=== PATIENT | female | born 1955 | race Caucasian/White ===

== ENCOUNTER 2016-05-25 16:05 | Inpatient (IN) | payer MEDICAID ==
[~2016-05-25] VITALS: Ht 160 cm; Wt 72.1 kg
[~2016-05-25 16:05] MED LIST: AMBIEN5 MG ORAL; CALCIUM CARBON500 M1 PO; CARBIDOPA-LEVODOPA PO; COGENTIN PO; COGENTIN1 MG/ML IM; D5W 50ML50 M1 IV; DILAUDID1 MG/1 ML IV; DOCUSATE SODIU250 MG ORAL; DONEPEZIL HCL5 M2 ORAL; FOLIC ACID1 MG ORAL; GABAPENTIN300 MG ORAL; GABAPENTIN800 MG ORAL; IBUPROFEN600 MG ORAL; KEPPRA1000 MG ORAL; KEPPRA500 M3 ORAL; LYRICA75 M1 ORAL; METHOCARBAMOL500 M1 PO; MIRALAX17 G2 ORAL; MYLANTA II30 ML PO; NALOXONE H0.4 MG/12 IV; PANTOPRAZOLE SO40 MG ORAL; ROBAXIN500 MG PO; SINEMET 25-1001 EAC1 ORAL; SINEMET 25/1001 EA ORAL; TYLENOL EXTRA500 MG ORAL; ZOFRAN4 M3 ORAL
[2016-05-25] MEDS ORDERED: ATIVAN2 MG ORAL (16:12)
[2016-05-25] MEDS ORDERED: NORCO 10-325 T1 EACH ORAL (16:12)
[2016-05-25] MEDS ORDERED: DULCOLAX5 MG RC (16:12)
[2016-05-25] MEDS ORDERED: FENTANYL1 EAC2 TDERMAL (16:12)
[2016-05-25] MEDS ORDERED: SENNA8.6 M2 PO (16:12)
[2016-05-25 16:24] VITALS: BP 106/68
--- NOTE | 2016-05-25 16:39 | Emergency Room Report ---
History of Present Illness General Chief Complaint: Chest Pain Source: Patient Present Illness HPI Patient presents from nursing facility with complaints of chest pain complains of pain midsternal sharp denies any headache or visual changes She has a mild cough as well Denies any abdominal pain She was watching TV when the pain came on She does not also complaining of chest pain midsternal Denies any pleurisy Rates the pain as 3/10 sharp Denies any fevers or chills Patient is chronically debilitated Denies any pleurisy And at this time is doing much better with the pain Allergies: Coded Allergies: No Known Allergies (Unverified , 02/18/16) Patient History Past Medical History: see triage record Pertinent Family History: none Reviewed Nursing Documentation: PMH: Agreed, PSxH: Agreed Nursing Documentation-PMH Hx Cancer: No Hx Gastrointestinal Problems: Yes - GERD Hx Neurological Problems: Yes - brain tumor/shunt,encephalitis,parkinsons disease Hx Seizures: Yes Review of Systems All Other Systems: negative except mentioned in HPI Physical Exam Vital Signs Date Time Temp Pulse Resp B/P Pulse Ox O2 Delivery O2 Flow Rate FiO2 05/25/16 16:05 98.4 100 16 124/78 96 Room Air Sp02 EP Interpretation: reviewed, normal General Appearance: well appearing, no apparent distress Head: normocephalic, atraumatic Eyes: bilateral eye EOMI, bilateral eye PERRL ENT: hearing grossly normal, normal pharynx, TMs + canals normal, uvula midline , other - Patient has a nonspecific rash on the facial area Neck: full range of motion, supple, no meningismus, no bony tend Respiratory: no rhonchi, no respiratory distress, no retraction, no accessory muscle use, wheezing - Bilaterally was noted Cardiovascular #1: normal peripheral pulses, regular rate, rhythm, no edema, no gallop, no JVD, no murmur Gastrointestinal: normal bowel sounds, non tender, soft, no mass, no organomegaly, non-distended, no guarding, no hernia, no pulsatile mass, no rebound Genitourinary: no CVA tenderness Musculoskeletal: other - Patient chronically debilitated Neurologic: oriented x3, responsive, sensory intact Psychiatric: mood/affect normal Skin: warm/dry, palpation normal Lymphatic: normal inspection, no adenopathy Medical Decision Making Diagnostic Impression: Primary Impression: ACS (acute coronary syndrome) ER Course Patient is a fairly complex patient with multiple differential to consideration including but not limited to cardiac cardiopulmonary and vascular emergencies Patient's blood work shows a minimally elevated white blood cell count Otherwise essentially at baseline levels Chest x-ray was normal Patient has done significantly better with breathing treatment Patient is time had intermittent discomfort and requires further inpatient care Labs Test 05/25/16 16:37 White Blood Count 12.8 K/UL (4.8-10.8) Red Blood Count 5.28 M/UL (4.20-5.40) Hemoglobin 15.1 G/DL (12.0-16.0) Hematocrit 46.4 % (37.0-47.0) Mean Corpuscular Volume 88 FL (80-99) Mean Corpuscular Hemoglobin 28.6 PG (27.0-31.0) Mean Corpuscular Hemoglobin Concent 32.6 G/DL (32.0-36.0) Red Cell Distribution Width 12.1 % (11.6-14.8) Platelet Count 297 K/UL (150-450) Mean Platelet Volume 7.2 FL (6.5-10.1) Neutrophils (%) (Auto) 62.4 % (45.0-75.0) Lymphocytes (%) (Auto) 26.8 % (20.0-45.0) Monocytes (%) (Auto) 7.0 % (1.0-10.0) Eosinophils (%) (Auto) 3.2 % (0.0-3.0) Basophils (%) (Auto) 0.6 % (0.0-2.0) Prothrombin Time 9.9 SEC (9.30-11.50) Prothromb Time International Ratio 1.0 (0.9-1.1) Activated Partial Thromboplast Time 25 SEC (23-33) Sodium Level 141 mEQ/L (135-145) Potassium Level 4.2 mEQ/L (3.4-4.9) Chloride Level 101 mEQ/L (98-107) Carbon Dioxide Level 21 mEQ/L (20-30) Anion Gap 19 (5-15) Blood Urea Nitrogen 17 mg/dL (7-23) Creatinine 0.7 mg/dL (0.5-0.9) Estimat Glomerular Filtration Rate > 60 mL/min (>60) Glucose Level 99 mg/dL (74-106) Calcium Level 10.1 mg/dL (8.6-10.2) Total Bilirubin 0.9 mg/dL (0.0-1.2) Aspartate Amino Transf (AST/SGOT) 21 U/L (5-40) Alanine Aminotransferase (ALT/SGPT) 23 U/L (3-33) Alkaline Phosphatase 124 U/L (35-104) Total Creatine Kinase 15 U/L (26-140) Creatine Kinase MB < 1.5 ng/mL (< 3.8) Creatine Kinase MB Relative Index 10.0 Troponin I < 0.30 ng/mL (<=0.30) Pro-B-Type Natriuretic Peptide 165 pg/mL (0-125) Total Protein 7.6 g/dL (6.6-8.7) Albumin 4.1 g/dL (3.5-5.2) Globulin 3.5 g/dL Albumin/Globulin Ratio 1.1 (1.0-2.7) EKG Diagnostic Results Rate: normal Rhythm: NSR ST Segments: other - Nonspecific ST and T-wave changes Rhythm Strip Diag. Results EP Interpretation: yes Rate: 77 Rhythm: NSR, no PVC's, no ectopy Chest X-Ray Diagnostic Results EP Interpretation: Yes Findings: no consolidation, no effusion, no pneumothorax Number of Views: 1 Last Vital Signs Date Time Temp Pulse Resp B/P Pulse Ox O2 Delivery O2 Flow Rate FiO2 05/25/16 16:25 115 16 Room Air 05/25/16 16:24 98.4 106/68 96 Status: improved Disposition: ADMITTED INPATIENT Condition: Serious CECE WOOD D.O. May 25, 2016 16:39
[2016-05-25] MEDS ORDERED: Morphine Sulfate 4mg/ml Inj IVP ONE (16:45)
[2016-05-25] MEDS ORDERED: Solu-MEDROL 125mg Inj IVP ONE (16:45)
[2016-05-25] MEDS ORDERED: Levalbuterol Inh UD 1.25mg/0.5ml HHN ONE (16:45)
[2016-05-25 16:58] LABS: BASOPHILS % (AUTO) 0.6 % (0.0-2.0); EOSINOPHILS % (AUTO) 3.2 % (0.0-3.0); LYMPHOCYTES % (AUTO) 26.8 % (20.0-45.0); MEAN CORPUSCULAR HEMOGLOBIN 28.6 PG (27.0-31.0); MEAN CORPUSCULAR HGB CONC 32.6 G/DL (32.0-36.0); MEAN CORPUSCULAR VOLUME 88 FL (80-99); MEAN PLATELET VOLUME 7.2 FL (6.5-10.1); NEUTROPHILS % (AUTO) 62.4 % (45.0-75.0); PLATELET COUNT 297 K/UL (150-450); RED BLOOD COUNT 5.28 M/UL (4.20-5.40); RED CELL DISTRIBUTION WIDTH 12.1 % (11.6-14.8); WHITE BLOOD COUNT 12.8 K/UL (4.8-10.8)
[2016-05-25 17:03] LABS: PROTHROMBIN TIME 9.9 SEC (9.30-11.50)
[2016-05-25 17:04] LABS: TROPONIN I < 0.30 ng/mL (<=0.30)
[2016-05-25 17:12] LABS: ALANINE AMINOTRANSFERASE 23 U/L (3-33); ALBUMIN/GLOBULIN RATIO 1.1 (1.0-2.7); ANION GAP 19 (5-15); ASPARTATE AMINO TRANSFERASE 21 U/L (5-40); CALCIUM 10.1 mg/dL (8.6-10.2); CARBON DIOXIDE 21 mEQ/L (20-30); CHLORIDE 101 mEQ/L (98-107); CREATININE 0.7 mg/dL (0.5-0.9); GLOMERULAR FILTRATION RATE > 60 mL/min (>60); HEMOLYSIS 14; POTASSIUM 4.2 mEQ/L (3.4-4.9); SODIUM 141 mEQ/L (135-145); TOTAL PROTEIN 7.6 g/dL (6.6-8.7)
[2016-05-25 17:15] LABS: CKMB < 1.5 ng/mL (< 3.8)
[2016-05-25 17:59] VITALS: BP 119/78
[2016-05-25] MEDS: Morphine Sulfate 4mg/ml Inj IVP ONE ×2 (19:03→19:07)
[2016-05-25 20:09] VITALS: BP 135/70
[2016-05-25 22:57] VITALS: BP 118/82
[2016-05-25] MEDS ORDERED: Bisacodyl EC 5mg tab ORAL PRN (23:15)
[2016-05-25] MEDS ORDERED: Ketorolac 30mg Inj IV PRN (23:15)
[2016-05-25] MEDS ORDERED: Zolpidem 5mg tab ORAL PRN (23:15)
[2016-05-25] MEDS ORDERED: Enalaprilat 2.5mg/2ml Inj IV PRN (23:15)
[2016-05-25] MEDS ORDERED: DuoNeb 0.5-3(2.5)mg/3ml neb HHN PRN (23:15)
[2016-05-25] MEDS ORDERED: Diltiazem 25mg/5ml IV PRN (23:15)
[2016-05-25] MEDS ORDERED: Nitroglycerin Subl 0.4mg tab (Bottle Of 25) SL PRN (23:15)
[2016-05-25] MEDS ORDERED: Morphine Sulfate 2mg/ml Inj IVP PRN (23:15)
[2016-05-25 23:43] VITALS: BP 122/82
[2016-05-26] VITALS (7 sets, daily range): BP systolic 93–114; BP diastolic 63–78
[2016-05-26 00:08] LABS: TROPONIN I < 0.30 ng/mL (<=0.30)
[2016-05-26] MEDS ORDERED: Aspirin Baby 81mg ORAL SCH (09:00)
[2016-05-26 09:04] LABS: BASOPHILS % (AUTO) 0.2 % (0.0-2.0); LYMPHOCYTES % (AUTO) 16.6 % (20.0-45.0); MEAN CORPUSCULAR HEMOGLOBIN 29.2 PG (27.0-31.0); MEAN CORPUSCULAR HGB CONC 33.6 G/DL (32.0-36.0); MEAN CORPUSCULAR VOLUME 87 FL (80-99); MEAN PLATELET VOLUME 7.1 FL (6.5-10.1); MONOCYTES % (AUTO) 2.9 % (1.0-10.0); NEUTROPHILS % (AUTO) 80.3 % (45.0-75.0); PLATELET COUNT 293 K/UL (150-450); RED BLOOD COUNT 5.17 M/UL (4.20-5.40); RED CELL DISTRIBUTION WIDTH 12.1 % (11.6-14.8); WHITE BLOOD COUNT 11.3 K/UL (4.8-10.8)
[2016-05-26 09:21] LABS: CRP QUANT 0.6 mg/dL (< 0.5)
[2016-05-26 09:25] LABS: PROTHROMBIN TIME 10.2 SEC (9.30-11.50)
[2016-05-26 09:27] LABS: TROPONIN I < 0.30 ng/mL (<=0.30)
[2016-05-26 09:31] LABS: THYROID STIMULATING HORMONE 0.753 uIU/mL (0.300-4.500)
[2016-05-26] MEDS: Lyrica 50mg cap ORAL SCH ×3 (10:18→17:26)
[2016-05-26] MEDS: Sinemet 25/100 tab ORAL SCH ×2 (10:19→17:23)
[2016-05-26] MEDS: Heparin 5000 units/ml inj SUBQ SCH ×2 (10:20→21:44)
--- NOTE | 2016-05-26 11:12 | Diagnostic Imaging Report ---
Indication: Chest pain Technique: One view of the chest Comparison: 02/18/2016 Findings: Again demonstrated is elevation left hemidiaphragm. Right sided ventriculoperitoneal shunt tubing is again demonstrated. Lungs and pleural spaces remain clear. Heart size is normal. No significant interim change Impression: No acute process. Findings as noted
--- NOTE | 2016-05-26 13:15 | History and Physical ---
History of Present Illness General Date patient seen: May 26, 2016 Reason for Hospitalization: Chest Pain Present Illness HPI 60-year-old female with history of brain tumor and resection, chronic pain syndrome, intractable pain, and Parkinson disorder, long term resident [facility] with chest complain of chest tightness. New on onset without radiation. She had had a redness of face that was treated with triple abx ointment without any response. Allergies: Coded Allergies: No Known Allergies (Unverified , 02/18/16) Medication History Scheduled Donepezil Hcl* (Donepezil Hcl*), 5 MG ORAL QHS, (Reported) Fentanyl 75MCG Patch* (Fentanyl 75MCG Patch*), 1 PATCH TDERMAL EVERY 72 HOURS, ( Reported) Levetiracetam (Levetiracetam), 500 MG ORAL Q12HR, (Reported) Levodopa/Carbidopa (Carbidopa-Levodopa 25-100 Tab), 1 TAB ORAL TWICE A DAY, ( Reported) Lorazepam* (Ativan*), 2 MG ORAL THREE TIMES A DAY, (Reported) Pregabalin* (Lyrica*), 100 MG ORAL THREE TIMES A DAY, (Reported) Scheduled PRN Acetaminophen* (Tylenol Extra Strength*), 325 MG ORAL Q6H PRN for Fever/Headache /Mild Pain, (Reported) Al Hydroxide/mg Hydroxide (Mag-Al Plus Suspension), 30 ML PO Q6HR PRN for dyspepsia, (Reported) Bisacodyl (Dulcolax), 10 MG RC for Constipation, (Reported) Dextrose (Dextrose 5%-Water IV Soln), 50 ML IV DAILY PRN for hypoglycemia, ( Reported) Hydrocodone Bit/Acetaminophen 10-325* ([place] 10-325*), 1 TAB ORAL Q4H PRN for For Pain, (Reported) Hydromorphone Hcl (Dilaudid), 1 MG IV Q4HR PRN for For Pain, (Reported) Methocarbamol (Methocarbamol), 500 MG PO Q8HR PRN for Muscle Spasm, (Reported) Naloxone Hcl (Naloxone Hcl*), 0.1 MG IV q24 PRN for sedation rr<10 or sbp<90mmHg , (Reported) Ondansetron* (Zofran*), 4 MG ORAL Q6H PRN for Nausea & Vomiting, (Reported) Polyethylene Glycol 3350* (Miralax*), 17 GM ORAL QHS PRN for Constipation, ( Reported) Zolpidem Tartrate* (Ambien*), 5 MG ORAL BEDTIME PRN for Insomnia, (Reported) Miscellaneous Medications Sennosides (Senna), 8.6 MG PO, (Reported) Patient History Healthcare decision maker Resuscitation status Full Code Advanced Directive on File Past Medical/Surgical History Past Medical/Surgical History: (1) longterm resident (2) Psychiatric disorder (3) Decubitus ulcer of buttock, stage 2 (4) Parkinson disease Review of Systems All Other Systems: negative except mentioned in HPI Physical Exam General Appearance: WD/WN Lines, tubes and drains: peripheral, central line HEENT: normocephalic, atraumatic Neck: non-tender, normal alignment Respiratory/Chest: chest wall non-tender, lungs clear Cardiovascular/Chest: normal peripheral pulses, normal rate Abdomen: normal bowel sounds, non tender Genitourinary/Rectal: normal genital exam 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 Last 24 Hour Vital Signs Date Time Temp Pulse Resp B/P Pulse Ox O2 Delivery O2 Flow Rate FiO2 05/26/16 12:04 98.2 84 18 104/68 96 Room Air 05/26/16 08:00 97.7 95 18 114/74 95 Room Air 05/26/16 04:00 97.9 89 21 95/67 90 Room Air 05/26/16 04:00 89 05/26/16 01:00 95 05/26/16 00:45 97.9 99 18 102/78 96 Room Air 05/25/16 23:50 98.4 103 23 122/82 96 Room Air 05/25/16 23:43 98.4 103 23 122/82 96 Room Air 05/25/16 22:57 98.4 110 17 118/82 98 Room Air 05/25/16 20:09 98.4 112 19 135/70 98 Room Air 05/25/16 19:37 98.4 05/25/16 17:59 98.4 115 18 119/78 98 Room Air 05/25/16 17:16 76 16 97 Room Air 21 05/25/16 17:16 21 05/25/16 17:16 78 16 98 Room Air 21 05/25/16 17:11 98.4 05/25/16 16:25 115 16 Room Air 05/25/16 16:24 98.4 115 16 106/68 96 Room Air 05/25/16 16:05 98.4 100 16 124/78 96 Room Air Intake and Output 05/25/16 05/26/16 19:00 07:00 Intake Total 0 ml Balance 0 ml Intake Oral 0 ml # Voids 1 Laboratory Tests Test 05/25/16 16:37 05/25/16 23:50 05/26/16 08:30 White Blood Count 12.8 K/UL (4.8-10.8) H 11.3 K/UL (4.8-10.8) H Red Blood Count 5.28 M/UL (4.20-5.40) 5.17 M/UL (4.20-5.40) Hemoglobin 15.1 G/DL (12.0-16.0) 15.1 G/DL (12.0-16.0) Hematocrit 46.4 % (37.0-47.0) 45.0 % (37.0-47.0) Mean Corpuscular Volume 88 FL (80-99) 87 FL (80-99) Mean Corpuscular Hemoglobin 28.6 PG (27.0-31.0) 29.2 PG (27.0-31.0) Mean Corpuscular Hemoglobin Concent 32.6 G/DL (32.0-36.0) 33.6 G/DL (32.0-36.0) Red Cell Distribution Width 12.1 % (11.6-14.8) 12.1 % (11.6-14.8) Platelet Count 297 K/UL (150-450) 293 K/UL (150-450) Mean Platelet Volume 7.2 FL (6.5-10.1) 7.1 FL (6.5-10.1) Neutrophils (%) (Auto) 62.4 % (45.0-75.0) 80.3 % (45.0-75.0) H Lymphocytes (%) (Auto) 26.8 % (20.0-45.0) 16.6 % (20.0-45.0) L Monocytes (%) (Auto) 7.0 % (1.0-10.0) 2.9 % (1.0-10.0) Eosinophils (%) (Auto) 3.2 % (0.0-3.0) H 0.0 % (0.0-3.0) Basophils (%) (Auto) 0.6 % (0.0-2.0) 0.2 % (0.0-2.0) Prothrombin Time 9.9 SEC (9.30-11.50) 10.2 SEC (9.30-11.50) Prothromb Time International Ratio 1.0 (0.9-1.1) 1.0 (0.9-1.1) Activated Partial Thromboplast Time 25 SEC (23-33) 25 SEC (23-33) Sodium Level 141 mEQ/L (135-145) Potassium Level 4.2 mEQ/L (3.4-4.9) Chloride Level 101 mEQ/L (98-107) Carbon Dioxide Level 21 mEQ/L (20-30) Anion Gap 19 (5-15) H Blood Urea Nitrogen 17 mg/dL (7-23) Creatinine 0.7 mg/dL (0.5-0.9) Estimat Glomerular Filtration Rate > 60 mL/min (>60) Glucose Level 99 mg/dL (74-106) Calcium Level 10.1 mg/dL (8.6-10.2) Total Bilirubin 0.9 mg/dL (0.0-1.2) Aspartate Amino Transf (AST/SGOT) 21 U/L (5-40) Alanine Aminotransferase (ALT/SGPT) 23 U/L (3-33) Alkaline Phosphatase 124 U/L (35-104) H Total Creatine Kinase 15 U/L (26-140) L Creatine Kinase MB < 1.5 ng/mL (< 3.8) Creatine Kinase MB Relative Index 10.0 Troponin I < 0.30 ng/mL (<=0.30) < 0.30 ng/mL (<=0.30) < 0.30 ng/mL (<=0.30) Pro-B-Type Natriuretic Peptide 165 pg/mL (0-125) H Total Protein 7.6 g/dL (6.6-8.7) Albumin 4.1 g/dL (3.5-5.2) Globulin 3.5 g/dL Albumin/Globulin Ratio 1.1 (1.0-2.7) C-Reactive Protein, Quantitative 0.6 mg/dL (< 0.5) H Triglycerides Level 50 mg/dL (< 150) Cholesterol Level 162 mg/dL (< 200) LDL Cholesterol 111 mg/dL (60-99) H HDL Cholesterol 41 mg/dL (> 60) Cholesterol/HDL Ratio 4.0 (3.3-4.4) Thyroid Stimulating Hormone (TSH) 0.753 uIU/mL (0.300-4.500) Height (Feet): 5 Height (Inches): 3.00 Weight (Pounds): 159 Medications Current Medications Medications (Trade) Dose Ordered Sig/Bushra Route PRN Reason Start Time Stop Time Status Last Admin Dose Admin Acetaminophen (Tylenol) 650 mg Q4H PRN ORAL FEVER 05/25/16 23:15 06/24/16 23:14 Albuterol/ Ipratropium (DuoNeb 0.5-3(2.5)mg/3ml) 3 ml Q4H PRN HHN Shortness of Breath 05/25/16 23:15 05/30/16 23:14 Aspirin (ASA) 162 mg DAILY ORAL 05/26/16 09:00 06/25/16 08:59 05/26/16 10:18 Carbidopa/Levodopa (Sinemet 25/100) 1 ea TWICE A DAY ORAL 05/26/16 09:00 06/25/16 08:59 05/26/16 10:19 Diltiazem HCl (Cardizem) 10 mg Q1H PRN IV heart rate more than 120, 05/25/16 23:15 06/24/16 23:14 Donepezil HCl (Aricept) 5 mg QHS ORAL 05/26/16 21:00 06/25/16 20:59 Enalaprilat (Vasotec) 2.5 mg Q6H PRN IV sbp more than 160 05/25/16 23:15 06/24/16 23:14 Fentanyl (Duragesic) 1 patch EVERY 72 HOURS TDERMAL 05/25/16 23:15 06/01/16 23:14 UNV Heparin Sodium (Porcine) (Heparin 5000 units/ml) 5,000 units EVERY 12 HOURS SUBQ 05/26/16 09:00 06/25/16 08:59 05/26/16 10:20 Ketorolac Tromethamine (Toradol 30mg) 30 mg Q6H PRN IV moderate pain ( 4-6) 05/25/16 23:15 05/30/16 23:14 Levetiracetam (Keppra) 500 mg Q12HR ORAL 05/26/16 09:00 06/25/16 08:59 05/26/16 10:19 Morphine Sulfate (Morphine Sulfate) 2 mg Q4H PRN IVP severe Pain (Pain Scale 7-10) 05/25/16 23:15 06/01/16 23:14 05/26/16 00:21 Nitroglycerin (Ntg) 0.4 mg Q5M PRN SL Prn Chest Pain 05/25/16 23:15 06/24/16 23:14 Ondansetron HCl (Zofran) 4 mg Q6H PRN IVP Nausea & Vomiting 05/25/16 23:15 06/24/16 23:14 Pantoprazole (Protonix) 40 mg DAILY ORAL 05/26/16 09:00 06/25/16 08:59 05/26/16 10:19 Polyethylene Glycol (Miralax) 17 gm DAILYPRN PRN ORAL Constipation 05/25/16 23:15 06/24/16 23:14 Pregabalin (Lyrica) 100 mg THREE TIMES A DAY ORAL 05/26/16 09:00 06/25/16 08:59 05/26/16 10:18 Sennosides (Senokot) 8.6 mg DAILY ORAL 05/26/16 09:00 06/25/16 08:59 05/26/16 10:19 Temazepam (Restoril) 15 mg HSPRN PRN ORAL Insomnia 05/25/16 23:15 06/01/16 23:14 Assessment/Plan Problem List: (1) ACS (acute coronary syndrome) ICD Codes: I24.9 - Acute ischemic heart disease, unspecified SNOMED: 730751372 (2) Seborrheic dermatitis ICD Codes: L21.9 - Seborrheic dermatitis, unspecified SNOMED: 16682217 (3) Psychiatric disorder ICD Codes: F99 - Mental disorder, not otherwise specified SNOMED: 18697025, 845681464 (4) Intractable back pain ICD Codes: M54.9 - Dorsalgia, unspecified SNOMED: 478090676 (5) Paraplegia ICD Codes: G82.20 - Paraplegia, unspecified SNOMED: 76804888 Assessment/Plan serial ekg, troponin, ekg cario evaluation Neuro evaluation psych evaluation trial of steroids for facial rash JAHAIRA PERRY May 26, 2016 13:15
--- NOTE | 2016-05-26 13:33 | Consultation ---
Consult Note Consult Note [id number] SUSANA EVANS M.D. May 26, 2016 13:33
[2016-05-26] MEDS: Triamcinolone 0.1% oint TOPIC SCH ×2 (17:24→21:43)
--- NOTE | 2016-05-26 20:17 | Consultation ---
DATE OF CONSULTATION: INFECTIOUS DISEASE CONSULTATION REFERRING PHYSICIAN: Acacia Rodriguez M.D. REASON FOR CONSULTATION: Evaluation of the patient for facial rash, possible infectious etiology. HISTORY OF PRESENT ILLNESS: The patient is a 60-year-old female with multiple medical problems as listed below, who was admitted to this medical center and was found to have a facial rash that started about a week ago. This has not been responded to the topical antibiotic and also the steroid. Infectious consultation requested for further evaluation of the patient. The patient is complaining of having irritation the face, however, denying fever or chills. PAST MEDICAL HISTORY: 1. History of diplopia. 2. History of right hearing loss. 3. Parkinson disease. 4. Seizure disorder. 5. Peripheral neuropathy. 6. History of GERD. 7. Anxiety. 8. History of brain tumor. MEDICATIONS: Currently, she is off of antibiotics and has been started on Kenalog topical. ALLERGIES: No known drug allergies. FAMILY HISTORY: Noncontributory. PHYSICAL EXAMINATION: VITAL SIGNS: Temperature 98 degrees, blood pressure 104/68, pulse 64, and respiratory rate 18. HEENT: The patient has bilateral erythematous rash over the cheek, nasal fold/forehead, eyebrows and nose. No open wound. NECK: No lymphadenopathy. CHEST: Coarse breathing sounds. HEART: S1 and S2. ABDOMEN: Soft. EXTREMITIES: No cyanosis. . NEUROLOGIC: Awake. LABORATORY AND DIAGNOSTIC DATA: White blood cells and platelets 293,000. Urinalysis unremarkable. BUN 17 and creatinine 0.7. ALT and AST unremarkable. Alkaline phosphatase 124. Wound culture from January is growing MRSA and Proteus. ASSESSMENT: The patient is a 60-year-old female with multiple medical problems having lower extremity decubitus stage 2 to 3 and has gross infection. The patient has facial erythema, rash that is symmetric, does not appear to be an infectious etiology for that the patient may benefit from a skin biopsy and further workup by brine plant operator. The patient has been started on intravenous steroids and that seems to be reasonable to have a trial of topical steroids for long duration. PLAN: 1. We will monitor patient off of antibiotics. 2. Monitor CBC. 3. Monitor BMP. 4. We will monitor the patient's clinical progression. Based on patient's labs and further workup and clinical picture, we will do further workup. Thank you, Dr. Rodriguez, for allowing me to participate in the care of this patient. I will follow the patient with you during this hospitalization. Demetrius Edouard M.D. DR: BLAYNE JOB#: [id number] CC:
[2016-05-26] MEDS ORDERED: Donepezil 5mg Tab ORAL SCH (21:00)
--- NOTE | 2016-05-26 23:07 | Consultation ---
DATE OF CONSULTATION: 05/26/2016 CARDIOLOGY CONSULTATION REQUESTING PHYSICIAN: Acacia Rodriguez M.D. REASON FOR CONSULT: Chest pain. HISTORY OF PRESENT ILLNESS: History is obtained from the chart, the patient, and treating providers. The patient is a 60-year-old, white female with a history of previous brain tumor and subsequent ventriculoperitoneal shunt treated in the (details unavailable and the patient is a fair historian). She [facility] the hospital last night with complaints of sharp chest pain. The pain began while she was lying in bed, watching television. She reports no previous similar symptoms. She has no history of hypertension, diabetes, hyperlipidemia, tobacco use, or previous coronary artery disease. In the emergency room, her vital signs were normal with a blood pressure of 124/78. Initial troponin was negative. She was admitted to telemetry. Cardiology evaluation was requested. PAST MEDICAL HISTORY: As noted above. Also history of Parkinson disease. MEDICATIONS: Aricept 5 mg q.h.s., Keppra 500 mg q.12 hours, Sinemet 25/100 mg one twice daily, Lyrica 100 mg 3 times daily, aspirin 162 mg daily, subcutaneous heparin 5000 units q.12 hours, albuterol nebulizer q.4 hours p.r.n., nitroglycerin p.r.n., Tylenol p.r.n., and Zofran p.r.n. ALLERGIES: No known drug allergies. FAMILY HISTORY: Positive for diabetes in the patient's mother, who in her 80s and for CVA in the patient's father, who also in his 80s. SOCIAL HISTORY: The patient is a nonsmoker. Does not drink alcohol or use any drugs. PHYSICAL EXAMINATION: VITAL SIGNS: Blood pressure is 105/65, pulse 69 regular, respirations 18, and afebrile. GENERAL: The patient is alert, well-developed, white female, in no acute distress. HEENT: Normocephalic and atraumatic. Pupils are equal, round, and reactive to light. Sclerae anicteric. NECK: Supple. There is no adenopathy. No jugular venous distention. LUNGS: Clear to auscultation bilaterally. HEART: Regular S1 and S2. No murmurs, rubs, S3, or S4. ABDOMEN: Soft and nontender. No palpable mass. EXTREMITIES: No cyanosis, clubbing, or edema. LABORATORY DATA: Troponin is less than 0.3 on admission, repeat today less than 0.3. Sodium 141, potassium 4.2, BUN 17, and creatinine 0.7. Hemoglobin 15, hematocrit 45, white blood count 11,300, and platelets 293,000. EKG shows sinus tachycardia with rate of 125 beats per minute, axis 0 degrees, no ST-segment or T-wave changes. There is a large amount of artifact on the tracing. 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 ASSESSMENT AND RECOMMENDATIONS: The patient is a 60-year-old woman with minimal coronary risk factors, who presents with chest pain which began while she was at rest. She is a fair historian. She has ruled out for myocardial infarction with negative troponin levels. An echo is pending. I would favor obtaining a stress nuclear study to assess possible myocardial ischemia. We would give aspirin and obtain a lipid panel. Further recommendations will follow based on results of the above testing. Marleny Salgado M.D. DR: THO JOB#: [id number] CC:
[2016-05-27 04:18] VITALS: BP 91/58
[2016-05-27] MEDS: Triamcinolone 0.1% oint TOPIC SCH ×3 (06:25→21:27)
[2016-05-27] MEDS: Miralax 17gm pkt ORAL PRN ×2 (06:26→09:54)
[2016-05-27 07:56] LABS: TROPONIN I < 0.30 ng/mL (<=0.30)
[2016-05-27 08:00] VITALS: BP 93/57
[2016-05-27 08:04] LABS: CHOLESTEROL/HDL RATIO 4.5 (3.3-4.4)
[2016-05-27] MEDS: Sinemet 25/100 tab ORAL SCH (09:00)
[2016-05-27] MEDS: Aspirin EC 81mg tab ORAL SCH (09:00)
[2016-05-27] MEDS: Lyrica 50mg cap ORAL SCH ×4 (09:00→19:01)
[2016-05-27] MEDS: Heparin 5000 units/ml inj SUBQ SCH ×2 (09:00→21:28)
--- NOTE | 2016-05-27 10:45 | Infectious Diseases Prog Note ---
Assessment/Plan Assessment/Plan A: The patient is a 60-year-old female with Facial rash , doubt infectious etiology Lower Ext decubitus , not infected ( Wound culture : January 2016 : growing MRSA and Proteus: colonizer ) no fever or chills History of right hearing loss. Parkinson disease. Seizure disorder. Peripheral neuropathy. History of GERD. Anxiety. History of brain tumor PLAN: monitor patient off of antibiotics Monitor CBC Monitor BMP IV steroids Subjective Constitutional: Denies: anorexia, chills, drenching sweats, fatigue, fever, no symptoms, other Allergies: Coded Allergies: No Known Allergies (Unverified , 02/18/16) Objective Vital Signs Last 24 Hour Vital Signs Date Time Temp Pulse Resp B/P Pulse Ox O2 Delivery O2 Flow Rate FiO2 05/27/16 04:18 97.7 72 19 91/58 96 Room Air 05/27/16 00:00 70 05/26/16 23:52 97.0 66 18 93/63 96 Room Air 05/26/16 20:00 96.8 70 18 98/64 96 Room Air 05/26/16 20:00 82 05/26/16 18:56 89 18 Room Air 21.0 94 05/26/16 16:00 97.9 69 18 105/65 96 Room Air 05/26/16 16:00 88 05/26/16 12:04 98.2 84 18 104/68 96 Room Air 05/26/16 12:00 88 Height (Feet): 5 Height (Inches): 3.00 Weight (Pounds): 159 HEENT: anicteric Respiratory/Chest: normal breath sounds Cardiovascular: regular rhythm Abdomen: no organomegaly Laboratory Tests Test 05/27/16 06:50 Troponin I < 0.30 ng/mL (<=0.30) Triglycerides Level 96 mg/dL (< 150) Cholesterol Level 153 mg/dL (< 200) LDL Cholesterol 100 mg/dL (60-99) H HDL Cholesterol 34 mg/dL (> 60) Cholesterol/HDL Ratio 4.5 (3.3-4.4) H Current Medications Medications (Trade) Dose Ordered Sig/Bushra Route PRN Reason Start Time Stop Time Status Last Admin Dose Admin Acetaminophen (Tylenol) 650 mg Q4H PRN ORAL FEVER 05/25/16 23:15 06/24/16 23:14 Albuterol/ Ipratropium (DuoNeb 0.5-3(2.5)mg/3ml) 3 ml Q4H PRN HHN Shortness of Breath 05/25/16 23:15 05/30/16 23:14 Aspirin (Ecotrin) 81 mg DAILY ORAL 05/27/16 09:00 06/26/16 08:59 Carbidopa/Levodopa (Sinemet 25/100) 1 ea TWICE A DAY ORAL 05/26/16 09:00 06/25/16 08:59 05/26/16 17:23 Diltiazem HCl (Cardizem) 10 mg Q1H PRN IV heart rate more than 120, 05/25/16 23:15 06/24/16 23:14 Donepezil HCl (Aricept) 5 mg QHS ORAL 05/26/16 21:00 06/25/16 20:59 05/26/16 21:42 Enalaprilat (Vasotec) 2.5 mg Q6H PRN IV sbp more than 160 05/25/16 23:15 06/24/16 23:14 Heparin Sodium (Porcine) (Heparin 5000 units/ml) 5,000 units EVERY 12 HOURS SUBQ 05/26/16 09:00 06/25/16 08:59 05/26/16 21:44 Ketorolac Tromethamine (Toradol 30mg) 30 mg Q6H PRN IV moderate pain ( 4-6) 05/25/16 23:15 05/30/16 23:14 Levetiracetam (Keppra) 500 mg Q12HR ORAL 05/26/16 09:00 06/25/16 08:59 05/26/16 21:42 Morphine Sulfate (Morphine Sulfate) 2 mg Q4H PRN IVP severe Pain (Pain Scale 7-10) 05/25/16 23:15 06/01/16 23:14 05/26/16 00:21 Nitroglycerin (Ntg) 0.4 mg Q5M PRN SL Prn Chest Pain 05/25/16 23:15 06/24/16 23:14 Ondansetron HCl (Zofran) 4 mg Q6H PRN IVP Nausea & Vomiting 05/25/16 23:15 06/24/16 23:14 Pantoprazole (Protonix) 40 mg DAILY ORAL 05/26/16 09:00 06/25/16 08:59 05/26/16 10:19 Polyethylene Glycol (Miralax) 17 gm DAILYPRN PRN ORAL Constipation 05/25/16 23:15 06/24/16 23:14 05/27/16 09:54 Pregabalin (Lyrica) 100 mg THREE TIMES A DAY ORAL 05/26/16 09:00 06/25/16 08:59 05/26/16 13:50 Sennosides (Senokot) 8.6 mg DAILY ORAL 05/26/16 09:00 06/25/16 08:59 05/27/16 09:54 Temazepam (Restoril) 15 mg HSPRN PRN ORAL Insomnia 05/25/16 23:15 06/01/16 23:14 Triamcinolone (Kenalog) 1 applic Q8HR TOPIC 05/26/16 15:00 06/25/16 14:59 05/27/16 06:25 SUSANA EVANS M.D. May 27, 2016 10:45
[2016-05-27 12:00] VITALS: BP 94/67
--- NOTE | 2016-05-27 14:02 | Cardiology Report ---
APPROVED REPORT EKG Measurement Heart [id number] CA [id number] Sinus tachycardia Otherwise normal ECG
--- NOTE | 2016-05-27 14:26 | Cardiology Report ---
APPROVED REPORT EXAM: Two-dimensional and M-mode echocardiogram with Doppler and color Doppler. INDICATION LV function Technically difficult study due to very poor acoustical windows. M-mode measurements of left ventricle not obtainable due to cardiac position (angle) Normal left ventricular chamber size, systolic function and wall motion to extent visualized. Left ventricular ejection fraction grossly estimated to be 65 %. Study quality precludes accurate assessment of regional wall motion. Mild left ventricular hypertrophy by 2-D. No evidence of pericardial effusion. All other cardiac chamber sizes are within normal limits. Focal aortic valve sclerosis with adequate cusp excursion. Thickened mitral valve leaflets with normal excursion. Mitral annulus and aortic root calcification. Pulmonic valve not well visualized. Normal tricuspid valve structure. IVC at normal size with physiologic collapse. A color flow and spectral Doppler study was performed and revealed: No aortic regurgitation. No aortic stenosis. Trace mitral regurgitation. No mitral stenosis. Mitral diastolic velocities suggest reduced left ventricular relaxation c/w mild LV diastolic dysfunction (Grade I). Trace tricuspid regurgitation. Tricuspid systolic velocities suggests peak right ventricular systolic pressure of 16 mmHg. No pulmonic regurgitation present.
--- NOTE | 2016-05-27 15:41 | Pulmonology Progress Note ---
Assessment/Plan Problems: (1) ACS (acute coronary syndrome) (2) Seborrheic dermatitis (3) Psychiatric disorder (4) Intractable back pain (5) Paraplegia Assessment/Plan patient refusing most of the meds facial redness not better f/u cardiology recommendations Subjective ROS Limited/Unobtainable: No Constitutional: Reports: no symptoms HEENT: Repors: no symptoms Respiratory: Reports: no symptoms Cardiovascular: Reports: no symptoms Allergies: Coded Allergies: No Known Allergies (Unverified , 02/18/16) Objective Last 24 Hour Vital Signs Date Time Temp Pulse Resp B/P Pulse Ox O2 Delivery O2 Flow Rate FiO2 05/27/16 12:00 89 05/27/16 12:00 97.9 18 94/67 96 Room Air 05/27/16 08:00 97.3 64 19 93/57 96 Room Air 05/27/16 08:00 63 05/27/16 04:18 97.7 72 19 91/58 96 Room Air 05/27/16 00:00 70 05/26/16 23:52 97.0 66 18 93/63 96 Room Air 05/26/16 20:00 96.8 70 18 98/64 96 Room Air 05/26/16 20:00 82 05/26/16 18:56 89 18 Room Air 21.0 94 05/26/16 16:00 97.9 69 18 105/65 96 Room Air 05/26/16 16:00 88 Intake and Output 05/26/16 05/27/16 19:00 07:00 Intake Total 600 ml 300 ml Balance 600 ml 300 ml Intake Oral 600 ml 300 ml # Voids 2 General Appearance: WD/WN HEENT: normocephalic Respiratory/Chest: chest wall non-tender, lungs clear Cardiovascular: normal peripheral pulses, normal rate Abdomen: normal bowel sounds, soft, non tender Extremities: no cyanosis Laboratory Tests 05/27/16 06:50: Troponin I < 0.30, Triglycerides Level 96, Cholesterol Level 153, LDL Cholesterol 100H, HDL Cholesterol 34, Cholesterol/HDL Ratio 4.5H Current Medications Medications (Trade) Dose Ordered Sig/Bushra Route PRN Reason Start Time Stop Time Status Last Admin Dose Admin Acetaminophen (Tylenol) 650 mg Q4H PRN ORAL FEVER 05/25/16 23:15 06/24/16 23:14 Albuterol/ Ipratropium (DuoNeb 0.5-3(2.5)mg/3ml) 3 ml Q4H PRN HHN Shortness of Breath 05/25/16 23:15 05/30/16 23:14 Aspirin (Ecotrin) 81 mg DAILY ORAL 05/27/16 09:00 06/26/16 08:59 Carbidopa/Levodopa (Sinemet 25/100) 1 ea TWICE A DAY ORAL 05/26/16 09:00 06/25/16 08:59 05/26/16 17:23 Diltiazem HCl (Cardizem) 10 mg Q1H PRN IV heart rate more than 120, 05/25/16 23:15 06/24/16 23:14 Donepezil HCl (Aricept) 5 mg QHS ORAL 05/26/16 21:00 06/25/16 20:59 05/26/16 21:42 Enalaprilat (Vasotec) 2.5 mg Q6H PRN IV sbp more than 160 05/25/16 23:15 06/24/16 23:14 Heparin Sodium (Porcine) (Heparin 5000 units/ml) 5,000 units EVERY 12 HOURS SUBQ 05/26/16 09:00 06/25/16 08:59 05/26/16 21:44 Ketorolac Tromethamine (Toradol 30mg) 30 mg Q6H PRN IV moderate pain ( 4-6) 05/25/16 23:15 05/30/16 23:14 Levetiracetam (Keppra) 500 mg Q12HR ORAL 05/26/16 09:00 06/25/16 08:59 05/26/16 21:42 Morphine Sulfate (Morphine Sulfate) 2 mg Q4H PRN IVP severe Pain (Pain Scale 7-10) 05/25/16 23:15 06/01/16 23:14 05/26/16 00:21 Nitroglycerin (Ntg) 0.4 mg Q5M PRN SL Prn Chest Pain 05/25/16 23:15 06/24/16 23:14 Ondansetron HCl (Zofran) 4 mg Q6H PRN IVP Nausea & Vomiting 05/25/16 23:15 06/24/16 23:14 Pantoprazole (Protonix) 40 mg DAILY ORAL 05/26/16 09:00 06/25/16 08:59 05/26/16 10:19 Polyethylene Glycol (Miralax) 17 gm DAILYPRN PRN ORAL Constipation 05/25/16 23:15 06/24/16 23:14 05/27/16 09:54 Pregabalin (Lyrica) 100 mg THREE TIMES A DAY ORAL 05/26/16 09:00 06/25/16 08:59 05/26/16 13:50 Sennosides (Senokot) 8.6 mg DAILY ORAL 05/26/16 09:00 06/25/16 08:59 05/27/16 09:54 Temazepam (Restoril) 15 mg HSPRN PRN ORAL Insomnia 05/25/16 23:15 06/01/16 23:14 Triamcinolone (Kenalog) 1 applic Q8HR TOPIC 05/26/16 15:00 06/25/16 14:59 05/27/16 14:28 JAHAIRA PERRY May 27, 2016 15:41
[2016-05-27 16:00] VITALS: BP_SYST 104; BP_SYST 109; BP_DIAS 59; BP_DIAS 73
[2016-05-27] MEDS ORDERED: Artificial Tears 1.4% Op Soln BOTH EYES PRN (16:00)
--- NOTE | 2016-05-27 16:18 | Neurology Progress Note ---
Interim History Interim History ROS Limited/Unobtainable: No Objective Physical Exam Last Vital Signs Date Time Temp Pulse Resp B/P Pulse Ox O2 Delivery O2 Flow Rate FiO2 05/27/16 16:00 98.2 92 18 104/73 94 Room Air 05/26/16 18:56 21.0 94 Laboratory Tests Test 05/27/16 06:50 Troponin I < 0.30 ng/mL (<=0.30) Triglycerides Level 96 mg/dL (< 150) Cholesterol Level 153 mg/dL (< 200) LDL Cholesterol 100 mg/dL (60-99) H HDL Cholesterol 34 mg/dL (> 60) Cholesterol/HDL Ratio 4.5 (3.3-4.4) H Impression/Recommendations Problems: (1) right sided neuropathic pain, intractable. (2) neurologic deterioration, r/o VPshunt failure r/o myelopathy (3) Paraplegia (4) Intractable pain Recommendations #[id number] mri brai/c spine DAVINA TOUSSAINT May 27, 2016 16:18
--- NOTE | 2016-05-27 16:33 | Cardiology Progress Note ---
Assessment/Plan Status: stable, progressing Status Narrative Mrs Kamara has ruled out for myocardial infarction with negative serial troponin levels. ECHO, though technically difficult, shows normal LV function. Assessment/Plan Would favor stress nuclear testing to rule out myocardial ischemia. She refuses testing, however. Would therefore defer further cardiac testing and continue cardiac risk factor management -asa, wt loss, avoidance of tobacco. BP - nl. ? further evaluation for possible bronchitis, given c/o cough, dyspnea, per Dr Rodriguez. Subjective ROS Limited/Unobtainable: No Subjective Mrs Kamara c/o cough/ chest pain Objective Last 24 Hour Vital Signs Date Time Temp Pulse Resp B/P Pulse Ox O2 Delivery O2 Flow Rate FiO2 05/27/16 16:00 98.2 92 18 104/73 94 Room Air 05/27/16 12:00 89 05/27/16 12:00 97.9 18 94/67 96 Room Air 05/27/16 08:00 97.3 64 19 93/57 96 Room Air 05/27/16 08:00 63 05/27/16 04:18 97.7 72 19 91/58 96 Room Air 05/27/16 00:00 70 05/26/16 23:52 97.0 66 18 93/63 96 Room Air 05/26/16 20:00 96.8 70 18 98/64 96 Room Air 05/26/16 20:00 82 05/26/16 18:56 89 18 Room Air 21.0 94 General Appearance: WD/WN, alert, obese EENT: PERRL/EOMI Neck: supple, no JVD Rhythm: NSR Cardiovascular: normal peripheral pulses, normal rate, regular rhythm Respiratory/Chest: rhonchi - bilaterally Abdomen: non tender, soft Extremities: non-tender, no swelling Intake and Output 05/26/16 05/27/16 19:00 07:00 Intake Total 600 ml 300 ml Balance 600 ml 300 ml Intake Oral 600 ml 300 ml # Voids 2 Laboratory Tests Test 05/27/16 06:50 Troponin I < 0.30 ng/mL (<=0.30) Triglycerides Level 96 mg/dL (< 150) Cholesterol Level 153 mg/dL (< 200) LDL Cholesterol 100 mg/dL (60-99) H HDL Cholesterol 34 mg/dL (> 60) Cholesterol/HDL Ratio 4.5 (3.3-4.4) H VIGNESH ELLIOTT May 27, 2016 16:33
[2016-05-27] MEDS: DULoxetine 30mg cap ORAL SCH (17:30)
--- NOTE | 2016-05-27 19:47 | Consultation ---
DATE OF CONSULTATION: 05/27/2016 CONSULTING PHYSICIAN: Acacia Rodriguez M.D. CHIEF COMPLAINT: Facial redness/rash. REASON FOR CONSULTATION: Facial rash and history of decubitus ulcer. HISTORY OF PRESENT ILLNESS: The patient is an otherwise healthy 60-year-old woman. She stated that the patient had previously brain tumor resection. She has chronic pain and also bilateral lower extremity paraplegia. The patient stated that two weeks ago, the patient has been at the care facility and developed a rash that resulted in blisters, that is a purulent material, and was extremely itchy. She said that it never happened before except for when she had an allergic reaction to azithromycin. She stated that she had been given triple antibiotic ointment on her face, which did not improve it at all and recently has been switched to a different ointment that had improved it. However, she still has persistent redness even though there have been no more pustules or purulent material. PAST MEDICAL HISTORY: Psychiatric disorder, history of pressure ulcer of the buttock, and Parkinson's disease. MEDICATIONS: The patient is on Aricept, Kenalog ointment, Keppra, Sinemet, Lyrica, Protonix, Senokot, aspirin, heparin, Duragesic, albuterol inhaler, nitroglycerin p.r.n., Cardizem, Vasotec, Restoril, Zofran, and MiraLax. PHYSICAL EXAMINATION: GENERAL: The patient is alert and oriented. She is in no acute distress. HEENT: She is normocephalic. PERRLA. EOMI. Her face is slightly reddish in color. She has some healed scab on her nose. There were no any obvious pustules or open wounds on her face. Facial nerve was completely intact and she stated that she did have some burning sensation in her cheeks. NECK: No lymphadenopathy. CHEST: Clear. ABDOMEN: Soft, nontender, and nondistended. EXTREMITIES: Her bilateral lower extremities, she did not have any open wounds on her heels and the patient would not let me roll her to examine her back or her sacral area. ASSESSMENT: 1. The patient has a history of facial rash. The patient stated that before it was purulent. Currently, she has some resolving redness of all areas. The patient stated that she has responded to the Kenalog cream. 2. History of decubitus ulcer. Also, the patient has Parkinson and also the patient has lower extremity paralysis and has high risk for pressure ulcers. RECOMMENDATIONS: 1. Since the triamcinolone cream is currently working, I recommend continuing it. However, in order to determine the underlying etiology, if it is possible, to have the patient see a inventory control supervisor for a skin biopsy, that would also elucidate the underlying etiology and also if there is any purulent material or any pustules, we will incise and drain these and send for culture. 2. History of pressure ulcer. On examination of the patient lying in bed, I do not see any pressure ulcers, however, the patient did not let me roll her to examine the sacral area, however because of her immobility and inability to offload, she is at high risk for developing pressure ulcers. For the pressure ulcer prevention, I recommend to please turn and move the patient every two hours at a minimum when in bed. Please encourage the patient to shift weight if possible. She is able to use her upper extremities, so this will allow her to offload. Please do not drag the patient across the bed and use move sheets to move her. Please elevate her heel off the bed while placing pillows length [place] underneath calves. Inspect the skin daily and hydrate the skin daily with moisturizing lotion, but do not massage over bony prominences. Please . Also, maintain the head of the bed at the lowest degree of elevation possible and please apply zinc oxide barrier ointment since the patient is unable to clean herself. Thank you for this consultation. Samra Ga M.D. DR: JOSE JOB#: [id number] CC:
[2016-05-27 20:00] VITALS: BP 107/63
--- NOTE | 2016-05-27 23:08 | Consultation ---
DATE OF CONSULTATION: HISTORY OF PRESENT ILLNESS: A 60 years old female seen for neurological consultation to evaluate for intractable pain and inability to ambulate According to the patient, who is reasonable historian, known that approximately in , she fell into coma, which she remained in comatose for another 2 or 2-1/2 years, being intubated. She had a craniotomy, tumor was removed from her brain, and she was placed on ventriculoperitoneal shunt. Initially, she had a weakness in right upper and right lower extremity. Upon awakening from coma, she continued to have burning pains in the right side of the body. She had a significant right hearing loss and diplopia. She was recuperating well and was achieved to the level when she was moving her arms and was able to do making her bed while sitting in a wheelchair or standing on her feet. She was unable to ambulate on her own. She had no urine or bowel incontinence. The patient was able to remain in a [facility] Care Facility and was able to take care of herself. Gradually, pain subsided and she was pain-free for many years. One year ago, she had a first in her life generalized seizure, placed on Keppra, and then five months ago for no obvious reason, being transferred from one facility to another one, being somewhat anxious about this. She started to develop again right face, right hand, right-sided nerves burning constantly. She was placed on opiates and felt no improvement. In addition, the patient noted further progression of the symptomatology. She stopped moving properly her lower extremities and was unable to stand up on her feet as previously. She was unable to use her wheelchair where she was able to paddle arms, but also legs. She developed a severe intractable right face and body burning pain and numbness in her left foot. There is no urine or bowel incontinence. Last CT scan of the brain obtained three months ago revealed a SERVICE DELIVERY ANALYST shunt in place with somewhat out of proportion hydrocephaly given that the patient is on SERVICE DELIVERY ANALYST shunt. There is no evidence of acute abnormality. Currently, the patient is being treated for intractable pain, chest pain, and a mild cough. On admission, vital signs were stable. She was afebrile. Heart rate of 100. Chest x-ray was normal. Laboratory work was obtained revealing a CBC study with WBC 12.8. Normal coagulation panel. Chemistry panel with anion gap of 19, phosphatase 124, and BNP of 165, otherwise normal including troponin, TSH, and lipid panel. Imaging studies included chest x-ray, which revealed elevation of left hemidiaphragm and right-sided SERVICE DELIVERY ANALYST shunt tubing demonstrated no acute changes noted. The 2D echocardiogram was obtained and revealed no mural thrombi. Ejection fraction was 65%. Since admission until present, there was no improvement. Lower extremity decubitus were detected, but they were not effected. She had no fevers or chills. The patient now complains of constipation for the last six days. PAST MEDICAL HISTORY: The patient has a history of Parkinson disease, chronic pain, status post craniotomy with hydrocephaly, SERVICE DELIVERY ANALYST shunt in place, and status post tracheostomy. The patient's treatment list includes Ambien, Lyrica 100 mg t.i.d., Mirapex, meloxicam, methocarbamol, lorazepam 2 mg t.i.d., Sinemet, Dilaudid q.4 hours p.r.n., [place] p.r.n., fentanyl patch, and donepezil 5 mg. ALLERGIES: None reported. FAMILY HISTORY: Noncontributory. SOCIAL HISTORY: Lives in a nursing facility. Denies alcohol or drug abuse. Nonsmoker. REVIEW OF SYSTEMS: Persistent burning sensation right side of the body and face, numbness in left foot, history of single seizure episode, and severe constipation. Denies headache or dizziness. Admitted having diplopia. Significant right-sided hearing loss. No chest pain. No palpitations. No abdominal pain. PHYSICAL EXAMINATION: GENERAL: A well-developed, moderately obese female, not in acute distress, lying comfortably in bed and watching TV. VITAL SIGNS: Her vital signs now stable. Blood pressure 94/67 and temperature 97.3. HEENT: Head normocephalic. Glaucoma with dysesthesia right side of the head and face, antalgic positioning due to pain. EXTREMITIES: No deformities. Peripheral pulses 1+ and symmetric. MENTAL STATUS: The patient is alert and oriented x3. Speech is fluent. Language is intact. There is no aphasia. No apraxia. Cognitive function normal. Somewhat anxious and tensed, stating that she would like to be off of opiates. CRANIAL NERVE II: Pupils both responding to light and accommodation. Extraocular movement with unsustained horizontal and nystagmus. Unilateral gait. CRANIAL NERVE V: Normal corneal responses. CRANIAL NERVE VII: No facial asymmetry. CRANIAL NERVE VIII: Decreased hearing on the right. CRANIAL NERVE IX THROUGH XII: Tongue is in midline. Symmetric palate elevation. MOTOR EXAMINATION: Revealed diffuse muscle wasting small muscles of both hands. No involuntary movement. 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 Left lower extremity, able to hold against the gravity degree, but not higher. Unable to lift right lower extremity. Able to bend both knees with significant weakness. There is increased muscle tone both lower extremities, more on the right. Deep reflexes brisk 2 to 3+ bilaterally, somewhat higher on the right side. Plantar responses flexor on the left and mute on the right. SENSORY EXAMINATION: Reduced response to pin stimulation with dysesthesia right face and right side of the body. GAIT: Unable to test. The patient was unable to sit or stand. IMPRESSION: 1. 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 Rule out shunt failure. 2. Recent recurrence of a intractable right body neuropathic pain, intractable. 3. Progressive neurological deficit with paraparesis. Rule out a cervical myelopathy versus obstructive hydrocephalus. RECOMMENDATIONS: 1. MRI of the brain and cervical spine. 2. The patient has no clear evidence of Parkinson disease. We will hold Sinemet. Adjust anticonvulsants. Discontinue Aricept. Discontinue unessential medications. 3. I will get a KUB due to significant constipation. 4. Get PT/OT. 5. Start on Cymbalta 60 mg daily. I discussed the patient's status with medical staff and attending. Thank you for allowing me to see this interesting patient in neurological consultation. Abdiaziz Cleaning M.D. DR: Puma JOB#: [id number] CC:
[2016-05-28] VITALS: BP 101/59
[2016-05-28] MEDS: Triamcinolone 0.1% oint TOPIC SCH ×3 (06:32→21:26)
[2016-05-28 08:03] VITALS: BP 114/74
[2016-05-28] MEDS: Lyrica 50mg cap ORAL SCH ×3 (09:00→18:00)
[2016-05-28] MEDS: Aspirin EC 81mg tab ORAL SCH (09:00)
[2016-05-28] MEDS: DULoxetine 30mg cap ORAL SCH (09:00)
--- NOTE | 2016-05-28 09:03 | Infectious Diseases Prog Note ---
Assessment/Plan Assessment/Plan A: The patient is a 60-year-old female with Facial rash , doubt infectious etiology Lower Ext decubitus , not infected ( Wound culture : January 2016 : growing MRSA and Proteus: colonizer ) Leukocytosis, mild - improved, afebrile. No repeat CBC History of right hearing loss. Parkinson disease. Seizure disorder. Peripheral neuropathy. History of GERD. Anxiety. History of brain tumor NKDA Full Code PLAN: monitor patient off of antibiotics Monitor CBC, temperatures, panculture if acute change Monitor BMP Subjective Allergies: Coded Allergies: No Known Allergies (Unverified , 02/18/16) Subjective remains afebrile. comfortable no labs today Objective Vital Signs Last 24 Hour Vital Signs Date Time Temp Pulse Resp B/P Pulse Ox O2 Delivery O2 Flow Rate FiO2 05/28/16 08:03 97.0 72 20 114/74 96 Room Air 05/28/16 07:45 88 20 99 Room Air 05/28/16 07:35 71 20 96 Room Air 05/28/16 07:30 71 20 Room Air 05/28/16 04:00 76 05/28/16 00:00 80 05/28/16 00:00 98.1 87 16 101/59 95 Room Air 05/27/16 20:00 92 05/27/16 20:00 98.1 96 18 107/63 95 Room Air 05/27/16 19:44 90 18 Room Air 05/27/16 16:00 95 05/27/16 16:00 98.2 92 18 104/73 94 Room Air 05/27/16 16:00 98.2 92 20 104/73 94 Room Air 05/27/16 12:00 89 05/27/16 12:00 97.9 18 94/67 96 Room Air Height (Feet): 5 Height (Inches): 3.00 Weight (Pounds): 159 General Appearance: no acute distress Respiratory/Chest: no respiratory distress Cardiovascular: normal rate, regular rhythm Abdomen: normal bowel sounds, soft, non tender, non distended Microbiology Date/Time Source Procedure Growth Status 05/25/16 21:47 Nasal Nares MRSA Culture - Final NO METHICILLIN RESISTANT STAPH AUREUS... Complete 05/25/16 21:47 Rectum VRE Culture - Final NO VANCOMYCIN RESISTANT ENTEROCOCCUS ... Complete Current Medications Medications (Trade) Dose Ordered Sig/Bushra Route PRN Reason Start Time Stop Time Status Last Admin Dose Admin Acetaminophen (Tylenol) 650 mg Q4H PRN ORAL FEVER 05/25/16 23:15 06/24/16 23:14 Albuterol/ Ipratropium (DuoNeb 0.5-3(2.5)mg/3ml) 3 ml Q4H PRN HHN Shortness of Breath 05/25/16 23:15 05/30/16 23:14 05/28/16 07:44 Artificial Tears (Akwa-Tears) 1 drop Q2H PRN BOTH EYES Dry Eyes 05/27/16 16:00 06/26/16 15:59 05/27/16 19:00 Aspirin (Ecotrin) 81 mg DAILY ORAL 05/27/16 09:00 06/26/16 08:59 Diltiazem HCl (Cardizem) 10 mg Q1H PRN IV heart rate more than 120, 05/25/16 23:15 06/24/16 23:14 Duloxetine HCl (Cymbalta) 60 mg DAILY ORAL 05/27/16 17:30 06/26/16 17:29 Enalaprilat (Vasotec) 2.5 mg Q6H PRN IV sbp more than 160 05/25/16 23:15 06/24/16 23:14 Heparin Sodium (Porcine) (Heparin 5000 units/ml) 5,000 units EVERY 12 HOURS SUBQ 05/26/16 09:00 06/25/16 08:59 05/27/16 21:28 Ketorolac Tromethamine (Toradol 30mg) 30 mg Q6H PRN IV moderate pain ( 4-6) 05/25/16 23:15 05/30/16 23:14 05/28/16 02:56 Levetiracetam (Keppra) 250 mg Q12HR ORAL 05/27/16 21:00 06/26/16 20:59 Morphine Sulfate (Morphine Sulfate) 2 mg Q4H PRN IVP severe Pain (Pain Scale 7-10) 05/25/16 23:15 06/01/16 23:14 05/26/16 00:21 Nitroglycerin (Ntg) 0.4 mg Q5M PRN SL Prn Chest Pain 05/25/16 23:15 06/24/16 23:14 Ondansetron HCl (Zofran) 4 mg Q6H PRN IVP Nausea & Vomiting 05/25/16 23:15 06/24/16 23:14 Pantoprazole (Protonix) 40 mg DAILY ORAL 05/26/16 09:00 06/25/16 08:59 05/26/16 10:19 Polyethylene Glycol (Miralax) 17 gm DAILYPRN PRN ORAL Constipation 05/25/16 23:15 06/24/16 23:14 05/27/16 09:54 Pregabalin (Lyrica) 100 mg THREE TIMES A DAY ORAL 05/26/16 09:00 06/25/16 08:59 05/26/16 13:50 Sennosides (Senokot) 8.6 mg DAILY ORAL 05/26/16 09:00 06/25/16 08:59 05/27/16 09:54 Temazepam (Restoril) 15 mg HSPRN PRN ORAL Insomnia 05/25/16 23:15 06/01/16 23:14 05/27/16 21:27 Triamcinolone (Kenalog) 1 applic Q8HR TOPIC 05/26/16 15:00 06/25/16 14:59 05/28/16 06:32 ROMINA LOMELI May 28, 2016 09:03
[2016-05-28] MEDS: Heparin 5000 units/ml inj SUBQ SCH ×2 (09:13→21:00)
--- NOTE | 2016-05-28 10:03 | Diagnostic Imaging Report ---
Indication: Headache x2 days, history of ventriculoperitoneal shunt Technique: sagittal T1 fast spin echo, axial T1 and T2 FLAIR PROPELLER, axial T2 FS PROPELLER, T2* GRE, axial diffusion weighted images, post contrast axial and coronal T1 FLAIR PROPELLER images. ADC and exponential ADC maps generated Comparison: 02/20/[address] Findings: Metal plate in the right frontal calvarium creates susceptibility artifact on the GRE and diffusion sequences which might obscure pathology.. No abnormal areas of restricted diffusion to suggest acute infarction. No acute hemorrhage or edema. Some susceptibility artifact surrounds the shaft of the right occipital ventriculoperitoneal shunt peripherally, probably old hemorrhages related to the shunt insertion. There is enlargement of the ventricles and extra axial CSF spaces which appears similar in extent to that seen on the prior CT scan and more likely indicates central volume loss than hydrocephalus. There is focal encephalomalacia in the right frontal region, also evident on prior CT. A small area of encephalomalacia is also seen in the left frontal region There is no unusual contrast enhancement associated with either of the. No unusual contrast enhancement is seen elsewhere. No mass effect nor midline shift. . . There is evidence of prior bilateral cataract surgery. Some fluid is seen within the mastoids bilaterally, right greater than left. 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 . Impression: Negative for acute intracranial bleed, mass effect, infarct, or contrast enhancing lesion. Small focal areas of encephalomalacia in the bilateral frontal lobes, possibly related to stated clinical history of prior brain tumor resection or could represent old infarcts or posttraumatic lesions. No contrast enhancement associated with either these to suggest tumor recurrence or other active process Right transoccipital ventriculoperitoneal shunt is again demonstrated. Mild ventriculomegaly could indicate hydrocephalus, but similarity of the findings to the prior CT of January 2016 and lack of evidence of transependymal migration of CSF indicates this is most likely just due to chronic cerebral volume loss Minimal right mastoid disease
--- NOTE | 2016-05-28 10:09 | Diagnostic Imaging Report ---
Indication: PAIN Technique: Sagittal T1 FLAIR, sagittal and back T2 FRFSE, sagittal STIR, axial COSMIC ASPIR, pre-and postcontrast axial T1 FSE, sagittal postcontrast T1 FSE with fat saturation sequences of the cervical spine Comparison: None Findings: There is reversal of the normal cervical lordosis, otherwise normal bony alignment. There is unusual increased fat signal within the C2 odontoid, body, and lateral masses. Otherwise normal marrow signal. Is the vertebral body heights are preserved. Disc spaces are preserved. No evidence of significant disc bulge or protrusion, spinal stenosis, or neural foraminal stenosis. No unusual contrast enhancement is demonstrated. The intrinsic cord signal is normal. Impression: Essentially unremarkable exam. No evidence of acute bony trauma, significant neural impingement, or contrast enhancing abnormality Slight reversal of the normal cervical lordosis incidentally noted
--- NOTE | 2016-05-28 10:40 | Cardiology Progress Note ---
Assessment/Plan Status: stable, unchanged Status Narrative Mrs Kamara has ruled out for myocardial infarction with negative serial troponin levels. ECHO, though technically difficult, shows normal LV function. Assessment/Plan Stress nuclear test recommended, but declined by pt at this time. would consider as outpt. Can transfer from tele Subjective ROS Limited/Unobtainable: No Subjective Mrs Kamara c/o diffuse body pain, burning sensation. Objective Last 24 Hour Vital Signs Date Time Temp Pulse Resp B/P Pulse Ox O2 Delivery O2 Flow Rate FiO2 05/28/16 10:15 88 05/28/16 08:03 97.0 72 20 114/74 96 Room Air 05/28/16 07:45 88 20 99 Room Air 05/28/16 07:35 71 20 96 Room Air 05/28/16 07:30 71 20 Room Air 05/28/16 04:00 76 05/28/16 00:00 80 05/28/16 00:00 98.1 87 16 101/59 95 Room Air 05/27/16 20:00 92 05/27/16 20:00 98.1 96 18 107/63 95 Room Air 05/27/16 19:44 90 18 Room Air 05/27/16 16:00 95 05/27/16 16:00 98.2 92 18 104/73 94 Room Air 05/27/16 16:00 98.2 92 20 104/73 94 Room Air 05/27/16 12:00 89 05/27/16 12:00 97.9 18 94/67 96 Room Air General Appearance: WD/WN, alert, mild distress, obese Neck: supple, no JVD Rhythm: NSR Cardiovascular: normal rate, regular rhythm Respiratory/Chest: rhonchi - bilaterally - bilat scattered rhonchi Abdomen: non tender, soft Extremities: no swelling Intake and Output 05/27/16 05/28/16 19:00 07:00 Intake Total 240 ml Balance 240 ml Intake Oral 240 ml # Voids 5 Microbiology Date/Time Source Procedure Growth Status 05/25/16 21:47 Nasal Nares MRSA Culture - Final NO METHICILLIN RESISTANT STAPH AUREUS... Complete 05/25/16 21:47 Rectum VRE Culture - Final NO VANCOMYCIN RESISTANT ENTEROCOCCUS ... Complete VIGNESH ELLIOTT May 28, 2016 10:40
[2016-05-28 11:53] VITALS: BP 112/72
[2016-05-28] MEDS ORDERED: Ketorolac 30mg Inj IV PRN (13:00)
[2016-05-28] MEDS ORDERED: Enalaprilat 2.5mg/2ml Inj IV PRN (13:00)
[2016-05-28] MEDS ORDERED: Nitroglycerin Subl 0.4mg tab (Bottle Of 25) SL PRN (13:00)
[2016-05-28] MEDS ORDERED: Miralax 17gm pkt ORAL PRN (13:00)
[2016-05-28] MEDS ORDERED: Diltiazem 25mg/5ml IV PRN (13:15)
[2016-05-28] MEDS ORDERED: Artificial Tears 1.4% Op Soln BOTH EYES PRN (14:00)
[2016-05-28 16:00] VITALS: BP 140/65
[2016-05-28 20:00] VITALS: BP 117/73
[2016-05-29] VITALS: BP 99/68
[2016-05-29] MEDS: Morphine Sulfate 2mg/ml Inj IVP PRN ×4 (00:02→17:17)
[2016-05-29 04:00] VITALS: BP 95/62
[2016-05-29] MEDS: Triamcinolone 0.1% oint TOPIC SCH ×3 (05:48→21:30)
[2016-05-29 08:00] VITALS: BP 101/64
--- NOTE | 2016-05-29 08:52 | Infectious Diseases Prog Note ---
Assessment/Plan Assessment/Plan A: The patient is a 60-year-old female with Facial rash , doubt infectious etiology Lower Ext decubitus , not infected ( Wound culture : January 2016 : growing MRSA and Proteus: colonizer ) Leukocytosis, mild - improved, afebrile. No repeat CBC History of right hearing loss. Parkinson disease. Seizure disorder. Peripheral neuropathy. History of GERD. Anxiety. History of brain tumor SP resection, VPS NKDA Full Code PLAN: monitor patient off of antibiotics Monitor CBC, temperatures, panculture if acute change Monitor BMP Subjective Allergies: Coded Allergies: No Known Allergies (Unverified , 02/18/16) Subjective remains afebrile. comfortable no labs today Objective Vital Signs Last 24 Hour Vital Signs Date Time Temp Pulse Resp B/P Pulse Ox O2 Delivery O2 Flow Rate FiO2 05/29/16 08:00 96.6 96 20 101/64 97 Room Air 05/29/16 07:35 74 18 Room Air 05/29/16 04:00 97.7 79 18 95/62 95 Room Air 05/29/16 00:00 97.7 73 16 99/68 94 Room Air 05/28/16 20:00 97.7 81 18 117/73 94 Room Air 05/28/16 19:12 76 20 Room Air 05/28/16 16:00 97.7 20 140/65 93 Room Air 05/28/16 11:53 98.2 99 20 112/72 95 Room Air 05/28/16 10:15 88 Height (Feet): 5 Height (Inches): 3.00 Weight (Pounds): 159 General Appearance: no acute distress Respiratory/Chest: no respiratory distress Cardiovascular: normal rate, regular rhythm Abdomen: normal bowel sounds, soft, non tender, non distended Current Medications Medications (Trade) Dose Ordered Sig/Bushra Route PRN Reason Start Time Stop Time Status Last Admin Dose Admin Acetaminophen (Tylenol) 650 mg Q4H PRN ORAL FEVER 05/28/16 13:00 06/27/16 12:59 Albuterol/ Ipratropium (DuoNeb 0.5-3(2.5)mg/3ml) 3 ml Q4H PRN HHN Shortness of Breath 05/28/16 13:00 06/02/16 12:59 Artificial Tears (Akwa-Tears) 1 drop Q2H PRN BOTH EYES Dry Eyes 05/28/16 14:00 06/27/16 13:59 Aspirin (Ecotrin) 81 mg DAILY ORAL 05/29/16 09:00 06/28/16 08:59 Duloxetine HCl (Cymbalta) 60 mg DAILY ORAL 05/29/16 09:00 06/28/16 08:59 Enalaprilat (Vasotec) 2.5 mg Q6H PRN IV sbp more than 160 05/28/16 13:00 06/27/16 12:59 Heparin Sodium (Porcine) (Heparin 5000 units/ml) 5,000 units EVERY 12 HOURS SUBQ 05/28/16 21:00 06/27/16 20:59 Ketorolac Tromethamine (Toradol 30mg) 30 mg Q6H PRN IV moderate pain ( 4-6) 05/28/16 13:00 06/02/16 12:59 Levetiracetam (Keppra) 250 mg Q12HR ORAL 05/28/16 21:00 06/27/16 20:59 Morphine Sulfate (Morphine Sulfate) 2 mg Q4H PRN IVP severe Pain (Pain Scale 7-10) 05/28/16 13:00 06/04/16 12:59 05/29/16 04:02 Nitroglycerin (Ntg) 0.4 mg Q5M PRN SL Prn Chest Pain 05/28/16 13:00 06/27/16 12:59 Ondansetron HCl (Zofran) 4 mg Q6H PRN IVP Nausea & Vomiting 05/28/16 13:00 06/27/16 12:59 Pantoprazole (Protonix) 40 mg DAILY ORAL 05/29/16 09:00 06/28/16 08:59 Polyethylene Glycol (Miralax) 17 gm DAILYPRN PRN ORAL Constipation 05/28/16 13:00 06/27/16 12:59 Pregabalin (Lyrica) 100 mg THREE TIMES A DAY ORAL 05/28/16 13:00 06/27/16 12:59 Sennosides (Senokot) 8.6 mg DAILY ORAL 05/29/16 09:00 06/28/16 08:59 Temazepam (Restoril) 15 mg HSPRN PRN ORAL Insomnia 05/28/16 20:00 06/04/16 19:59 05/29/16 00:01 Triamcinolone (Kenalog) 1 applic Q8HR TOPIC 05/28/16 14:00 06/27/16 13:59 ROMINA LOMELI May 29, 2016 08:52
[2016-05-29] MEDS: Aspirin EC 81mg tab ORAL SCH (09:00)
[2016-05-29] MEDS: DULoxetine 30mg cap ORAL SCH (09:00)
[2016-05-29] MEDS: Lyrica 50mg cap ORAL SCH ×3 (09:00→17:17)
[2016-05-29] MEDS: Heparin 5000 units/ml inj SUBQ SCH ×2 (09:45→20:59)
[2016-05-29 12:00] VITALS: BP 93/69
[2016-05-29 16:00] VITALS: BP 112/70
--- NOTE | 2016-05-29 16:31 | Cardiology Progress Note ---
Assessment/Plan Status: stable, progressing Status Narrative Mrs Kamara has ruled out for myocardial infarction with negative serial troponin levels. ECHO, though technically difficult, shows normal LV function. She continues w/ chest /arm and diffuse pain, felt to be neuropathic Assessment/Plan Stress nuclear test recommended, but declined by pt at this time - consider outpt evaluation if pt agreeable. Further evaluation of cough/congestion - ? bronchitis, and neuropathic pain, per primary MD Subjective ROS Limited/Unobtainable: No Subjective Mrs Kamara c/o diffuse body pain, burning sensation - unchanged. Also w/ congested cough Objective Last 24 Hour Vital Signs Date Time Temp Pulse Resp B/P Pulse Ox O2 Delivery O2 Flow Rate FiO2 05/29/16 12:00 97.7 63 18 93/69 95 Room Air 05/29/16 08:00 96.6 96 20 101/64 97 Room Air 05/29/16 07:35 74 18 Room Air 05/29/16 04:00 97.7 79 18 95/62 95 Room Air 05/29/16 00:00 97.7 73 16 99/68 94 Room Air 05/28/16 20:00 97.7 81 18 117/73 94 Room Air 05/28/16 19:12 76 20 Room Air General Appearance: WD/WN, alert, obese EENT: PERRL/EOMI Neck: supple, no JVD Rhythm: NSR Cardiovascular: normal rate, no gallop/murmur Respiratory/Chest: rhonchi - bilaterally Abdomen: normal bowel sounds, non tender, soft Intake and Output 05/28/16 05/29/16 19:00 07:00 Intake Total 240 ml 180 ml Balance 240 ml 180 ml Intake Oral 240 ml 180 ml # Voids 4 VIGNESH ELLIOTT May 29, 2016 16:31
--- NOTE | 2016-05-29 16:58 | Internal Med Progress Note ---
Subjective Date of Service: May 29, 2016 Physician Name LuRohit scherer Attending Physician Acacia Rodriguez Current Medications Medications (Trade) Dose Ordered Sig/Bushra Route PRN Reason Start Time Stop Time Status Last Admin Dose Admin Acetaminophen (Tylenol) 650 mg Q4H PRN ORAL FEVER 05/28/16 13:00 06/27/16 12:59 Albuterol/ Ipratropium (DuoNeb 0.5-3(2.5)mg/3ml) 3 ml Q4H PRN HHN Shortness of Breath 05/28/16 13:00 06/02/16 12:59 Artificial Tears (Akwa-Tears) 1 drop Q2H PRN BOTH EYES Dry Eyes 05/28/16 14:00 06/27/16 13:59 Aspirin (Ecotrin) 81 mg DAILY ORAL 05/29/16 09:00 06/28/16 08:59 Duloxetine HCl (Cymbalta) 60 mg DAILY ORAL 05/29/16 09:00 06/28/16 08:59 Enalaprilat (Vasotec) 2.5 mg Q6H PRN IV sbp more than 160 05/28/16 13:00 06/27/16 12:59 Heparin Sodium (Porcine) (Heparin 5000 units/ml) 5,000 units EVERY 12 HOURS SUBQ 05/28/16 21:00 06/27/16 20:59 05/29/16 09:45 Ketorolac Tromethamine (Toradol 30mg) 30 mg Q6H PRN IV moderate pain ( 4-6) 05/28/16 13:00 06/02/16 12:59 Levetiracetam (Keppra) 250 mg Q12HR ORAL 05/28/16 21:00 06/27/16 20:59 05/29/16 09:32 Morphine Sulfate (Morphine Sulfate) 2 mg Q4H PRN IVP severe Pain (Pain Scale 7-10) 05/28/16 13:00 06/04/16 12:59 05/29/16 09:35 Nitroglycerin (Ntg) 0.4 mg Q5M PRN SL Prn Chest Pain 05/28/16 13:00 06/27/16 12:59 Ondansetron HCl (Zofran) 4 mg Q6H PRN IVP Nausea & Vomiting 05/28/16 13:00 06/27/16 12:59 Pantoprazole (Protonix) 40 mg DAILY ORAL 05/29/16 09:00 06/28/16 08:59 05/29/16 09:33 Polyethylene Glycol (Miralax) 17 gm DAILYPRN PRN ORAL Constipation 05/28/16 13:00 06/27/16 12:59 Pregabalin (Lyrica) 100 mg THREE TIMES A DAY ORAL 05/28/16 13:00 06/27/16 12:59 Sennosides (Senokot) 8.6 mg DAILY ORAL 05/29/16 09:00 06/28/16 08:59 05/29/16 09:34 Temazepam (Restoril) 15 mg HSPRN PRN ORAL Insomnia 05/28/16 20:00 06/04/16 19:59 05/29/16 00:01 Triamcinolone (Kenalog) 1 applic Q8HR TOPIC 05/28/16 14:00 06/27/16 13:59 Allergies: Coded Allergies: No Known Allergies (Unverified , 02/18/16) ROS Limited/Unobtainable: No Constitutional: Reports: no symptoms HEENT: Reports: no symptoms Cardiovascular: Reports: no symptoms Respiratory: Reports: no symptoms Gastrointestinal/Abdominal: Reports: no symptoms Genitourinary: Reports: no symptoms Neurologic/Psychiatric: Reports: no symptoms Subjective Cover for Int Med-Dr Rodriguez Objective Last Vital Signs Date Time Temp Pulse Resp B/P Pulse Ox O2 Delivery O2 Flow Rate FiO2 05/29/16 12:00 97.7 63 18 93/69 95 Room Air 05/27/16 07:30 21 05/26/16 18:56 21.0 General Appearance: WD/WN, no apparent distress EENT: PERRL/EOMI, normal ENT inspection Neck: non-tender, normal alignment, supple Cardiovascular: normal peripheral pulses, normal rate, regular rhythm, no gallop/murmur, no JVD Respiratory/Chest: chest wall non-tender, lungs clear, normal breath sounds, no respiratory distress, no accessory muscle use Abdomen: normal bowel sounds, non tender, soft, no organomegaly, no mass Extremities: normal range of motion 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 See neurology note. (2) Decubitus ulcer (3) Paraplegia (4) Parkinson disease (5) Leukocytosis Assessment & Plan: See ID note. (6) Hydrocephalus (7) Intractable pain (8) Neuropathy (9) Encephalopathy (10) Chest pain Assessment & Plan: See cardiology note. Status: progressing ROHIT LU May 29, 2016 16:58
[2016-05-29 20:00] VITALS: BP 96/62
[2016-05-30] VITALS (7 sets, daily range): BP systolic 91–116; BP diastolic 56–72
[2016-05-30] MEDS: Morphine Sulfate 2mg/ml Inj IVP PRN ×5 (00:32→21:40)
[2016-05-30] MEDS: DuoNeb 0.5-3(2.5)mg/3ml neb HHN PRN ×3 (01:00→14:42)
[2016-05-30] MEDS: Triamcinolone 0.1% oint TOPIC SCH ×3 (06:13→20:49)
[2016-05-30] MEDS: DULoxetine 30mg cap ORAL SCH (08:17)
[2016-05-30] MEDS: Aspirin EC 81mg tab ORAL SCH (08:17)
[2016-05-30] MEDS: Lyrica 50mg cap ORAL SCH ×3 (08:47→17:24)
[2016-05-30] MEDS: Heparin 5000 units/ml inj SUBQ SCH ×2 (08:49→20:54)
--- NOTE | 2016-05-30 09:03 | Infectious Diseases Prog Note ---
Assessment/Plan Assessment/Plan A: The patient is a 60-year-old female with Facial rash , doubt infectious etiology Lower Ext decubitus , not infected ( Wound culture : January 2016 : growing MRSA and Proteus: colonizer ) Leukocytosis, mild - improved, afebrile. No repeat CBC History of right hearing loss. Parkinson disease. Seizure disorder. Peripheral neuropathy. History of GERD. Anxiety. History of brain tumor SP resection, VPS NKDA Full Code PLAN: monitor patient off of antibiotics Monitor CBC, temperatures, panculture if acute change Monitor BMP Subjective Allergies: Coded Allergies: No Known Allergies (Unverified , 02/18/16) Subjective remains afebrile. comfortable no labs today Objective Vital Signs Last 24 Hour Vital Signs Date Time Temp Pulse Resp B/P Pulse Ox O2 Delivery O2 Flow Rate FiO2 05/30/16 08:13 97.5 112 18 100/60 96 Room Air 05/30/16 05:14 62 18 98 Room Air 05/30/16 05:04 69 20 99 Room Air 21 05/30/16 04:00 96.7 79 20 99/59 96 Room Air 05/30/16 01:08 60 18 98 Room Air 05/30/16 00:59 60 18 97 Room Air 05/30/16 00:00 97.7 70 20 105/72 93 Room Air 05/29/16 20:00 97.9 69 20 96/62 94 Room Air 05/29/16 19:03 61 18 Room Air 05/29/16 16:00 97.7 84 22 112/70 96 Room Air 05/29/16 12:00 97.7 63 18 93/69 95 Room Air Height (Feet): 5 Height (Inches): 3.00 Weight (Pounds): 159 General Appearance: no acute distress Respiratory/Chest: no respiratory distress Cardiovascular: normal rate, regular rhythm Abdomen: normal bowel sounds, soft, non tender, non distended Current Medications Medications (Trade) Dose Ordered Sig/Bushra Route PRN Reason Start Time Stop Time Status Last Admin Dose Admin Acetaminophen (Tylenol) 650 mg Q4H PRN ORAL FEVER 05/28/16 13:00 06/27/16 12:59 Albuterol/ Ipratropium (DuoNeb 0.5-3(2.5)mg/3ml) 3 ml Q4H PRN HHN Shortness of Breath 05/28/16 13:00 06/02/16 12:59 05/30/16 05:03 Artificial Tears (Akwa-Tears) 1 drop Q2H PRN BOTH EYES Dry Eyes 05/28/16 14:00 06/27/16 13:59 Aspirin (Ecotrin) 81 mg DAILY ORAL 05/29/16 09:00 06/28/16 08:59 Duloxetine HCl (Cymbalta) 60 mg DAILY ORAL 05/29/16 09:00 06/28/16 08:59 Enalaprilat (Vasotec) 2.5 mg Q6H PRN IV sbp more than 160 05/28/16 13:00 06/27/16 12:59 Heparin Sodium (Porcine) (Heparin 5000 units/ml) 5,000 units EVERY 12 HOURS SUBQ 05/28/16 21:00 06/27/16 20:59 05/30/16 08:49 Ketorolac Tromethamine (Toradol 30mg) 30 mg Q6H PRN IV moderate pain ( 4-6) 05/28/16 13:00 06/02/16 12:59 Levetiracetam (Keppra) 250 mg Q12HR ORAL 05/28/16 21:00 06/27/16 20:59 05/30/16 08:47 Morphine Sulfate (Morphine Sulfate) 2 mg Q4H PRN IVP severe Pain (Pain Scale 7-10) 05/28/16 13:00 06/04/16 12:59 05/30/16 08:52 Nitroglycerin (Ntg) 0.4 mg Q5M PRN SL Prn Chest Pain 05/28/16 13:00 06/27/16 12:59 Ondansetron HCl (Zofran) 4 mg Q6H PRN IVP Nausea & Vomiting 05/28/16 13:00 06/27/16 12:59 Pantoprazole (Protonix) 40 mg DAILY ORAL 05/29/16 09:00 06/28/16 08:59 05/30/16 08:47 Polyethylene Glycol (Miralax) 17 gm DAILYPRN PRN ORAL Constipation 05/28/16 13:00 06/27/16 12:59 Pregabalin (Lyrica) 100 mg THREE TIMES A DAY ORAL 05/28/16 13:00 06/27/16 12:59 05/30/16 08:47 Sennosides (Senokot) 8.6 mg DAILY ORAL 05/29/16 09:00 06/28/16 08:59 05/30/16 08:47 Temazepam (Restoril) 15 mg HSPRN PRN ORAL Insomnia 05/28/16 20:00 06/04/16 19:59 05/30/16 00:34 Triamcinolone (Kenalog) 1 applic Q8HR TOPIC 05/28/16 14:00 06/27/16 13:59 05/30/16 06:13 ROMINA LOMELI May 30, 2016 09:03
--- NOTE | 2016-05-30 11:55 | Neurology Progress Note ---
Interim History Interim History ROS Limited/Unobtainable: No Complaints: severe constipation/burning pain all limbs gace more on Right/ weakness both Events: no change Objective Physical Exam Last Vital Signs Date Time Temp Pulse Resp B/P Pulse Ox O2 Delivery O2 Flow Rate FiO2 05/30/16 09:22 97.5 05/30/16 08:20 69 18 Room Air 21 05/30/16 08:13 100/60 96 05/26/16 18:56 21.0 General: well developed, well nourished, no acute distress Head: normocophalic, atraumatic Neck: no rigidity Neurologic Exam Mental Status: awake, alert, oriented x4, normal cognition, other - anxious denies depression Speech: normal speech, no dysarthia Cranial Nerve II: fundus normal, visual mustafa, no papilledema Cranial Nerves III, IV, : PERRLA, EOMI, pupils Cranial Nerve V: normal facial sensations, temporales function normal, masseters function normal, pterygoids function normal Cranial Nerve VII: no facial asymmetry, normal facial expressions Cranial Nerve VIII: normal hearing, no nystagmus Cranial Nerve IX: normal palate elevation, gag response Cranial Nerve X: no voice hoarseness Cranial Nerve XI: SCM symmetric, trapezii function normal Cranial Nerve XII: tongue midline, no tongue atrophy/fasciculations Motor System: no involuntary movement, other - atrophy small muscles both hands ,4/5 hands/2/5 proxymal BLE Stance: other Gait: other Impression/Recommendations Problems: (1) generalised neuropathic pain and paraparesis. r/o sensory motor polyneuropathy, r/o myelopathy (2) h/o obstrctive hydrocephalus , VOshunt, stable (3) Intractable pain Status: progressing, unchanged Recommendations #[id number] mri brai/c spine no acute lesions KUB MRI T spine ls spine DAVINA SANDERSON May 30, 2016 11:55
--- NOTE | 2016-05-30 16:34 | Cardiology Progress Note ---
Assessment/Plan Assessment/Plan 1. History of brain tumor resection with 2.hydrocephalus requiring ventriculoperitoneal shunting 2. Recent recurrence of a intractable right body neuropathic pain,intractable. 3. Progressive neurological deficit with paraparesis. all trop neg ekg neg declined stress testing but considering that hurts all over doubt this particular pain is ischemic in origin Subjective Subjective Hurts all over burning pain no sob constipated Objective Last 24 Hour Vital Signs Date Time Temp Pulse Resp B/P Pulse Ox O2 Delivery O2 Flow Rate FiO2 05/30/16 15:43 98.1 100 20 94/60 94 Room Air 05/30/16 14:42 70 18 99 Room Air 21 05/30/16 14:42 71 18 98 Room Air 05/30/16 11:49 97.7 89 18 91/58 97 Room Air 05/30/16 09:22 97.5 05/30/16 08:20 69 18 Room Air 21 05/30/16 08:13 97.5 112 18 100/60 96 Room Air 05/30/16 05:14 62 18 98 Room Air 05/30/16 05:04 69 20 99 Room Air 05/30/16 04:00 96.7 79 20 99/59 96 Room Air 05/30/16 01:08 60 18 98 Room Air 05/30/16 00:59 60 18 97 Room Air 05/30/16 00:00 97.7 70 20 105/72 93 Room Air 05/29/16 20:00 97.9 69 20 96/62 94 Room Air 05/29/16 19:03 61 18 Room Air 21 General Appearance: no apparent distress, alert Neck: supple Cardiovascular: normal rate, regular rhythm Respiratory/Chest: rhonchi - bilaterally Abdomen: normal bowel sounds, non tender, soft Extremities: no swelling Intake and Output 05/29/16 05/30/16 19:00 07:00 Intake Total 480 ml 200 ml Balance 480 ml 200 ml Intake Oral 480 ml 200 ml # Voids 1 2 ALMAZ SCOTT May 30, 2016 16:34
--- NOTE | 2016-05-30 18:14 | Pulmonology Progress Note ---
Assessment/Plan Problems: (1) ACS (acute coronary syndrome) (2) Seborrheic dermatitis (3) Psychiatric disorder (4) Intractable back pain (5) Paraplegia Assessment/Plan patient refusing most of the meds facial redness not better f/u cardiology recommendations Subjective ROS Limited/Unobtainable: Yes Allergies: Coded Allergies: No Known Allergies (Unverified , 02/18/16) Objective Last 24 Hour Vital Signs Date Time Temp Pulse Resp B/P Pulse Ox O2 Delivery O2 Flow Rate FiO2 05/30/16 17:54 98.2 05/30/16 17:15 98.2 99 20 116/69 98 05/30/16 15:43 98.1 100 20 94/60 94 Room Air 05/30/16 14:42 70 18 99 Room Air 05/30/16 14:42 71 18 98 Room Air 05/30/16 11:49 97.7 89 18 91/58 97 Room Air 05/30/16 08:20 69 18 Room Air 05/30/16 08:13 97.5 112 18 100/60 96 Room Air 05/30/16 05:14 62 18 98 Room Air 05/30/16 05:04 69 20 99 Room Air 05/30/16 04:00 96.7 79 20 99/59 96 Room Air 05/30/16 01:08 60 18 98 Room Air 05/30/16 00:59 60 18 97 Room Air 05/30/16 00:00 97.7 70 20 105/72 93 Room Air 05/29/16 20:00 97.9 69 20 96/62 94 Room Air 05/29/16 19:03 61 18 Room Air 21 Intake and Output 05/29/16 05/30/16 19:00 07:00 Intake Total 480 ml 200 ml Balance 480 ml 200 ml Intake Oral 480 ml 200 ml # Voids 1 2 General Appearance: no acute distress HEENT: normocephalic, atraumatic, PERRL Respiratory/Chest: chest wall non-tender, decreased breath sounds, accessory muscle use Breasts: no masses Cardiovascular: normal peripheral pulses, normal rate, regular rhythm, no gallop/murmur Abdomen: normal bowel sounds, soft, non tender, no organomegaly Genitourinary: normal external genitalia Extremities: no cyanosis Skin: no ulcers 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, 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 CN Current Medications Medications (Trade) Dose Ordered Sig/Bushra Route PRN Reason Start Time Stop Time Status Last Admin Dose Admin Acetaminophen (Tylenol) 650 mg Q4H PRN ORAL FEVER 05/28/16 13:00 06/27/16 12:59 Albuterol/ Ipratropium (DuoNeb 0.5-3(2.5)mg/3ml) 3 ml Q4H PRN HHN Shortness of Breath 05/28/16 13:00 06/02/16 12:59 05/30/16 14:42 Artificial Tears (Akwa-Tears) 1 drop Q2H PRN BOTH EYES Dry Eyes 05/28/16 14:00 06/27/16 13:59 Aspirin (Ecotrin) 81 mg DAILY ORAL 05/29/16 09:00 06/28/16 08:59 Duloxetine HCl (Cymbalta) 60 mg DAILY ORAL 05/29/16 09:00 06/28/16 08:59 Enalaprilat (Vasotec) 2.5 mg Q6H PRN IV sbp more than 160 05/28/16 13:00 06/27/16 12:59 Heparin Sodium (Porcine) (Heparin 5000 units/ml) 5,000 units EVERY 12 HOURS SUBQ 05/28/16 21:00 06/27/16 20:59 05/30/16 08:49 Ketorolac Tromethamine (Toradol 30mg) 30 mg Q6H PRN IV moderate pain ( 4-6) 05/28/16 13:00 06/02/16 12:59 Levetiracetam (Keppra) 250 mg Q12HR ORAL 05/28/16 21:00 06/27/16 20:59 05/30/16 08:47 Morphine Sulfate (Morphine Sulfate) 2 mg Q4H PRN IVP severe Pain (Pain Scale 7-10) 05/28/16 13:00 06/04/16 12:59 05/30/16 17:24 Nitroglycerin (Ntg) 0.4 mg Q5M PRN SL Prn Chest Pain 05/28/16 13:00 06/27/16 12:59 Non-Formulary Medication (Non-Formulary Med) 1 ea DAILY ORAL 05/31/16 09:00 06/30/16 08:59 UNV Ondansetron HCl (Zofran) 4 mg Q6H PRN IVP Nausea & Vomiting 05/28/16 13:00 06/27/16 12:59 Pantoprazole (Protonix) 40 mg DAILY ORAL 05/29/16 09:00 06/28/16 08:59 05/30/16 08:47 Polyethylene Glycol (Miralax) 17 gm DAILYPRN PRN ORAL Constipation 05/28/16 13:00 06/27/16 12:59 Pregabalin (Lyrica) 100 mg THREE TIMES A DAY ORAL 05/28/16 13:00 06/27/16 12:59 05/30/16 17:24 Sennosides (Senokot) 8.6 mg DAILY ORAL 05/29/16 09:00 06/28/16 08:59 05/30/16 08:47 Temazepam (Restoril) 15 mg HSPRN PRN ORAL Insomnia 05/28/16 20:00 06/04/16 19:59 05/30/16 00:34 Triamcinolone (Kenalog) 1 applic Q8HR TOPIC 05/28/16 14:00 06/27/16 13:59 05/30/16 14:23 JAHAIRA PERRY May 30, 2016 18:14
[2016-05-31 00:49] VITALS: BP 99/64
[2016-05-31] MEDS: Morphine Sulfate 2mg/ml Inj IVP PRN ×3 (01:53→13:30)
[2016-05-31 04:04] VITALS: BP 99/64
[2016-05-31] MEDS: Triamcinolone 0.1% oint TOPIC SCH ×3 (06:00→21:33)
[2016-05-31 08:00] VITALS: BP 96/61
[2016-05-31] MEDS: DULoxetine 30mg cap ORAL SCH (08:30)
[2016-05-31] MEDS: Aspirin EC 81mg tab ORAL SCH (08:30)
[2016-05-31] MEDS: Lyrica 50mg cap ORAL SCH ×3 (08:31→17:43)
--- NOTE | 2016-05-31 10:16 | Infectious Diseases Prog Note ---
Assessment/Plan Assessment/Plan A: The patient is a 60-year-old female with Facial rash , doubt infectious etiology Lower Ext decubitus , not infected ( Wound culture : January 2016 : growing MRSA and Proteus: colonizer ) Leukocytosis, mild - improved, afebrile. History of right hearing loss. Parkinson disease. Seizure disorder. Peripheral neuropathy. History of GERD. Anxiety. History of brain tumor SP resection, VPS NKDA Full Code PLAN: monitor patient off of antibiotics Monitor CBC, temperatures, panculture if acute change Monitor BMP Subjective Constitutional: Denies: anorexia, chills, drenching sweats, fatigue, fever, no symptoms, other Allergies: Coded Allergies: No Known Allergies (Unverified , 02/18/16) Objective Vital Signs Last 24 Hour Vital Signs Date Time Temp Pulse Resp B/P Pulse Ox O2 Delivery O2 Flow Rate FiO2 05/31/16 08:00 98.4 63 20 96/61 98 Room Air 05/31/16 04:04 97.4 70 20 99/64 96 Room Air 05/31/16 02:23 97.4 05/31/16 00:49 97.4 70 20 99/64 96 Room Air 05/30/16 20:00 97.6 81 20 98/56 94 Room Air 05/30/16 19:20 81 18 Room Air 21 05/30/16 17:15 98.2 99 20 116/69 98 05/30/16 15:43 98.1 100 20 94/60 94 Room Air 05/30/16 14:42 70 18 99 Room Air 21 05/30/16 14:42 71 18 98 Room Air 05/30/16 11:49 97.7 89 18 91/58 97 Room Air Height (Feet): 5 Height (Inches): 3.00 Weight (Pounds): 159 HEENT: anicteric Respiratory/Chest: normal breath sounds Cardiovascular: regular rhythm Abdomen: normal bowel sounds Current Medications Medications (Trade) Dose Ordered Sig/Bushra Route PRN Reason Start Time Stop Time Status Last Admin Dose Admin Acetaminophen (Tylenol) 650 mg Q4H PRN ORAL FEVER 05/28/16 13:00 06/27/16 12:59 Albuterol/ Ipratropium (DuoNeb 0.5-3(2.5)mg/3ml) 3 ml Q4H PRN HHN Shortness of Breath 05/28/16 13:00 06/02/16 12:59 05/30/16 14:42 Artificial Tears (Akwa-Tears) 1 drop Q2H PRN BOTH EYES Dry Eyes 05/28/16 14:00 06/27/16 13:59 Aspirin (Ecotrin) 81 mg DAILY ORAL 05/29/16 09:00 06/28/16 08:59 05/31/16 08:30 Duloxetine HCl (Cymbalta) 60 mg DAILY ORAL 05/29/16 09:00 06/28/16 08:59 05/31/16 08:30 Enalaprilat (Vasotec) 2.5 mg Q6H PRN IV sbp more than 160 05/28/16 13:00 06/27/16 12:59 Heparin Sodium (Porcine) (Heparin 5000 units/ml) 5,000 units EVERY 12 HOURS SUBQ 05/28/16 21:00 06/27/16 20:59 05/30/16 20:54 Ketorolac Tromethamine (Toradol 30mg) 30 mg Q6H PRN IV moderate pain ( 4-6) 05/28/16 13:00 06/02/16 12:59 Levetiracetam (Keppra) 250 mg Q12HR ORAL 05/28/16 21:00 06/27/16 20:59 05/31/16 08:30 Morphine Sulfate (Morphine Sulfate) 2 mg Q4H PRN IVP severe Pain (Pain Scale 7-10) 05/28/16 13:00 06/04/16 12:59 05/31/16 08:30 Nitroglycerin (Ntg) 0.4 mg Q5M PRN SL Prn Chest Pain 05/28/16 13:00 06/27/16 12:59 Ondansetron HCl (Zofran) 4 mg Q6H PRN IVP Nausea & Vomiting 05/28/16 13:00 06/27/16 12:59 Pantoprazole (Protonix) 40 mg DAILY ORAL 05/29/16 09:00 06/28/16 08:59 05/31/16 08:31 Polyethylene Glycol (Miralax) 17 gm DAILYPRN PRN ORAL Constipation 05/28/16 13:00 06/27/16 12:59 Pregabalin (Lyrica) 100 mg THREE TIMES A DAY ORAL 05/28/16 13:00 06/27/16 12:59 05/31/16 08:31 Sennosides (Senokot) 8.6 mg DAILY ORAL 05/29/16 09:00 06/28/16 08:59 05/31/16 08:31 Temazepam (Restoril) 15 mg HSPRN PRN ORAL Insomnia 05/28/16 20:00 06/04/16 19:59 05/31/16 02:24 Triamcinolone (Kenalog) 1 applic Q8HR TOPIC 05/28/16 14:00 06/27/16 13:59 05/31/16 06:00 SUSANA EVANS M.D. May 31, 2016 10:16
[2016-05-31] MEDS: Heparin 5000 units/ml inj SUBQ SCH ×2 (11:24→20:45)
[2016-05-31 12:00] VITALS: BP 103/70
[2016-05-31 16:00] VITALS: BP 93/53
[2016-05-31] MEDS: Lactulose 20gm/30ml UDC ORAL SCH (17:43)
[2016-05-31] MEDS: Docusate 100mg cap ORAL SCH (17:43)
--- NOTE | 2016-05-31 17:51 | Pulmonology Progress Note ---
Assessment/Plan Problems: (1) ACS (acute coronary syndrome) (2) Seborrheic dermatitis (3) Psychiatric disorder (4) Intractable back pain (5) Paraplegia Assessment/Plan patient refusing most of the meds facial redness not better f/u cardiology recommendations Subjective ROS Limited/Unobtainable: Yes Allergies: Coded Allergies: No Known Allergies (Unverified , 02/18/16) Objective Last 24 Hour Vital Signs Date Time Temp Pulse Resp B/P Pulse Ox O2 Delivery O2 Flow Rate FiO2 05/31/16 16:00 97.3 64 20 93/53 98 Room Air 05/31/16 14:00 97.7 05/31/16 12:00 97.7 73 18 103/70 97 Room Air 05/31/16 11:53 72 18 Nasal Cannula 2.0 28 05/31/16 08:00 98.4 63 20 96/61 98 Room Air 05/31/16 04:04 97.4 70 20 99/64 96 Room Air 05/31/16 00:49 97.4 70 20 99/64 96 Room Air 05/30/16 20:00 97.6 81 20 98/56 94 Room Air 05/30/16 19:20 81 18 Room Air 21 Intake and Output 05/30/16 05/31/16 19:00 07:00 Intake Total 920 ml 440 ml Balance 920 ml 440 ml Intake Oral 920 ml 440 ml # Voids 4 3 General Appearance: no acute distress HEENT: normocephalic, atraumatic, anicteric, PERRL Respiratory/Chest: chest wall non-tender, lungs clear, normal breath sounds Breasts: no masses Cardiovascular: normal peripheral pulses, normal rate, regular rhythm, no JVD Abdomen: normal bowel sounds, soft, non tender, no organomegaly Genitourinary: normal external genitalia Extremities: no cyanosis Skin: no rash 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, abnormal CN, motor weakness , sensory deficit Current Medications Medications (Trade) Dose Ordered Sig/Bushra Route PRN Reason Start Time Stop Time Status Last Admin Dose Admin Acetaminophen (Tylenol) 650 mg Q4H PRN ORAL FEVER 05/28/16 13:00 06/27/16 12:59 Albuterol/ Ipratropium (DuoNeb 0.5-3(2.5)mg/3ml) 3 ml Q4H PRN HHN Shortness of Breath 05/28/16 13:00 06/02/16 12:59 05/30/16 14:42 Artificial Tears (Akwa-Tears) 1 drop Q2H PRN BOTH EYES Dry Eyes 05/28/16 14:00 06/27/16 13:59 Aspirin (Ecotrin) 81 mg DAILY ORAL 05/29/16 09:00 06/28/16 08:59 05/31/16 08:30 Docusate Sodium (Colace) 100 mg THREE TIMES A DAY ORAL 05/31/16 18:00 06/30/16 17:59 05/31/16 17:43 Duloxetine HCl (Cymbalta) 60 mg DAILY ORAL 05/29/16 09:00 06/28/16 08:59 05/31/16 08:30 Enalaprilat (Vasotec) 2.5 mg Q6H PRN IV sbp more than 160 05/28/16 13:00 06/27/16 12:59 Heparin Sodium (Porcine) (Heparin 5000 units/ml) 5,000 units EVERY 12 HOURS SUBQ 05/28/16 21:00 06/27/16 20:59 05/31/16 11:24 Ketorolac Tromethamine (Toradol 30mg) 30 mg Q6H PRN IV moderate pain ( 4-6) 05/28/16 13:00 06/02/16 12:59 Lactulose (Cephulac) 30 gm THREE TIMES A DAY ORAL 05/31/16 18:00 06/30/16 17:59 05/31/16 17:43 Levetiracetam (Keppra) 250 mg Q12HR ORAL 05/28/16 21:00 06/27/16 20:59 05/31/16 08:30 Mineral Oil (Fleet's Mineral Oil Enema) 133 ml EVERY OTHER DAY RECTAL 06/02/16 09:00 07/02/16 08:59 Morphine Sulfate (Morphine Sulfate) 2 mg Q4H PRN IVP severe Pain (Pain Scale 7-10) 05/28/16 13:00 06/04/16 12:59 05/31/16 13:30 Nitroglycerin (Ntg) 0.4 mg Q5M PRN SL Prn Chest Pain 05/28/16 13:00 06/27/16 12:59 Ondansetron HCl (Zofran) 4 mg Q6H PRN IVP Nausea & Vomiting 05/28/16 13:00 06/27/16 12:59 Pantoprazole (Protonix) 40 mg DAILY ORAL 05/29/16 09:00 06/28/16 08:59 05/31/16 08:31 Polyethylene Glycol (Miralax) 17 gm BEDTIME ORAL 05/31/16 21:00 06/30/16 20:59 Pregabalin (Lyrica) 100 mg THREE TIMES A DAY ORAL 05/28/16 13:00 06/27/16 12:59 05/31/16 17:43 Sennosides (Senokot) 8.6 mg DAILY ORAL 05/29/16 09:00 06/28/16 08:59 05/31/16 08:31 Temazepam (Restoril) 15 mg HSPRN PRN ORAL Insomnia 05/28/16 20:00 06/04/16 19:59 05/31/16 02:24 Triamcinolone (Kenalog) 1 applic Q8HR TOPIC 05/28/16 14:00 06/27/16 13:59 05/31/16 13:30 JAHAIRA PERRY May 31, 2016 17:51
[2016-05-31 20:00] VITALS: BP 111/69
[2016-05-31] MEDS: Miralax 17gm pkt ORAL SCH (20:42)
[2016-06-01] VITALS: BP 111/64
[2016-06-01] MEDS: Morphine Sulfate 2mg/ml Inj IVP PRN ×3 (01:45→13:15)
[2016-06-01 04:00] VITALS: BP 114/68
[2016-06-01] MEDS: Triamcinolone 0.1% oint TOPIC SCH ×3 (06:37→21:34)
[2016-06-01] MEDS: Lyrica 50mg cap ORAL SCH ×3 (08:23→17:33)
[2016-06-01] MEDS: Docusate 100mg cap ORAL SCH ×3 (08:23→17:33)
[2016-06-01] MEDS: Lactulose 20gm/30ml UDC ORAL SCH ×3 (08:24→18:12)
[2016-06-01] MEDS: DULoxetine 30mg cap ORAL SCH (08:24)
[2016-06-01] MEDS: Aspirin EC 81mg tab ORAL SCH (08:24)
[2016-06-01] MEDS: Heparin 5000 units/ml inj SUBQ SCH ×2 (08:25→21:03)
[2016-06-01 08:44] VITALS: BP 98/57
--- NOTE | 2016-06-01 09:36 | Infectious Diseases Prog Note ---
Assessment/Plan Assessment/Plan A: The patient is a 60-year-old female with Facial rash , doubt infectious etiology Lower Ext decubitus , not infected ( Wound culture : January 2016 : growing MRSA and Proteus: colonizer ) Leukocytosis, mild - improved, afebrile. History of right hearing loss. Parkinson disease. Seizure disorder. Peripheral neuropathy. History of GERD. Anxiety. History of brain tumor SP resection, VPS NKDA Full Code PLAN: monitor patient off of antibiotics Monitor CBC, temperatures, panculture if acute change Monitor BMP Subjective Constitutional: Denies: anorexia, chills, drenching sweats, fatigue, fever, no symptoms, other Allergies: Coded Allergies: No Known Allergies (Unverified , 02/18/16) Objective Vital Signs Last 24 Hour Vital Signs Date Time Temp Pulse Resp B/P Pulse Ox O2 Delivery O2 Flow Rate FiO2 06/01/16 08:44 98.2 92 20 98/57 98 Room Air 06/01/16 06:27 97.7 06/01/16 04:00 97.5 77 20 114/68 Room Air 06/01/16 00:00 97.7 78 18 111/64 96 Room Air 05/31/16 20:00 97.9 72 20 111/69 98 Room Air 05/31/16 19:50 75 18 Nasal Cannula 2.0 28 05/31/16 16:00 97.3 64 20 93/53 98 Room Air 05/31/16 12:00 97.7 73 18 103/70 97 Room Air 05/31/16 11:53 72 18 Nasal Cannula 2.0 28 Height (Feet): 5 Height (Inches): 3.00 Weight (Pounds): 159 HEENT: anicteric Respiratory/Chest: lungs clear Cardiovascular: regular rhythm Abdomen: no organomegaly Current Medications Medications (Trade) Dose Ordered Sig/Bushra Route PRN Reason Start Time Stop Time Status Last Admin Dose Admin Acetaminophen (Tylenol) 650 mg Q4H PRN ORAL FEVER 05/28/16 13:00 06/27/16 12:59 Albuterol/ Ipratropium (DuoNeb 0.5-3(2.5)mg/3ml) 3 ml Q4H PRN HHN Shortness of Breath 05/28/16 13:00 06/02/16 12:59 05/30/16 14:42 Artificial Tears (Akwa-Tears) 1 drop Q2H PRN BOTH EYES Dry Eyes 05/28/16 14:00 06/27/16 13:59 Aspirin (Ecotrin) 81 mg DAILY ORAL 05/29/16 09:00 06/28/16 08:59 06/01/16 08:24 Docusate Sodium (Colace) 100 mg THREE TIMES A DAY ORAL 05/31/16 18:00 06/30/16 17:59 06/01/16 08:23 Duloxetine HCl (Cymbalta) 60 mg DAILY ORAL 05/29/16 09:00 06/28/16 08:59 06/01/16 08:24 Enalaprilat (Vasotec) 2.5 mg Q6H PRN IV sbp more than 160 05/28/16 13:00 06/27/16 12:59 Heparin Sodium (Porcine) (Heparin 5000 units/ml) 5,000 units EVERY 12 HOURS SUBQ 05/28/16 21:00 06/27/16 20:59 06/01/16 08:25 Ketorolac Tromethamine (Toradol 30mg) 30 mg Q6H PRN IV moderate pain ( 4-6) 05/28/16 13:00 06/02/16 12:59 Lactulose (Cephulac) 30 gm THREE TIMES A DAY ORAL 05/31/16 18:00 06/30/16 17:59 06/01/16 08:24 Levetiracetam (Keppra) 250 mg Q12HR ORAL 05/28/16 21:00 06/27/16 20:59 06/01/16 08:24 Mineral Oil (Fleet's Mineral Oil Enema) 133 ml EVERY OTHER DAY RECTAL 06/02/16 09:00 07/02/16 08:59 Morphine Sulfate (Morphine Sulfate) 2 mg Q4H PRN IVP severe Pain (Pain Scale 7-10) 05/28/16 13:00 06/04/16 12:59 06/01/16 05:57 Nitroglycerin (Ntg) 0.4 mg Q5M PRN SL Prn Chest Pain 05/28/16 13:00 06/27/16 12:59 Ondansetron HCl (Zofran) 4 mg Q6H PRN IVP Nausea & Vomiting 05/28/16 13:00 06/27/16 12:59 Pantoprazole (Protonix) 40 mg DAILY ORAL 05/29/16 09:00 06/28/16 08:59 06/01/16 08:23 Polyethylene Glycol (Miralax) 17 gm BEDTIME ORAL 05/31/16 21:00 06/30/16 20:59 05/31/16 20:42 Pregabalin (Lyrica) 100 mg THREE TIMES A DAY ORAL 05/28/16 13:00 06/27/16 12:59 06/01/16 08:23 Sennosides (Senokot) 8.6 mg DAILY ORAL 05/29/16 09:00 06/28/16 08:59 06/01/16 08:24 Temazepam (Restoril) 15 mg HSPRN PRN ORAL Insomnia 05/28/16 20:00 06/04/16 19:59 06/01/16 02:09 Triamcinolone (Kenalog) 1 applic Q8HR TOPIC 05/28/16 14:00 06/27/16 13:59 06/01/16 06:37 SUSANA EVANS M.D. Jun 01, 2016 09:36
[2016-06-01 12:00] VITALS: BP 115/75
--- NOTE | 2016-06-01 12:06 | Neurology Progress Note ---
Interim History Interim History ROS Limited/Unobtainable: No Complaints: severe constipation/burning pain all limbs gace more on Right/ weakness both Events: feel better Objective Physical Exam Last Vital Signs Date Time Temp Pulse Resp B/P Pulse Ox O2 Delivery O2 Flow Rate FiO2 06/01/16 10:15 71 18 Nasal Cannula 2.0 28 06/01/16 08:44 98.2 98/57 98 General: well developed, well nourished, no acute distress Head: normocophalic, atraumatic Neck: no rigidity Neurologic Exam Mental Status: awake, alert, oriented x4, normal cognition, other - anxious denies depression Speech: normal speech, no dysarthia Cranial Nerve II: fundus normal, visual mustafa, no papilledema Cranial Nerves III, IV, : PERRLA, EOMI, pupils Cranial Nerve V: normal facial sensations, temporales function normal, masseters function normal, pterygoids function normal Cranial Nerve VII: no facial asymmetry, normal facial expressions Cranial Nerve VIII: normal hearing, no nystagmus Cranial Nerve IX: normal palate elevation, gag response Cranial Nerve X: no voice hoarseness Cranial Nerve XI: SCM symmetric, trapezii function normal Cranial Nerve XII: tongue midline, no tongue atrophy/fasciculations Motor System: no involuntary movement, other - atrophy small muscles both hands , strength=4/5 hands/3/5 proxymal BLE4/5 distal BLE,high tone RLE Sensory: other - stockings sensory loss Coordination: other - clumsy f/n test BUE Deep Tendon Reflexes: 0 ankle (L), 0 ankle (R), 0 bicep (L), 0 bicep (R), 0 brachioradialis (L), 0 brachioradialis (R), 0 knee (L), 0 knee (R), 0 tricep (L) , 0 tricep (R) Reflexes: mute plantar (L), mute plantar (R) Stance: other Gait: other - unable Impression/Recommendations Problems: (1) 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 s/p V-P shunt, now stable (4) generalised neuropathic pain.r/o sensory polyneuropathy (5) Psychiatric disorder Status: stable, unchanged Recommendations #[id number] mri brai/C/LS spine --no acute lesions KUBdone MRI T spine -abnormal t7-t11 syrinx--- cord atrophy consider SPINE surgery eval re syrinx decompression DAVINA SANDERSON Jun 01, 2016 12:06
[2016-06-01 16:42] VITALS: BP 108/73
--- NOTE | 2016-06-01 18:11 | Pulmonology Progress Note ---
Assessment/Plan Problems: (1) ACS (acute coronary syndrome) (2) Seborrheic dermatitis (3) Psychiatric disorder (4) Intractable back pain (5) Paraplegia Assessment/Plan patient refusing most of the meds facial redness not better f/u cardiology recommendations Subjective ROS Limited/Unobtainable: Yes Allergies: Coded Allergies: No Known Allergies (Unverified , 02/18/16) Objective Last 24 Hour Vital Signs Date Time Temp Pulse Resp B/P Pulse Ox O2 Delivery O2 Flow Rate FiO2 06/01/16 16:42 97.5 92 20 108/73 98 Room Air 06/01/16 13:45 98.2 06/01/16 12:00 97.7 94 18 115/75 95 Room Air 06/01/16 10:15 71 18 Nasal Cannula 2.0 28 06/01/16 08:44 98.2 92 20 98/57 98 Room Air 06/01/16 04:00 97.5 77 20 114/68 Room Air 06/01/16 00:00 97.7 78 18 111/64 96 Room Air 05/31/16 20:00 97.9 72 20 111/69 98 Room Air 05/31/16 19:50 75 18 Nasal Cannula 2.0 28 Intake and Output 05/31/16 06/01/16 19:00 07:00 Intake Total 240 ml 600 ml Balance 240 ml 600 ml Intake Oral 240 ml 600 ml # Voids 1 3 General Appearance: no acute distress HEENT: normocephalic, atraumatic, PERRL Respiratory/Chest: chest wall non-tender, lungs clear, normal breath sounds Breasts: no masses Cardiovascular: normal peripheral pulses, normal rate, regular rhythm, no JVD Abdomen: normal bowel sounds, soft, non tender, no organomegaly, no scars Genitourinary: normal external genitalia Extremities: no cyanosis Skin: no rash, lesions 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, no motor/sensory deficits Current Medications Medications (Trade) Dose Ordered Sig/Bushra Route PRN Reason Start Time Stop Time Status Last Admin Dose Admin Acetaminophen (Tylenol) 650 mg Q4H PRN ORAL FEVER 05/28/16 13:00 06/27/16 12:59 Albuterol/ Ipratropium (DuoNeb 0.5-3(2.5)mg/3ml) 3 ml Q4H PRN HHN Shortness of Breath 05/28/16 13:00 06/02/16 12:59 05/30/16 14:42 Artificial Tears (Akwa-Tears) 1 drop Q2H PRN BOTH EYES Dry Eyes 05/28/16 14:00 06/27/16 13:59 Aspirin (Ecotrin) 81 mg DAILY ORAL 05/29/16 09:00 06/28/16 08:59 06/01/16 08:24 Docusate Sodium (Colace) 100 mg THREE TIMES A DAY ORAL 05/31/16 18:00 06/30/16 17:59 06/01/16 17:33 Duloxetine HCl (Cymbalta) 60 mg DAILY ORAL 05/29/16 09:00 06/28/16 08:59 06/01/16 08:24 Enalaprilat (Vasotec) 2.5 mg Q6H PRN IV sbp more than 160 05/28/16 13:00 06/27/16 12:59 Heparin Sodium (Porcine) (Heparin 5000 units/ml) 5,000 units EVERY 12 HOURS SUBQ 05/28/16 21:00 06/27/16 20:59 06/01/16 08:25 Ketorolac Tromethamine (Toradol 30mg) 30 mg Q6H PRN IV moderate pain ( 4-6) 05/28/16 13:00 06/02/16 12:59 Lactulose (Cephulac) 30 gm THREE TIMES A DAY ORAL 05/31/16 18:00 06/30/16 17:59 06/01/16 13:15 Levetiracetam (Keppra) 250 mg Q12HR ORAL 05/28/16 21:00 06/27/16 20:59 06/01/16 08:24 Mineral Oil (Fleet's Mineral Oil Enema) 133 ml EVERY OTHER DAY RECTAL 06/02/16 09:00 07/02/16 08:59 Morphine Sulfate (Morphine Sulfate) 2 mg Q4H PRN IVP severe Pain (Pain Scale 7-10) 05/28/16 13:00 06/04/16 12:59 06/01/16 13:15 Nitroglycerin (Ntg) 0.4 mg Q5M PRN SL Prn Chest Pain 05/28/16 13:00 06/27/16 12:59 Ondansetron HCl (Zofran) 4 mg Q6H PRN IVP Nausea & Vomiting 05/28/16 13:00 06/27/16 12:59 Pantoprazole (Protonix) 40 mg DAILY ORAL 05/29/16 09:00 06/28/16 08:59 06/01/16 08:23 Polyethylene Glycol (Miralax) 17 gm BEDTIME ORAL 05/31/16 21:00 06/30/16 20:59 05/31/16 20:42 Pregabalin (Lyrica) 100 mg THREE TIMES A DAY ORAL 05/28/16 13:00 06/27/16 12:59 06/01/16 17:33 Sennosides (Senokot) 8.6 mg DAILY ORAL 05/29/16 09:00 06/28/16 08:59 06/01/16 08:24 Temazepam (Restoril) 15 mg HSPRN PRN ORAL Insomnia 05/28/16 20:00 06/04/16 19:59 06/01/16 02:09 Triamcinolone (Kenalog) 1 applic Q8HR TOPIC 05/28/16 14:00 06/27/16 13:59 06/01/16 14:06 JAHAIRA PERRY Jun 01, 2016 18:11
[2016-06-01] MEDS ORDERED: DILAUDID1 MG/1 ML PO ×2 (18:18→18:19)
[2016-06-01 20:00] VITALS: BP 112/74
[2016-06-01] MEDS: Miralax 17gm pkt ORAL SCH (21:00)
[2016-06-02] VITALS (7 sets, daily range): BP systolic 96–117; BP diastolic 64–78
--- NOTE | 2016-06-02 00:46 | Consultation ---
History of Present Illness General Date patient seen: May 31, 2016 Chief Complaint: Chest Pain Present Illness HPI 60 yo f. 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 The pt was lucid and denied depressive/manic/psychotic sxs. she is noncompliant with her meds however when asked she stated that she is taking all her meds. she also was started on cymbolta 60mg by neurology. the pt c/o anxiety and difficulty sleeping. Allergies: Coded Allergies: No Known Allergies (Unverified , 02/18/16) Medication History Scheduled Donepezil Hcl* (Donepezil Hcl*), 5 MG ORAL QHS, (Reported) Fentanyl 75MCG Patch* (Fentanyl 75MCG Patch*), 1 PATCH TDERMAL EVERY 72 HOURS, ( Reported) Hydromorphone Hcl (Dilaudid), 1 MG PO Q4HR, (Reported) Levetiracetam (Levetiracetam), 500 MG ORAL Q12HR, (Reported) Levodopa/Carbidopa (Carbidopa-Levodopa 25-100 Tab), 1 TAB ORAL TWICE A DAY, ( Reported) Lorazepam* (Ativan*), 2 MG ORAL THREE TIMES A DAY, (Reported) Pregabalin* (Lyrica*), 100 MG ORAL THREE TIMES A DAY, (Reported) Scheduled PRN Acetaminophen* (Tylenol Extra Strength*), 325 MG ORAL Q6H PRN for Fever/Headache /Mild Pain, (Reported) Al Hydroxide/mg Hydroxide (Mag-Al Plus Suspension), 30 ML PO Q6HR PRN for dyspepsia, (Reported) Bisacodyl (Dulcolax), 10 MG RC for Constipation, (Reported) Dextrose (Dextrose 5%-Water IV Soln), 50 ML IV DAILY PRN for hypoglycemia, ( Reported) Hydrocodone Bit/Acetaminophen 10-325* ([place] 10-325*), 1 TAB ORAL Q4H PRN for For Pain, (Reported) Hydromorphone Hcl (Dilaudid), 1 MG IV Q4HR PRN for For Pain, (Reported) Hydromorphone Hcl (Dilaudid), 1 MG PO Q4HR PRN for For Pain, (Reported) Methocarbamol (Methocarbamol), 500 MG PO Q8HR PRN for Muscle Spasm, (Reported) Naloxone Hcl (Naloxone Hcl*), 0.1 MG IV q24 PRN for sedation rr<10 or sbp<90mmHg , (Reported) Ondansetron* (Zofran*), 4 MG ORAL Q6H PRN for Nausea & Vomiting, (Reported) Polyethylene Glycol 3350* (Miralax*), 17 GM ORAL QHS PRN for Constipation, ( Reported) Zolpidem Tartrate* (Ambien*), 5 MG ORAL BEDTIME PRN for Insomnia, (Reported) Miscellaneous Medications Sennosides (Senna), 8.6 MG PO, (Reported) Patient History History Provided By: Patient, Medical Record, PMD Healthcare decision maker pt alert and oriented Resuscitation status Full Code Advanced Directive on File Past Medical/Surgical History Past Medical/Surgical History: (1) Weak (2) Colonization with VRE (vancomycin-resistant enterococcus) (3) Social isolation (4) Limited mobility (5) Psychiatric disorder (6) Parkinson disease (7) Decubitus ulcer of buttock, stage 2 (8) Paraplegia (9) Seborrheic dermatitis (10) Intractable back pain (11) Rash (12) ACS (acute coronary syndrome) (13) Intractable pain (14) neurologic deterioration, r/o VPshunt failure r/o myelopathy (15) right sided neuropathic pain, intractable. (16) Decubitus ulcer (17) Seizure disorder (18) Hydrocephalus (19) Leukocytosis (20) Neuropathy (21) Encephalopathy (22) Chest pain (23) generalised neuropathic pain and paraparesis. r/o sensory motor polyneuropathy, r/o myelopathy (24) h/o obstrctive hydrocephalus , VOshunt, stable (25) generalised neuropathic pain.r/o sensory polyneuropathy (26) chronic obstructive hydrocephaly. 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 Review of Systems Constitutional: Reports: malaise, weakness Psychiatric: Reports: anxiety, depressed feelings Physical Exam General Appearance: no apparent distress, alert, overweight Neurologic: alert, oriented x 3, responsive, depressed affect Last 24 Hour Vital Signs Date Time Temp Pulse Resp B/P Pulse Ox O2 Delivery O2 Flow Rate FiO2 1/5/17 00:00 97.9 88 18 117/78 95 Room Air 06/01/16 20:35 84 16 Room Air 21 06/01/16 20:00 97.9 88 17 112/74 97 Room Air 06/01/16 16:42 97.5 92 20 108/73 98 Room Air 06/01/16 13:45 98.2 06/01/16 12:00 97.7 94 18 115/75 95 Room Air 06/01/16 10:15 71 18 Nasal Cannula 2.0 28 06/01/16 08:44 98.2 92 20 98/57 98 Room Air 06/01/16 04:00 97.5 77 20 114/68 Room Air Intake and Output 06/01/16 06/02/16 19:00 07:00 Intake Total 720 ml 360 ml Balance 720 ml 360 ml Intake Oral 720 ml 360 ml # Voids 1 1 Height (Feet): 5 Height (Inches): 3.00 Weight (Pounds): 159 Medications Current Medications Medications (Trade) Dose Ordered Sig/Bushra Route PRN Reason Start Time Stop Time Status Last Admin Dose Admin Acetaminophen (Tylenol) 650 mg Q4H PRN ORAL FEVER 05/28/16 13:00 06/27/16 12:59 Albuterol/ Ipratropium (DuoNeb 0.5-3(2.5)mg/3ml) 3 ml Q4H PRN HHN Shortness of Breath 05/28/16 13:00 06/02/16 12:59 05/30/16 14:42 Artificial Tears (Akwa-Tears) 1 drop Q2H PRN BOTH EYES Dry Eyes 05/28/16 14:00 06/27/16 13:59 Aspirin (Ecotrin) 81 mg DAILY ORAL 05/29/16 09:00 06/28/16 08:59 06/01/16 08:24 Docusate Sodium (Colace) 100 mg THREE TIMES A DAY ORAL 05/31/16 18:00 06/30/16 17:59 06/01/16 17:33 Duloxetine HCl (Cymbalta) 30 mg DAILY ORAL 06/02/16 09:00 07/02/16 08:59 UNV Enalaprilat (Vasotec) 2.5 mg Q6H PRN IV sbp more than 160 05/28/16 13:00 06/27/16 12:59 Heparin Sodium (Porcine) (Heparin 5000 units/ml) 5,000 units EVERY 12 HOURS SUBQ 05/28/16 21:00 06/27/16 20:59 06/01/16 21:03 Ketorolac Tromethamine (Toradol 30mg) 30 mg Q6H PRN IV moderate pain ( 4-6) 05/28/16 13:00 06/02/16 12:59 Lactulose (Cephulac) 30 gm THREE TIMES A DAY ORAL 05/31/16 18:00 06/30/16 17:59 06/01/16 18:12 Levetiracetam (Keppra) 250 mg Q12HR ORAL 05/28/16 21:00 06/27/16 20:59 06/01/16 21:00 Mineral Oil (Fleet's Mineral Oil Enema) 133 ml EVERY OTHER DAY RECTAL 06/02/16 09:00 07/02/16 08:59 Morphine Sulfate (Morphine Sulfate) 2 mg Q4H PRN IVP severe Pain (Pain Scale 7-10) 05/28/16 13:00 06/04/16 12:59 06/01/16 13:15 Nitroglycerin (Ntg) 0.4 mg Q5M PRN SL Prn Chest Pain 05/28/16 13:00 06/27/16 12:59 Ondansetron HCl (Zofran) 4 mg Q6H PRN IVP Nausea & Vomiting 05/28/16 13:00 06/27/16 12:59 Pantoprazole (Protonix) 40 mg DAILY ORAL 05/29/16 09:00 06/28/16 08:59 06/01/16 08:23 Polyethylene Glycol (Miralax) 17 gm BEDTIME ORAL 05/31/16 21:00 06/30/16 20:59 06/01/16 21:00 Pregabalin (Lyrica) 100 mg THREE TIMES A DAY ORAL 05/28/16 13:00 06/27/16 12:59 06/01/16 17:33 Sennosides (Senokot) 8.6 mg DAILY ORAL 05/29/16 09:00 06/28/16 08:59 06/01/16 08:24 Temazepam (Restoril) 15 mg HSPRN PRN ORAL Insomnia 05/28/16 20:00 06/04/16 19:59 06/01/16 02:09 Triamcinolone (Kenalog) 1 applic Q8HR TOPIC 05/28/16 14:00 06/27/16 13:59 06/01/16 21:34 Assessment/Plan Status: not improved Assessment/Plan Anxiety d/o insomnia, depression. med noncompliance dec cymbolta 30mg daily remeron 7.5 mg qhs ga Anjum Freire M.D. Jun 02, 2016 00:46
[2016-06-02] MEDS: Morphine Sulfate 2mg/ml Inj IVP PRN ×3 (01:38→17:40)
[2016-06-02] MEDS: Triamcinolone 0.1% oint TOPIC SCH ×3 (06:59→22:11)
[2016-06-02] MEDS: Lactulose 20gm/30ml UDC ORAL SCH ×3 (08:23→17:37)
[2016-06-02] MEDS: Aspirin EC 81mg tab ORAL SCH (08:23)
[2016-06-02] MEDS: DULoxetine 30mg cap ORAL SCH (08:24)
[2016-06-02] MEDS: Docusate 100mg cap ORAL SCH ×3 (08:24→17:38)
[2016-06-02] MEDS: Lyrica 50mg cap ORAL SCH ×3 (08:24→17:38)
[2016-06-02] MEDS: Fleet's Mineral Oil Enema RECTAL SCH (08:26)
[2016-06-02] MEDS: Heparin 5000 units/ml inj SUBQ SCH ×2 (08:30→22:01)
--- NOTE | 2016-06-02 18:31 | Pulmonology Progress Note ---
Assessment/Plan Problems: (1) ACS (acute coronary syndrome) (2) Seborrheic dermatitis (3) Psychiatric disorder (4) Intractable back pain (5) Paraplegia Assessment/Plan patient refusing most of the meds facial redness not better f/u cardiology recommendations Subjective ROS Limited/Unobtainable: Yes Allergies: Coded Allergies: No Known Allergies (Unverified , 02/18/16) Objective Last 24 Hour Vital Signs Date Time Temp Pulse Resp B/P Pulse Ox O2 Delivery O2 Flow Rate FiO2 06/02/16 16:07 98.2 83 23 101/67 96 Nasal Cannula 3.0 06/02/16 12:05 97.5 79 20 110/74 98 Nasal Cannula 2.0 06/02/16 10:25 78 18 Room Air 21 06/02/16 08:39 97.8 107 20 111/77 96 Room Air 06/02/16 07:02 97.8 06/02/16 04:00 97.8 84 18 112/74 94 Room Air 06/02/16 00:00 97.9 88 18 117/78 95 Room Air 06/01/16 20:35 84 16 Room Air 21 06/01/16 20:00 97.9 88 17 112/74 97 Room Air Intake and Output 06/01/16 06/02/16 19:00 07:00 Intake Total 720 ml 820 ml Balance 720 ml 820 ml Intake Oral 720 ml 820 ml # Voids 1 5 General Appearance: no acute distress HEENT: normocephalic, atraumatic, PERRL Respiratory/Chest: chest wall non-tender, lungs clear, normal breath sounds Breasts: no masses Cardiovascular: normal peripheral pulses, normal rate, regular rhythm, no JVD Abdomen: normal bowel sounds, soft, non tender, no organomegaly Genitourinary: normal external genitalia Extremities: no cyanosis Skin: no rash 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, no motor/sensory deficits Current Medications Medications (Trade) Dose Ordered Sig/Bushra Route PRN Reason Start Time Stop Time Status Last Admin Dose Admin Acetaminophen (Tylenol) 650 mg Q4H PRN ORAL FEVER 05/28/16 13:00 06/27/16 12:59 Artificial Tears (Akwa-Tears) 1 drop Q2H PRN BOTH EYES Dry Eyes 05/28/16 14:00 06/27/16 13:59 Aspirin (Ecotrin) 81 mg DAILY ORAL 05/29/16 09:00 06/28/16 08:59 06/02/16 08:23 Docusate Sodium (Colace) 100 mg THREE TIMES A DAY ORAL 05/31/16 18:00 06/30/16 17:59 06/02/16 17:38 Duloxetine HCl (Cymbalta) 30 mg DAILY ORAL 06/02/16 09:00 07/02/16 08:59 06/02/16 08:24 Enalaprilat (Vasotec) 2.5 mg Q6H PRN IV sbp more than 160 05/28/16 13:00 06/27/16 12:59 Heparin Sodium (Porcine) (Heparin 5000 units/ml) 5,000 units EVERY 12 HOURS SUBQ 05/28/16 21:00 06/27/16 20:59 06/02/16 08:30 Lactulose (Cephulac) 30 gm THREE TIMES A DAY ORAL 05/31/16 18:00 06/30/16 17:59 06/02/16 17:37 Levetiracetam (Keppra) 250 mg Q12HR ORAL 05/28/16 21:00 06/27/16 20:59 06/02/16 08:25 Mineral Oil (Fleet's Mineral Oil Enema) 133 ml EVERY OTHER DAY RECTAL 06/02/16 09:00 07/02/16 08:59 06/02/16 08:26 Mirtazapine (Remeron) 7.5 mg BEDTIME ORAL 06/02/16 21:00 07/02/16 20:59 Morphine Sulfate (Morphine Sulfate) 2 mg Q4H PRN IVP severe Pain (Pain Scale 7-10) 05/28/16 13:00 06/04/16 12:59 06/02/16 17:40 Nitroglycerin (Ntg) 0.4 mg Q5M PRN SL Prn Chest Pain 05/28/16 13:00 06/27/16 12:59 Ondansetron HCl (Zofran) 4 mg Q6H PRN IVP Nausea & Vomiting 05/28/16 13:00 06/27/16 12:59 Pantoprazole (Protonix) 40 mg DAILY ORAL 05/29/16 09:00 1/31/17 08:59 06/02/16 08:25 Polyethylene Glycol (Miralax) 17 gm BEDTIME ORAL 05/31/16 21:00 06/30/16 20:59 06/01/16 21:00 Pregabalin (Lyrica) 100 mg THREE TIMES A DAY ORAL 05/28/16 13:00 06/27/16 12:59 06/02/16 17:38 Sennosides (Senokot) 8.6 mg DAILY ORAL 05/29/16 09:00 06/28/16 08:59 06/02/16 08:25 Temazepam (Restoril) 15 mg HSPRN PRN ORAL Insomnia 05/28/16 20:00 06/04/16 19:59 06/02/16 02:04 Triamcinolone (Kenalog) 1 applic Q8HR TOPIC 05/28/16 14:00 06/27/16 13:59 06/02/16 12:17 JAHAIRA PERRY Jun 02, 2016 18:31
--- NOTE | 2016-06-02 19:47 | Infectious Diseases Prog Note ---
Assessment/Plan Assessment/Plan A: The patient is a 60-year-old female with Facial rash , doubt infectious etiology Lower Ext decubitus , not infected ( Wound culture : January 2016 : growing MRSA and Proteus: colonizer ) Leukocytosis, mild - improved, afebrile. History of right hearing loss. Parkinson disease. Seizure disorder. Peripheral neuropathy. History of GERD. Anxiety. History of brain tumor SP resection, VPS NKDA Full Code PLAN: monitor patient off of antibiotics Monitor CBC, temperatures, panculture if acute change Monitor BMP Subjective Constitutional: Denies: anorexia, chills, drenching sweats, fatigue, fever, no symptoms, other Allergies: Coded Allergies: No Known Allergies (Unverified , 02/18/16) Objective Vital Signs Last 24 Hour Vital Signs Date Time Temp Pulse Resp B/P Pulse Ox O2 Delivery O2 Flow Rate FiO2 06/02/16 18:10 98.2 06/02/16 16:07 98.2 83 23 101/67 96 Nasal Cannula 3.0 06/02/16 12:05 97.5 79 20 110/74 98 Nasal Cannula 2.0 06/02/16 10:25 78 18 Room Air 21 06/02/16 08:39 97.8 107 20 111/77 96 Room Air 06/02/16 04:00 97.8 84 18 112/74 94 Room Air 06/02/16 00:00 97.9 88 18 117/78 95 Room Air 06/01/16 20:35 84 16 Room Air 21 06/01/16 20:00 97.9 88 17 112/74 97 Room Air Height (Feet): 5 Height (Inches): 3.00 Weight (Pounds): 159 HEENT: anicteric Respiratory/Chest: normal breath sounds Cardiovascular: regularly irregular Abdomen: soft, non tender, no organomegaly Current Medications Medications (Trade) Dose Ordered Sig/Bushra Route PRN Reason Start Time Stop Time Status Last Admin Dose Admin Acetaminophen (Tylenol) 650 mg Q4H PRN ORAL FEVER 05/28/16 13:00 06/27/16 12:59 Artificial Tears (Akwa-Tears) 1 drop Q2H PRN BOTH EYES Dry Eyes 05/28/16 14:00 06/27/16 13:59 Aspirin (Ecotrin) 81 mg DAILY ORAL 05/29/16 09:00 06/28/16 08:59 06/02/16 08:23 Docusate Sodium (Colace) 100 mg THREE TIMES A DAY ORAL 05/31/16 18:00 06/30/16 17:59 06/02/16 17:38 Duloxetine HCl (Cymbalta) 30 mg DAILY ORAL 06/02/16 09:00 07/02/16 08:59 06/02/16 08:24 Enalaprilat (Vasotec) 2.5 mg Q6H PRN IV sbp more than 160 05/28/16 13:00 06/27/16 12:59 Heparin Sodium (Porcine) (Heparin 5000 units/ml) 5,000 units EVERY 12 HOURS SUBQ 05/28/16 21:00 06/27/16 20:59 06/02/16 08:30 Lactulose (Cephulac) 30 gm THREE TIMES A DAY ORAL 05/31/16 18:00 06/30/16 17:59 06/02/16 17:37 Levetiracetam (Keppra) 250 mg Q12HR ORAL 05/28/16 21:00 06/27/16 20:59 06/02/16 08:25 Mineral Oil (Fleet's Mineral Oil Enema) 133 ml EVERY OTHER DAY RECTAL 06/02/16 09:00 07/02/16 08:59 06/02/16 08:26 Mirtazapine (Remeron) 7.5 mg BEDTIME ORAL 06/02/16 21:00 07/02/16 20:59 Morphine Sulfate (Morphine Sulfate) 2 mg Q4H PRN IVP severe Pain (Pain Scale 7-10) 05/28/16 13:00 06/04/16 12:59 06/02/16 17:40 Nitroglycerin (Ntg) 0.4 mg Q5M PRN SL Prn Chest Pain 05/28/16 13:00 06/27/16 12:59 Ondansetron HCl (Zofran) 4 mg Q6H PRN IVP Nausea & Vomiting 05/28/16 13:00 06/27/16 12:59 Pantoprazole (Protonix) 40 mg DAILY ORAL 05/29/16 09:00 06/28/16 08:59 06/02/16 08:25 Polyethylene Glycol (Miralax) 17 gm BEDTIME ORAL 05/31/16 21:00 06/30/16 20:59 06/01/16 21:00 Pregabalin (Lyrica) 100 mg THREE TIMES A DAY ORAL 05/28/16 13:00 06/27/16 12:59 06/02/16 17:38 Sennosides (Senokot) 8.6 mg DAILY ORAL 05/29/16 09:00 06/28/16 08:59 06/02/16 08:25 Temazepam (Restoril) 15 mg HSPRN PRN ORAL Insomnia 05/28/16 20:00 06/04/16 19:59 06/02/16 02:04 Triamcinolone (Kenalog) 1 applic Q8HR TOPIC 05/28/16 14:00 06/27/16 13:59 06/02/16 12:17 SUSANA EVANS M.D. Jun 02, 2016 19:47
[2016-06-02] MEDS: Miralax 17gm pkt ORAL SCH (22:02)
[2016-06-03] MEDS: Morphine Sulfate 2mg/ml Inj IVP PRN ×3 (02:30→19:22)
[2016-06-03 04:00] VITALS: BP 106/67
[2016-06-03] MEDS: Triamcinolone 0.1% oint TOPIC SCH ×3 (06:20→22:08)
[2016-06-03 08:00] VITALS: BP 102/63
[2016-06-03] MEDS: Lyrica 50mg cap ORAL SCH ×3 (09:00→18:00)
[2016-06-03] MEDS: DULoxetine 30mg cap ORAL SCH (09:00)
--- NOTE | 2016-06-03 09:13 | Pulmonology Progress Note ---
Assessment/Plan Assessment/Plan ASSESSMENT T7T11 syringomyelia , diffuse T spine atrophy with paraparesis hx of obstructive hydrocephalus ,s/p CLASSROOM MONITOR shunt - stable intractable pain anxiety with depression facial rash PLAN OF CARE [facility] floor serial troponin negative, ECG no ST changes, thus r/o for acute [place] cardio follows ECHO with preserved EF patient declined stress test neuro follows MRI brain no acute intracranial pathology MRI C spine - no acute pathology abnormal MRI T spine c/w T7-T11 syringomyelia , cord atrophy pain management spine surgery eval as outpatient psych eval appreciated, started on Remeron ID follows, off ax, not likely infectious etiology of facial rash as per ID needs placement case discussed and evaluated by supervising physician Subjective Allergies: Coded Allergies: No Known Allergies (Unverified , 02/18/16) Subjective denies chest pain, SOB afebrile back pain Objective Last 24 Hour Vital Signs Date Time Temp Pulse Resp B/P Pulse Ox O2 Delivery O2 Flow Rate FiO2 06/03/16 04:00 97.3 71 18 106/67 98 Nasal Cannula 2.0 06/03/16 03:00 97.2 06/02/16 23:57 97.2 74 18 103/67 96 Nasal Cannula 2.0 06/02/16 20:00 97.9 72 24 96/64 98 Nasal Cannula 3.0 06/02/16 19:00 82 16 Nasal Cannula 2.0 28 06/02/16 16:07 98.2 83 23 101/67 96 Nasal Cannula 3.0 06/02/16 12:05 97.5 79 20 110/74 98 Nasal Cannula 2.0 06/02/16 10:25 78 18 Room Air 21 Intake and Output 06/02/16 06/03/16 19:00 07:00 Intake Total 720 ml 1080 ml Balance 720 ml 1080 ml Intake Oral 720 ml 1080 ml # Voids 3 4 General Appearance: no acute distress, other - A/A/O x 3 bedridden chronically ill looking female HEENT: normocephalic, atraumatic, anicteric, mucous membranes moist, PERRL, EOMI, supple, no JVD Respiratory/Chest: chest wall non-tender, lungs clear, normal breath sounds, no respiratory distress, no accessory muscle use Cardiovascular: normal peripheral pulses, normal rate, regular rhythm Abdomen: normal bowel sounds, soft, non tender, non distended Extremities: no edema, pedal pulses normal Skin: other - facial rash, erythema, macular, no otehr elsion, no drainage, no TTP, Neurologic/Psychiatric: abnormal gait - bedridden, , alert, oriented x 3, responsive, normal mood/affect, sensory deficit - stockings sensory loss BLE, other - muscle strength 4/5 bilateral hands, distal BLE, 3/5 proximal BLE, Lymphatic: no neck adenopathy Current Medications Medications (Trade) Dose Ordered Sig/Bushra Route PRN Reason Start Time Stop Time Status Last Admin Dose Admin Acetaminophen (Tylenol) 650 mg Q4H PRN ORAL FEVER 05/28/16 13:00 06/27/16 12:59 Artificial Tears (Akwa-Tears) 1 drop Q2H PRN BOTH EYES Dry Eyes 05/28/16 14:00 06/27/16 13:59 Aspirin (Ecotrin) 81 mg DAILY ORAL 05/29/16 09:00 06/28/16 08:59 06/02/16 08:23 Docusate Sodium (Colace) 100 mg THREE TIMES A DAY ORAL 05/31/16 18:00 06/30/16 17:59 06/02/16 17:38 Duloxetine HCl (Cymbalta) 30 mg DAILY ORAL 06/02/16 09:00 07/02/16 08:59 06/02/16 08:24 Enalaprilat (Vasotec) 2.5 mg Q6H PRN IV sbp more than 160 05/28/16 13:00 06/27/16 12:59 Heparin Sodium (Porcine) (Heparin 5000 units/ml) 5,000 units EVERY 12 HOURS SUBQ 05/28/16 21:00 06/27/16 20:59 06/02/16 22:01 Lactulose (Cephulac) 30 gm THREE TIMES A DAY ORAL 05/31/16 18:00 06/30/16 17:59 06/02/16 17:37 Levetiracetam (Keppra) 250 mg Q12HR ORAL 05/28/16 21:00 06/27/16 20:59 06/02/16 21:58 Mineral Oil (Fleet's Mineral Oil Enema) 133 ml EVERY OTHER DAY RECTAL 06/02/16 09:00 07/02/16 08:59 06/02/16 08:26 Mirtazapine (Remeron) 7.5 mg BEDTIME ORAL 06/02/16 21:00 07/02/16 20:59 06/02/16 22:01 Morphine Sulfate (Morphine Sulfate) 2 mg Q4H PRN IVP severe Pain (Pain Scale 7-10) 05/28/16 13:00 06/04/16 12:59 06/03/16 02:30 Nitroglycerin (Ntg) 0.4 mg Q5M PRN SL Prn Chest Pain 05/28/16 13:00 06/27/16 12:59 Ondansetron HCl (Zofran) 4 mg Q6H PRN IVP Nausea & Vomiting 05/28/16 13:00 06/27/16 12:59 Pantoprazole (Protonix) 40 mg DAILY ORAL 05/29/16 09:00 06/28/16 08:59 06/02/16 08:25 Polyethylene Glycol (Miralax) 17 gm BEDTIME ORAL 05/31/16 21:00 06/30/16 20:59 06/02/16 22:02 Pregabalin (Lyrica) 100 mg THREE TIMES A DAY ORAL 05/28/16 13:00 06/27/16 12:59 06/02/16 17:38 Sennosides (Senokot) 8.6 mg DAILY ORAL 05/29/16 09:00 06/28/16 08:59 06/02/16 08:25 Temazepam (Restoril) 15 mg HSPRN PRN ORAL Insomnia 05/28/16 20:00 06/04/16 19:59 06/02/16 02:04 Triamcinolone (Kenalog) 1 applic Q8HR TOPIC 05/28/16 14:00 06/27/16 13:59 06/03/16 06:20 Demetrio ([facility])Theresa NP Jun 03, 2016 09:13
[2016-06-03] MEDS: Docusate 100mg cap ORAL SCH ×3 (09:37→18:32)
[2016-06-03] MEDS: Aspirin EC 81mg tab ORAL SCH (09:38)
[2016-06-03] MEDS: Lactulose 20gm/30ml UDC ORAL SCH ×3 (09:39→18:32)
[2016-06-03] MEDS: Heparin 5000 units/ml inj SUBQ SCH ×2 (09:45→20:58)
--- NOTE | 2016-06-03 11:29 | Infectious Diseases Prog Note ---
Assessment/Plan Assessment/Plan A: The patient is a 60-year-old female with ? Folliculitis: over the nose Facial rash , doubt infectious etiology Lower Ext decubitus , not infected ( Wound culture : January 2016 : growing MRSA and Proteus: colonizer ) Leukocytosis, mild - improved, afebrile. History of right hearing loss. Parkinson disease. Seizure disorder. Peripheral neuropathy. History of GERD. Anxiety. History of brain tumor SP resection, VPS NKDA Full Code PLAN: start pt on clinda d # Monitor CBC, temperatures, panculture if acute change Monitor BMP Subjective Constitutional: Denies: anorexia, chills, drenching sweats, fatigue, fever, no symptoms, other Allergies: Coded Allergies: No Known Allergies (Unverified , 02/18/16) Objective Vital Signs Last 24 Hour Vital Signs Date Time Temp Pulse Resp B/P Pulse Ox O2 Delivery O2 Flow Rate FiO2 06/03/16 08:00 97.3 92 18 102/63 99 Room Air 06/03/16 04:00 97.3 71 18 106/67 98 Nasal Cannula 2.0 06/03/16 03:00 97.2 06/02/16 23:57 97.2 74 18 103/67 96 Nasal Cannula 2.0 06/02/16 20:00 97.9 72 24 96/64 98 Nasal Cannula 3.0 06/02/16 19:00 82 16 Nasal Cannula 2.0 28 06/02/16 16:07 98.2 83 23 101/67 96 Nasal Cannula 3.0 06/02/16 12:05 97.5 79 20 110/74 98 Nasal Cannula 2.0 Height (Feet): 5 Height (Inches): 3.00 Weight (Pounds): 159 HEENT: anicteric Respiratory/Chest: normal breath sounds Cardiovascular: normal rate Abdomen: soft, non tender Current Medications Medications (Trade) Dose Ordered Sig/Bushra Route PRN Reason Start Time Stop Time Status Last Admin Dose Admin Acetaminophen (Tylenol) 650 mg Q4H PRN ORAL FEVER 05/28/16 13:00 06/27/16 12:59 Artificial Tears (Akwa-Tears) 1 drop Q2H PRN BOTH EYES Dry Eyes 05/28/16 14:00 06/27/16 13:59 Aspirin (Ecotrin) 81 mg DAILY ORAL 05/29/16 09:00 06/28/16 08:59 06/03/16 09:38 Docusate Sodium (Colace) 100 mg THREE TIMES A DAY ORAL 05/31/16 18:00 06/30/16 17:59 06/03/16 09:37 Duloxetine HCl (Cymbalta) 30 mg DAILY ORAL 06/02/16 09:00 07/02/16 08:59 06/02/16 08:24 Enalaprilat (Vasotec) 2.5 mg Q6H PRN IV sbp more than 160 05/28/16 13:00 06/27/16 12:59 Heparin Sodium (Porcine) (Heparin 5000 units/ml) 5,000 units EVERY 12 HOURS SUBQ 05/28/16 21:00 06/27/16 20:59 06/03/16 09:45 Lactulose (Cephulac) 30 gm THREE TIMES A DAY ORAL 05/31/16 18:00 06/30/16 17:59 06/03/16 09:39 Levetiracetam (Keppra) 250 mg Q12HR ORAL 05/28/16 21:00 06/27/16 20:59 06/03/16 09:37 Mineral Oil (Fleet's Mineral Oil Enema) 133 ml EVERY OTHER DAY RECTAL 06/02/16 09:00 07/02/16 08:59 06/02/16 08:26 Mirtazapine (Remeron) 7.5 mg BEDTIME ORAL 06/02/16 21:00 07/02/16 20:59 06/02/16 22:01 Morphine Sulfate (Morphine Sulfate) 2 mg Q4H PRN IVP severe Pain (Pain Scale 7-10) 05/28/16 13:00 06/04/16 12:59 06/03/16 02:30 Nitroglycerin (Ntg) 0.4 mg Q5M PRN SL Prn Chest Pain 05/28/16 13:00 06/27/16 12:59 Ondansetron HCl (Zofran) 4 mg Q6H PRN IVP Nausea & Vomiting 05/28/16 13:00 06/27/16 12:59 Pantoprazole (Protonix) 40 mg DAILY ORAL 05/29/16 09:00 06/28/16 08:59 06/03/16 09:38 Polyethylene Glycol (Miralax) 17 gm BEDTIME ORAL 05/31/16 21:00 06/30/16 20:59 06/02/16 22:02 Pregabalin (Lyrica) 100 mg THREE TIMES A DAY ORAL 05/28/16 13:00 06/27/16 12:59 06/02/16 17:38 Sennosides (Senokot) 8.6 mg DAILY ORAL 05/29/16 09:00 06/28/16 08:59 06/03/16 09:00 Temazepam (Restoril) 15 mg HSPRN PRN ORAL Insomnia 05/28/16 20:00 06/04/16 19:59 06/02/16 02:04 Triamcinolone (Kenalog) 1 applic Q8HR TOPIC 05/28/16 14:00 06/27/16 13:59 06/03/16 06:20 SUSANA EVANS M.D. Jun 03, 2016 11:29
[2016-06-03 12:00] VITALS: BP 100/62
[2016-06-03] MEDS ORDERED: DuoNeb 0.5-3(2.5)mg/3ml neb HHN PRN (15:15)
[2016-06-03 16:00] VITALS: BP 108/68
[2016-06-03] MEDS: Clindamycin 150mg cap ORAL SCH (19:22)
[2016-06-03 20:00] VITALS: BP 101/60
[2016-06-03] MEDS: Miralax 17gm pkt ORAL SCH (20:57)
[2016-06-04] VITALS: BP 92/60
[2016-06-04] MEDS: Clindamycin 150mg cap ORAL SCH ×4 (00:59→17:53)
[2016-06-04] MEDS: Morphine Sulfate 2mg/ml Inj IVP PRN ×3 (01:41→16:08)
--- NOTE | 2016-06-04 03:27 | Progress Note ---
SUBJECTIVE: Mental status is unchanged since previous encounter. She has been started on Remeron and she is going to be continued on Seroquel. She has been tolerating medications, no side effects. Appetite and sleep is adequate. She did improve. MENTAL STATUS EXAMINATION: Patient is alert, oriented x3. Mood is dysphoric. Affect is constricted. Congruent mood. Thought process is concrete. Thought content, there is no suicidal or homicidal ideation. Cognition is intact. ASSESSMENT: Depression and anxiety. PLAN: 1. The patient will be continued on Remeron 7.5 mg h.s. 2. Seroquel 50 mg h.s. 3. The patient has capacity to make decisions. 4. She is awaiting placement. Anjum Arechiga M.D. DR: KIERAN JOB#: [id number] CC:
[2016-06-04] MEDS: Triamcinolone 0.1% oint TOPIC SCH ×3 (07:40→21:30)
[2016-06-04] MEDS: Lactulose 20gm/30ml UDC ORAL SCH ×3 (08:16→17:53)
[2016-06-04] MEDS: DULoxetine 30mg cap ORAL SCH (08:17)
[2016-06-04] MEDS: Aspirin EC 81mg tab ORAL SCH (08:17)
[2016-06-04] MEDS: Docusate 100mg cap ORAL SCH ×3 (08:17→17:53)
[2016-06-04] MEDS: Heparin 5000 units/ml inj SUBQ SCH ×2 (08:19→20:53)
[2016-06-04] MEDS: Lyrica 50mg cap ORAL SCH ×3 (08:27→17:47)
[2016-06-04 08:29] VITALS: BP 103/54
[2016-06-04] MEDS: Fleet's Mineral Oil Enema RECTAL SCH (08:34)
--- NOTE | 2016-06-04 09:23 | Pulmonology Progress Note ---
Assessment/Plan Assessment/Plan ASSESSMENT T7T11 syringomyelia , diffuse T spine atrophy with paraparesis hx of obstructive hydrocephalus ,s/p TRIAGE NURSE shunt - stable intractable pain anxiety with depression facial rash PLAN OF CARE [place] floor serial troponin negative, ECG no ST changes, thus r/o for acute [place] cardio follows ECHO with preserved EF patient declined stress test neuro follows MRI brain - no acute intracranial pathology MRI C spine - no acute pathology abnormal MRI T spine c/w T7-T11 syringomyelia , cord atrophy pain management spine surgery eval as outpatient psych eval appreciated, on Remeron ID follows, off ax, not likely infectious etiology of facial rash as per ID needs placement labs for this am pending case discussed and evaluated by supervising physician Subjective Allergies: Coded Allergies: No Known Allergies (Unverified , 02/18/16) Subjective denies chest pain, SOB afebrile intermittent back pain, controlled with current regimen Objective Last 24 Hour Vital Signs Date Time Temp Pulse Resp B/P Pulse Ox O2 Delivery O2 Flow Rate FiO2 06/04/16 08:46 97.5 06/04/16 08:29 97.5 87 20 103/54 96 Room Air 06/04/16 00:00 98.1 80 19 92/60 97 Room Air 06/03/16 20:00 97.9 86 19 101/60 97 Nasal Cannula 3.0 06/03/16 16:00 98.4 108 18 108/68 97 Room Air 06/03/16 13:29 97.3 06/03/16 12:00 97.2 97 18 100/62 97 Room Air Intake and Output 06/03/16 06/04/16 19:00 07:00 Intake Total 440 ml 760 ml Balance 440 ml 760 ml Intake Oral 440 ml 760 ml # Voids 1 4 Objective General Appearance: no acute distress, other - A/A/O x 3 bedridden chronically ill looking female HEENT: normocephalic, atraumatic, anicteric, mucous membranes moist, PERRL, EOMI, supple, no JVD Respiratory/Chest: chest wall non-tender, lungs clear, normal breath sounds, no respiratory distress, no accessory muscle use Cardiovascular: normal peripheral pulses, normal rate, regular rhythm Abdomen: normal bowel sounds, soft, non tender, non distended Extremities: no edema, pedal pulses normal Skin: other - facial rash, erythema, macular, no otehr elsion, no drainage, no TTP, Neurologic/Psychiatric: abnormal gait - bedridden, , alert, oriented x 3, responsive, normal mood/affect, sensory deficit - stockings sensory loss BLE, other - muscle strength 4/5 bilateral hands, distal BLE, 3/5 proximal BLE, Lymphatic: no neck adenopathy Current Medications Medications (Trade) Dose Ordered Sig/Bushra Route PRN Reason Start Time Stop Time Status Last Admin Dose Admin Acetaminophen (Tylenol) 650 mg Q4H PRN ORAL FEVER 05/28/16 13:00 06/27/16 12:59 Albuterol/ Ipratropium (DuoNeb 0.5-3(2.5)mg/3ml) 3 ml Q4HR PRN HHN SHORTNESS OF BREATH 06/03/16 15:15 06/08/16 15:14 Artificial Tears (Akwa-Tears) 1 drop Q2H PRN BOTH EYES Dry Eyes 05/28/16 14:00 06/27/16 13:59 Aspirin (Ecotrin) 81 mg DAILY ORAL 05/29/16 09:00 06/28/16 08:59 06/04/16 08:17 Clindamycin HCl (Cleocin) 300 mg EVERY 6 HOURS ORAL 06/03/16 18:00 06/10/16 17:59 06/04/16 07:40 Docusate Sodium (Colace) 100 mg THREE TIMES A DAY ORAL 05/31/16 18:00 06/30/16 17:59 06/04/16 08:17 Duloxetine HCl (Cymbalta) 30 mg DAILY ORAL 06/02/16 09:00 07/02/16 08:59 06/04/16 08:17 Enalaprilat (Vasotec) 2.5 mg Q6H PRN IV sbp more than 160 05/28/16 13:00 06/27/16 12:59 Heparin Sodium (Porcine) (Heparin 5000 units/ml) 5,000 units EVERY 12 HOURS SUBQ 05/28/16 21:00 06/27/16 20:59 06/04/16 08:19 Lactulose (Cephulac) 30 gm THREE TIMES A DAY ORAL 05/31/16 18:00 06/30/16 17:59 06/04/16 08:16 Levetiracetam (Keppra) 250 mg Q12HR ORAL 05/28/16 21:00 06/27/16 20:59 06/04/16 08:17 Mineral Oil (Fleet's Mineral Oil Enema) 133 ml EVERY OTHER DAY RECTAL 06/02/16 09:00 07/02/16 08:59 06/04/16 08:34 Mirtazapine (Remeron) 7.5 mg BEDTIME ORAL 06/02/16 21:00 07/02/16 20:59 06/03/16 20:57 Morphine Sulfate (Morphine Sulfate) 2 mg Q4H PRN IVP severe Pain (Pain Scale 7-10) 06/03/16 15:30 06/10/16 15:29 06/04/16 08:16 Nitroglycerin (Ntg) 0.4 mg Q5M PRN SL Prn Chest Pain 05/28/16 13:00 06/27/16 12:59 Ondansetron HCl (Zofran) 4 mg Q6H PRN IVP Nausea & Vomiting 05/28/16 13:00 06/27/16 12:59 Pantoprazole (Protonix) 40 mg DAILY ORAL 05/29/16 09:00 06/28/16 08:59 06/04/16 08:16 Polyethylene Glycol (Miralax) 17 gm BEDTIME ORAL 05/31/16 21:00 06/30/16 20:59 06/03/16 20:57 Pregabalin (Lyrica) 100 mg THREE TIMES A DAY ORAL 05/28/16 13:00 06/27/16 12:59 06/02/16 17:38 Sennosides (Senokot) 8.6 mg DAILY ORAL 05/29/16 09:00 06/28/16 08:59 06/04/16 08:17 Temazepam (Restoril) 15 mg HSPRN PRN ORAL Insomnia 06/03/16 15:30 06/10/16 15:29 06/04/16 01:42 Triamcinolone (Kenalog) 1 applic Q8HR TOPIC 05/28/16 14:00 06/27/16 13:59 06/04/16 07:40 Demetrio Adams)Theresa NP Jun 04, 2016 09:23
[2016-06-04] MEDS ORDERED: DuoNeb 0.5-3(2.5)mg/3ml neb HHN PRN (09:30)
[2016-06-04 12:09] VITALS: BP 109/58
[2016-06-04 13:32] LABS: BASOPHILS % (AUTO) 1.3 % (0.0-2.0); EOSINOPHILS % (AUTO) 3.1 % (0.0-3.0); LYMPHOCYTES % (AUTO) 28.4 % (20.0-45.0); MEAN CORPUSCULAR HEMOGLOBIN 29.2 PG (27.0-31.0); MEAN CORPUSCULAR HGB CONC 31.5 G/DL (32.0-36.0); MEAN CORPUSCULAR VOLUME 93 FL (80-99); MEAN PLATELET VOLUME 6.2 FL (6.5-10.1); MONOCYTES % (AUTO) 6.5 % (1.0-10.0); NEUTROPHILS % (AUTO) 60.8 % (45.0-75.0); PLATELET COUNT 258 K/UL (150-450); RED BLOOD COUNT 4.91 M/UL (4.20-5.40); RED CELL DISTRIBUTION WIDTH 13.2 % (11.6-14.8); WHITE BLOOD COUNT 11.1 K/UL (4.8-10.8)
[2016-06-04 13:48] LABS: ANION GAP 14 (5-15); CALCIUM 9.2 mg/dL (8.6-10.2); CARBON DIOXIDE 28 mEQ/L (20-30); CHLORIDE 103 mEQ/L (98-107); CREATININE 0.8 mg/dL (0.5-0.9); GLOMERULAR FILTRATION RATE > 60 mL/min (>60); HEMOLYSIS 6; POTASSIUM 4.2 mEQ/L (3.4-4.9); SODIUM 145 mEQ/L (135-145)
[2016-06-04 15:54] VITALS: BP 97/65
[2016-06-04 16:00] VITALS: BP 102/64
[2016-06-04 20:31] VITALS: BP 102/63
[2016-06-04] MEDS: Miralax 17gm pkt ORAL SCH (20:51)
[2016-06-05] VITALS: BP 105/64
[2016-06-05] MEDS: Clindamycin 150mg cap ORAL SCH ×4 (01:24→18:36)
[2016-06-05] MEDS: Morphine Sulfate 2mg/ml Inj IVP PRN ×5 (03:27→21:10)
[2016-06-05 04:00] VITALS: BP 104/65
[2016-06-05] MEDS: Triamcinolone 0.1% oint TOPIC SCH ×3 (06:35→21:09)
[2016-06-05 08:00] VITALS: BP 109/74
[2016-06-05] MEDS: Aspirin EC 81mg tab ORAL SCH (08:51)
[2016-06-05] MEDS: Docusate 100mg cap ORAL SCH ×3 (08:51→18:36)
[2016-06-05] MEDS: DULoxetine 30mg cap ORAL SCH (08:51)
[2016-06-05] MEDS: Heparin 5000 units/ml inj SUBQ SCH ×2 (08:54→21:11)
[2016-06-05] MEDS ORDERED: Docusate 100mg cap ORAL SCH (09:00)
[2016-06-05] MEDS ORDERED: Lactulose 20gm/30ml UDC ORAL SCH (09:00)
[2016-06-05] MEDS: Lyrica 50mg cap ORAL SCH ×3 (09:00→18:00)
[2016-06-05] MEDS: Lactulose 20gm/30ml UDC ORAL SCH ×3 (09:45→18:36)
--- NOTE | 2016-06-05 10:30 | Diagnostic Imaging Report ---
Indication: Constipation, pain Technique: Supine view of the abdomen Comparison: none Findings: There is right ventriculoperitoneal shunt tubing, tip of which projects in the midabdomen. There is inferior vena cava filter. Bowel gas pattern is unremarkable. There is only mild retained fecal debris, predominantly within the right colon and rectum Impression: No acute process IVC filter, ventriculoperitoneal shunt tubing incidentally noted
--- NOTE | 2016-06-05 10:31 | Diagnostic Imaging Report ---
Indication: Back pain Technique: MRI examination of the thoracic spine was performed in a 1.5 Luana magnet. Sequences obtained include sagittal and axial T1 and T2 fast spin echo, and sagittal STIR. T1 fat saturated fast spin-echo obtained before and after intravenous gadolinium. Comparison: none Findings: There is slight expansion of the spinal cord secondary to a syrinx which is noted from T7-8 through T10-11. There is no abnormal enhancement identified. There is no extradural fluid collection or mass identified. There is no central stenosis. A few scattered fat signal intensity foci are noted within the bones most prominent at T8 vertebra and T11 and T12 vertebras. Findings consistent with hemangiomata. Alignment is normal. There is no fracture. Impression: Spinal cord syrinx involving the lower thoracic spine from T7-8 to about T10-11.
--- NOTE | 2016-06-05 10:31 | Diagnostic Imaging Report ---
Indication: Back pain Technique: MRI examination of the Lumbar spine was performed in a 1.5 Luana magnet. Sequences obtained include sagittal and axial T1 and T2 fast spin echo, and sagittal STIR. Axial and sagittal T1 fast echo fat sat after IV gadolinium obtained. Comparison: none Findings: Bone marrow signal and alignment are essentially normal. There is a small hemangioma involving the L2 vertebra. Conus medullaris is seen at L1-2 and is normal in appearance. There is prominent epidural fat at L5-S1 and within the sacrum. There is no spinal stenosis or neural foraminal narrowing identified. The intervertebral discs appear relatively normal. There is no foraminal stenosis. Impression: Spinal lipomatosis in the sacral level. L2 vertebral hemangioma.
[2016-06-05 12:00] VITALS: BP 98/63
--- NOTE | 2016-06-05 12:15 | Infectious Diseases Prog Note ---
Assessment/Plan Assessment/Plan A: The patient is a 60-year-old female with ? Folliculitis: over the nose improving Facial rash , doubt infectious etiology Lower Ext decubitus , not infected ( Wound culture : January 2016 : growing MRSA and Proteus: colonizer ) Leukocytosis, mild - improved, afebrile. MRI of spine : noted History of right hearing loss. Parkinson disease. Seizure disorder. Peripheral neuropathy. History of GERD. Anxiety. History of brain tumor SP resection, VPS NKDA Full Code PLAN: start pt on clinda d # 3 / 7 Monitor CBC, temperatures, panculture if acute change Monitor BMP Subjective Constitutional: Denies: anorexia, chills, drenching sweats, fatigue, fever, no symptoms, other Allergies: Coded Allergies: No Known Allergies (Unverified , 02/18/16) Objective Vital Signs Last 24 Hour Vital Signs Date Time Temp Pulse Resp B/P Pulse Ox O2 Delivery O2 Flow Rate FiO2 06/05/16 09:21 97.7 06/05/16 08:00 93.4 18 109/74 94 Room Air 2.0 06/05/16 07:53 97 Room Air 21 06/05/16 07:53 75 18 Room Air 21 06/05/16 04:00 97.7 78 18 104/65 95 Room Air 06/05/16 00:00 97.5 82 18 105/64 96 Nasal Cannula 2.0 06/04/16 22:16 96 Nasal Cannula 2.0 28 06/04/16 22:16 86 20 Nasal Cannula 2.0 28 06/04/16 20:31 98.1 86 19 102/63 96 Nasal Cannula 2.0 06/04/16 16:00 102/64 06/04/16 15:54 98.2 81 20 97/65 97 Nasal Cannula 2.0 Height (Feet): 5 Height (Inches): 3.00 Weight (Pounds): 159 HEENT: anicteric Respiratory/Chest: normal breath sounds Cardiovascular: regularly irregular Abdomen: no mass Laboratory Tests Test 06/04/16 13:10 White Blood Count 11.1 K/UL (4.8-10.8) H Red Blood Count 4.91 M/UL (4.20-5.40) Hemoglobin 14.4 G/DL (12.0-16.0) Hematocrit 45.6 % (37.0-47.0) Mean Corpuscular Volume 93 FL (80-99) Mean Corpuscular Hemoglobin 29.2 PG (27.0-31.0) Mean Corpuscular Hemoglobin Concent 31.5 G/DL (32.0-36.0) L Red Cell Distribution Width 13.2 % (11.6-14.8) Platelet Count 258 K/UL (150-450) Mean Platelet Volume 6.2 FL (6.5-10.1) L Neutrophils (%) (Auto) 60.8 % (45.0-75.0) Lymphocytes (%) (Auto) 28.4 % (20.0-45.0) Monocytes (%) (Auto) 6.5 % (1.0-10.0) Eosinophils (%) (Auto) 3.1 % (0.0-3.0) H Basophils (%) (Auto) 1.3 % (0.0-2.0) Sodium Level 145 mEQ/L (135-145) Potassium Level 4.2 mEQ/L (3.4-4.9) Chloride Level 103 mEQ/L (98-107) Carbon Dioxide Level 28 mEQ/L (20-30) Anion Gap 14 (5-15) Blood Urea Nitrogen 17 mg/dL (7-23) Creatinine 0.8 mg/dL (0.5-0.9) Estimat Glomerular Filtration Rate > 60 mL/min (>60) Glucose Level 124 mg/dL (74-106) H Calcium Level 9.2 mg/dL (8.6-10.2) Current Medications Medications (Trade) Dose Ordered Sig/Bushra Route PRN Reason Start Time Stop Time Status Last Admin Dose Admin Acetaminophen (Tylenol) 650 mg Q4H PRN ORAL FEVER 05/28/16 13:00 06/27/16 12:59 Albuterol/ Ipratropium (DuoNeb 0.5-3(2.5)mg/3ml) 3 ml Q4H PRN HHN Shortness of Breath 06/04/16 09:30 06/09/16 09:29 Artificial Tears (Akwa-Tears) 1 drop Q2H PRN BOTH EYES Dry Eyes 05/28/16 14:00 06/27/16 13:59 Aspirin (Ecotrin) 81 mg DAILY ORAL 05/29/16 09:00 06/28/16 08:59 06/05/16 08:51 Clindamycin HCl (Cleocin) 300 mg EVERY 6 HOURS ORAL 06/03/16 18:00 06/10/16 17:59 06/05/16 11:42 Docusate Sodium (Colace) 100 mg THREE TIMES A DAY ORAL 05/31/16 18:00 06/30/16 17:59 06/05/16 08:51 Duloxetine HCl (Cymbalta) 30 mg DAILY ORAL 06/02/16 09:00 07/02/16 08:59 06/05/16 08:51 Enalaprilat (Vasotec) 2.5 mg Q6H PRN IV sbp more than 160 05/28/16 13:00 06/27/16 12:59 Heparin Sodium (Porcine) (Heparin 5000 units/ml) 5,000 units EVERY 12 HOURS SUBQ 05/28/16 21:00 06/27/16 20:59 06/05/16 08:54 Lactulose (Cephulac) 30 gm THREE TIMES A DAY ORAL 05/31/16 18:00 06/30/16 17:59 06/05/16 09:45 Levetiracetam (Keppra) 250 mg Q12HR ORAL 05/28/16 21:00 06/27/16 20:59 06/05/16 08:51 Mineral Oil (Fleet's Mineral Oil Enema) 133 ml EVERY OTHER DAY RECTAL 06/02/16 09:00 07/02/16 08:59 06/04/16 08:34 Mirtazapine (Remeron) 7.5 mg BEDTIME ORAL 06/02/16 21:00 07/02/16 20:59 06/04/16 20:51 Morphine Sulfate (Morphine Sulfate) 2 mg Q4H PRN IVP severe Pain (Pain Scale 7-10) 06/03/16 15:30 06/10/16 15:29 06/05/16 08:51 Nitroglycerin (Ntg) 0.4 mg Q5M PRN SL Prn Chest Pain 05/28/16 13:00 06/27/16 12:59 Ondansetron HCl (Zofran) 4 mg Q6H PRN IVP Nausea & Vomiting 05/28/16 13:00 06/27/16 12:59 Pantoprazole (Protonix) 40 mg DAILY ORAL 05/29/16 09:00 06/28/16 08:59 06/05/16 08:51 Polyethylene Glycol (Miralax) 17 gm BEDTIME ORAL 05/31/16 21:00 06/30/16 20:59 06/04/16 20:51 Pregabalin (Lyrica) 100 mg THREE TIMES A DAY ORAL 05/28/16 13:00 06/27/16 12:59 06/02/16 17:38 Sennosides (Senokot) 8.6 mg DAILY ORAL 06/05/16 09:00 07/05/16 08:59 06/05/16 08:51 Temazepam (Restoril) 15 mg HSPRN PRN ORAL Insomnia 06/03/16 15:30 06/10/16 15:29 06/05/16 03:52 Triamcinolone (Kenalog) 1 applic Q8HR TOPIC 05/28/16 14:00 06/27/16 13:59 06/05/16 06:35 SUSANA EVANS M.D. Jun 05, 2016 12:14
--- NOTE | 2016-06-05 13:27 | Pulmonology Progress Note ---
Assessment/Plan Assessment/Plan ASSESSMENT T7T11 syringomyelia , diffuse T spine atrophy with paraparesis hx of obstructive hydrocephalus ,s/p BID CLERK shunt - stable intractable pain anxiety with depression facial rash PLAN OF CARE [facility] floor serial troponin negative, ECG no ST changes, thus r/o for acute [place] cardio follows ECHO with preserved EF patient declined stress test neuro follows MRI brain no acute intracranial pathology MRI C spine - no acute pathology abnormal MRI T spine c/w T7-T11 syringomyelia , cord atrophy pain management spine surgery eval as outpatient psych eval appreciated, on Remeron ID follows, off ax, not likely infectious etiology of facial rash as per ID needs placement last labs 06/04 - stable case discussed and evaluated by supervising physician Subjective Allergies: Coded Allergies: No Known Allergies (Unverified , 02/18/16) Subjective denies chest pain, SOB afebrile intermittent back pain, controlled with current regimen Objective Last 24 Hour Vital Signs Date Time Temp Pulse Resp B/P Pulse Ox O2 Delivery O2 Flow Rate FiO2 06/05/16 09:21 97.7 06/05/16 08:00 93.4 18 109/74 94 Room Air 2.0 06/05/16 07:53 97 Room Air 21 06/05/16 07:53 75 18 Room Air 21 06/05/16 04:00 97.7 78 18 104/65 95 Room Air 06/05/16 00:00 97.5 82 18 105/64 96 Nasal Cannula 2.0 06/04/16 22:16 96 Nasal Cannula 2.0 28 06/04/16 22:16 86 20 Nasal Cannula 2.0 28 06/04/16 20:31 98.1 86 19 102/63 96 Nasal Cannula 2.0 06/04/16 16:00 102/64 06/04/16 15:54 98.2 81 20 97/65 97 Nasal Cannula 2.0 Intake and Output 06/04/16 06/05/16 19:00 07:00 Intake Total 900 ml 360 ml Balance 900 ml 360 ml Intake Oral 900 ml 360 ml # Voids 5 3 Objective General Appearance: no acute distress, other - A/A/O x 3 bedridden chronically ill looking female HEENT: normocephalic, atraumatic, anicteric, mucous membranes moist, PERRL, EOMI, supple, no JVD Respiratory/Chest: chest wall non-tender, lungs clear, normal breath sounds, no respiratory distress, no accessory muscle use Cardiovascular: normal peripheral pulses, normal rate, regular rhythm Abdomen: normal bowel sounds, soft, non tender, non distended Extremities: no edema, pedal pulses normal Skin: other - facial rash, erythema, macular, no otehr elsion, no drainage, no TTP, Neurologic/Psychiatric: abnormal gait - bedridden, , alert, oriented x 3, responsive, normal mood/affect, sensory deficit - stockings sensory loss BLE, other - muscle strength 4/5 bilateral hands, distal BLE, 3/5 proximal BLE, Lymphatic: no neck adenopathy Current Medications Medications (Trade) Dose Ordered Sig/Ubshra Route PRN Reason Start Time Stop Time Status Last Admin Dose Admin Acetaminophen (Tylenol) 650 mg Q4H PRN ORAL FEVER 05/28/16 13:00 06/27/16 12:59 Albuterol/ Ipratropium (DuoNeb 0.5-3(2.5)mg/3ml) 3 ml Q4H PRN HHN Shortness of Breath 06/04/16 09:30 06/09/16 09:29 Artificial Tears (Akwa-Tears) 1 drop Q2H PRN BOTH EYES Dry Eyes 05/28/16 14:00 06/27/16 13:59 Aspirin (Ecotrin) 81 mg DAILY ORAL 05/29/16 09:00 06/28/16 08:59 06/05/16 08:51 Clindamycin HCl (Cleocin) 300 mg EVERY 6 HOURS ORAL 06/03/16 18:00 06/10/16 17:59 06/05/16 11:42 Docusate Sodium (Colace) 100 mg THREE TIMES A DAY ORAL 05/31/16 18:00 06/30/16 17:59 06/05/16 13:11 Duloxetine HCl (Cymbalta) 30 mg DAILY ORAL 06/02/16 09:00 07/02/16 08:59 06/05/16 08:51 Enalaprilat (Vasotec) 2.5 mg Q6H PRN IV sbp more than 160 05/28/16 13:00 06/27/16 12:59 Heparin Sodium (Porcine) (Heparin 5000 units/ml) 5,000 units EVERY 12 HOURS SUBQ 05/28/16 21:00 06/27/16 20:59 1/8/17 08:54 Lactulose (Cephulac) 30 gm THREE TIMES A DAY ORAL 05/31/16 18:00 06/30/16 17:59 06/05/16 13:11 Levetiracetam (Keppra) 250 mg Q12HR ORAL 05/28/16 21:00 06/27/16 20:59 06/05/16 08:51 Mineral Oil (Fleet's Mineral Oil Enema) 133 ml EVERY OTHER DAY RECTAL 06/02/16 09:00 07/02/16 08:59 06/04/16 08:34 Mirtazapine (Remeron) 7.5 mg BEDTIME ORAL 06/02/16 21:00 07/02/16 20:59 06/04/16 20:51 Morphine Sulfate (Morphine Sulfate) 2 mg Q4H PRN IVP severe Pain (Pain Scale 7-10) 06/03/16 15:30 06/10/16 15:29 06/05/16 13:10 Nitroglycerin (Ntg) 0.4 mg Q5M PRN SL Prn Chest Pain 05/28/16 13:00 06/27/16 12:59 Ondansetron HCl (Zofran) 4 mg Q6H PRN IVP Nausea & Vomiting 05/28/16 13:00 06/27/16 12:59 Pantoprazole (Protonix) 40 mg DAILY ORAL 05/29/16 09:00 06/28/16 08:59 06/05/16 08:51 Polyethylene Glycol (Miralax) 17 gm BEDTIME ORAL 05/31/16 21:00 06/30/16 20:59 06/04/16 20:51 Pregabalin (Lyrica) 100 mg THREE TIMES A DAY ORAL 05/28/16 13:00 06/27/16 12:59 06/02/16 17:38 Sennosides (Senokot) 8.6 mg DAILY ORAL 06/05/16 09:00 07/05/16 08:59 06/05/16 08:51 Temazepam (Restoril) 15 mg HSPRN PRN ORAL Insomnia 06/03/16 15:30 06/10/16 15:29 06/05/16 03:52 Triamcinolone (Kenalog) 1 applic Q8HR TOPIC 05/28/16 14:00 06/27/16 13:59 06/05/16 13:11 Demetrio ([facility])Theresa NP Jun 05, 2016 13:26
[2016-06-05 16:00] VITALS: BP 109/69
[2016-06-05 20:00] VITALS: BP 114/61
[2016-06-05] MEDS ORDERED: Miralax 17gm pkt ORAL SCH (21:00)
[2016-06-05] MEDS: Miralax 17gm pkt ORAL SCH (21:09)
[2016-06-06] VITALS: BP 101/67
[2016-06-06] MEDS: Clindamycin 150mg cap ORAL SCH ×5 (00:09→23:51)
[2016-06-06] MEDS: Morphine Sulfate 2mg/ml Inj IVP PRN ×5 (01:42→19:35)
[2016-06-06 04:00] VITALS: BP 106/69
[2016-06-06] MEDS: Triamcinolone 0.1% oint TOPIC SCH ×3 (06:00→21:57)
[2016-06-06 08:00] VITALS: BP 94/60
[2016-06-06] MEDS: Lactulose 20gm/30ml UDC ORAL SCH ×3 (09:00→19:35)
[2016-06-06] MEDS: Lyrica 50mg cap ORAL SCH ×3 (09:00→19:36)
[2016-06-06] MEDS ORDERED: Fleet's Mineral Oil Enema RECTAL SCH (09:00)
[2016-06-06] MEDS: Fleet's Mineral Oil Enema RECTAL SCH (09:00)
[2016-06-06] MEDS: DULoxetine 30mg cap ORAL SCH (09:08)
[2016-06-06] MEDS: Docusate 100mg cap ORAL SCH ×3 (09:08→20:16)
[2016-06-06] MEDS: Aspirin EC 81mg tab ORAL SCH (09:09)
[2016-06-06] MEDS: Heparin 5000 units/ml inj SUBQ SCH ×2 (09:10→20:19)
[2016-06-06 12:00] VITALS: BP 92/67
[2016-06-06 16:00] VITALS: BP 101/82
--- NOTE | 2016-06-06 17:31 | Pulmonology Progress Note ---
Assessment/Plan Problems: (1) ACS (acute coronary syndrome) (2) Seborrheic dermatitis (3) Psychiatric disorder (4) Intractable back pain (5) Paraplegia Assessment/Plan patient refusing most of the meds facial redness not better f/u cardiology recommendations Subjective ROS Limited/Unobtainable: Yes Constitutional: Reports: anorexia, fatigue Musculoskeletal: Reports: pain, stiffness Allergies: Coded Allergies: No Known Allergies (Unverified , 02/18/16) Objective Last 24 Hour Vital Signs Date Time Temp Pulse Resp B/P Pulse Ox O2 Delivery O2 Flow Rate FiO2 06/06/16 16:00 97.9 71 21 101/82 96 Nasal Cannula 3.0 06/06/16 12:00 97.5 69 20 92/67 98 Nasal Cannula 2.0 06/06/16 11:53 97.3 06/06/16 08:15 98 Nasal Cannula 2.0 28 06/06/16 08:15 76 16 Nasal Cannula 2.0 28 06/06/16 08:15 Nasal Cannula 2.0 28 06/06/16 08:00 97.3 79 20 94/60 96 Nasal Cannula 2.0 06/06/16 04:00 97.8 75 18 106/69 96 Nasal Cannula 2.0 06/06/16 00:00 97.9 73 18 101/67 97 Nasal Cannula 2.0 06/05/16 20:02 78 20 Room Air 21 06/05/16 20:02 97 Room Air 21 06/05/16 20:00 98.4 71 18 114/61 95 Nasal Cannula 2.0 Intake and Output 06/05/16 06/06/16 19:00 07:00 Intake Total 400 ml 485 ml Balance 400 ml 485 ml Intake Oral 400 ml 485 ml # Voids 2 8 # Bowel Movements 1 General Appearance: no acute distress HEENT: normocephalic, atraumatic, PERRL Respiratory/Chest: chest wall non-tender, normal breath sounds, no respiratory distress, no accessory muscle use Breasts: no masses Cardiovascular: normal peripheral pulses, normal rate, regular rhythm, no JVD Abdomen: normal bowel sounds, soft, non tender, no organomegaly, non distended Genitourinary: normal external genitalia Extremities: no cyanosis Skin: no rash, no lesions Neurologic/Psychiatric: rawhide trimmer II-XII grossly normal, no motor/sensory deficits Current Medications Medications (Trade) Dose Ordered Sig/Bushra Route PRN Reason Start Time Stop Time Status Last Admin Dose Admin Acetaminophen (Tylenol) 650 mg Q4H PRN ORAL FEVER 05/28/16 13:00 06/27/16 12:59 Albuterol/ Ipratropium (DuoNeb 0.5-3(2.5)mg/3ml) 3 ml Q4H PRN HHN Shortness of Breath 06/04/16 09:30 06/09/16 09:29 Artificial Tears (Akwa-Tears) 1 drop Q2H PRN BOTH EYES Dry Eyes 05/28/16 14:00 06/27/16 13:59 Aspirin (Ecotrin) 81 mg DAILY ORAL 05/29/16 09:00 06/28/16 08:59 06/06/16 09:09 Clindamycin HCl (Cleocin) 300 mg EVERY 6 HOURS ORAL 06/03/16 18:00 06/10/16 17:59 06/06/16 11:22 Docusate Sodium (Colace) 100 mg THREE TIMES A DAY ORAL 05/31/16 18:00 06/30/16 17:59 06/06/16 13:29 Duloxetine HCl (Cymbalta) 30 mg DAILY ORAL 06/02/16 09:00 07/02/16 08:59 06/06/16 09:08 Enalaprilat (Vasotec) 2.5 mg Q6H PRN IV sbp more than 160 05/28/16 13:00 06/27/16 12:59 Heparin Sodium (Porcine) (Heparin 5000 units/ml) 5,000 units EVERY 12 HOURS SUBQ 05/28/16 21:00 06/27/16 20:59 06/06/16 09:10 Lactulose (Cephulac) 30 gm THREE TIMES A DAY ORAL 05/31/16 18:00 06/30/16 17:59 06/06/16 13:29 Levetiracetam (Keppra) 250 mg Q12HR ORAL 05/28/16 21:00 06/27/16 20:59 06/06/16 09:08 Mineral Oil (Fleet's Mineral Oil Enema) 133 ml EVERY OTHER DAY RECTAL 06/02/16 09:00 07/02/16 08:59 06/04/16 08:34 Mirtazapine (Remeron) 7.5 mg BEDTIME ORAL 06/02/16 21:00 07/02/16 20:59 06/05/16 21:09 Morphine Sulfate (Morphine Sulfate) 2 mg Q4H PRN IVP severe Pain (Pain Scale 7-10) 06/03/16 15:30 06/10/16 15:29 06/06/16 15:40 Nitroglycerin (Ntg) 0.4 mg Q5M PRN SL Prn Chest Pain 05/28/16 13:00 06/27/16 12:59 Ondansetron HCl (Zofran) 4 mg Q6H PRN IVP Nausea & Vomiting 05/28/16 13:00 06/27/16 12:59 Pantoprazole (Protonix) 40 mg DAILY ORAL 05/29/16 09:00 06/28/16 08:59 06/06/16 09:08 Polyethylene Glycol (Miralax) 17 gm BEDTIME ORAL 05/31/16 21:00 06/30/16 20:59 06/05/16 21:09 Pregabalin (Lyrica) 100 mg THREE TIMES A DAY ORAL 05/28/16 13:00 06/27/16 12:59 06/02/16 17:38 Sennosides (Senokot) 8.6 mg DAILY ORAL 06/05/16 09:00 07/05/16 08:59 06/06/16 09:08 Temazepam (Restoril) 15 mg HSPRN PRN ORAL Insomnia 06/03/16 15:30 06/10/16 15:29 06/06/16 00:14 Triamcinolone (Kenalog) 1 applic Q8HR TOPIC 05/28/16 14:00 06/27/16 13:59 06/06/16 13:29 JAHAIRA PERRY Jun 06, 2016 17:31
--- NOTE | 2016-06-06 18:33 | Infectious Diseases Prog Note ---
Assessment/Plan Assessment/Plan ASSESSMENT: 60-year-old female with: Folliculitis - mild improving Facial rash , doubt infectious etiology Lower Ext decubitus , not infected ( Wound culture : January 2016 : growing MRSA and Proteus: colonizer ) Leukocytosis, mild - improved, afebrile. 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 Spinal lipomatosis in the sacral level. L2 vertebral hemangioma. History of right hearing loss. Parkinson disease. Seizure disorder. Peripheral neuropathy. History of GERD. Anxiety. History of brain tumor SP resection, VPS NKDA Full Code PLAN: continue clindamycin d# 4 / 7 Monitor CBC, temperatures, panculture if acute change Monitor BMP Subjective Allergies: Coded Allergies: No Known Allergies (Unverified , 02/18/16) Subjective remains afebrile. comfortable no labs today Objective Vital Signs Last 24 Hour Vital Signs Date Time Temp Pulse Resp B/P Pulse Ox O2 Delivery O2 Flow Rate FiO2 06/06/16 16:00 97.9 71 21 101/82 96 Nasal Cannula 3.0 06/06/16 12:00 97.5 69 20 92/67 98 Nasal Cannula 2.0 06/06/16 11:53 97.3 06/06/16 08:15 98 Nasal Cannula 2.0 28 06/06/16 08:15 76 16 Nasal Cannula 2.0 28 06/06/16 08:15 Nasal Cannula 2.0 28 06/06/16 08:00 97.3 79 20 94/60 96 Nasal Cannula 2.0 06/06/16 04:00 97.8 75 18 106/69 96 Nasal Cannula 2.0 06/06/16 00:00 97.9 73 18 101/67 97 Nasal Cannula 2.0 06/05/16 20:02 78 20 Room Air 21 06/05/16 20:02 97 Room Air 21 06/05/16 20:00 98.4 71 18 114/61 95 Nasal Cannula 2.0 Height (Feet): 5 Height (Inches): 3.00 Weight (Pounds): 159 General Appearance: no acute distress Respiratory/Chest: no respiratory distress Cardiovascular: normal rate, regular rhythm Abdomen: normal bowel sounds, soft, non tender, non distended Current Medications Medications (Trade) Dose Ordered Sig/Bushra Route PRN Reason Start Time Stop Time Status Last Admin Dose Admin Acetaminophen (Tylenol) 650 mg Q4H PRN ORAL FEVER 05/28/16 13:00 06/27/16 12:59 Albuterol/ Ipratropium (DuoNeb 0.5-3(2.5)mg/3ml) 3 ml Q4H PRN HHN Shortness of Breath 06/04/16 09:30 06/09/16 09:29 Artificial Tears (Akwa-Tears) 1 drop Q2H PRN BOTH EYES Dry Eyes 05/28/16 14:00 06/27/16 13:59 Aspirin (Ecotrin) 81 mg DAILY ORAL 05/29/16 09:00 06/28/16 08:59 06/06/16 09:09 Clindamycin HCl (Cleocin) 300 mg EVERY 6 HOURS ORAL 06/03/16 18:00 06/10/16 17:59 06/06/16 11:22 Docusate Sodium (Colace) 100 mg THREE TIMES A DAY ORAL 05/31/16 18:00 06/30/16 17:59 06/06/16 13:29 Duloxetine HCl (Cymbalta) 30 mg DAILY ORAL 06/02/16 09:00 07/02/16 08:59 06/06/16 09:08 Enalaprilat (Vasotec) 2.5 mg Q6H PRN IV sbp more than 160 05/28/16 13:00 06/27/16 12:59 Heparin Sodium (Porcine) (Heparin 5000 units/ml) 5,000 units EVERY 12 HOURS SUBQ 05/28/16 21:00 06/27/16 20:59 06/06/16 09:10 Lactulose (Cephulac) 30 gm THREE TIMES A DAY ORAL 05/31/16 18:00 06/30/16 17:59 06/06/16 13:29 Levetiracetam (Keppra) 250 mg Q12HR ORAL 05/28/16 21:00 06/27/16 20:59 06/06/16 09:08 Mineral Oil (Fleet's Mineral Oil Enema) 133 ml EVERY OTHER DAY RECTAL 06/02/16 09:00 07/02/16 08:59 06/04/16 08:34 Mirtazapine (Remeron) 7.5 mg BEDTIME ORAL 06/02/16 21:00 07/02/16 20:59 06/05/16 21:09 Morphine Sulfate (Morphine Sulfate) 2 mg Q4H PRN IVP severe Pain (Pain Scale 7-10) 06/03/16 15:30 06/10/16 15:29 06/06/16 15:40 Nitroglycerin (Ntg) 0.4 mg Q5M PRN SL Prn Chest Pain 05/28/16 13:00 06/27/16 12:59 Ondansetron HCl (Zofran) 4 mg Q6H PRN IVP Nausea & Vomiting 05/28/16 13:00 06/27/16 12:59 Pantoprazole (Protonix) 40 mg DAILY ORAL 05/29/16 09:00 06/28/16 08:59 06/06/16 09:08 Polyethylene Glycol (Miralax) 17 gm BEDTIME ORAL 05/31/16 21:00 06/30/16 20:59 06/05/16 21:09 Pregabalin (Lyrica) 100 mg THREE TIMES A DAY ORAL 05/28/16 13:00 06/27/16 12:59 06/02/16 17:38 Sennosides (Senokot) 8.6 mg DAILY ORAL 06/05/16 09:00 07/05/16 08:59 06/06/16 09:08 Temazepam (Restoril) 15 mg HSPRN PRN ORAL Insomnia 06/03/16 15:30 06/10/16 15:29 06/06/16 00:14 Triamcinolone (Kenalog) 1 applic Q8HR TOPIC 05/28/16 14:00 06/27/16 13:59 06/06/16 13:29 ROMINA LOMELI Jun 06, 2016 18:33
[2016-06-06 20:00] VITALS: BP 98/60
[2016-06-06] MEDS: Miralax 17gm pkt ORAL SCH (20:16)
[2016-06-07] VITALS: BP 91/60
[2016-06-07] MEDS: Morphine Sulfate 2mg/ml Inj IVP PRN ×5 (00:05→19:01)
[2016-06-07 04:00] VITALS: BP 136/56
[2016-06-07] MEDS: Clindamycin 150mg cap ORAL SCH ×3 (05:22→17:33)
[2016-06-07] MEDS: Triamcinolone 0.1% oint TOPIC SCH ×2 (05:53→14:46)
[2016-06-07 08:43] VITALS: BP 109/62
[2016-06-07] MEDS: Heparin 5000 units/ml inj SUBQ SCH (09:53)
[2016-06-07] MEDS: Docusate 100mg cap ORAL SCH ×3 (09:54→17:33)
[2016-06-07] MEDS: Lactulose 20gm/30ml UDC ORAL SCH ×3 (09:54→17:33)
[2016-06-07] MEDS: Aspirin EC 81mg tab ORAL SCH (09:55)
[2016-06-07] MEDS: DULoxetine 30mg cap ORAL SCH (09:55)
[2016-06-07] MEDS: Lyrica 50mg cap ORAL SCH ×3 (09:56→17:34)
[2016-06-07 12:12] VITALS: BP 106/60
[2016-06-07 16:00] VITALS: BP 111/72
--- NOTE | 2016-06-07 17:43 | Infectious Diseases Prog Note ---
Assessment/Plan Assessment/Plan ASSESSMENT: 60-year-old female with: Folliculitis - mild improving Facial rash , doubt infectious etiology Lower Ext decubitus , not infected ( Wound culture : January 2016 : growing MRSA and Proteus: colonizer ) Leukocytosis, mild - improved, afebrile. 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 Spinal lipomatosis in the sacral level. L2 vertebral hemangioma. History of right hearing loss. Parkinson disease. Seizure disorder. Peripheral neuropathy. History of GERD. Anxiety. History of brain tumor SP resection, VPS NKDA Full Code PLAN: continue clindamycin d# 5 / 7 Monitor CBC, temperatures, panculture if acute change Monitor BMP Subjective Allergies: Coded Allergies: No Known Allergies (Unverified , 02/18/16) Subjective remains afebrile. comfortable no labs today Objective Vital Signs Last 24 Hour Vital Signs Date Time Temp Pulse Resp B/P Pulse Ox O2 Delivery O2 Flow Rate FiO2 06/07/16 16:00 98.2 94 19 111/72 94 Room Air 06/07/16 12:12 98.0 65 20 106/60 98 Nasal Cannula 2.0 06/07/16 08:43 97.4 68 20 109/62 98 Nasal Cannula 2.0 06/07/16 07:52 Room Air 06/07/16 07:51 97 Room Air 21 06/07/16 07:50 60 16 Room Air 21 06/07/16 05:50 98.2 06/07/16 04:00 97.7 60 19 136/56 95 Room Air 06/07/16 00:00 96.4 69 20 91/60 97 Room Air 06/06/16 20:00 98.2 80 23 98/60 98 Nasal Cannula 2.5 06/06/16 19:30 98 Nasal Cannula 2.0 28 06/06/16 19:30 75 16 Nasal Cannula 2.0 28 06/06/16 19:30 Nasal Cannula 2.0 28 Height (Feet): 5 Height (Inches): 3.00 Weight (Pounds): 159 General Appearance: no acute distress Respiratory/Chest: no respiratory distress Cardiovascular: normal rate, regular rhythm Abdomen: normal bowel sounds, soft, non tender, non distended Current Medications Medications (Trade) Dose Ordered Sig/Bushra Route PRN Reason Start Time Stop Time Status Last Admin Dose Admin Acetaminophen (Tylenol) 650 mg Q4H PRN ORAL FEVER 05/28/16 13:00 06/27/16 12:59 Albuterol/ Ipratropium (DuoNeb 0.5-3(2.5)mg/3ml) 3 ml Q4H PRN HHN Shortness of Breath 06/04/16 09:30 06/09/16 09:29 Artificial Tears (Akwa-Tears) 1 drop Q2H PRN BOTH EYES Dry Eyes 05/28/16 14:00 06/27/16 13:59 Aspirin (Ecotrin) 81 mg DAILY ORAL 05/29/16 09:00 06/28/16 08:59 06/07/16 09:55 Clindamycin HCl (Cleocin) 300 mg EVERY 6 HOURS ORAL 06/03/16 18:00 06/10/16 17:59 06/07/16 17:33 Docusate Sodium (Colace) 100 mg THREE TIMES A DAY ORAL 05/31/16 18:00 06/30/16 17:59 06/07/16 17:33 Duloxetine HCl (Cymbalta) 30 mg DAILY ORAL 06/02/16 09:00 07/02/16 08:59 06/07/16 09:55 Enalaprilat (Vasotec) 2.5 mg Q6H PRN IV sbp more than 160 05/28/16 13:00 06/27/16 12:59 Heparin Sodium (Porcine) (Heparin 5000 units/ml) 5,000 units EVERY 12 HOURS SUBQ 05/28/16 21:00 06/27/16 20:59 06/07/16 09:53 Influenza Virus Vaccine (Flu Vaccine) 0.5 ml ONCE ONCE IM 06/07/16 17:15 06/07/16 17:16 UNV Lactulose (Cephulac) 30 gm THREE TIMES A DAY ORAL 05/31/16 18:00 06/30/16 17:59 06/07/16 17:33 Levetiracetam (Keppra) 250 mg Q12HR ORAL 05/28/16 21:00 06/27/16 20:59 06/07/16 09:55 Mineral Oil (Fleet's Mineral Oil Enema) 133 ml EVERY OTHER DAY RECTAL 06/02/16 09:00 07/02/16 08:59 06/04/16 08:34 Mirtazapine (Remeron) 7.5 mg BEDTIME ORAL 06/02/16 21:00 07/02/16 20:59 06/06/16 20:16 Morphine Sulfate (Morphine Sulfate) 2 mg Q4H PRN IVP severe Pain (Pain Scale 7-10) 06/03/16 15:30 06/10/16 15:29 06/07/16 14:53 Nitroglycerin (Ntg) 0.4 mg Q5M PRN SL Prn Chest Pain 05/28/16 13:00 06/27/16 12:59 Ondansetron HCl (Zofran) 4 mg Q6H PRN IVP Nausea & Vomiting 05/28/16 13:00 06/27/16 12:59 Pantoprazole (Protonix) 40 mg DAILY ORAL 05/29/16 09:00 06/28/16 08:59 06/07/16 09:56 Polyethylene Glycol (Miralax) 17 gm BEDTIME ORAL 05/31/16 21:00 06/30/16 20:59 06/06/16 20:16 Pregabalin (Lyrica) 100 mg THREE TIMES A DAY ORAL 05/28/16 13:00 06/27/16 12:59 06/07/16 09:56 Sennosides (Senokot) 8.6 mg DAILY ORAL 06/05/16 09:00 07/05/16 08:59 06/07/16 09:56 Temazepam (Restoril) 15 mg HSPRN PRN ORAL Insomnia 06/03/16 15:30 06/10/16 15:29 06/07/16 00:27 Triamcinolone (Kenalog) 1 applic Q8HR TOPIC 05/28/16 14:00 06/27/16 13:59 06/07/16 14:46 ROMINA LOMELI Jun 07, 2016 17:43
--- NOTE | 2016-06-07 18:18 | Pulmonology Progress Note ---
Assessment/Plan Problems: (1) ACS (acute coronary syndrome) (2) Seborrheic dermatitis (3) Psychiatric disorder (4) Intractable back pain (5) Paraplegia Assessment/Plan patient refusing most of the meds facial redness not better f/u cardiology recommendations Subjective ROS Limited/Unobtainable: No Gastrointestinal/Abdominal: Reports: bloating, constipation, nausea Allergies: Coded Allergies: No Known Allergies (Unverified , 02/18/16) Objective Last 24 Hour Vital Signs Date Time Temp Pulse Resp B/P Pulse Ox O2 Delivery O2 Flow Rate FiO2 06/07/16 16:00 98.2 94 19 111/72 94 Room Air 06/07/16 12:12 98.0 65 20 106/60 98 Nasal Cannula 2.0 06/07/16 08:43 97.4 68 20 109/62 98 Nasal Cannula 2.0 06/07/16 07:52 Room Air 06/07/16 07:51 97 Room Air 21 06/07/16 07:50 60 16 Room Air 21 06/07/16 05:50 98.2 06/07/16 04:00 97.7 60 19 136/56 95 Room Air 06/07/16 00:00 96.4 69 20 91/60 97 Room Air 06/06/16 20:00 98.2 80 23 98/60 98 Nasal Cannula 2.5 06/06/16 19:30 98 Nasal Cannula 2.0 28 06/06/16 19:30 75 16 Nasal Cannula 2.0 28 06/06/16 19:30 Nasal Cannula 2.0 28 Intake and Output 06/06/16 06/07/16 19:00 07:00 Intake Total 360 ml 950 ml Balance 360 ml 950 ml Intake Oral 360 ml 950 ml # Voids 2 3 General Appearance: no acute distress HEENT: normocephalic, atraumatic, PERRL Respiratory/Chest: chest wall non-tender, decreased breath sounds, accessory muscle use Breasts: no masses Cardiovascular: normal peripheral pulses, normal rate, regular rhythm, no JVD Abdomen: absent bowel sounds, distended, guarding, tender, rebound tenderness Genitourinary: normal external genitalia Extremities: no cyanosis Skin: no rash 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, abnormal CN, motor weakness , sensory deficit Current Medications Medications (Trade) Dose Ordered Sig/Bushra Route PRN Reason Start Time Stop Time Status Last Admin Dose Admin Acetaminophen (Tylenol) 650 mg Q4H PRN ORAL FEVER 05/28/16 13:00 06/27/16 12:59 Albuterol/ Ipratropium (DuoNeb 0.5-3(2.5)mg/3ml) 3 ml Q4H PRN HHN Shortness of Breath 06/04/16 09:30 06/09/16 09:29 Artificial Tears (Akwa-Tears) 1 drop Q2H PRN BOTH EYES Dry Eyes 05/28/16 14:00 06/27/16 13:59 Aspirin (Ecotrin) 81 mg DAILY ORAL 05/29/16 09:00 06/28/16 08:59 06/07/16 09:55 Clindamycin HCl (Cleocin) 300 mg EVERY 6 HOURS ORAL 06/03/16 18:00 06/10/16 17:59 06/07/16 17:33 Docusate Sodium (Colace) 100 mg THREE TIMES A DAY ORAL 05/31/16 18:00 06/30/16 17:59 06/07/16 17:33 Duloxetine HCl (Cymbalta) 30 mg DAILY ORAL 06/02/16 09:00 07/02/16 08:59 06/07/16 09:55 Enalaprilat (Vasotec) 2.5 mg Q6H PRN IV sbp more than 160 05/28/16 13:00 06/27/16 12:59 Heparin Sodium (Porcine) (Heparin 5000 units/ml) 5,000 units EVERY 12 HOURS SUBQ 05/28/16 21:00 06/27/16 20:59 06/07/16 09:53 Influenza Virus Vaccine (Flu Vaccine) 0.5 ml ONCE ONCE IM 06/07/16 17:15 06/07/16 17:16 UNV Lactulose (Cephulac) 30 gm THREE TIMES A DAY ORAL 05/31/16 18:00 06/30/16 17:59 06/07/16 17:33 Levetiracetam (Keppra) 250 mg Q12HR ORAL 05/28/16 21:00 06/27/16 20:59 06/07/16 09:55 Mineral Oil (Fleet's Mineral Oil Enema) 133 ml EVERY OTHER DAY RECTAL 06/02/16 09:00 07/02/16 08:59 06/04/16 08:34 Mirtazapine (Remeron) 7.5 mg BEDTIME ORAL 06/02/16 21:00 07/02/16 20:59 06/06/16 20:16 Morphine Sulfate (Morphine Sulfate) 2 mg Q4H PRN IVP severe Pain (Pain Scale 7-10) 06/03/16 15:30 06/10/16 15:29 06/07/16 14:53 Nitroglycerin (Ntg) 0.4 mg Q5M PRN SL Prn Chest Pain 05/28/16 13:00 06/27/16 12:59 Ondansetron HCl (Zofran) 4 mg Q6H PRN IVP Nausea & Vomiting 05/28/16 13:00 06/27/16 12:59 Pantoprazole (Protonix) 40 mg DAILY ORAL 05/29/16 09:00 06/28/16 08:59 06/07/16 09:56 Polyethylene Glycol (Miralax) 17 gm BEDTIME ORAL 05/31/16 21:00 06/30/16 20:59 06/06/16 20:16 Pregabalin (Lyrica) 100 mg THREE TIMES A DAY ORAL 05/28/16 13:00 06/27/16 12:59 06/07/16 09:56 Sennosides (Senokot) 8.6 mg DAILY ORAL 06/05/16 09:00 07/05/16 08:59 06/07/16 09:56 Temazepam (Restoril) 15 mg HSPRN PRN ORAL Insomnia 06/03/16 15:30 06/10/16 15:29 06/07/16 00:27 Triamcinolone (Kenalog) 1 applic Q8HR TOPIC 05/28/16 14:00 06/27/16 13:59 06/07/16 14:46 JAHAIRA PERRY Jun 07, 2016 18:18
[2016-06-07] MEDS ORDERED: Influenza Virus Vaccine 0.5ml IM ONE (20:00)
[2016-06-08] MEDS ORDERED: CLINDAMYCIN HC150 MG ORAL (08:36)
--- NOTE | 2016-06-08 09:00 | Discharge Summary ---
Discharge Summary Hospital Course Date of Admission May 25, 2016 at 20:32 Date of Discharge Jun 07, 2016 at 20:00 Admitting Diagnosis chest pain r/o ACS HPI Kim Kamara is a 60 year old female who was admitted on May 25, 2016 at 20: 32 for Chest Pain, rule out Acute Coronary Syndrome Patient presented from nursing facility with complaints of chest pain , midsternal , sharp, 3/10 on a scale 1 to 10 denied any headache or visual changes mild cough no wheezing, no hemoptysis, no SOB no fevers, no chills no abdominal pain she was watching TV when the chest pain started Patient chronically debilitated with multiple chronic medical problems Consultations ID dr Edouard neuro dr Cleaning cardio dr Edge/Hay psych dr Arechiga Hospital Course initially admitted to tele serial troponin negative, ECG no ST changes, thus r/o for acute ID cardio follows ECHO with preserved EF 65% and RVSP of 6, mild LVH cardio recommended stress test to r/o myocardial ischemia patient declined stress test per cardio defer further workup: recommended continue risk factors management: ASA,. weight loss, avoidance of tobacco, BP management ( stable) neuro follows CXR no acute cardiopulmonary pathology O2, HHN prn MRI brain - no acute intracranial pathology Noted small focal areas of encephalomalacia in the bilateral frontal lobes, possibly related to stated clinical history of prior brain tumor resection or could represent old infarcts or posttraumatic lesions. No contrast enhancement associated with either these to suggest tumor recurrence or other active process Right transoccipital ventriculoperitoneal shunt is again demonstrated. MRI C spine - no acute pathology abnormal MRI T spine c/w T7-T11 syringomyelia , cord atrophy - MRI L spine -Spinal lipomatosis in the sacral level. pain management bowel regimen continue Sinemet PT/OT spine surgery eval as outpatient psych eval appreciated, on Remeron and Seroquel ID follows, Clinda x 2 more days not likely infectious etiology of facial rash as per ID s/p s topical Kenalog cream no fevers, mild leucocytosis; per ID 2 more days of Clinda placement found dc to SNF, outpt fup with spinal surgeon Discharge Medications New Medications: Clindamycin Hcl* (Clindamycin Hcl*) 150 Mg Capsule 300 MG ORAL FOUR TIMES A DAY for 2 Days, #8 CAP Continued Medications: Bisacodyl (Dulcolax) 5 Mg Tablet.dr 10 MG RC PRN for Constipation, TAB Donepezil Hcl* (Donepezil Hcl*) 5 Mg Tab.rapdis 5 MG ORAL QHS, TAB Hydromorphone Hcl (Dilaudid) 1 Mg/1 Ml Liquid 1 MG PO Q4HR for For Pain, ML Levetiracetam (Levetiracetam) 500 Mg Tablet 500 MG ORAL Q12HR, #60 TAB 0 Refills Levodopa/Carbidopa (Carbidopa-Levodopa 25-100 Tab) 1 Each Tablet 1 TAB ORAL TWICE A DAY, TAB Ondansetron* (Zofran*) 4 Mg Tablet 4 MG ORAL Q6H PRN for Nausea & Vomiting, TAB Pregabalin* (Lyrica*) 75 Mg Capsule 100 MG ORAL THREE TIMES A DAY, CAP Sennosides (Senna) 8.6 Mg Tablet 8.6 MG PO, TAB Zolpidem Tartrate* (Ambien*) 5 Mg Tablet 5 MG ORAL BEDTIME PRN for Insomnia, TAB Discharge Condition Upon Discharge: improving, stable Discharge Disposition Patient was discharged to SNF/Subacute Facility(03) Discharge Diagnoses: (1) Chest pain (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
== END 2016-06-07 20:00 | DRG 48 ==
LOC: EDBD 16:05 → EMR 16:43 → 2E 20:32 → OBSVTOIN 20:32 → INTOOBSV 20:32 → EDBEDREQ 20:36 → 2E 23:36 → 4W 05-28 12:27
DX: G60.8 Other hereditary and idiopathic neuropathies (principal); G91.1 Obstructive hydrocephalus; L89.893 Pressure ulcer of other site, stage 3; G82.20 Paraplegia, unspecified; L21.9 Seborrheic dermatitis, unspecified; G95.9 Disease of spinal cord, unspecified; G40.909 Epilepsy, unspecified, not intractable, without status epilepticus; L73.9 Follicular disorder, unspecified; G20 Parkinson's disease; K21.9 Gastro-esophageal reflux disease without esophagitis; K59.00 Constipation, unspecified; F41.8 Other specified anxiety disorders; Z23 Encounter for immunization; Z91.14 Patient's other noncompliance with medication regimen; Z22.322 Carrier or suspected carrier of Methicillin resistant Staphylococcus aureus; Z98.2 Presence of cerebrospinal fluid drainage device
CPT/HCPCS: 36415; 70553; 71010; 72156; 72157; 72158; 74000; 80048; 80053; 80061; 80299; 82550; 82553; 83880; 84443; 84484; 85025; 85610; 85730; 86140; 87081; 93005; 93306; 94640; 94664; 94760; A9585; J7620; Q2036

== ENCOUNTER 2016-07-04 18:55 | Inpatient (IN) | payer MEDICAID ==
[~2016-07-04] VITALS: Ht 170.2 cm; Wt 73.0 kg
[~2016-07-04 18:55] MED LIST changes: +ATIVAN2 MG ORAL; +CLINDAMYCIN HC150 MG ORAL; +DILAUDID1 MG/1 ML PO; +DULCOLAX5 MG RC; +FENTANYL1 EAC2 TDERMAL; +NORCO 10-325 T1 EACH ORAL; +SENNA8.6 M2 PO
[2016-07-04 18:59] VITALS: BP 132/85
--- NOTE | 2016-07-04 19:22 | Emergency Room Report ---
History of Present Illness General Chief Complaint: Pain Source: Patient, Medical Record Present Illness HPI Patient presents with complaints of diffuse body pain Cannot localize the discomfort Denies any headache however Does have some midsternal chest pain Denies any vomiting or diarrhea Denies any fevers or chills Patient had a recent visit for chest pain and inpatient stay Denies any dysuria frequency Denies any fall or trauma She rates the pain is 4/10 and fairly diffuse Allergies: Coded Allergies: No Known Allergies (Unverified , 02/18/16) Patient History Past Medical History: see triage record Pertinent Family History: none Reviewed Nursing Documentation: PMH: Agreed, PSxH: Agreed Nursing Documentation-PMH Past Medical History: No History, Except For Hx Cardiac Problems: No Hx Cancer: Yes - Brain tumor/shunt Hx Gastrointestinal Problems: Yes Hx Neurological Problems: Yes Hx Parkinson's Disease: Yes Hx Seizures: Yes Hx Peripheral Neuropathy: Yes Review of Systems All Other Systems: negative except mentioned in HPI Physical Exam Vital Signs Date Time Temp Pulse Resp B/P Pulse Ox O2 Delivery O2 Flow Rate FiO2 07/04/16 18:54 97.0 82 20 132/85 95 Sp02 EP Interpretation: reviewed, normal General Appearance: well appearing, no apparent distress Head: normocephalic, atraumatic - AV shunt in place Eyes: bilateral eye EOMI, bilateral eye PERRL ENT: normal pharynx, TMs + canals normal, uvula midline Neck: full range of motion, supple, no meningismus, no bony tend Respiratory: lungs clear, normal breath sounds, no rhonchi, no respiratory distress, no retraction, no accessory muscle use Cardiovascular #1: normal peripheral pulses, regular rate, rhythm, no edema, no gallop, no JVD, no murmur Gastrointestinal: normal bowel sounds, non tender, soft, no mass, no organomegaly, non-distended, no guarding, no hernia, no pulsatile mass, no rebound Genitourinary: no CVA tenderness Musculoskeletal: other - Patient is chronically debilitated, paraplegic Neurologic: oriented x3, responsive, sensory intact, other - Patient has a history of paraplegia Psychiatric: mood/affect normal Skin: other - Nonspecific diffuse dermatitis, similar to previous presentation , in line with seborrheic dermatitis Lymphatic: normal inspection, no adenopathy Medical Decision Making Diagnostic Impression: Primary Impression: Seborrheic dermatitis Additional Impressions: Chronic pain disorder generalised neuropathic pain and paraparesis. r/o sensory motor polyneuropathy , r/o myelopathy Paraplegia Parkinson disease Psychiatric disorder ER Course Patient had repeat blood work obtained Patient did have recent hospitalization with fairly extensive workup At this time initially the patient is not eating any inpatient criteria, however patient continues to complain of discomfort and at this time is refusing chest patient back to nursing facility There are going to be multiple concerns including social work/case management discussion As the patient is paraplegic and does not have any further disposition, patient was placed into inpatient care for further evaluation and discussion Labs Test 07/04/16 19:30 White Blood Count 11.2 K/UL (4.8-10.8) Red Blood Count 5.98 M/UL (4.20-5.40) Hemoglobin 17.3 G/DL (12.0-16.0) Hematocrit 53.0 % (37.0-47.0) Mean Corpuscular Volume 89 FL (80-99) Mean Corpuscular Hemoglobin 28.9 PG (27.0-31.0) Mean Corpuscular Hemoglobin Concent 32.5 G/DL (32.0-36.0) Red Cell Distribution Width 13.2 % (11.6-14.8) Platelet Count 282 K/UL (150-450) Mean Platelet Volume 7.5 FL (6.5-10.1) Neutrophils (%) (Auto) 65.2 % (45.0-75.0) Lymphocytes (%) (Auto) 28.4 % (20.0-45.0) Monocytes (%) (Auto) 5.0 % (1.0-10.0) Eosinophils (%) (Auto) 0.4 % (0.0-3.0) Basophils (%) (Auto) 1.0 % (0.0-2.0) Sodium Level 139 mEQ/L (135-145) Potassium Level 4.9 mEQ/L (3.4-4.9) Chloride Level 99 mEQ/L (98-107) Carbon Dioxide Level 22 mEQ/L (20-30) Anion Gap 18 (5-15) Blood Urea Nitrogen 12 mg/dL (7-23) Creatinine 0.6 mg/dL (0.5-0.9) Estimat Glomerular Filtration Rate > 60 mL/min (>60) Glucose Level 89 mg/dL (74-106) Calcium Level 9.9 mg/dL (8.6-10.2) Total Bilirubin 0.8 mg/dL (0.0-1.2) Aspartate Amino Transf (AST/SGOT) 44 U/L (5-40) Alanine Aminotransferase (ALT/SGPT) 38 U/L (3-33) Alkaline Phosphatase 116 U/L (35-104) Total Creatine Kinase 23 U/L (26-140) Creatine Kinase MB < 1.5 ng/mL (< 3.8) Creatine Kinase MB Relative Index Troponin I < 0.30 ng/mL (<=0.30) Total Protein 8.1 g/dL (6.6-8.7) Albumin 4.0 g/dL (3.5-5.2) Globulin 4.1 g/dL Albumin/Globulin Ratio 0.9 (1.0-2.7) Rhythm Strip Diag. Results EP Interpretation: yes Rate: 67 Rhythm: NSR, no PVC's, no ectopy Last Vital Signs Date Time Temp Pulse Resp B/P Pulse Ox O2 Delivery O2 Flow Rate FiO2 07/04/16 18:54 97.0 82 20 132/85 95 Status: improved Disposition: ADMITTED INPATIENT Condition: Serious CECE WOOD D.O. Jul 04, 2016 19:22
[2016-07-04] MEDS ORDERED: Morphine Sulfate 4mg/ml Inj IVP ONE (19:30)
[2016-07-04 19:44] LABS: EOSINOPHILS % (AUTO) 0.4 % (0.0-3.0); LYMPHOCYTES % (AUTO) 28.4 % (20.0-45.0); MEAN CORPUSCULAR HEMOGLOBIN 28.9 PG (27.0-31.0); MEAN CORPUSCULAR HGB CONC 32.5 G/DL (32.0-36.0); MEAN CORPUSCULAR VOLUME 89 FL (80-99); MEAN PLATELET VOLUME 7.5 FL (6.5-10.1); NEUTROPHILS % (AUTO) 65.2 % (45.0-75.0); PLATELET COUNT 282 K/UL (150-450); RED BLOOD COUNT 5.98 M/UL (4.20-5.40); RED CELL DISTRIBUTION WIDTH 13.2 % (11.6-14.8); WHITE BLOOD COUNT 11.2 K/UL (4.8-10.8)
[2016-07-04 20:06] LABS: TROPONIN I < 0.30 ng/mL (<=0.30)
[2016-07-04 20:09] LABS: ALANINE AMINOTRANSFERASE 38 U/L (3-33); ALBUMIN/GLOBULIN RATIO 0.9 (1.0-2.7); ANION GAP 18 (5-15); ASPARTATE AMINO TRANSFERASE 44 U/L (5-40); CALCIUM 9.9 mg/dL (8.6-10.2); CARBON DIOXIDE 22 mEQ/L (20-30); CHLORIDE 99 mEQ/L (98-107); CREATININE 0.6 mg/dL (0.5-0.9); GLOMERULAR FILTRATION RATE > 60 mL/min (>60); HEMOLYSIS 127; POTASSIUM 4.9 mEQ/L (3.4-4.9); SODIUM 139 mEQ/L (135-145); TOTAL PROTEIN 8.1 g/dL (6.6-8.7)
[2016-07-04 20:18] VITALS: BP 131/79
[2016-07-04 20:19] LABS: CKMB < 1.5 ng/mL (< 3.8)
[2016-07-04 22:19] VITALS: BP 137/85
[2016-07-04 23:36] VITALS: BP 128/84
[2016-07-05] VITALS (7 sets, daily range): BP systolic 90–129; BP diastolic 58–83
[2016-07-05] MEDS ORDERED: Zolpidem 5mg tab ORAL PRN (05:30)
[2016-07-05] MEDS ORDERED: Miralax 17gm pkt ORAL PRN (05:30)
[2016-07-05] MEDS ORDERED: Norco 10mg/325mg tab ORAL PRN (05:30)
[2016-07-05] MEDS ORDERED: LORazepam Inj 2mg/ml 1ml IV PRN (05:30)
[2016-07-05] MEDS ORDERED: Mylanta II UD 30ml ORAL PRN (05:30)
[2016-07-05] MEDS: Morphine Sulfate 4mg/ml Inj IVP PRN ×5 (05:53→22:09)
[2016-07-05] MEDS: Lyrica 50mg cap ORAL SCH ×4 (09:00→18:00)
[2016-07-05] MEDS: Sinemet 25/100 tab ORAL SCH ×2 (09:00→09:07)
--- NOTE | 2016-07-05 09:08 | General Progress Note ---
Assessment/Plan Assessment/Plan (1) H/O Brain Tumor (2) Thalmic pain syndrome (3) Parkinson Disease (4) Intractable pain The patient will be continued on Morphine and [place]. The patient was discussed with Dr. Daniels and Dr. Daniels concurred. Subjective Date patient seen: Jul 05, 2016 Time patient seen: 07:00 - am Allergies: Coded Allergies: No Known Allergies (Unverified , 02/18/16) Subjective REVIEW OF SYSTEMS: Denies rash, fever, chills, sweating, dizziness, drowsiness, blurred vision, sore throat, or change in weight. No shortness of breath or chest pain. No bowel or bladder incontinence. No dysuria. She is complaining of generalized body pain. SUBJECTIVE: Pt has been seen on prior admission and now is on [place] 10/325mg and Morphine 2-4mg as needed for her pain. She is comfortable at this time and has no new complaints. Objective Last 24 Hour Vital Signs Date Time Temp Pulse Resp B/P Pulse Ox O2 Delivery O2 Flow Rate FiO2 07/05/16 08:15 97.5 77 14 104/69 92 Room Air 07/05/16 04:00 97.7 70 20 100/60 97 Room Air 07/05/16 00:50 98.1 85 20 102/77 96 Room Air 07/05/16 00:44 97.0 93 15 129/82 92 07/05/16 00:43 97.0 93 15 129/82 92 07/04/16 23:36 97.0 93 20 128/84 98 07/04/16 22:19 97.0 75 18 137/85 98 07/04/16 20:18 97.0 84 18 131/79 95 07/04/16 20:10 97.0 07/04/16 18:59 97.0 81 20 132/85 95 07/04/16 18:54 97.0 82 20 132/85 95 Intake and Output 07/04/16 07/05/16 19:00 07:00 Intake Total 120 ml Balance 120 ml Intake Oral 0 ml Other 120 ml # Voids 2 Laboratory Tests 07/04/16 19:30: White Blood Count 11.2H, Red Blood Count 5.98H, Hemoglobin 17.3H, Hematocrit 53.0H, Mean Corpuscular Volume 89, Mean Corpuscular Hemoglobin 28.9, Mean Corpuscular Hemoglobin Concent 32.5, Red Cell Distribution Width 13.2, Platelet Count 282, Mean Platelet Volume 7.5, Neutrophils (%) (Auto) 65.2, Lymphocytes (% ) (Auto) 28.4, Monocytes (%) (Auto) 5.0, Eosinophils (%) (Auto) 0.4, Basophils ( %) (Auto) 1.0, Sodium Level 139, Potassium Level 4.9, Chloride Level 99, Carbon Dioxide Level 22, Anion Gap 18H, Blood Urea Nitrogen 12, Creatinine 0.6, Estimat Glomerular Filtration Rate > 60, Glucose Level 89, Calcium Level 9.9, Total Bilirubin 0.8, Aspartate Amino Transf (AST/SGOT) 44H, Alanine Aminotransferase (ALT/SGPT) 38H, Alkaline Phosphatase 116H, Total Creatine Kinase 23L, Creatine Kinase MB < 1.5, Creatine Kinase MB Relative Index , Troponin I < 0.30, Total Protein 8.1, Albumin 4.0, Globulin 4.1, Albumin/ Globulin Ratio 0.9L Height (Feet): 5 Height (Inches): 7.00 Weight (Pounds): 161 Objective GENERAL: Alert, awake, and oriented. HEENT: PERRLA. NECK: Range of motion is decreased due to the patient's clinical condition with tenderness of the paracervical muscles. No adenopathy. LUNGS: Decreased breath sounds bilaterally. HEART: S1 and S2 regular. ABDOMEN: Benign. BACK: Range of motion is decreased in flexion and extension with tenderness to paraspinal muscles. No tenderness to trapezius or rhomboid muscles. EXTREMITIES: No cyanosis. No clubbing. No edema. NEUROLOGICAL EXAM: No changes. RAGINI TIMMONS Jul 05, 2016 09:08
[2016-07-05] MEDS: Heparin 5000 units/ml inj SUBQ SCH ×2 (09:09→21:06)
--- NOTE | 2016-07-05 14:20 | History and Physical ---
History of Present Illness General Date patient seen: Jul 05, 2016 Reason for Hospitalization: Pain Present Illness HPI 60 year old female with hx of craniotomy, ventriculoperitoneal shunt, paraplegia , parkinson [facility] resident presented with complaints of diffuse body pain and burning sensation. She is complaining that she is not getting enough pain meds. No other symptoms. Allergies: Coded Allergies: No Known Allergies (Unverified , 02/18/16) Medication History Scheduled Donepezil Hcl* (Donepezil Hcl*), 5 MG ORAL QHS, (Reported) Fentanyl 75MCG Patch* (Fentanyl 75MCG Patch*), 1 PATCH TDERMAL EVERY 72 HOURS, ( Reported) Levetiracetam (Levetiracetam), 500 MG ORAL Q12HR, (Reported) Levodopa/Carbidopa (Carbidopa-Levodopa 25-100 Tab), 1 TAB ORAL TWICE A DAY, ( Reported) Lorazepam* (Ativan*), 2 MG ORAL THREE TIMES A DAY, (Reported) Pregabalin* (Lyrica*), 100 MG ORAL THREE TIMES A DAY, (Reported) Scheduled PRN Acetaminophen* (Tylenol Extra Strength*), 325 MG ORAL Q6H PRN for Fever/Headache /Mild Pain, (Reported) Al Hydroxide/mg Hydroxide (Mag-Al Plus Suspension), 30 ML PO Q6HR PRN for dyspepsia, (Reported) Bisacodyl (Dulcolax), 10 MG RC for Constipation, (Reported) Dextrose (Dextrose 5%-Water IV Soln), 50 ML IV DAILY PRN for hypoglycemia, ( Reported) Hydrocodone Bit/Acetaminophen 10-325* ([place] 10-325*), 1 TAB ORAL Q4H PRN for For Pain, (Reported) Hydromorphone Hcl (Dilaudid), 1 MG PO Q4HR PRN for For Pain, (Reported) Ondansetron* (Zofran*), 4 MG ORAL Q6H PRN for Nausea & Vomiting, (Reported) Polyethylene Glycol 3350* (Miralax*), 17 GM ORAL QHS PRN for Constipation, ( Reported) Zolpidem Tartrate* (Ambien*), 5 MG ORAL BEDTIME PRN for Insomnia, (Reported) Miscellaneous Medications Sennosides (Senna), 8.6 MG PO, (Reported) Discontinued Medications Clindamycin Hcl* (Clindamycin Hcl*), 300 MG ORAL FOUR TIMES A DAY Discontinued Reason: Therapy completed Hydromorphone Hcl (Dilaudid), 1 MG IV Q4HR PRN for For Pain, (Reported) Discontinued Reason: Therapy completed Hydromorphone Hcl (Dilaudid), 1 MG PO Q4HR, (Reported) Discontinued Reason: Therapy completed Methocarbamol (Methocarbamol), 500 MG PO Q8HR PRN for Muscle Spasm, (Reported) Discontinued Reason: Therapy completed Naloxone Hcl (Naloxone Hcl*), 0.1 MG IV q24 PRN for sedation rr<10 or sbp<90mmHg , (Reported) Discontinued Reason: Therapy completed Patient History Healthcare decision maker Resuscitation status Full Code Advanced Directive on File Past Medical/Surgical History Past Medical/Surgical History: (1) Parkinson disease (2) Decubitus ulcer of buttock, stage 2 (3) Seizure disorder (4) h/o obstrctive hydrocephalus , VOshunt, stable (5) Limited mobility (6) [facility] resident Review of Systems All Other Systems: negative except mentioned in HPI Physical Exam General Appearance: WD/WN Lines, tubes and drains: peripheral, central line HEENT: normocephalic, atraumatic Neck: non-tender, normal alignment Respiratory/Chest: chest wall non-tender, lungs clear Cardiovascular/Chest: normal peripheral pulses, normal rate Abdomen: normal bowel sounds, non tender Genitourinary/Rectal: normal genital exam, normal rectal exam Extremities: normal range of motion, non-tender Skin Exam: cyanotic 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, no motor/sensory deficits Last 24 Hour Vital Signs Date Time Temp Pulse Resp B/P Pulse Ox O2 Delivery O2 Flow Rate FiO2 07/05/16 11:16 97.9 77 16 90/58 93 Room Air 07/05/16 08:15 97.5 77 14 104/69 92 Room Air 07/05/16 04:00 97.7 70 20 100/60 97 Room Air 07/05/16 00:50 98.1 85 20 102/77 96 Room Air 07/05/16 00:44 97.0 93 15 129/82 92 07/05/16 00:43 97.0 93 15 129/82 92 07/04/16 23:36 97.0 93 20 128/84 98 07/04/16 22:19 97.0 75 18 137/85 98 07/04/16 20:18 97.0 84 18 131/79 95 07/04/16 20:10 97.0 07/04/16 18:59 97.0 81 20 132/85 95 07/04/16 18:54 97.0 82 20 132/85 95 Intake and Output 07/04/16 07/05/16 19:00 07:00 Intake Total 120 ml Balance 120 ml Intake Oral 0 ml Other 120 ml # Voids 2 Laboratory Tests Test 07/04/16 19:30 White Blood Count 11.2 K/UL (4.8-10.8) H Red Blood Count 5.98 M/UL (4.20-5.40) H Hemoglobin 17.3 G/DL (12.0-16.0) H Hematocrit 53.0 % (37.0-47.0) H Mean Corpuscular Volume 89 FL (80-99) Mean Corpuscular Hemoglobin 28.9 PG (27.0-31.0) Mean Corpuscular Hemoglobin Concent 32.5 G/DL (32.0-36.0) Red Cell Distribution Width 13.2 % (11.6-14.8) Platelet Count 282 K/UL (150-450) Mean Platelet Volume 7.5 FL (6.5-10.1) Neutrophils (%) (Auto) 65.2 % (45.0-75.0) Lymphocytes (%) (Auto) 28.4 % (20.0-45.0) Monocytes (%) (Auto) 5.0 % (1.0-10.0) Eosinophils (%) (Auto) 0.4 % (0.0-3.0) Basophils (%) (Auto) 1.0 % (0.0-2.0) Sodium Level 139 mEQ/L (135-145) Potassium Level 4.9 mEQ/L (3.4-4.9) Chloride Level 99 mEQ/L (98-107) Carbon Dioxide Level 22 mEQ/L (20-30) Anion Gap 18 (5-15) H Blood Urea Nitrogen 12 mg/dL (7-23) Creatinine 0.6 mg/dL (0.5-0.9) Estimat Glomerular Filtration Rate > 60 mL/min (>60) Glucose Level 89 mg/dL (74-106) Calcium Level 9.9 mg/dL (8.6-10.2) Total Bilirubin 0.8 mg/dL (0.0-1.2) Aspartate Amino Transf (AST/SGOT) 44 U/L (5-40) H Alanine Aminotransferase (ALT/SGPT) 38 U/L (3-33) H Alkaline Phosphatase 116 U/L (35-104) H Total Creatine Kinase 23 U/L (26-140) L Creatine Kinase MB < 1.5 ng/mL (< 3.8) Creatine Kinase MB Relative Index Troponin I < 0.30 ng/mL (<=0.30) Total Protein 8.1 g/dL (6.6-8.7) Albumin 4.0 g/dL (3.5-5.2) Globulin 4.1 g/dL Albumin/Globulin Ratio 0.9 (1.0-2.7) L Height (Feet): 5 Height (Inches): 7.00 Weight (Pounds): 161 Medications Current Medications Medications (Trade) Dose Ordered Sig/Bushra Route PRN Reason Start Time Stop Time Status Last Admin Dose Admin Acetaminophen (Tylenol) 650 mg Q4H PRN ORAL fever 07/05/16 05:30 08/04/16 05:29 Acetaminophen/ Hydrocodone Bitart ([place] 10/325) 1 ea Q4H PRN ORAL For Pain 07/05/16 05:30 07/12/16 05:29 Al Hydroxide/Mg Hydroxide (Mylanta II) 30 ml Q6H PRN ORAL dyspepsia 07/05/16 05:30 08/04/16 05:29 Carbidopa/Levodopa (Sinemet 25/100) 1 ea TWICE A DAY ORAL 07/05/16 09:00 08/04/16 08:59 Dextrose (Dextrose 50%) STAT PRN IV Hypoglycemia 07/05/16 05:30 08/04/16 05:29 Donepezil HCl (Aricept) 5 mg QHS ORAL 07/05/16 21:00 08/04/16 20:59 Heparin Sodium (Porcine) (Heparin 5000 units/ml) 5,000 units EVERY 12 HOURS SUBQ 07/05/16 09:00 08/04/16 08:59 07/05/16 09:09 Levetiracetam (Keppra) 500 mg Q12HR ORAL 07/05/16 09:00 08/04/16 08:59 Lorazepam (Ativan 2mg/ml 1ml) 0.5 mg Q4H PRN IV For Anxiety 07/05/16 05:30 07/12/16 05:29 Morphine Sulfate (Morphine Sulfate) 2 mg EVERY 4 HOURS PRN IVP For Pain 4-6 07/05/16 05:30 07/12/16 05:29 Morphine Sulfate (Morphine Sulfate) 4 mg Q4H PRN IVP For Pain 7-10 07/05/16 05:30 07/12/16 05:29 07/05/16 14:11 Ondansetron HCl (Zofran) 4 mg Q6H PRN IVP Nausea & Vomiting 07/05/16 05:30 08/04/16 05:29 Polyethylene Glycol (Miralax) 17 gm HSPRN PRN ORAL Constipation 07/05/16 05:30 08/04/16 05:29 Pregabalin (Lyrica) 100 mg THREE TIMES A DAY ORAL 07/05/16 09:00 08/04/16 08:59 Zolpidem Tartrate (Ambien) 5 mg BEDTIME PRN ORAL Insomnia 07/05/16 05:30 08/04/16 05:29 Assessment/Plan Problem List: (1) Intractable pain ICD Codes: R52 - Pain, unspecified SNOMED: 28196645 (2) Seizure disorder ICD Codes: G40.909 - Epilepsy, unspecified, not intractable, without status epilepticus SNOMED: 351612411 (3) Parkinson disease ICD Codes: G20 - Parkinson's disease SNOMED: 19074179 (4) Psychiatric disorder ICD Codes: F99 - Mental disorder, not otherwise specified SNOMED: 57238036, 697671999 (5) Paraplegia ICD Codes: G82.20 - Paraplegia, unspecified SNOMED: 17195487 (6) Limited mobility ICD Codes: Z74.09 - Other reduced mobility SNOMED: 7763525 (7) Depression ICD Codes: F32.9 - Major depressive disorder, single episode, unspecified SNOMED: 68978402 Assessment/Plan pain management Neuro evaluation psych evaluation JAHAIRA PERRY Jul 05, 2016 14:20
--- NOTE | 2016-07-05 15:12 | Neurology Progress Note ---
Objective Physical Exam Last Vital Signs Date Time Temp Pulse Resp B/P Pulse Ox O2 Delivery O2 Flow Rate FiO2 07/05/16 11:16 97.9 77 16 90/58 93 Room Air Laboratory Tests Test 07/04/16 19:30 White Blood Count 11.2 K/UL (4.8-10.8) H Red Blood Count 5.98 M/UL (4.20-5.40) H Hemoglobin 17.3 G/DL (12.0-16.0) H Hematocrit 53.0 % (37.0-47.0) H Mean Corpuscular Volume 89 FL (80-99) Mean Corpuscular Hemoglobin 28.9 PG (27.0-31.0) Mean Corpuscular Hemoglobin Concent 32.5 G/DL (32.0-36.0) Red Cell Distribution Width 13.2 % (11.6-14.8) Platelet Count 282 K/UL (150-450) Mean Platelet Volume 7.5 FL (6.5-10.1) Neutrophils (%) (Auto) 65.2 % (45.0-75.0) Lymphocytes (%) (Auto) 28.4 % (20.0-45.0) Monocytes (%) (Auto) 5.0 % (1.0-10.0) Eosinophils (%) (Auto) 0.4 % (0.0-3.0) Basophils (%) (Auto) 1.0 % (0.0-2.0) Sodium Level 139 mEQ/L (135-145) Potassium Level 4.9 mEQ/L (3.4-4.9) Chloride Level 99 mEQ/L (98-107) Carbon Dioxide Level 22 mEQ/L (20-30) Anion Gap 18 (5-15) H Blood Urea Nitrogen 12 mg/dL (7-23) Creatinine 0.6 mg/dL (0.5-0.9) Estimat Glomerular Filtration Rate > 60 mL/min (>60) Glucose Level 89 mg/dL (74-106) Calcium Level 9.9 mg/dL (8.6-10.2) Total Bilirubin 0.8 mg/dL (0.0-1.2) Aspartate Amino Transf (AST/SGOT) 44 U/L (5-40) H Alanine Aminotransferase (ALT/SGPT) 38 U/L (3-33) H Alkaline Phosphatase 116 U/L (35-104) H Total Creatine Kinase 23 U/L (26-140) L Creatine Kinase MB < 1.5 ng/mL (< 3.8) Creatine Kinase MB Relative Index Troponin I < 0.30 ng/mL (<=0.30) Total Protein 8.1 g/dL (6.6-8.7) Albumin 4.0 g/dL (3.5-5.2) Globulin 4.1 g/dL Albumin/Globulin Ratio 0.9 (1.0-2.7) L Impression/Recommendations Problems: (1) 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
[2016-07-05] MEDS ORDERED: Donepezil 5mg Tab ORAL SCH (21:00)
--- NOTE | 2016-07-05 23:18 | Consultation ---
DATE OF CONSULTATION: 07/05/2016 NEUROLOGICAL CONSULTATION REFERRING PHYSICIAN: Acacia Rodriguez M.D. HISTORY OF PRESENT ILLNESS: The patient is a 60-year-old female brought to this hospital for exacerbation of her "severe" pain with a burning sensation from neck down and numbing sensation from waist down. Pain is intractable, displayed progression. She was brought to this hospital with vital signs stable. The patient is paraparetic, has a chronic pain syndrome. Her initial vital signs were stable. An EKG normal sinus rhythm. The laboratory work included CBC study with WBC 11.2, elevated hemoglobin 17.3 and hematocrit 53.0. Chemistry panel, elevated AST 44, ALT 38, and anion gap of 18, otherwise normal chemistry panel. Pain management was requested, describing the patient having history bleeding tumor, thalamic brain syndrome, Parkinson disease and intractable pain. Treatment prior to this admission included Tylenol, Dulcolax, donepezil, fentanyl 75 patch, [place]le 10 mg q.4 hours p.r.n., Dilaudid 1 mg q.4 hours, Keppra 500 mg b.i.d., levodopa 25/100 b.i.d., Ativan, Lyrica 100 mg t.i.d., and zolpidem. Allergies, none reported. The patient is known to me from a previous assessment on 05/25/2016. She reported multiple medical issues and this dates back to 1989, when for some reason she fell and was unresponsive for another two years, being on a ventilator support. She had a "tumor in her brain", had a subcraniotomy and was maintained on ventriculoperitoneal shunt. Since then she has persistent and severe burning pain on neck down, more on the right with a hearing loss on the right and diplopia. She has significant weakness in lower extremities, but eventually was able to use wheelchair. She was never able to ambulate. Symptoms have progressed for the last four to five months when she stopped walking, and unable to stand on her feet. The patient also indicated that her chronic pain was under good control for several years, but one year ago, she had an episode of seizure activity, placed on Keppra. In addition, she started to develop severe burning pain from face down and at that point, she was started treatment with opiates. Her intractable pain remained. She developed severe constipation. The patient's diagnostic studies included MRI of the brain revealing no acute abnormalities, but there was a small area encephalomalacia, bilateral frontal lobes, which could represent old infarct or posttraumatic lesions. There was right transoccipital [employer] shunt in place with mild ventriculomegaly. Reasons for paraparesis was not clear. An additional MRI studies were obtained including MRI of the cervical spine, which revealed no abnormalities. She had lumbar spinal lipomatosis at sacral level, but no cord compression. 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 There was a slight extension with spinal cord due to syrinx. The patient continued to have pain, discomfort and she was discharged to nursing facility. Unfortunately, no spinal surgery assessment was obtained to evaluate for possible decompression. PAST MEDICAL HISTORY: This relates only to chronic pain, history of single seizure episode, [employer] shunt, status post tracheostomy. She denies hypertension or diabetes. ALLERGIES: None reported. FAMILY HISTORY: Unavailable. SOCIAL HISTORY: Resident of nursing facility. She denies alcohol or drug abuse, nonsmoker. REVIEW OF SYSTEMS: The patient indicates she feels stable. She continued to have terrible burning sensation face down and she has a pinprick sensation from waist down, inability to move, ambulate, numbness, weakness and clumsiness of both hands. She complains of a hearing loss, but no chest pain. No palpitations. No respiratory difficulties. The patient developed constipation. PHYSICAL EXAMINATION: GENERAL: The patient is a well-developed, moderately obese female, not in acute distress. VITAL SIGNS: Now stable. Blood pressure 104/69 down to 90/58 and temperature 97.5 degrees. HEENT: Head, normocephalic. No evidence of injuries. There is right suboccipital [employer] shunt in place. NECK: Supple. No meningeal signs. MUSCULOSKELETAL: Puffiness on both ankles. Peripheral pulses 1+ symmetric. MENTAL STATUS: The patient is alert and oriented to her name, age, place, and time. She is somewhat forgetful. She is very anxious, very tense indicating that she is suffering mentally from persistent pain. She has feels " that cyst in my spine should be removed". CRANIAL NERVE II: Pupils both responding to light and accommodation. Extraocular movement intact. No nystagmus. CRANIAL NERVE V: Normal corneal responses. CRANIAL NERVE VII: No facial asymmetry. CRANIAL NERVE VIII: Decreased hearing on the right. CRANIAL NERVES IX THROUGH XII: Tongue is in midline. Symmetric palate elevation. MOTOR EXAMINATION: There is atrophy small muscles of both hands predominantly first dorsal interosseous. Normal muscle tone. Upper extremity increased tone and both lower extremities with weakness 1/5 both lower extremities. Deep reflexes 3+ bilaterally with the depressed both, knee and ankle jerks. Plantar responses are flexor. There is bilateral foot drop. SENSORY EXAMINATION: Dysesthesia from neck down. IMPRESSION: 1. Chronic intractable whole body neuropathic pain. 2. Status post craniotomy for brain tumor resection with residual suboccipital ventriculoperitoneal shunt. 3. Anxiety and depression. 4. History of single seizure episode. 5. Thoracic spine syringomyelia with paraparesis. RECOMMENDATION: The patient is on polypharmacy and may benefit from reduction of many medications. There is no evidence of a parkinsonian syndrome. The patient has no history of seizure disorder except single episode. Her pain management based on opiates, obviously not helping her at this time. Spine surgery assessment will be valuable to address issue of possible syringomyelia drain. The patient need addition of antidepressant treatment as well. We will follow with you. Thank you for allowing me to see this interesting patient in a neurological consultation. Abdiaziz Cleaning M.D. DR: BRE JOB#: [id number] CC:
[2016-07-06] VITALS: BP 103/70
[2016-07-06] MEDS: Zolpidem 5mg tab ORAL PRN (02:03)
[2016-07-06] MEDS: Morphine Sulfate 4mg/ml Inj IVP PRN ×6 (02:04→22:12)
[2016-07-06 06:44] VITALS: BP 123/77
[2016-07-06 07:31] LABS: BASOPHILS % (AUTO) 0.8 % (0.0-2.0); EOSINOPHILS % (AUTO) 0.9 % (0.0-3.0); LYMPHOCYTES % (AUTO) 31.1 % (20.0-45.0); MEAN CORPUSCULAR HEMOGLOBIN 30.6 PG (27.0-31.0); MEAN CORPUSCULAR HGB CONC 34.8 G/DL (32.0-36.0); MEAN CORPUSCULAR VOLUME 88 FL (80-99); MEAN PLATELET VOLUME 7.7 FL (6.5-10.1); MONOCYTES % (AUTO) 8.8 % (1.0-10.0); NEUTROPHILS % (AUTO) 58.4 % (45.0-75.0); PLATELET COUNT 242 K/UL (150-450); RED BLOOD COUNT 4.92 M/UL (4.20-5.40); RED CELL DISTRIBUTION WIDTH 13.5 % (11.6-14.8); WHITE BLOOD COUNT 8.1 K/UL (4.8-10.8)
[2016-07-06 07:48] VITALS: BP 100/67
[2016-07-06 07:51] LABS: ALANINE AMINOTRANSFERASE 27 U/L (3-33); ANION GAP 16 (5-15); ASPARTATE AMINO TRANSFERASE 23 U/L (5-40); CALCIUM 10.1 mg/dL (8.6-10.2); CARBON DIOXIDE 23 mEQ/L (20-30); CHLORIDE 102 mEQ/L (98-107); CREATININE 0.7 mg/dL (0.5-0.9); GLOMERULAR FILTRATION RATE > 60 mL/min (>60); HEMOLYSIS 5; POTASSIUM 4.2 mEQ/L (3.4-4.9); SODIUM 141 mEQ/L (135-145); TOTAL PROTEIN 7.1 g/dL (6.6-8.7)
--- NOTE | 2016-07-06 08:05 | General Progress Note ---
Assessment/Plan Assessment/Plan (1) H/O Brain Tumor (2) Thalmic pain syndrome (3) Parkinson Disease (4) Intractable pain The patient will be continued on Morphine and [place]. The patient was discussed with Dr. Daniels and Dr. Daniels concurred. Subjective Date patient seen: Jul 06, 2016 Time patient seen: 08:45 - am Allergies: Coded Allergies: No Known Allergies (Unverified , 02/18/16) Subjective REVIEW OF SYSTEMS: Denies rash, fever, chills, sweating, dizziness, drowsiness, blurred vision, sore throat, or change in weight. No shortness of breath or chest pain. No bowel or bladder incontinence. No dysuria. She is complaining of generalized body pain. SUBJECTIVE: She reports that her pain is unchanged and is stable on the medications. Objective Last 24 Hour Vital Signs Date Time Temp Pulse Resp B/P Pulse Ox O2 Delivery O2 Flow Rate FiO2 07/06/16 07:48 98.2 81 21 100/67 95 Room Air 07/06/16 06:44 98.1 80 18 123/77 98 Room Air 07/06/16 00:00 97.3 74 20 103/70 94 Room Air 07/05/16 20:26 97.3 74 20 94/63 94 Room Air 07/05/16 15:50 97.9 105 20 127/83 97 Room Air 07/05/16 11:16 97.9 77 16 90/58 93 Room Air 07/05/16 08:15 97.5 77 14 104/69 92 Room Air Intake and Output 07/05/16 07/06/16 19:00 07:00 Intake Total 900 ml 240 ml Balance 900 ml 240 ml Intake Oral 900 ml 240 ml # Voids 2 4 Laboratory Tests 07/06/16 06:15: White Blood Count 8.1, Red Blood Count 4.92, Hemoglobin 15.1, Hematocrit 43.2, Mean Corpuscular Volume 88, Mean Corpuscular Hemoglobin 30.6, Mean Corpuscular Hemoglobin Concent 34.8, Red Cell Distribution Width 13.5, Platelet Count 242, Mean Platelet Volume 7.7, Neutrophils (%) (Auto) 58.4, Lymphocytes (%) (Auto) 31.1, Monocytes (%) (Auto) 8.8, Eosinophils (%) (Auto) 0.9, Basophils (%) (Auto ) 0.8, Sodium Level 141, Potassium Level 4.2, Chloride Level 102, Carbon Dioxide Level 23, Anion Gap 16H, Blood Urea Nitrogen 20, Creatinine 0.7, Estimat Glomerular Filtration Rate > 60, Glucose Level 81, Calcium Level 10.1, Total Bilirubin 1.1, Direct Bilirubin [Pending], Aspartate Amino Transf (AST/ SGOT) 23, Alanine Aminotransferase (ALT/SGPT) 27, Alkaline Phosphatase 96, Total Protein 7.1, Albumin 3.7, Globulin 3.4, Albumin/Globulin Ratio 1.0, Thyroid Stimulating Hormone (TSH) 3.390 Height (Feet): 5 Height (Inches): 7.00 Weight (Pounds): 161 Objective GENERAL: Alert, awake, and oriented. HEENT: PERRLA. NECK: Range of motion is decreased due to the patient's clinical condition with tenderness of the paracervical muscles. No adenopathy. LUNGS: Decreased breath sounds bilaterally. HEART: S1 and S2 regular. ABDOMEN: Benign. BACK: Range of motion is decreased in flexion and extension with tenderness to paraspinal muscles. No tenderness to trapezius or rhomboid muscles. EXTREMITIES: No cyanosis. No clubbing. No edema. NEUROLOGICAL EXAM: No changes. RAGINI TIMMONS Jul 06, 2016 08:05
[2016-07-06 08:06] LABS: BILIRUBIN,DIRECT 0.2 mg/dL (0.1-0.3)
[2016-07-06] MEDS: Heparin 5000 units/ml inj SUBQ SCH ×2 (08:27→21:00)
[2016-07-06] MEDS: Lyrica 50mg cap ORAL SCH ×3 (08:27→17:55)
[2016-07-06 11:23] VITALS: BP 110/70
--- NOTE | 2016-07-06 15:42 | Pulmonology Progress Note ---
Assessment/Plan Problems: (1) Intractable pain (2) Seizure disorder (3) Parkinson disease (4) Psychiatric disorder (5) Paraplegia (6) Limited mobility (7) Depression Assessment/Plan f/u neuro and pain management recommendation looking for a spine surgeon who is willing to evaluate the pt. Subjective ROS Limited/Unobtainable: No Interval Events: still c/o pain Constitutional: Reports: no symptoms HEENT: Repors: no symptoms Allergies: Coded Allergies: No Known Allergies (Unverified , 02/18/16) Objective Last 24 Hour Vital Signs Date Time Temp Pulse Resp B/P Pulse Ox O2 Delivery O2 Flow Rate FiO2 07/06/16 11:23 98.0 73 21 110/70 95 Room Air 07/06/16 07:48 98.2 81 21 100/67 95 Room Air 07/06/16 06:44 98.1 80 18 123/77 98 Room Air 07/06/16 00:00 97.3 74 20 103/70 94 Room Air 07/05/16 20:26 97.3 74 20 94/63 94 Room Air 07/05/16 15:50 97.9 105 20 127/83 97 Room Air Intake and Output 07/05/16 07/06/16 19:00 07:00 Intake Total 900 ml 240 ml Balance 900 ml 240 ml Intake Oral 900 ml 240 ml # Voids 2 4 General Appearance: WD/WN HEENT: normocephalic, atraumatic Respiratory/Chest: chest wall non-tender, lungs clear Abdomen: normal bowel sounds, soft, non tender Genitourinary: normal external genitalia Extremities: no cyanosis Laboratory Tests 07/06/16 06:15: White Blood Count 8.1, Red Blood Count 4.92, Hemoglobin 15.1, Hematocrit 43.2, Mean Corpuscular Volume 88, Mean Corpuscular Hemoglobin 30.6, Mean Corpuscular Hemoglobin Concent 34.8, Red Cell Distribution Width 13.5, Platelet Count 242, Mean Platelet Volume 7.7, Neutrophils (%) (Auto) 58.4, Lymphocytes (%) (Auto) 31.1, Monocytes (%) (Auto) 8.8, Eosinophils (%) (Auto) 0.9, Basophils (%) (Auto ) 0.8, Sodium Level 141, Potassium Level 4.2, Chloride Level 102, Carbon Dioxide Level 23, Anion Gap 16H, Blood Urea Nitrogen 20, Creatinine 0.7, Estimat Glomerular Filtration Rate > 60, Glucose Level 81, Calcium Level 10.1, Total Bilirubin 1.1, Direct Bilirubin 0.2, Aspartate Amino Transf (AST/SGOT) 23 , Alanine Aminotransferase (ALT/SGPT) 27, Alkaline Phosphatase 96, Total Protein 7.1, Albumin 3.7, Globulin 3.4, Albumin/Globulin Ratio 1.0, Thyroid Stimulating Hormone (TSH) 3.390 Current Medications Medications (Trade) Dose Ordered Sig/Bushra Route PRN Reason Start Time Stop Time Status Last Admin Dose Admin Acetaminophen (Tylenol) 650 mg Q4H PRN ORAL fever 07/05/16 05:30 08/04/16 05:29 Acetaminophen/ Hydrocodone Bitart ([place] 10/325) 1 ea Q4H PRN ORAL For Pain 07/05/16 05:30 07/12/16 05:29 Al Hydroxide/Mg Hydroxide (Mylanta II) 30 ml Q6H PRN ORAL dyspepsia 07/05/16 05:30 08/04/16 05:29 Baclofen (Lioresal) 10 mg THREE TIMES A DAY ORAL 07/05/16 18:00 08/04/16 17:59 Dextrose (Dextrose 50%) STAT PRN IV Hypoglycemia 07/05/16 05:30 08/04/16 05:29 Duloxetine HCl (Cymbalta) 40 mg DAILY ORAL 07/06/16 09:00 08/05/16 08:59 Heparin Sodium (Porcine) (Heparin 5000 units/ml) 5,000 units EVERY 12 HOURS SUBQ 07/05/16 09:00 08/04/16 08:59 07/05/16 21:06 Levetiracetam (Keppra) 500 mg Q12HR ORAL 07/05/16 09:00 08/04/16 08:59 Lorazepam (Ativan 2mg/ml 1ml) 0.5 mg Q4H PRN IV For Anxiety 07/05/16 05:30 07/12/16 05:29 Morphine Sulfate (Morphine Sulfate) 2 mg EVERY 4 HOURS PRN IVP For Pain 4-6 07/05/16 05:30 07/12/16 05:29 Morphine Sulfate (Morphine Sulfate) 4 mg Q4H PRN IVP For Pain 7-10 07/05/16 05:30 07/12/16 05:29 07/06/16 14:48 Ondansetron HCl (Zofran) 4 mg Q6H PRN IVP Nausea & Vomiting 07/05/16 05:30 08/04/16 05:29 Polyethylene Glycol (Miralax) 17 gm HSPRN PRN ORAL Constipation 07/05/16 05:30 08/04/16 05:29 Pregabalin (Lyrica) 100 mg THREE TIMES A DAY ORAL 07/05/16 09:00 08/04/16 08:59 Zolpidem Tartrate (Ambien) 5 mg BEDTIME PRN ORAL Insomnia 07/05/16 05:30 08/04/16 05:29 07/06/16 02:03 JAHAIRA PERRY Jul 06, 2016 15:42
[2016-07-06 16:00] VITALS: BP 114/80
[2016-07-06 20:00] VITALS: BP 121/78
--- NOTE | 2016-07-06 23:37 | Consultation ---
DATE OF CONSULTATION: 07/06/2016 HISTORY OF PRESENT ILLNESS: The patient is a 60-year-old female with history of depression, multiple medical problems and CVA, who has been admitted to the hospital due to having severe pains and burning sensation from neck down and numb sensation on waist down. The pain was unbearable. The patient also has been presented with depressive symptoms. During the evaluation, the patient denied any symptoms including manic or psychotic symptoms. She complains of decreased energy, fatigue, anxiety, depressed mood, anhedonia, worthlessness, hopelessness, which is mild. She has been treated with Cymbalta that has been also somewhat ineffective. She denies suicidal or homicidal ideation. The patient also has history of brain syndrome as well as Parkinson disease. PAST PSYCHIATRIC HISTORY: She is suffering from . PAST MEDICAL HISTORY: Includes Parkinson disease, acute coronary syndrome, decubitus ulcer, hydrocephalus, leukocytosis, dermatitis, chronic pain and peripheral neuropathy. ALLERGIES: No known drug allergies. SUBSTANCE ABUSE HISTORY: No history of illicit drug use or alcohol. MEDICATIONS: At home include donepezil, fentanyl, lorazepam, Cymbalta, and levodopa, carbidopa. MENTAL STATUS EXAMINATION: Alert and oriented x4. Mood was depressed. Affect is constricted. Congruent mood. Thought process is linear. Thought content, no suicidal or homicidal ideation. Cognition is mildly impaired. Insight and judgment is fair. ASSESSMENT: AXIS I Major depressive disorder. AXIS II Deferred. AXIS III As above. AXIS IV Low. AXIS V Global assessment of functioning is 25. PLAN: 1. We will increase the Cymbalta to 60 mg p.o. q.h.s. 2. Provide the patient with supportive therapy and reality orientation. Anjum Arechiga M.D. DR: ELYSE JOB#: [id number] CC:
[2016-07-07] VITALS: BP 103/63
[2016-07-07] MEDS: Zolpidem 5mg tab ORAL PRN (01:58)
[2016-07-07] MEDS: Morphine Sulfate 4mg/ml Inj IVP PRN ×5 (03:46→22:04)
[2016-07-07 04:00] VITALS: BP 103/63
[2016-07-07 08:02] VITALS: BP 133/89
--- NOTE | 2016-07-07 08:41 | General Progress Note ---
Assessment/Plan Assessment/Plan (1) H/O Brain Tumor (2) Thalmic pain syndrome (3) Parkinson Disease (4) Intractable pain The patient will be continued on Morphine and [place]. The patient was discussed with Dr. Daniels and Dr. Daniels concurred. Subjective Date patient seen: Jul 07, 2016 Time patient seen: 07:30 - am Allergies: Coded Allergies: No Known Allergies (Unverified , 02/18/16) Subjective REVIEW OF SYSTEMS: Denies rash, fever, chills, sweating, dizziness, drowsiness, blurred vision, sore throat, or change in weight. No shortness of breath or chest pain. No bowel or bladder incontinence. No dysuria. She is complaining of generalized body pain. SUBJECTIVE: She continues to have pain which is reduced on the medications. Objective Last 24 Hour Vital Signs Date Time Temp Pulse Resp B/P Pulse Ox O2 Delivery O2 Flow Rate FiO2 07/07/16 08:02 97.6 80 15 133/89 96 Room Air 07/07/16 04:00 97.5 69 20 103/63 92 07/07/16 00:00 97.5 69 16 103/63 92 Room Air 07/06/16 20:00 97.3 73 20 121/78 91 Room Air 07/06/16 19:04 98.0 07/06/16 16:00 98.2 64 17 114/80 95 Room Air 07/06/16 11:23 98.0 73 21 110/70 95 Room Air Intake and Output 07/06/16 07/07/16 19:00 07:00 Intake Total 400 ml 280 ml Balance 400 ml 280 ml Intake Oral 400 ml 280 ml # Voids 3 2 Height (Feet): 5 Height (Inches): 7.00 Weight (Pounds): 161 Objective GENERAL: Alert, awake, and oriented. HEENT: PERRLA. NECK: Range of motion is decreased due to the patient's clinical condition with tenderness of the paracervical muscles. No adenopathy. LUNGS: Decreased breath sounds bilaterally. HEART: S1 and S2 regular. ABDOMEN: Benign. BACK: Range of motion is decreased in flexion and extension with tenderness to paraspinal muscles. No tenderness to trapezius or rhomboid muscles. EXTREMITIES: No cyanosis. No clubbing. No edema. NEUROLOGICAL EXAM: No changes. RAGINI TIMMONS Jul 07, 2016 08:41
[2016-07-07] MEDS: Lyrica 50mg cap ORAL SCH ×3 (09:00→17:33)
[2016-07-07] MEDS: Heparin 5000 units/ml inj SUBQ SCH ×2 (09:00→20:40)
[2016-07-07 11:24] VITALS: BP 130/82
--- NOTE | 2016-07-07 13:28 | Neurology Progress Note ---
Interim History Interim History ROS Limited/Unobtainable: No Complaints: diffuse pain Events: stable watching TV calm Objective Physical Exam Last Vital Signs Date Time Temp Pulse Resp B/P Pulse Ox O2 Delivery O2 Flow Rate FiO2 07/07/16 11:24 97.5 77 20 130/82 97 Room Air General: well developed, well nourished, no acute distress Head: normocophalic, atraumatic Neck: no rigidity Neurologic Exam Mental Status: awake, alert, oriented x4, other - repeating her problems are cyst in spine , feel better mind clearer when using opiates, refusinf antidepressants Speech: normal speech, no dysarthia Language: normal language, no aphasia Cranial Nerve II: fundus normal, visual mustafa, no papilledema Cranial Nerves III, IV, : PERRLA, EOMI, pupils Cranial Nerve V: normal facial sensations, temporales function normal, masseters function normal, pterygoids function normal Cranial Nerve VII: no facial asymmetry, normal facial expressions Cranial Nerve VIII: normal hearing, no nystagmus, other - poor hearing Cranial Nerve IX: normal palate elevation, gag response Cranial Nerve X: no voice hoarseness Cranial Nerve XI: SCM symmetric, trapezii function normal Cranial Nerve XII: tongue midline, no tongue atrophy/fasciculations Motor System: other - paraparesis BLE Sensory: other Coordination: other Deep Tendon Reflexes: 0 ankle (L), 0 ankle (R), 0 bicep (L), 0 bicep (R), 0 brachioradialis (L), 0 brachioradialis (R), 0 knee (L), 0 knee (R), 0 tricep (L) , 0 tricep (R) Reflexes: mute plantar (L), mute plantar (R) Impression/Recommendations Problems: (1) 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
[2016-07-07 16:00] VITALS: BP 117/77
[2016-07-07 19:00] VITALS: BP 106/70
--- NOTE | 2016-07-07 23:14 | Pulmonology Progress Note ---
Assessment/Plan Problems: (1) Intractable pain (2) Seizure disorder (3) Parkinson disease (4) Psychiatric disorder (5) Paraplegia (6) Limited mobility (7) Depression Assessment/Plan f/u neuro and pain management recommendation looking for a spine surgeon who is willing to evaluate the pt. will try to transfer to higher level of care. Subjective ROS Limited/Unobtainable: No Interval Events: pain is the same Allergies: Coded Allergies: No Known Allergies (Unverified , 02/18/16) Objective Last 24 Hour Vital Signs Date Time Temp Pulse Resp B/P Pulse Ox O2 Delivery O2 Flow Rate FiO2 07/07/16 19:00 97.7 69 20 106/70 94 Room Air 07/07/16 16:00 97.7 71 20 117/77 94 Room Air 07/07/16 11:24 97.5 77 20 130/82 97 Room Air 07/07/16 08:02 97.6 80 15 133/89 96 Room Air 07/07/16 04:00 97.5 69 20 103/63 92 07/07/16 00:00 97.5 69 16 103/63 92 Room Air Intake and Output 07/06/16 07/07/16 19:00 07:00 Intake Total 400 ml 280 ml Balance 400 ml 280 ml Intake Oral 400 ml 280 ml # Voids 3 2 General Appearance: WD/WN HEENT: normocephalic, atraumatic Respiratory/Chest: chest wall non-tender, lungs clear Cardiovascular: normal peripheral pulses, regular rhythm Abdomen: normal bowel sounds, soft, non tender Genitourinary: normal external genitalia Extremities: no cyanosis Skin: no rash Current Medications Medications (Trade) Dose Ordered Sig/Bushra Route PRN Reason Start Time Stop Time Status Last Admin Dose Admin Acetaminophen (Tylenol) 650 mg Q4H PRN ORAL fever 07/05/16 05:30 08/04/16 05:29 Acetaminophen/ Hydrocodone Bitart ([place] 10/325) 1 ea Q4H PRN ORAL For Pain 07/05/16 05:30 07/12/16 05:29 Al Hydroxide/Mg Hydroxide (Mylanta II) 30 ml Q6H PRN ORAL dyspepsia 07/05/16 05:30 08/04/16 05:29 Baclofen (Lioresal) 10 mg THREE TIMES A DAY ORAL 07/05/16 18:00 08/04/16 17:59 Dextrose (Dextrose 50%) STAT PRN IV Hypoglycemia 07/05/16 05:30 08/04/16 05:29 Duloxetine HCl (Cymbalta) 60 mg DAILY ORAL 07/07/16 09:00 08/06/16 08:59 Heparin Sodium (Porcine) (Heparin 5000 units/ml) 5,000 units EVERY 12 HOURS SUBQ 07/05/16 09:00 08/04/16 08:59 07/07/16 20:40 Levetiracetam (Keppra) 500 mg Q12HR ORAL 07/05/16 09:00 08/04/16 08:59 Lorazepam (Ativan 2mg/ml 1ml) 0.5 mg Q4H PRN IV For Anxiety 07/05/16 05:30 07/12/16 05:29 Morphine Sulfate (Morphine Sulfate) 2 mg EVERY 4 HOURS PRN IVP For Pain 4-6 07/05/16 05:30 07/12/16 05:29 Morphine Sulfate (Morphine Sulfate) 4 mg Q4H PRN IVP For Pain 7-10 07/05/16 05:30 07/12/16 05:29 07/07/16 22:04 Ondansetron HCl (Zofran) 4 mg Q6H PRN IVP Nausea & Vomiting 07/05/16 05:30 08/04/16 05:29 Polyethylene Glycol (Miralax) 17 gm HSPRN PRN ORAL Constipation 07/05/16 05:30 08/04/16 05:29 Pregabalin (Lyrica) 100 mg THREE TIMES A DAY ORAL 07/05/16 09:00 08/04/16 08:59 Zolpidem Tartrate (Ambien) 5 mg BEDTIME PRN ORAL Insomnia 07/05/16 05:30 08/04/16 05:29 07/07/16 01:58 JAHAIRA PERRY Jul 07, 2016 23:14
[2016-07-08 00:14] VITALS: BP 105/54
[2016-07-08] MEDS: Morphine Sulfate 2mg/ml Inj IVP PRN ×2 (01:42→05:27)
[2016-07-08] MEDS: Zolpidem 5mg tab ORAL PRN (01:46)
[2016-07-08 04:00] VITALS: BP 106/65
[2016-07-08 08:00] VITALS: BP 110/71
[2016-07-08] MEDS: Lyrica 50mg cap ORAL SCH ×3 (08:42→17:58)
[2016-07-08] MEDS: Heparin 5000 units/ml inj SUBQ SCH ×2 (08:44→20:19)
--- NOTE | 2016-07-08 09:35 | General Progress Note ---
Assessment/Plan Assessment/Plan (1) H/O Brain Tumor (2) Thalmic pain syndrome (3) Parkinson Disease (4) Intractable pain The patient will be continued on Morphine and [address]. The patient was discussed with Dr. Daniels and Dr. Daniels concurred. Subjective Date patient seen: Jul 08, 2016 Time patient seen: 07:45 - am Allergies: Coded Allergies: No Known Allergies (Unverified , 02/18/16) Subjective REVIEW OF SYSTEMS: Denies rash, fever, chills, sweating, dizziness, drowsiness, blurred vision, sore throat, or change in weight. No shortness of breath or chest pain. No bowel or bladder incontinence. No dysuria. She is complaining of generalized body pain. SUBJECTIVE: Pain has been unchanged and reduced on the medications. Objective Last 24 Hour Vital Signs Date Time Temp Pulse Resp B/P Pulse Ox O2 Delivery O2 Flow Rate FiO2 07/08/16 08:00 97.7 86 18 110/71 93 Room Air 07/08/16 05:57 97.5 07/08/16 04:00 97.5 71 18 106/65 98 Room Air 07/08/16 00:14 97.5 66 18 105/54 94 Room Air 07/07/16 19:00 97.7 69 20 106/70 94 Room Air 07/07/16 16:00 97.7 71 20 117/77 94 Room Air 07/07/16 11:24 97.5 77 20 130/82 97 Room Air Intake and Output 07/07/16 07/08/16 19:00 07:00 Intake Total 600 ml 360 ml Balance 600 ml 360 ml Intake Oral 600 ml 360 ml # Voids 2 4 Height (Feet): 5 Height (Inches): 7.00 Weight (Pounds): 161 Objective GENERAL: Alert, awake, and oriented. HEENT: PERRLA. NECK: Range of motion is decreased due to the patient's clinical condition with tenderness of the paracervical muscles. No adenopathy. LUNGS: Decreased breath sounds bilaterally. HEART: S1 and S2 regular. ABDOMEN: Benign. BACK: Range of motion is decreased in flexion and extension with tenderness to paraspinal muscles. No tenderness to trapezius or rhomboid muscles. EXTREMITIES: No cyanosis. No clubbing. No edema. NEUROLOGICAL EXAM: No changes. RAGINI TIMMONS Jul 08, 2016 09:34
[2016-07-08] MEDS: Morphine Sulfate 4mg/ml Inj IVP PRN ×4 (10:06→22:58)
[2016-07-08 11:47] VITALS: BP 107/73
[2016-07-08 16:00] VITALS: BP 103/70
[2016-07-08 19:00] VITALS: BP 128/71
[2016-07-09] VITALS: BP 102/67
[2016-07-09] MEDS: Zolpidem 5mg tab ORAL PRN (01:43)
[2016-07-09 04:00] VITALS: BP 96/65
[2016-07-09] MEDS: Morphine Sulfate 4mg/ml Inj IVP PRN ×4 (06:17→20:16)
[2016-07-09 07:38] VITALS: BP 99/55
[2016-07-09] MEDS: Lyrica 50mg cap ORAL SCH ×3 (09:00→17:25)
[2016-07-09] MEDS: Heparin 5000 units/ml inj SUBQ SCH ×2 (09:25→20:17)
[2016-07-09 11:25] VITALS: BP 91/58
[2016-07-09 15:39] VITALS: BP 121/80
--- NOTE | 2016-07-09 18:08 | Pulmonology Progress Note ---
Assessment/Plan Problems: (1) Intractable pain (2) Seizure disorder (3) Parkinson disease (4) Psychiatric disorder (5) Paraplegia (6) Limited mobility (7) Depression Assessment/Plan f/u neuro and pain management recommendation looking for a spine surgeon who is willing to evaluate the pt. will try to transfer to higher level of care. dc planning in process Subjective ROS Limited/Unobtainable: No Interval Events: pt wants a spine surgeon to see her Allergies: Coded Allergies: No Known Allergies (Unverified , 02/18/16) Objective Last 24 Hour Vital Signs Date Time Temp Pulse Resp B/P Pulse Ox O2 Delivery O2 Flow Rate FiO2 07/09/16 15:39 97.3 72 15 121/80 96 Room Air 07/09/16 11:25 97.7 69 15 91/58 96 Room Air 07/09/16 11:05 97.7 07/09/16 07:38 97.7 86 14 99/55 93 Room Air 07/09/16 04:00 98.1 67 18 96/65 95 Room Air 07/09/16 00:00 97.9 77 18 102/67 94 Room Air 07/08/16 19:00 97.5 90 18 128/71 97 Room Air Intake and Output 07/08/16 07/09/16 19:00 07:00 Intake Total 240 ml 480 ml Balance 240 ml 480 ml Intake Oral 240 ml 480 ml # Voids 2 5 Objective Objective General Appearance: WD/WN, no apparent distress, alert EENT: PERRL/EOMI, normal ENT inspection, TMs normal, hair lose. Neck: non-tender, normal alignment, supple, normal inspection Cardiovascular: normal peripheral pulses, normal rate, regular rhythm, no murmur. 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 Skin: normal pigmentation, warm/dry Current Medications Medications (Trade) Dose Ordered Sig/Bushra Route PRN Reason Start Time Stop Time Status Last Admin Dose Admin Acetaminophen (Tylenol) 650 mg Q4H PRN ORAL fever 07/05/16 05:30 08/04/16 05:29 Acetaminophen/ Hydrocodone Bitart ([place] 10/325) 1 ea Q4H PRN ORAL For Pain 07/05/16 05:30 07/12/16 05:29 Al Hydroxide/Mg Hydroxide (Mylanta II) 30 ml Q6H PRN ORAL dyspepsia 07/05/16 05:30 08/04/16 05:29 Baclofen (Lioresal) 10 mg THREE TIMES A DAY ORAL 07/05/16 18:00 08/04/16 17:59 Dextrose (Dextrose 50%) STAT PRN IV Hypoglycemia 07/05/16 05:30 08/04/16 05:29 Duloxetine HCl (Cymbalta) 60 mg DAILY ORAL 07/07/16 09:00 08/06/16 08:59 07/09/16 09:21 Heparin Sodium (Porcine) (Heparin 5000 units/ml) 5,000 units EVERY 12 HOURS SUBQ 07/05/16 09:00 08/04/16 08:59 07/09/16 09:25 Levetiracetam (Keppra) 500 mg Q12HR ORAL 07/05/16 09:00 08/04/16 08:59 07/09/16 09:21 Lorazepam (Ativan 2mg/ml 1ml) 0.5 mg Q4H PRN IV For Anxiety 07/05/16 05:30 07/12/16 05:29 Morphine Sulfate (Morphine Sulfate) 2 mg EVERY 4 HOURS PRN IVP For Pain 4-6 07/05/16 05:30 07/12/16 05:29 07/08/16 05:27 Morphine Sulfate (Morphine Sulfate) 4 mg Q4H PRN IVP For Pain 7-10 07/05/16 05:30 07/12/16 05:29 07/09/16 15:59 Ondansetron HCl (Zofran) 4 mg Q6H PRN IVP Nausea & Vomiting 07/05/16 05:30 08/04/16 05:29 Polyethylene Glycol (Miralax) 17 gm HSPRN PRN ORAL Constipation 07/05/16 05:30 08/04/16 05:29 Pregabalin (Lyrica) 100 mg THREE TIMES A DAY ORAL 07/05/16 09:00 08/04/16 08:59 Zolpidem Tartrate (Ambien) 5 mg BEDTIME PRN ORAL Insomnia 07/05/16 05:30 08/04/16 05:29 07/09/16 01:43 JAHAIRA PERRY Jul 09, 2016 18:08
[2016-07-09 20:00] VITALS: BP 142/93
[2016-07-10] VITALS: BP 134/76
[2016-07-10] MEDS: Morphine Sulfate 4mg/ml Inj IVP PRN ×6 (00:44→21:26)
[2016-07-10] MEDS: Zolpidem 5mg tab ORAL PRN (00:45)
[2016-07-10 04:00] VITALS: BP 95/62
[2016-07-10] MEDS: Lyrica 50mg cap ORAL SCH ×3 (08:00→17:19)
[2016-07-10 08:12] VITALS: BP 113/69
[2016-07-10] MEDS: Heparin 5000 units/ml inj SUBQ SCH ×2 (08:53→20:19)
--- NOTE | 2016-07-10 10:43 | General Progress Note ---
Assessment/Plan Assessment/Plan (1) H/O Brain Tumor (2) Thalmic pain syndrome (3) Parkinson Disease (4) Intractable pain The patient will be continued on Morphine and [place]. The patient was discussed with Dr. Daniels and Dr. Daniels concurred. Subjective Date patient seen: Jul 10, 2016 Time patient seen: 07:45 - am Allergies: Coded Allergies: No Known Allergies (Unverified , 02/18/16) Subjective REVIEW OF SYSTEMS: Denies rash, fever, chills, sweating, dizziness, drowsiness, blurred vision, sore throat, or change in weight. No shortness of breath or chest pain. No bowel or bladder incontinence. No dysuria. She is complaining of generalized body pain. SUBJECTIVE: She continues to have pain which has been tolerated on the medications. Objective Last 24 Hour Vital Signs Date Time Temp Pulse Resp B/P Pulse Ox O2 Delivery O2 Flow Rate FiO2 07/10/16 08:12 98.1 70 20 113/69 95 Room Air 07/10/16 08:05 98.1 07/10/16 04:00 98.0 70 20 95/62 98 Room Air 07/10/16 00:00 97.6 73 20 134/76 96 Room Air 07/09/16 20:00 97.9 78 20 142/93 97 Room Air 07/09/16 15:39 97.3 72 15 121/80 96 Room Air 07/09/16 11:25 97.7 69 15 91/58 96 Room Air Intake and Output 07/09/16 07/10/16 19:00 07:00 Intake Total 1500 ml Balance 1500 ml Intake Oral 1500 ml # Voids 4 Height (Feet): 5 Height (Inches): 7.00 Weight (Pounds): 161 Objective GENERAL: Alert, awake, and oriented. HEENT: PERRLA. NECK: Range of motion is decreased due to the patient's clinical condition with tenderness of the paracervical muscles. No adenopathy. LUNGS: Decreased breath sounds bilaterally. HEART: S1 and S2 regular. ABDOMEN: Benign. BACK: Range of motion is decreased in flexion and extension with tenderness to paraspinal muscles. No tenderness to trapezius or rhomboid muscles. EXTREMITIES: No cyanosis. No clubbing. No edema. NEUROLOGICAL EXAM: No changes. RAGINI TIMMONS Jul 10, 2016 10:43
[2016-07-10 11:56] VITALS: BP 109/71
--- NOTE | 2016-07-10 14:59 | Pulmonology Progress Note ---
Assessment/Plan Problems: (1) Intractable pain (2) Seizure disorder (3) Parkinson disease (4) Psychiatric disorder (5) Paraplegia (6) Limited mobility (7) Depression Assessment/Plan f/u neuro and pain management recommendation looking for a spine surgeon who is willing to evaluate the pt. will try to transfer to higher level of care. dc planning in process Subjective ROS Limited/Unobtainable: No Allergies: Coded Allergies: No Known Allergies (Unverified , 02/18/16) Objective Last 24 Hour Vital Signs Date Time Temp Pulse Resp B/P Pulse Ox O2 Delivery O2 Flow Rate FiO2 07/10/16 12:08 98.6 07/10/16 11:56 98.6 73 21 109/71 95 Room Air 07/10/16 08:12 98.1 70 20 113/69 95 Room Air 07/10/16 04:00 98.0 70 20 95/62 98 Room Air 07/10/16 00:00 97.6 73 20 134/76 96 Room Air 07/09/16 20:00 97.9 78 20 142/93 97 Room Air 07/09/16 15:39 97.3 72 15 121/80 96 Room Air Intake and Output 07/09/16 07/10/16 19:00 07:00 Intake Total 1500 ml Balance 1500 ml Intake Oral 1500 ml # Voids 4 Objective Objective General Appearance: WD/WN, no apparent distress, alert EENT: PERRL/EOMI, normal ENT inspection, TMs normal, hair lose. Neck: non-tender, normal alignment, supple, normal inspection Cardiovascular: normal peripheral pulses, normal rate, regular rhythm, no murmur. 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 Skin: normal pigmentation, warm/dry Current Medications Medications (Trade) Dose Ordered Sig/Bushra Route PRN Reason Start Time Stop Time Status Last Admin Dose Admin Acetaminophen (Tylenol) 650 mg Q4H PRN ORAL fever 07/05/16 05:30 08/04/16 05:29 Acetaminophen/ Hydrocodone Bitart ([place] 10/325) 1 ea Q4H PRN ORAL For Pain 07/05/16 05:30 07/12/16 05:29 Al Hydroxide/Mg Hydroxide (Mylanta II) 30 ml Q6H PRN ORAL dyspepsia 07/05/16 05:30 08/04/16 05:29 Baclofen (Lioresal) 10 mg THREE TIMES A DAY ORAL 07/05/16 18:00 08/04/16 17:59 Dextrose (Dextrose 50%) STAT PRN IV Hypoglycemia 07/05/16 05:30 08/04/16 05:29 Duloxetine HCl (Cymbalta) 60 mg DAILY ORAL 07/07/16 09:00 08/06/16 08:59 07/09/16 09:21 Heparin Sodium (Porcine) (Heparin 5000 units/ml) 5,000 units EVERY 12 HOURS SUBQ 07/05/16 09:00 08/04/16 08:59 07/10/16 08:53 Levetiracetam (Keppra) 500 mg Q12HR ORAL 07/05/16 09:00 08/04/16 08:59 07/09/16 09:21 Lorazepam (Ativan 2mg/ml 1ml) 0.5 mg Q4H PRN IV For Anxiety 07/05/16 05:30 07/12/16 05:29 Morphine Sulfate (Morphine Sulfate) 2 mg EVERY 4 HOURS PRN IVP For Pain 4-6 07/05/16 05:30 07/12/16 05:29 07/08/16 05:27 Morphine Sulfate (Morphine Sulfate) 4 mg Q4H PRN IVP For Pain 7-10 07/05/16 05:30 07/12/16 05:29 07/10/16 11:38 Ondansetron HCl (Zofran) 4 mg Q6H PRN IVP Nausea & Vomiting 07/05/16 05:30 08/04/16 05:29 Polyethylene Glycol (Miralax) 17 gm HSPRN PRN ORAL Constipation 07/05/16 05:30 08/04/16 05:29 Pregabalin (Lyrica) 100 mg THREE TIMES A DAY ORAL 07/05/16 09:00 08/04/16 08:59 Zolpidem Tartrate (Ambien) 5 mg BEDTIME PRN ORAL Insomnia 07/05/16 05:30 08/04/16 05:29 07/10/16 00:45 JAHAIRA PERRY Jul 10, 2016 14:59
[2016-07-10 15:41] VITALS: BP 100/71
[2016-07-10 20:00] VITALS: BP 100/68
[2016-07-10] MEDS ORDERED: DuoNeb 0.5-3(2.5)mg/3ml neb HHN PRN (20:45)
[2016-07-11] VITALS: BP 107/76
[2016-07-11] MEDS: Zolpidem 5mg tab ORAL PRN (00:36)
[2016-07-11] MEDS: Morphine Sulfate 4mg/ml Inj IVP PRN ×6 (04:30→21:19)
[2016-07-11 07:47] VITALS: BP 103/71
[2016-07-11] MEDS ORDERED: Morphine Sulfate 2mg/ml Inj IVP PRN (08:15)
[2016-07-11] MEDS ORDERED: Norco 10mg/325mg tab ORAL PRN ×2 (08:30→12:30)
--- NOTE | 2016-07-11 08:39 | General Progress Note ---
Assessment/Plan Assessment/Plan (1) H/O Brain Tumor (2) Thalmic pain syndrome (3) Parkinson Disease (4) Intractable pain The patient will be discontinued off Morphine 2mg and change morphine 4mg to Q3H and [place] will be continued. The patient was discussed with Dr. Daniels and Dr. Daniels concurred. Subjective Date patient seen: Jul 11, 2016 Time patient seen: 07:45 - am Allergies: Coded Allergies: No Known Allergies (Unverified , 02/18/16) Subjective REVIEW OF SYSTEMS: Denies rash, fever, chills, sweating, dizziness, drowsiness, blurred vision, sore throat, or change in weight. No shortness of breath or chest pain. No bowel or bladder incontinence. No dysuria. She is complaining of generalized body pain. SUBJECTIVE: Pain has been more severe over the last day and the morphine has not been effective at current dosing. Objective Last 24 Hour Vital Signs Date Time Temp Pulse Resp B/P Pulse Ox O2 Delivery O2 Flow Rate FiO2 07/11/16 07:47 97.9 82 21 103/71 95 Room Air 07/11/16 00:00 97.5 77 16 107/76 95 07/10/16 22:38 68 20 99 Room Air 07/10/16 21:57 66 20 98 Room Air 07/10/16 21:56 66 20 Room Air 07/10/16 20:00 97.9 66 20 100/68 98 Room Air 07/10/16 15:41 97.3 69 20 100/71 94 Room Air 07/10/16 12:08 98.6 07/10/16 11:56 98.6 73 21 109/71 95 Room Air Intake and Output 07/10/16 07/11/16 18:59 06:59 Intake Total 520 ml 360 ml Balance 520 ml 360 ml Intake Oral 520 ml 360 ml # Voids 3 4 Height (Feet): 5 Height (Inches): 7.00 Weight (Pounds): 161 Objective GENERAL: Alert, awake, and oriented. HEENT: PERRLA. NECK: Range of motion is decreased due to the patient's clinical condition with tenderness of the paracervical muscles. No adenopathy. LUNGS: Decreased breath sounds bilaterally. HEART: S1 and S2 regular. ABDOMEN: Benign. BACK: Range of motion is decreased in flexion and extension with tenderness to paraspinal muscles. No tenderness to trapezius or rhomboid muscles. EXTREMITIES: No cyanosis. No clubbing. No edema. NEUROLOGICAL EXAM: No changes. RAGINI TIMMONS Jul 11, 2016 08:39
[2016-07-11] MEDS ORDERED: Morphine Sulfate 4mg/ml Inj IVP PRN (09:00)
[2016-07-11] MEDS: Lyrica 50mg cap ORAL SCH ×3 (09:00→18:00)
[2016-07-11] MEDS: Heparin 5000 units/ml inj SUBQ SCH ×2 (09:00→22:11)
[2016-07-11 11:43] VITALS: BP 116/78
[2016-07-11 16:00] VITALS: BP 109/68
--- NOTE | 2016-07-11 16:53 | Pulmonology Progress Note ---
Assessment/Plan Problems: (1) Intractable pain (2) Seizure disorder (3) Parkinson disease (4) Psychiatric disorder (5) Paraplegia (6) Limited mobility (7) Depression Assessment/Plan f/u neuro and pain management recommendation looking for a spine surgeon who is willing to evaluate the pt. will try to transfer to higher level of care. dc planning in process I talked to two neuro surgeons, at [facility], they both declined Subjective ROS Limited/Unobtainable: No Allergies: Coded Allergies: No Known Allergies (Unverified , 02/18/16) Objective Last 24 Hour Vital Signs Date Time Temp Pulse Resp B/P Pulse Ox O2 Delivery O2 Flow Rate FiO2 07/11/16 16:00 97.7 74 20 109/68 97 Room Air 07/11/16 11:43 97.5 72 20 116/78 95 Room Air 07/11/16 08:00 68 20 Room Air 07/11/16 07:47 97.9 82 21 103/71 95 Room Air 07/11/16 00:00 97.5 77 16 107/76 95 07/10/16 22:38 68 20 99 Room Air 07/10/16 21:57 66 20 98 Room Air 07/10/16 21:56 66 20 Room Air 07/10/16 20:00 97.9 66 20 100/68 98 Room Air Intake and Output 07/10/16 07/11/16 19:00 07:00 Intake Total 520 ml 360 ml Balance 520 ml 360 ml Intake Oral 520 ml 360 ml # Voids 3 4 Objective Objective General Appearance: WD/WN, no apparent distress, alert EENT: PERRL/EOMI, normal ENT inspection, TMs normal, hair lose. Neck: non-tender, normal alignment, supple, normal inspection Cardiovascular: normal peripheral pulses, normal rate, regular rhythm, no murmur. 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 Skin: normal pigmentation, warm/dry Current Medications Medications (Trade) Dose Ordered Sig/Bushra Route PRN Reason Start Time Stop Time Status Last Admin Dose Admin Acetaminophen (Tylenol) 650 mg Q4H PRN ORAL T>100.5 07/11/16 08:14 3/9/17 05:29 Acetaminophen/ Hydrocodone Bitart ([place] 10/325) 1 ea Q4H PRN ORAL Moderate Pain (Pain Scale 4-6) 07/11/16 12:30 07/18/16 08:29 Al Hydroxide/Mg Hydroxide (Mylanta II) 30 ml Q6H PRN ORAL dyspepsia 07/05/16 05:30 08/04/16 05:29 Albuterol/ Ipratropium (DuoNeb 0.5-3(2.5)mg/3ml) 3 ml Q4H PRN HHN Shortness of Breath 07/10/16 20:45 07/15/16 20:44 07/10/16 21:56 Baclofen (Lioresal) 10 mg THREE TIMES A DAY ORAL 07/05/16 18:00 08/04/16 17:59 Dextrose (Dextrose 50%) STAT PRN IV Hypoglycemia 07/05/16 05:30 08/04/16 05:29 Duloxetine HCl (Cymbalta) 60 mg DAILY ORAL 07/07/16 09:00 08/06/16 08:59 07/09/16 09:21 Heparin Sodium (Porcine) (Heparin 5000 units/ml) 5,000 units EVERY 12 HOURS SUBQ 07/05/16 09:00 08/04/16 08:59 07/10/16 20:19 Levetiracetam (Keppra) 500 mg Q12HR ORAL 07/05/16 09:00 08/04/16 08:59 07/09/16 09:21 Lorazepam (Ativan 2mg/ml 1ml) 0.5 mg Q4H PRN IV For Anxiety 07/05/16 05:30 07/12/16 05:29 Morphine Sulfate (Morphine Sulfate) 4 mg Q3H PRN IVP Severe Pain (Pain Scale 7-10) 07/11/16 09:00 07/18/16 08:59 07/11/16 15:31 Ondansetron HCl (Zofran) 4 mg Q6H PRN IVP Nausea & Vomiting 07/05/16 05:30 08/04/16 05:29 Polyethylene Glycol (Miralax) 17 gm HSPRN PRN ORAL Constipation 07/05/16 05:30 08/04/16 05:29 Pregabalin (Lyrica) 100 mg THREE TIMES A DAY ORAL 07/05/16 09:00 08/04/16 08:59 Zolpidem Tartrate (Ambien) 5 mg BEDTIME PRN ORAL Insomnia 07/05/16 05:30 08/04/16 05:29 07/11/16 00:36 JAHAIRA PERRY Jul 11, 2016 16:53
[2016-07-11 20:00] VITALS: BP 107/73
[2016-07-12] VITALS: BP 116/78
[2016-07-12] MEDS: Zolpidem 5mg tab ORAL PRN (01:23)
[2016-07-12 04:00] VITALS: BP 120/72
[2016-07-12] MEDS: Morphine Sulfate 4mg/ml Inj IVP PRN ×6 (05:30→20:46)
--- NOTE | 2016-07-12 08:11 | General Progress Note ---
Assessment/Plan Assessment/Plan (1) H/O Brain Tumor (2) Thalmic pain syndrome (3) Parkinson Disease (4) Intractable pain The patient will be continued on morphine and [place]. The patient was discussed with Dr. Daniels and Dr. Daniels concurred. Subjective Date patient seen: Jul 12, 2016 Time patient seen: 07:15 - am Allergies: Coded Allergies: No Known Allergies (Unverified , 02/18/16) Subjective REVIEW OF SYSTEMS: Denies rash, fever, chills, sweating, dizziness, drowsiness, blurred vision, sore throat, or change in weight. No shortness of breath or chest pain. No bowel or bladder incontinence. No dysuria. She is complaining of generalized body pain. SUBJECTIVE: Pt is in bed no acute distress using the morphine. Objective Last 24 Hour Vital Signs Date Time Temp Pulse Resp B/P Pulse Ox O2 Delivery O2 Flow Rate FiO2 07/12/16 07:41 72 18 Room Air 07/12/16 04:00 98.4 61 20 120/72 98 Room Air 07/12/16 00:00 97.9 65 18 116/78 95 Room Air 07/11/16 22:14 98.2 07/11/16 20:00 98.2 65 20 107/73 96 Room Air 07/11/16 19:58 94 18 Room Air 07/11/16 16:00 97.7 74 20 109/68 97 Room Air 07/11/16 11:43 97.5 72 20 116/78 95 Room Air Intake and Output 07/11/16 07/12/16 19:00 07:00 Intake Total 450 ml 240 ml Balance 450 ml 240 ml Intake Oral 450 ml 240 ml # Voids 4 6 Height (Feet): 5 Height (Inches): 7.00 Weight (Pounds): 161 Objective GENERAL: Alert, awake, and oriented. HEENT: PERRLA. NECK: Range of motion is decreased due to the patient's clinical condition with tenderness of the paracervical muscles. No adenopathy. LUNGS: Decreased breath sounds bilaterally. HEART: S1 and S2 regular. ABDOMEN: Benign. BACK: Range of motion is decreased in flexion and extension with tenderness to paraspinal muscles. No tenderness to trapezius or rhomboid muscles. EXTREMITIES: No cyanosis. No clubbing. No edema. NEUROLOGICAL EXAM: No changes. RAGINI TIMMONS Jul 12, 2016 08:11
[2016-07-12 08:15] VITALS: BP 93/60
[2016-07-12] MEDS: Lyrica 50mg cap ORAL SCH ×3 (08:50→18:00)
[2016-07-12] MEDS: Heparin 5000 units/ml inj SUBQ SCH ×2 (08:51→20:48)
[2016-07-12 12:11] VITALS: BP 101/67
--- NOTE | 2016-07-12 14:56 | Cardiology Report ---
APPROVED REPORT EKG Measurement Heart [id number] Normal sinus rhythm with sinus arrhythmia Nonspecific T wave abnormality Abnormal ECG
[2016-07-12 16:00] VITALS: BP 112/69
--- NOTE | 2016-07-12 17:28 | Pulmonology Progress Note ---
Assessment/Plan Problems: (1) Intractable pain (2) Seizure disorder (3) Parkinson disease (4) Psychiatric disorder (5) Paraplegia (6) Limited mobility (7) Depression Assessment/Plan f/u neuro and pain management recommendation looking for a spine surgeon who is willing to evaluate the pt. will try to transfer to higher level of care. dc planning in process I talked to two neuro surgeons, at [facility], they both declined Subjective Allergies: Coded Allergies: No Known Allergies (Unverified , 02/18/16) Objective Last 24 Hour Vital Signs Date Time Temp Pulse Resp B/P Pulse Ox O2 Delivery O2 Flow Rate FiO2 07/12/16 16:00 97.3 72 20 112/69 93 Room Air 07/12/16 12:11 97.7 71 19 101/67 95 Room Air 07/12/16 08:15 99.0 71 20 93/60 97 Room Air 07/12/16 07:41 72 18 Room Air 07/12/16 04:00 98.4 61 20 120/72 98 Room Air 07/12/16 00:00 97.9 65 18 116/78 95 Room Air 07/11/16 22:14 98.2 07/11/16 20:00 98.2 65 20 107/73 96 Room Air 07/11/16 19:58 94 18 Room Air Intake and Output 07/11/16 07/12/16 19:00 07:00 Intake Total 450 ml 240 ml Balance 450 ml 240 ml Intake Oral 450 ml 240 ml # Voids 4 6 Objective Objective General Appearance: WD/WN, no apparent distress, alert EENT: PERRL/EOMI, normal ENT inspection, TMs normal, hair lose. Neck: non-tender, normal alignment, supple, normal inspection Cardiovascular: normal peripheral pulses, normal rate, regular rhythm, no murmur. 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 Skin: normal pigmentation, warm/dry Current Medications Medications (Trade) Dose Ordered Sig/Bushra Route PRN Reason Start Time Stop Time Status Last Admin Dose Admin Acetaminophen (Tylenol) 650 mg Q4H PRN ORAL T>100.5 07/11/16 08:14 08/04/16 05:29 Acetaminophen/ Hydrocodone Bitart ([place] 10/325) 1 ea Q4H PRN ORAL Moderate Pain (Pain Scale 4-6) 07/11/16 12:30 07/18/16 08:29 Al Hydroxide/Mg Hydroxide (Mylanta II) 30 ml Q6H PRN ORAL dyspepsia 07/05/16 05:30 08/04/16 05:29 Albuterol/ Ipratropium (DuoNeb 0.5-3(2.5)mg/3ml) 3 ml Q4H PRN HHN Shortness of Breath 07/10/16 20:45 07/15/16 20:44 07/10/16 21:56 Baclofen (Lioresal) 10 mg THREE TIMES A DAY ORAL 07/05/16 18:00 08/04/16 17:59 Dextrose (Dextrose 50%) STAT PRN IV Hypoglycemia 07/05/16 05:30 08/04/16 05:29 Duloxetine HCl (Cymbalta) 60 mg DAILY ORAL 07/07/16 09:00 08/06/16 08:59 07/09/16 09:21 Heparin Sodium (Porcine) (Heparin 5000 units/ml) 5,000 units EVERY 12 HOURS SUBQ 07/05/16 09:00 08/04/16 08:59 07/11/16 22:11 Levetiracetam (Keppra) 500 mg Q12HR ORAL 07/05/16 09:00 08/04/16 08:59 07/09/16 09:21 Morphine Sulfate (Morphine Sulfate) 4 mg Q3H PRN IVP Severe Pain (Pain Scale 7-10) 07/11/16 09:00 07/18/16 08:59 07/12/16 14:53 Ondansetron HCl (Zofran) 4 mg Q6H PRN IVP Nausea & Vomiting 07/05/16 05:30 08/04/16 05:29 Polyethylene Glycol (Miralax) 17 gm HSPRN PRN ORAL Constipation 07/05/16 05:30 08/04/16 05:29 Pregabalin (Lyrica) 100 mg THREE TIMES A DAY ORAL 07/05/16 09:00 08/04/16 08:59 Risperidone (RisperDAL) 1 mg BEDTIME ORAL 07/12/16 21:00 3/16/17 20:59 Zolpidem Tartrate (Ambien) 5 mg BEDTIME PRN ORAL Insomnia 07/05/16 05:30 08/04/16 05:29 07/12/16 01:23 JAHAIRA PERRY Jul 12, 2016 17:28
--- NOTE | 2016-07-12 19:49 | Progress Note ---
DATE: 07/12/2016 SUBJECTIVE: The patient continues to be paranoid and uncooperative with the staff. She is very selective when taken medication. She has been refusing her psychotropic medication. The patient endorses persecutory delusion and making allegations that was at [facility]. She is only taking duloxetine one time. MENTAL STATUS EVALUATION: Alert and oriented x3. Mood is anxious and irritable. Affect is constricted. Congruent mood. Thought process is concrete. Thought content is positive for persecutory delusions. Insight and judgment is impaired. ASSESSMENT: Depression rule out depression with psychotic features and paranoid ideation. PLAN: 1. We will continue the Cymbalta for depression. 2. We will add risperidone low dose with the 4 days paranoid ideation. 3. Discussed with the patient regards risperidone and the patient was also discussed in regards to risks and benefits and she also has a right to refuse taking risperidone or other psychotropic medications. Anjum Arechiga M.D. DR: ELYSE JOB#: [id number] CC:
[2016-07-12 20:00] VITALS: BP 114/73
[2016-07-13] VITALS: BP 107/67
[2016-07-13] MEDS: Zolpidem 5mg tab ORAL PRN (00:25)
[2016-07-13] MEDS: Morphine Sulfate 4mg/ml Inj IVP PRN ×5 (03:41→19:24)
[2016-07-13 04:00] VITALS: BP 104/68
[2016-07-13 07:03] LABS: BASOPHILS % (AUTO) 1.6 % (0.0-2.0); EOSINOPHILS % (AUTO) 1.6 % (0.0-3.0); LYMPHOCYTES % (AUTO) 33.1 % (20.0-45.0); MEAN CORPUSCULAR HEMOGLOBIN 29.4 PG (27.0-31.0); MEAN CORPUSCULAR HGB CONC 32.6 G/DL (32.0-36.0); MEAN CORPUSCULAR VOLUME 90 FL (80-99); MEAN PLATELET VOLUME 6.9 FL (6.5-10.1); MONOCYTES % (AUTO) 7.3 % (1.0-10.0); NEUTROPHILS % (AUTO) 56.3 % (45.0-75.0); PLATELET COUNT 254 K/UL (150-450); RED BLOOD COUNT 5.08 M/UL (4.20-5.40); RED CELL DISTRIBUTION WIDTH 13.4 % (11.6-14.8)
[2016-07-13 07:15] LABS: ANION GAP 13 (5-15); CARBON DIOXIDE 24 mEQ/L (20-30); CHLORIDE 105 mEQ/L (98-107); CREATININE 0.7 mg/dL (0.5-0.9); GLOMERULAR FILTRATION RATE > 60 mL/min (>60); HEMOLYSIS 3; POTASSIUM 4.4 mEQ/L (3.4-4.9); SODIUM 142 mEQ/L (135-145)
[2016-07-13 08:15] VITALS: BP 111/69
--- NOTE | 2016-07-13 08:36 | General Progress Note ---
Assessment/Plan Assessment/Plan (1) H/O Brain Tumor (2) Thalmic pain syndrome (3) Parkinson Disease (4) Intractable pain The patient will be continued on morphine and [place]. The patient was discussed with Dr. Daniels and Dr. Daniels concurred. Subjective Date patient seen: Jul 13, 2016 Time patient seen: 07:45 - am Allergies: Coded Allergies: No Known Allergies (Unverified , 02/18/16) Subjective REVIEW OF SYSTEMS: Denies rash, fever, chills, sweating, dizziness, drowsiness, blurred vision, sore throat, or change in weight. No shortness of breath or chest pain. No bowel or bladder incontinence. No dysuria. She is complaining of generalized body pain. SUBJECTIVE: No changes in patients pain which has been tolerated on the Morphine Objective Last 24 Hour Vital Signs Date Time Temp Pulse Resp B/P Pulse Ox O2 Delivery O2 Flow Rate FiO2 07/13/16 04:00 97.3 86 20 104/68 94 Room Air 07/13/16 00:00 97.3 76 20 107/67 95 Room Air 07/12/16 21:16 97.3 07/12/16 20:00 97.9 78 20 114/73 97 Room Air 07/12/16 19:45 79 18 Room Air 07/12/16 16:00 97.3 72 20 112/69 93 Room Air 07/12/16 12:11 97.7 71 19 101/67 95 Room Air Intake and Output 07/12/16 07/13/16 19:00 07:00 Intake Total 720 ml 240 ml Balance 720 ml 240 ml Intake Oral 720 ml 240 ml # Voids 4 Laboratory Tests 07/13/16 06:15: White Blood Count 8.0, Red Blood Count 5.08, Hemoglobin 14.9, Hematocrit 45.8, Mean Corpuscular Volume 90, Mean Corpuscular Hemoglobin 29.4, Mean Corpuscular Hemoglobin Concent 32.6, Red Cell Distribution Width 13.4, Platelet Count 254, Mean Platelet Volume 6.9, Neutrophils (%) (Auto) 56.3, Lymphocytes (%) (Auto) 33.1, Monocytes (%) (Auto) 7.3, Eosinophils (%) (Auto) 1.6, Basophils (%) (Auto ) 1.6, Sodium Level 142, Potassium Level 4.4, Chloride Level 105, Carbon Dioxide Level 24, Anion Gap 13, Blood Urea Nitrogen 20, Creatinine 0.7, Estimat Glomerular Filtration Rate > 60, Glucose Level 93, Calcium Level 10.0 Height (Feet): 5 Height (Inches): 7.00 Weight (Pounds): 161 Objective GENERAL: Alert, awake, and oriented. HEENT: PERRLA. NECK: Range of motion is decreased due to the patient's clinical condition with tenderness of the paracervical muscles. No adenopathy. LUNGS: Decreased breath sounds bilaterally. HEART: S1 and S2 regular. ABDOMEN: Benign. BACK: Range of motion is decreased in flexion and extension with tenderness to paraspinal muscles. No tenderness to trapezius or rhomboid muscles. EXTREMITIES: No cyanosis. No clubbing. No edema. NEUROLOGICAL EXAM: No changes. RAGINI TIMMONS Jul 13, 2016 08:36
[2016-07-13] MEDS: Lyrica 50mg cap ORAL SCH ×3 (09:00→17:28)
[2016-07-13] MEDS: Heparin 5000 units/ml inj SUBQ SCH ×2 (09:59→20:42)
[2016-07-13 12:15] VITALS: BP 107/68
[2016-07-13 16:00] VITALS: BP 111/77
--- NOTE | 2016-07-13 17:53 | Pulmonology Progress Note ---
Assessment/Plan Problems: (1) Intractable pain (2) Seizure disorder (3) Parkinson disease (4) Psychiatric disorder (5) Paraplegia (6) Limited mobility (7) Depression Assessment/Plan f/u neuro and pain management recommendation looking for a spine surgeon who is willing to evaluate the pt. will try to transfer to higher level of care. dc planning in process I talked to two neuro surgeons, at [facility], they both declined Subjective Allergies: Coded Allergies: No Known Allergies (Unverified , 02/18/16) Objective Last 24 Hour Vital Signs Date Time Temp Pulse Resp B/P Pulse Ox O2 Delivery O2 Flow Rate FiO2 07/13/16 16:53 97.3 07/13/16 16:00 97.7 89 20 111/77 93 Room Air 07/13/16 12:15 97.3 74 18 107/68 98 Room Air 07/13/16 09:45 82 18 Room Air 07/13/16 08:15 97.9 96 20 111/69 94 Room Air 07/13/16 04:00 97.3 86 20 104/68 94 Room Air 07/13/16 00:00 97.3 76 20 107/67 95 Room Air 07/12/16 20:00 97.9 78 20 114/73 97 Room Air 07/12/16 19:45 79 18 Room Air Intake and Output 07/12/16 07/13/16 19:00 07:00 Intake Total 720 ml 240 ml Balance 720 ml 240 ml Intake Oral 720 ml 240 ml # Voids 4 Objective Objective General Appearance: WD/WN, no apparent distress, alert EENT: PERRL/EOMI, normal ENT inspection, TMs normal, hair lose. Neck: non-tender, normal alignment, supple, normal inspection Cardiovascular: normal peripheral pulses, normal rate, regular rhythm, no murmur. 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 Skin: normal pigmentation, warm/dry Laboratory Tests 07/13/16 06:15: White Blood Count 8.0, Red Blood Count 5.08, Hemoglobin 14.9, Hematocrit 45.8, Mean Corpuscular Volume 90, Mean Corpuscular Hemoglobin 29.4, Mean Corpuscular Hemoglobin Concent 32.6, Red Cell Distribution Width 13.4, Platelet Count 254, Mean Platelet Volume 6.9, Neutrophils (%) (Auto) 56.3, Lymphocytes (%) (Auto) 33.1, Monocytes (%) (Auto) 7.3, Eosinophils (%) (Auto) 1.6, Basophils (%) (Auto ) 1.6, Sodium Level 142, Potassium Level 4.4, Chloride Level 105, Carbon Dioxide Level 24, Anion Gap 13, Blood Urea Nitrogen 20, Creatinine 0.7, Estimat Glomerular Filtration Rate > 60, Glucose Level 93, Calcium Level 10.0 Current Medications Medications (Trade) Dose Ordered Sig/Bushra Route PRN Reason Start Time Stop Time Status Last Admin Dose Admin Acetaminophen (Tylenol) 650 mg Q4H PRN ORAL T>100.5 07/11/16 08:14 08/04/16 05:29 Acetaminophen/ Hydrocodone Bitart ([place] 10/325) 1 ea Q4H PRN ORAL Moderate Pain (Pain Scale 4-6) 07/11/16 12:30 07/18/16 08:29 Al Hydroxide/Mg Hydroxide (Mylanta II) 30 ml Q6H PRN ORAL dyspepsia 07/05/16 05:30 08/04/16 05:29 Albuterol/ Ipratropium (DuoNeb 0.5-3(2.5)mg/3ml) 3 ml Q4H PRN HHN Shortness of Breath 07/10/16 20:45 07/15/16 20:44 07/10/16 21:56 Baclofen (Lioresal) 10 mg THREE TIMES A DAY ORAL 07/05/16 18:00 08/04/16 17:59 Dextrose (Dextrose 50%) STAT PRN IV Hypoglycemia 07/05/16 05:30 08/04/16 05:29 Duloxetine HCl (Cymbalta) 60 mg DAILY ORAL 07/07/16 09:00 08/06/16 08:59 07/09/16 09:21 Heparin Sodium (Porcine) (Heparin 5000 units/ml) 5,000 units EVERY 12 HOURS SUBQ 07/05/16 09:00 08/04/16 08:59 07/13/16 09:59 Levetiracetam (Keppra) 500 mg Q12HR ORAL 07/05/16 09:00 08/04/16 08:59 07/09/16 09:21 Morphine Sulfate (Morphine Sulfate) 4 mg Q3H PRN IVP Severe Pain (Pain Scale 7-10) 07/11/16 09:00 07/18/16 08:59 07/13/16 16:23 Ondansetron HCl (Zofran) 4 mg Q6H PRN IVP Nausea & Vomiting 07/05/16 05:30 08/04/16 05:29 Polyethylene Glycol (Miralax) 17 gm HSPRN PRN ORAL Constipation 07/05/16 05:30 08/04/16 05:29 Pregabalin (Lyrica) 100 mg THREE TIMES A DAY ORAL 07/05/16 09:00 08/04/16 08:59 Risperidone (RisperDAL) 1 mg BEDTIME ORAL 07/12/16 21:00 08/11/16 20:59 Zolpidem Tartrate (Ambien) 5 mg BEDTIME PRN ORAL Insomnia 07/05/16 05:30 08/04/16 05:29 07/13/16 00:25 JAHAIRA PERRY Jul 13, 2016 17:53
[2016-07-13 20:00] VITALS: BP 126/75
[2016-07-14] VITALS: BP 106/69
[2016-07-14] MEDS: Zolpidem 5mg tab ORAL PRN (00:59)
--- NOTE | 2016-07-14 08:55 | General Progress Note ---
Assessment/Plan Assessment/Plan (1) H/O Brain Tumor (2) Thalmic pain syndrome (3) Parkinson Disease (4) Intractable pain The patient will be continued on morphine and [place]. The patient was discussed with Dr. Daniels and Dr. Daniels concurred. Subjective Date patient seen: Jul 14, 2016 Time patient seen: 07:15 - am Allergies: Coded Allergies: No Known Allergies (Unverified , 02/18/16) Subjective REVIEW OF SYSTEMS: Denies rash, fever, chills, sweating, dizziness, drowsiness, blurred vision, sore throat, or change in weight. No shortness of breath or chest pain. No bowel or bladder incontinence. No dysuria. She is complaining of generalized body pain. SUBJECTIVE: She continues to have pain and now is c/o increased weakness. Home Health Care Coordinator is looking for surgeon to see pt. Pt is refusing medication, I d/w her about this however she continues to refuse. Objective Last 24 Hour Vital Signs Date Time Temp Pulse Resp B/P Pulse Ox O2 Delivery O2 Flow Rate FiO2 07/14/16 07:40 75 18 Room Air 07/14/16 00:00 97.7 75 20 106/69 96 Room Air 07/13/16 20:00 98.2 76 20 126/75 100 Room Air 07/13/16 19:54 97.3 07/13/16 19:53 83 18 Room Air 07/13/16 16:00 97.7 89 20 111/77 93 Room Air 07/13/16 12:15 97.3 74 18 107/68 98 Room Air 07/13/16 09:45 82 18 Room Air Intake and Output 07/13/16 07/14/16 19:00 07:00 Intake Total 360 ml Balance 360 ml Intake Oral 360 ml # Voids 2 3 Height (Feet): 5 Height (Inches): 7.00 Weight (Pounds): 161 Objective GENERAL: Alert, awake, and oriented. HEENT: PERRLA. NECK: Range of motion is decreased due to the patient's clinical condition with tenderness of the paracervical muscles. No adenopathy. LUNGS: Decreased breath sounds bilaterally. HEART: S1 and S2 regular. ABDOMEN: Benign. BACK: Range of motion is decreased in flexion and extension with tenderness to paraspinal muscles. No tenderness to trapezius or rhomboid muscles. EXTREMITIES: No cyanosis. No clubbing. No edema. NEUROLOGICAL EXAM: No changes. RAGINI TIMMONS Jul 14, 2016 08:54
[2016-07-14] MEDS: Lyrica 50mg cap ORAL SCH ×3 (09:00→18:00)
[2016-07-14] MEDS: Heparin 5000 units/ml inj SUBQ SCH ×2 (09:00→21:00)
--- NOTE | 2016-07-14 14:46 | GI Initial Consult Note ---
History of Present Illness General Date patient seen: Jul 14, 2016 Time patient seen: 13:00 Reason for Hospitalization: Pain Referring physician: JAHAIRA BOOTHE Reason for Consultation: CONSTIPATION Present Illness HPI Patient presents with complaints of diffuse body pain Cannot localize the discomfort Denies any headache however Does have some midsternal chest pain Denies any vomiting or diarrhea Denies any fevers or chills Patient had a recent visit for chest pain and inpatient stay Denies any dysuria frequency Denies any fall or trauma She rates the pain is 4/10 and fairly diffuse GI CONSULT: HPI as noted above. GI consulted for c/o of constipation. Pt seen on floor, awake A&O agitated and non coherent c/o of no bowel movement x 2 months. State she's had 3 enemas with no BM nor relief. In addition, she c/o of generalized body pain. States her symptoms are due to the "fluid in her spine." Abdomen distended, but soft. No reported BM documented for the past 10 + days. Patient is non compliant and it has been documented she has refused care. Unknown history of endoscopic procedures. Home Meds Reported Medications Hydromorphone Hcl (DILAUDID) 1 Mg/1 Ml Liquid, 1 MG PO Q4HR Y for For Pain, ML 06/01/16 Sennosides (SENNA) 8.6 Mg Tablet, 8.6 MG PO, TAB 05/25/16 Hydrocodone Bit/Acetaminophen 10-325* (NORCO 10-325*) 1 Each Tablet, 1 TAB ORAL Q4H Y for For Pain, TAB 0 Refills PRN PAIN 05/25/16 Fentanyl 75MCG Patch* (FENTANYL 75MCG PATCH*) 1 Each Patch.td72, 1 PATCH TDERMAL EVERY 72 HOURS, PATCH 05/25/16 Bisacodyl (DULCOLAX) 5 Mg Tablet.dr, 10 MG RC Y for Constipation, TAB 05/25/16 Lorazepam* (ATIVAN*) 2 Mg Tablet, 2 MG ORAL THREE TIMES A DAY, TAB 05/25/16 Zolpidem Tartrate* (AMBIEN*) 5 Mg Tablet, 5 MG ORAL BEDTIME Y for Insomnia, TAB 03/11/16 Pregabalin* (LYRICA*) 75 Mg Capsule, 100 MG ORAL THREE TIMES A DAY, CAP 03/11/16 Polyethylene Glycol 3350* (MIRALAX*) 17 Gm Powd.pack, 17 GM ORAL QHS Y for Constipation, PACKET 03/11/16 Ondansetron* (ZOFRAN*) 4 Mg Tablet, 4 MG ORAL Q6H Y for Nausea & Vomiting, TAB 03/11/16 Levodopa/Carbidopa (Carbidopa-Levodopa 25-100 Tab) 1 Each Tablet, 1 TAB ORAL TWICE A DAY, TAB 03/11/16 Levetiracetam (Levetiracetam) 500 Mg Tablet, 500 MG ORAL Q12HR, #60 TAB 0 Refills 03/11/16 Donepezil Hcl* (DONEPEZIL HCL*) 5 Mg Tab.rapdis, 5 MG ORAL QHS, TAB 03/11/16 Dextrose (Dextrose 5%-Water IV Soln) 50 Ml Iv.soln, 50 ML IV DAILY Y for hypoglycemia, BAG 03/11/16 Al Hydroxide/mg Hydroxide (Mag-Al Plus Suspension) 30 Ml Oral.susp, 30 ML PO Q6HR Y for dyspepsia, ML 03/11/16 Acetaminophen* (TYLENOL EXTRA STRENGTH*) 500 Mg Tablet, 325 MG ORAL Q6H Y for Fever/Headache/Mild Pain, TAB 0 Refills 03/11/16 Med list reviewed/reconciled: Yes Allergies: Coded Allergies: No Known Allergies (Unverified , 02/18/16) Patient History Limited by: medical condition History Provided By: Patient, Medical Record PMH Narrative Past Medical History: see triage record Pertinent Family History: none Reviewed Nursing Documentation: PMH: Agreed, PSxH: Agreed Nursing Documentation-PMH Past Medical History: No History, Except For Hx Cardiac Problems: No Hx Cancer: Yes - Brain tumor/shunt Hx Gastrointestinal Problems: Yes Hx Neurological Problems: Yes Hx Parkinson's Disease: Yes Hx Seizures: Yes Hx Peripheral Neuropathy: Yes Review of Systems All Other Systems: negative except mentioned in HPI Physical Exam Vital Signs Date Time Temp Pulse Resp B/P Pulse Ox O2 Delivery O2 Flow Rate FiO2 07/10/16 08:12 98.1 70 20 113/69 95 Room Air Sp02 EP Interpretation: reviewed General Appearance: well appearing, no apparent distress, alert Head: normocephalic EENT: normal ENT inspection Neck: full range of motion, supple Respiratory: normal breath sounds, no respiratory distress Cardiovascular: normal rate Gastrointestinal: normal inspection, non tender, soft, distended Rectal: deferred Genitourinary: no CVA tenderness Musculoskeletal: back normal Neurologic: alert, responsive Psychiatric: anxious Skin: normal inspection, normal color, no rash, warm/dry Lymphatic: normal inspection, no adenopathy Current Medications Current Medications Medications (Trade) Dose Ordered Sig/Bushra Route PRN Reason Start Time Stop Time Status Last Admin Dose Admin Acetaminophen (Tylenol) 650 mg Q4H PRN ORAL T>100.5 07/11/16 08:14 08/04/16 05:29 Acetaminophen/ Hydrocodone Bitart ([place] 10/325) 1 ea Q4H PRN ORAL Moderate Pain (Pain Scale 4-6) 07/11/16 12:30 07/18/16 08:29 Al Hydroxide/Mg Hydroxide (Mylanta II) 30 ml Q6H PRN ORAL dyspepsia 07/05/16 05:30 08/04/16 05:29 Albuterol/ Ipratropium (DuoNeb 0.5-3(2.5)mg/3ml) 3 ml Q4H PRN HHN Shortness of Breath 07/10/16 20:45 07/15/16 20:44 07/10/16 21:56 Baclofen (Lioresal) 10 mg THREE TIMES A DAY ORAL 07/05/16 18:00 08/04/16 17:59 Dextrose (Dextrose 50%) STAT PRN IV Hypoglycemia 07/05/16 05:30 08/04/16 05:29 Duloxetine HCl (Cymbalta) 60 mg DAILY ORAL 07/07/16 09:00 08/06/16 08:59 07/09/16 09:21 Heparin Sodium (Porcine) (Heparin 5000 units/ml) 5,000 units EVERY 12 HOURS SUBQ 07/05/16 09:00 08/04/16 08:59 07/13/16 20:42 Levetiracetam (Keppra) 500 mg Q12HR ORAL 07/05/16 09:00 08/04/16 08:59 07/09/16 09:21 Morphine Sulfate (Morphine Sulfate) 4 mg Q3H PRN IVP Severe Pain (Pain Scale 7-10) 07/11/16 09:00 07/18/16 08:59 07/13/16 19:24 Ondansetron HCl (Zofran) 4 mg Q6H PRN IVP Nausea & Vomiting 07/05/16 05:30 08/04/16 05:29 Polyethylene Glycol (Miralax) 17 gm HSPRN PRN ORAL Constipation 07/05/16 05:30 08/04/16 05:29 Pregabalin (Lyrica) 100 mg THREE TIMES A DAY ORAL 07/05/16 09:00 08/04/16 08:59 Risperidone (RisperDAL) 1 mg BEDTIME ORAL 07/12/16 21:00 08/11/16 20:59 Zolpidem Tartrate (Ambien) 5 mg BEDTIME PRN ORAL Insomnia 07/05/16 05:30 08/04/16 05:29 07/14/16 00:59 GI: Plan Problems: (1) Constipation (2) Parkinson disease (3) Paraplegia (4) Anxiety (5) GERD (gastroesophageal reflux disease) Plan symptomatic treatment ordered KUB ordered bowel regime >> colace + miralax, will consider aggressive laxatives after KUB result H2 regular diet fu labs Pain Service follows Neurology follows Discussed with Dr. Choudhury. Thank you for referring this patient, we will follow. Carol Deng N.P. Jul 14, 2016 14:46
[2016-07-14] MEDS: Morphine Sulfate 10mg/ml Inj IVP PRN ×3 (16:40→22:46)
--- NOTE | 2016-07-14 17:07 | Diagnostic Imaging Report ---
Indication: Abdominal distention Technique: Supine view of the abdomen Comparison: Findings: Moderate amount of stool is seen within the rectum, distending it slightly. This appears slightly increased from the previous study. The bowel gas pattern is otherwise unremarkable, with abundant gas seen throughout nondilated large and small bowel loops. 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 Again demonstrated is ventriculoperitoneal shunt tubing overlying the right chest and abdomen. 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
[2016-07-14] MEDS: Docusate 100mg cap ORAL SCH (18:00)
--- NOTE | 2016-07-14 18:49 | Progress Note ---
SUBJECTIVE: The patient is still selective taking medication, still refuses psychotropic medication. She is uncooperative with the staff and is noncompliant with medication. She is having multiple complaints. She is still easily agitated. MENTAL STATUS EXAMINATION: Alert and oriented x2. Mood is irritable. Affect is constricted. Congruent mood. Thought process is concrete. Thought content is possible paranoid ideations. No suicidal or homicidal ideation. ASSESSMENT: Psychotic disorder. PLAN: 1. The patient will be continued on current medication. 2. Provide the patient with supportive therapy and reality orientation. Anjum Arechiga M.D. DR: KIMBERLY JOB#: [id number] CC:
[2016-07-14 20:00] VITALS: BP 116/69
[2016-07-14] MEDS: Miralax 17gm pkt ORAL SCH (21:00)
--- NOTE | 2016-07-14 21:13 | Pulmonology Progress Note ---
Assessment/Plan Problems: (1) Intractable pain (2) Seizure disorder (3) Parkinson disease (4) Psychiatric disorder (5) Paraplegia (6) Limited mobility (7) Depression Assessment/Plan f/u neuro and pain management recommendation Second opinion neurology pending, D/w dr Waters Subjective ROS Limited/Unobtainable: No Allergies: Coded Allergies: No Known Allergies (Unverified , 02/18/16) Objective Last 24 Hour Vital Signs Date Time Temp Pulse Resp B/P Pulse Ox O2 Delivery O2 Flow Rate FiO2 07/14/16 20:29 98.2 07/14/16 20:00 98.2 91 19 116/69 95 Room Air 07/14/16 19:25 80 18 Room Air 07/14/16 07:40 75 18 Room Air 07/14/16 00:00 97.7 75 20 106/69 96 Room Air Intake and Output 07/13/16 07/14/16 19:00 07:00 Intake Total 360 ml Balance 360 ml Intake Oral 360 ml # Voids 2 3 Objective Objective General Appearance: WD/WN, no apparent distress, alert EENT: PERRL/EOMI, normal ENT inspection, TMs normal, hair lose. Neck: non-tender, normal alignment, supple, normal inspection Cardiovascular: normal peripheral pulses, normal rate, regular rhythm, no murmur. 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 Skin: normal pigmentation, warm/dry General Appearance: WD/WN HEENT: normocephalic, atraumatic Respiratory/Chest: chest wall non-tender, lungs clear, normal breath sounds Cardiovascular: normal peripheral pulses, normal rate Abdomen: normal bowel sounds, soft, non tender Current Medications Medications (Trade) Dose Ordered Sig/Bushra Route PRN Reason Start Time Stop Time Status Last Admin Dose Admin Acetaminophen (Tylenol) 650 mg Q4H PRN ORAL T>100.5 07/11/16 08:14 08/04/16 05:29 Acetaminophen/ Hydrocodone Bitart ([place] 10/325) 1 ea Q4H PRN ORAL Moderate Pain (Pain Scale 4-6) 07/11/16 12:30 07/18/16 08:29 Al Hydroxide/Mg Hydroxide (Mylanta II) 30 ml Q6H PRN ORAL dyspepsia 07/05/16 05:30 08/04/16 05:29 Albuterol/ Ipratropium (DuoNeb 0.5-3(2.5)mg/3ml) 3 ml Q4H PRN HHN Shortness of Breath 07/10/16 20:45 07/15/16 20:44 07/10/16 21:56 Baclofen (Lioresal) 10 mg THREE TIMES A DAY ORAL 07/05/16 18:00 08/04/16 17:59 Dextrose (Dextrose 50%) STAT PRN IV Hypoglycemia 07/05/16 05:30 08/04/16 05:29 Docusate Sodium (Colace) 100 mg THREE TIMES A DAY ORAL 07/14/16 18:00 08/13/16 17:59 Duloxetine HCl (Cymbalta) 60 mg DAILY ORAL 07/07/16 09:00 08/06/16 08:59 07/09/16 09:21 Heparin Sodium (Porcine) (Heparin 5000 units/ml) 5,000 units EVERY 12 HOURS SUBQ 07/05/16 09:00 08/04/16 08:59 07/13/16 20:42 Levetiracetam (Keppra) 500 mg Q12HR ORAL 07/05/16 09:00 08/04/16 08:59 07/09/16 09:21 Morphine Sulfate (Morphine Sulfate) 6 mg Q3H PRN IVP Severe Pain (Pain Scale 7-10) 07/14/16 16:30 07/21/16 16:29 07/14/16 19:59 Ondansetron HCl (Zofran) 4 mg Q6H PRN IVP Nausea & Vomiting 07/05/16 05:30 08/04/16 05:29 Polyethylene Glycol (Miralax) 17 gm BEDTIME ORAL 07/14/16 21:00 08/13/16 20:59 Polyethylene Glycol (Miralax) 17 gm HSPRN PRN ORAL Constipation 07/05/16 05:30 08/04/16 05:29 Pregabalin (Lyrica) 100 mg THREE TIMES A DAY ORAL 07/05/16 09:00 08/04/16 08:59 Risperidone (RisperDAL) 1 mg BEDTIME ORAL 07/12/16 21:00 08/11/16 20:59 Zolpidem Tartrate (Ambien) 5 mg BEDTIME PRN ORAL Insomnia 07/05/16 05:30 08/04/16 05:29 07/14/16 00:59 JAHAIRA PERRY Jul 14, 2016 21:13
--- NOTE | 2016-07-14 21:47 | Consultation ---
Consult Note Consult Note NEUROLOGY CONSULTATION: Full note dictated #[id number] 60 y/o, RH, CF with history of being in a coma due to mysterious reasons for about 3 years in the . Then few years ago was found to have a brain tumor which needed resection and a shunt followed by a quadriparesis and she became wheelchair bound. Then in 2016 started to have severe total body pain and numbness and loss of sensation starting at the lower abdomen. 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 ON EXAM: Problems with memory. Diplopia with nystagmus. Spastic quadriparesis. 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 T 11 sensory level and loss of bowel control due to T cord pathology. REC: NS evaluation for possible T syrinx decompression. Pretty Waters M.D., M.S.P.PRETTY DUKE Jul 14, 2016 21:47
--- NOTE | 2016-07-14 23:40 | Consultation ---
DATE OF CONSULTATION: 07/14/2016 NEUROLOGY CONSULTATION CONSULTING PHYSICIAN: Ruddy Waters M.D. REQUESTING PHYSICIAN: Acacai Rodriguez M.D. HISTORY: Ms. Kim Kamara is a 60-year-old, right-handed, lady, who was functioning relatively well until the when she mysteriously went into coma that lasted for three years. When she woke up from the coma, she was quadriparetic, had double vision and needed to be in a nursing facility for a prolonged period of time. She, however, was able to move herself into a wheelchair and had preserved bowel function. Then, a few years ago, she started to have headaches and was diagnosed with a brain tumor. The brain tumor was in an area, which she cannot remember. She, however, needed the brain tumor to be resected and a shunt was placed. Following that, her quadriparesis became much worse and she continued to be wheelchair bound. She functioned at that level until 2015 when she started to have severe total body pain. She also started having numbness starting from the region in the lower abdomen all the way down. In addition, she started to lose bowel control. She was evaluated for this problem in 04/2016 and had MRI scans of the brain, cervical spine, thoracic spine, and lumbar spine. The brain scan showed old changes, but no acute pathology, with a functioning shunt. The MRI of the thoracic spine however revealed a syrinx starting at the T7 level going all the way to the T11 level. The patient has continued to have severe total body pain and severe numbness involving the area below her abdomen starting in the region of the lower abdomen and going into both lower extremities. In addition, she is still unable to control her bowels. PAST MEDICAL HISTORY: Significant for the above mentioned. FAMILY HISTORY: Nothing significant as per the patient. PERSONAL HISTORY: Home: She lives in a [place] [facility]. 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. She is now disabled. Habits: She denies use of alcohol, tobacco, or illicit drugs. MEDICATIONS: Present medications include MiraLAX, Colace, morphine, Risperdal, Archer, Tylenol, DuoNeb, Cymbalta, baclofen, Keppra, Lyrica, heparin for DVT prophylaxis, Ambien, Zofran, and Mylanta. PHYSICAL EXAMINATION: GENERAL: She is a well-developed, well-nourished lady, lying in bed, in no acute distress. VITAL SIGNS: Pulse 91, blood pressure 116/69 mmHg, respirations 18 per minute, and temperature 98.2 degrees Fahrenheit. HEAD: Normocephalic and atraumatic. EENT: Examination benign. NECK: No neck rigidity was observed. NEUROLOGICAL EXAMINATION: MENTAL STATUS EXAMINATION: She was alert and awake. She was oriented to person, place, and time. She was able to recall 3/3 words immediately, but could only remember 2/3 words in 1 minute and 3 minutes. She was able to remember presidents Trump and Obama, but had problems remembering presidents prior to that. Her mathematical skills were impaired. Her visuospatial function was also impaired. SPEECH: She had a mild dysarthria. LANGUAGE: She had anomia for low-frequency words. CRANIAL NERVE EXAMINATION: II: The visual mustafa were intact to confrontation testing. She did complain of diplopia. The diplopia was absent when she looked all the way to the left, was minor in the midline and became much more when she looked to the right side. The images were side to side. III, IV & : The external ocular movements were dysconjugate. The external ocular movements were full when each eye was tested individually. The pupils were 3 mm in diameter, equal, round, regular, and reactive sluggishly to light. V: She had normal facial sensations and the temporales, masseters, and pterygoids function normally. VII: She had normal facial expressions and no facial asymmetry. VIII: She was able to hear well bilaterally. She did have nystagmus on looking to either side. IX: The palate moved symmetrically on phonation. X: She had no hoarseness of voice. XI: The sternocleidomastoids and trapezii functioned normally. XII: The tongue was in the midline without any fasciculations or atrophy. MOTOR SYSTEM: The tone was increased in all four extremities with a significant degree of spasticity. Examination of muscle mass revealed significant wasting of the small hand and foot muscles and all the muscles of both upper and lower extremities. Examination of power revealed grade 5/5 power in both upper extremities except for grade 4/5 power in the finger extensors and wrist extensors. In the lower extremities, she had grade 3/5 power in the iliopsoas, grade 4+/5 power in the quadriceps, grade 1/5 power in the toe extensors, grade 0/5 in the ankle dorsiflexors and ankle plantar flexors. SENSORY EXAMINATION: She was able to discern between pinprick and light touch, but had a subjective decrease in all modalities below the T11 level. REFLEXES: 3+ and bilaterally symmetrical at the biceps, triceps, brachioradialis, and knees, 0 at both ankles. The plantar responses were extensor bilaterally. COORDINATION, STANCE & GAIT: Could not be tested. DIAGNOSTIC IMPRESSION: 1. Ms. Kim Kamara is a 60-year-old, right-handed, lady, who does have a past history of being in a coma for mysterious reason for approximately three years in the and then a few years ago having a brain tumor that needed resection followed by shunt placement and quadriparesis. In 2015, she started to have severe body pain and numbness and loss of sensations starting from the lower abdomen. She also lost bowel control, which she had had in the past. She was evaluated for this and in 04/2016, was diagnosed to have a syrinx involving a thoracic cord. 2. On neurological examination at this time, she does have problems with recent and remote memory, higher cognitive function, and visuospatial function. She also has diplopia and nystagmus and a spastic quadriparesis involving the lower extremities significantly more than the upper extremities, pathologically brisk deep tendon reflexes and a T11 segmental sensory level. 3. The patient's MRI scan of the thoracic spine reveals a syrinx starting at T7 and going all the way down to T11. 4. The patient's history, neurological examination, and imaging studies are most compatible with cognitive dysfunction related to brain pathology, which may have caused a coma and in addition, the brain tumor. The quadriparesis is most probably related to again brain pathology and thoracic spine pathology. The T11 segmental sensory level, loss of bowel control, and significant alteration in sensation involving her lower extremities is related to thoracic cord pathology. RECOMMENDATIONS: 1. Agree with management thus far. 2. The patient should be evaluated by a neurosurgeon for possible thoracic syrinx decompression to help her with her painful dysesthetic syndrome and possibly bowel dysfunction. 3. The patient should have physical and occupational therapy to strengthen her. Thank you for entrusting me with the care of Ms. Kamara. Please do let me know if I can be of any further help. Ruddy Waters M.D., M.S.P.H. DR: TEODORO JOB#: [id number]
[2016-07-15] VITALS: BP 107/70
[2016-07-15] MEDS: Zolpidem 5mg tab ORAL PRN (02:10)
[2016-07-15] MEDS: Morphine Sulfate 10mg/ml Inj IVP PRN ×5 (05:22→18:47)
--- NOTE | 2016-07-15 07:06 | Pulmonology Progress Note ---
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 pain management pain specialist follows psych follows on Cymbalta and Risperidone seizure precautions, continue Keppra bowel regimen DVT prophylaxis PT/OT case discussed and evaluated by supervising physician: will try to get neuro suregry eval if possible Subjective Allergies: Coded Allergies: No Known Allergies (Unverified , 02/18/16) Objective Last 24 Hour Vital Signs Date Time Temp Pulse Resp B/P Pulse Ox O2 Delivery O2 Flow Rate FiO2 07/15/16 00:00 97.7 83 20 107/70 92 Room Air 07/14/16 23:16 98.2 07/14/16 20:00 98.2 91 19 116/69 95 Room Air 07/14/16 19:25 80 18 Room Air 07/14/16 07:40 75 18 Room Air Intake and Output 07/14/16 07/15/16 19:00 07:00 Intake Total 0 ml 360 ml Balance 0 ml 360 ml Intake Oral 0 ml 360 ml # Voids 4 Current Medications Medications (Trade) Dose Ordered Sig/Bushra Route PRN Reason Start Time Stop Time Status Last Admin Dose Admin Acetaminophen (Tylenol) 650 mg Q4H PRN ORAL T>100.5 07/11/16 08:14 08/04/16 05:29 Acetaminophen/ Hydrocodone Bitart ([place] 10/325) 1 ea Q4H PRN ORAL Moderate Pain (Pain Scale 4-6) 07/11/16 12:30 07/18/16 08:29 Al Hydroxide/Mg Hydroxide (Mylanta II) 30 ml Q6H PRN ORAL dyspepsia 07/05/16 05:30 08/04/16 05:29 Albuterol/ Ipratropium (DuoNeb 0.5-3(2.5)mg/3ml) 3 ml Q4H PRN HHN Shortness of Breath 07/10/16 20:45 07/15/16 20:44 07/10/16 21:56 Baclofen (Lioresal) 10 mg THREE TIMES A DAY ORAL 07/05/16 18:00 08/04/16 17:59 Dextrose (Dextrose 50%) STAT PRN IV Hypoglycemia 07/05/16 05:30 08/04/16 05:29 Docusate Sodium (Colace) 100 mg THREE TIMES A DAY ORAL 07/14/16 18:00 08/13/16 17:59 Duloxetine HCl (Cymbalta) 60 mg DAILY ORAL 07/07/16 09:00 08/06/16 08:59 07/09/16 09:21 Heparin Sodium (Porcine) (Heparin 5000 units/ml) 5,000 units EVERY 12 HOURS SUBQ 07/05/16 09:00 08/04/16 08:59 07/14/16 21:00 Levetiracetam (Keppra) 500 mg Q12HR ORAL 07/05/16 09:00 08/04/16 08:59 07/09/16 09:21 Morphine Sulfate (Morphine Sulfate) 6 mg Q3H PRN IVP Severe Pain (Pain Scale 7-10) 07/14/16 16:30 07/21/16 16:29 07/15/16 05:22 Ondansetron HCl (Zofran) 4 mg Q6H PRN IVP Nausea & Vomiting 07/05/16 05:30 08/04/16 05:29 Polyethylene Glycol (Miralax) 17 gm BEDTIME ORAL 07/14/16 21:00 08/13/16 20:59 Polyethylene Glycol (Miralax) 17 gm HSPRN PRN ORAL Constipation 07/05/16 05:30 08/04/16 05:29 Pregabalin (Lyrica) 100 mg THREE TIMES A DAY ORAL 07/05/16 09:00 08/04/16 08:59 Risperidone (RisperDAL) 1 mg BEDTIME ORAL 07/12/16 21:00 08/11/16 20:59 Zolpidem Tartrate (Ambien) 5 mg BEDTIME PRN ORAL Insomnia 07/05/16 05:30 08/04/16 05:29 07/15/16 02:10 Theresa Atkinson NP ([facility]) Jul 15, 2016 07:06
[2016-07-15 08:08] VITALS: BP 97/74
[2016-07-15] MEDS: Heparin 5000 units/ml inj SUBQ SCH ×2 (08:29→21:39)
[2016-07-15] MEDS: Docusate 100mg cap ORAL SCH ×3 (08:36→18:00)
[2016-07-15] MEDS: Lyrica 50mg cap ORAL SCH ×3 (08:38→18:00)
--- NOTE | 2016-07-15 09:08 | Pulmonology Progress Note ---
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 pain management pain specialist follows psych follows on Cymbalta and Risperidone seizure precautions, continue Keppra bowel regimen DVT prophylaxis PT/OT case discussed and evaluated by supervising physician: will try to get neuro suregry eval if possible Subjective Allergies: Coded Allergies: No Known Allergies (Unverified , 02/18/16) Subjective afebrile, no leucocytosis patient is non ambulatory since 1999 after coma, but was w/c bound since end of 2015 ( around X mas time) started to have numbness in BLE neuro follows, second opinion neuro seen the patient as well Objective Last 24 Hour Vital Signs Date Time Temp Pulse Resp B/P Pulse Ox O2 Delivery O2 Flow Rate FiO2 07/15/16 08:08 97.7 94 15 97/74 94 Room Air 07/15/16 00:00 97.7 83 20 107/70 92 Room Air 07/14/16 23:16 98.2 07/14/16 20:00 98.2 91 19 116/69 95 Room Air 07/14/16 19:25 80 18 Room Air Intake and Output 07/14/16 07/15/16 19:00 07:00 Intake Total 0 ml 360 ml Balance 0 ml 360 ml Intake Oral 0 ml 360 ml # Voids 4 General Appearance: no acute distress, other - awake, alert, responsive bedridden female HEENT: normocephalic, atraumatic, anicteric, mucous membranes moist Respiratory/Chest: lungs clear, no respiratory distress, no accessory muscle use Cardiovascular: normal rate, regular rhythm, no JVD Abdomen: normal bowel sounds, soft, non tender, non distended Genitourinary: normal external genitalia Skin: other - facial erythema, dryness Neurologic/Psychiatric: alert, responsive Musculoskeletal: atrophy, other - paraparesis BLE Current Medications Medications (Trade) Dose Ordered Sig/Bushra Route PRN Reason Start Time Stop Time Status Last Admin Dose Admin Acetaminophen (Tylenol) 650 mg Q4H PRN ORAL T>100.5 07/11/16 08:14 08/04/16 05:29 Acetaminophen/ Hydrocodone Bitart ([place] 10/325) 1 ea Q4H PRN ORAL Moderate Pain (Pain Scale 4-6) 07/11/16 12:30 07/18/16 08:29 Al Hydroxide/Mg Hydroxide (Mylanta II) 30 ml Q6H PRN ORAL dyspepsia 07/05/16 05:30 08/04/16 05:29 Albuterol/ Ipratropium (DuoNeb 0.5-3(2.5)mg/3ml) 3 ml Q4H PRN HHN Shortness of Breath 07/10/16 20:45 07/15/16 20:44 07/10/16 21:56 Baclofen (Lioresal) 10 mg THREE TIMES A DAY ORAL 07/05/16 18:00 08/04/16 17:59 Dextrose (Dextrose 50%) STAT PRN IV Hypoglycemia 07/05/16 05:30 08/04/16 05:29 Docusate Sodium (Colace) 100 mg THREE TIMES A DAY ORAL 07/14/16 18:00 08/13/16 17:59 Duloxetine HCl (Cymbalta) 60 mg DAILY ORAL 07/07/16 09:00 08/06/16 08:59 07/09/16 09:21 Heparin Sodium (Porcine) (Heparin 5000 units/ml) 5,000 units EVERY 12 HOURS SUBQ 07/05/16 09:00 08/04/16 08:59 07/15/16 08:29 Levetiracetam (Keppra) 500 mg Q12HR ORAL 07/05/16 09:00 08/04/16 08:59 07/09/16 09:21 Morphine Sulfate (Morphine Sulfate) 6 mg Q3H PRN IVP Severe Pain (Pain Scale 7-10) 07/14/16 16:30 07/21/16 16:29 07/15/16 08:27 Ondansetron HCl (Zofran) 4 mg Q6H PRN IVP Nausea & Vomiting 07/05/16 05:30 08/04/16 05:29 Polyethylene Glycol (Miralax) 17 gm BEDTIME ORAL 07/14/16 21:00 08/13/16 20:59 Polyethylene Glycol (Miralax) 17 gm HSPRN PRN ORAL Constipation 07/05/16 05:30 08/04/16 05:29 Pregabalin (Lyrica) 100 mg THREE TIMES A DAY ORAL 07/05/16 09:00 08/04/16 08:59 Risperidone (RisperDAL) 1 mg BEDTIME ORAL 07/12/16 21:00 08/11/16 20:59 Zolpidem Tartrate (Ambien) 5 mg BEDTIME PRN ORAL Insomnia 07/05/16 05:30 08/04/16 05:29 07/15/16 02:10 Demetrio ([facility])Theresa NP Jul 15, 2016 09:08
--- NOTE | 2016-07-15 09:10 | General Progress Note ---
Assessment/Plan Assessment/Plan (1) H/O Brain Tumor (2) Thalmic pain syndrome (3) Parkinson Disease (4) Intractable pain The patient will be continued on morphine and [place]. The patient was discussed with Dr. Daniels and Dr. Daniels concurred. Subjective Date patient seen: Jul 15, 2016 Time patient seen: 09:00 - am Allergies: Coded Allergies: No Known Allergies (Unverified , 02/18/16) Subjective REVIEW OF SYSTEMS: Denies rash, fever, chills, sweating, dizziness, drowsiness, blurred vision, sore throat, or change in weight. No shortness of breath or chest pain. No bowel or bladder incontinence. No dysuria. She is complaining of generalized body pain. SUBJECTIVE: Pt had been refusing medications yesterday, however once morphine was increased to 6mg pt is requesting the mediations. She says that pain is better and is waiting to be seen by surgeon. Objective Last 24 Hour Vital Signs Date Time Temp Pulse Resp B/P Pulse Ox O2 Delivery O2 Flow Rate FiO2 07/15/16 08:08 97.7 94 15 97/74 94 Room Air 07/15/16 00:00 97.7 83 20 107/70 92 Room Air 07/14/16 23:16 98.2 07/14/16 20:00 98.2 91 19 116/69 95 Room Air 07/14/16 19:25 80 18 Room Air Intake and Output 07/14/16 07/15/16 19:00 07:00 Intake Total 0 ml 360 ml Balance 0 ml 360 ml Intake Oral 0 ml 360 ml # Voids 4 Height (Feet): 5 Height (Inches): 7.00 Weight (Pounds): 161 Objective GENERAL: Alert, awake, and oriented. HEENT: PERRLA. NECK: Range of motion is decreased due to the patient's clinical condition with tenderness of the paracervical muscles. No adenopathy. LUNGS: Decreased breath sounds bilaterally. HEART: S1 and S2 regular. ABDOMEN: Benign. BACK: Range of motion is decreased in flexion and extension with tenderness to paraspinal muscles. No tenderness to trapezius or rhomboid muscles. EXTREMITIES: No cyanosis. No clubbing. No edema. NEUROLOGICAL EXAM: No changes. RAGINI TIMMONS Jul 15, 2016 09:10
--- NOTE | 2016-07-15 10:39 | GI Progress Note ---
Assessment/Plan Problems: (1) GERD (gastroesophageal reflux disease) ICD Codes: K21.9 - Gastro-esophageal reflux disease without esophagitis SNOMED: 742615140 (2) Anxiety ICD Codes: F41.9 - Anxiety disorder, unspecified SNOMED: 44862895 (3) Constipation ICD Codes: K59.00 - Constipation, unspecified SNOMED: 71158285 (4) Fecal impaction in rectum ICD Codes: K56.41 - Fecal impaction SNOMED: 57621889 Status: unchanged Status Narrative Discussed with Dr. Choudhury. Assessment/Plan KUB >> mild rectal fecal impaction. Abundant gas in nondilated large and small bowel loops symptomatic treatment regular diet, tolerating bowel regime >> colace + miralax >> refused H2 regular diet fu labs Subjective Subjective generalized body pain weakness "fluid in spine" denies abdominal pain/constipation Objective Last 24 Hour Vital Signs Date Time Temp Pulse Resp B/P Pulse Ox O2 Delivery O2 Flow Rate FiO2 07/15/16 09:10 78 18 Room Air 07/15/16 08:58 97.7 07/15/16 08:08 97.7 94 15 97/74 94 Room Air 07/15/16 00:00 97.7 83 20 107/70 92 Room Air 07/14/16 20:00 98.2 91 19 116/69 95 Room Air 07/14/16 19:25 80 18 Room Air Intake and Output 07/14/16 07/15/16 19:00 07:00 Intake Total 0 ml 360 ml Balance 0 ml 360 ml Intake Oral 0 ml 360 ml # Voids 4 Height (Feet): 5 Height (Inches): 7.00 Weight (Pounds): 161 General Appearance: no apparent distress, alert Cardiovascular: normal rate Respiratory/Chest: normal breath sounds, no respiratory distress Abdominal Exam: normal bowel sounds, non tender, soft Objective Procedure: XRAY Abdomen 1v Indication: Abdominal distention Impression: Mild distention of the rectum, slightly increased from prior study of May 2016, may indicate mild rectal fecal impaction Abundant gas in nondilated large and small bowel loops 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 Jul 15, 2016 10:39
[2016-07-15 11:49] VITALS: BP 100/64
[2016-07-15 15:48] VITALS: BP 114/56
[2016-07-15 19:00] VITALS: BP 83/56
[2016-07-15] MEDS: Miralax 17gm pkt ORAL SCH (21:00)
[2016-07-16] VITALS: BP 90/57
[2016-07-16] MEDS: Zolpidem 5mg tab ORAL PRN (01:05)
[2016-07-16] MEDS: Morphine Sulfate 10mg/ml Inj IVP PRN ×5 (03:30→19:47)
[2016-07-16 07:41] LABS: ANION GAP 13 (5-15); CALCIUM 9.4 mg/dL (8.6-10.2); CARBON DIOXIDE 25 mEQ/L (20-30); CHLORIDE 102 mEQ/L (98-107); CREATININE 0.7 mg/dL (0.5-0.9); GLOMERULAR FILTRATION RATE > 60 mL/min (>60); HEMOLYSIS 6; POTASSIUM 4.2 mEQ/L (3.4-4.9); SODIUM 140 mEQ/L (135-145)
[2016-07-16 07:42] LABS: BASOPHILS % (AUTO) 1.1 % (0.0-2.0); EOSINOPHILS % (AUTO) 3.2 % (0.0-3.0); LYMPHOCYTES % (AUTO) 39.4 % (20.0-45.0); MEAN CORPUSCULAR HEMOGLOBIN 29.6 PG (27.0-31.0); MEAN CORPUSCULAR HGB CONC 33.6 G/DL (32.0-36.0); MEAN CORPUSCULAR VOLUME 88 FL (80-99); MEAN PLATELET VOLUME 7.2 FL (6.5-10.1); MONOCYTES % (AUTO) 7.8 % (1.0-10.0); NEUTROPHILS % (AUTO) 48.5 % (45.0-75.0); PLATELET COUNT 276 K/UL (150-450); RED BLOOD COUNT 5.01 M/UL (4.20-5.40); RED CELL DISTRIBUTION WIDTH 13.3 % (11.6-14.8); WHITE BLOOD COUNT 7.7 K/UL (4.8-10.8)
[2016-07-16 07:45] VITALS: BP 94/61
[2016-07-16] MEDS: Lyrica 50mg cap ORAL SCH ×3 (09:00→18:00)
[2016-07-16] MEDS: Docusate 100mg cap ORAL SCH ×3 (09:00→18:00)
[2016-07-16] MEDS: Heparin 5000 units/ml inj SUBQ SCH ×2 (09:33→22:09)
--- NOTE | 2016-07-16 10:29 | General Progress Note ---
Assessment/Plan Problem List: (1) Fecal impaction in rectum ICD Codes: K56.41 - Fecal impaction SNOMED: 35592545 (2) GERD (gastroesophageal reflux disease) ICD Codes: K21.9 - Gastro-esophageal reflux disease without esophagitis SNOMED: 708237641 (3) Rash ICD Codes: R21 - Rash and other nonspecific skin eruption SNOMED: 675275362, 736821194 (4) Constipation ICD Codes: K59.00 - Constipation, unspecified SNOMED: 89102272 (5) Depression ICD Codes: F32.9 - Major depressive disorder, single episode, unspecified SNOMED: 27274718 (6) Psychiatric disorder ICD Codes: F99 - Mental disorder, not otherwise specified SNOMED: 27289187, 396759130 Assessment/Plan colace miralax add lactulose fu Subjective ROS Limited/Unobtainable: Yes Allergies: Coded Allergies: No Known Allergies (Unverified , 02/18/16) Subjective no abd pain Objective Last 24 Hour Vital Signs Date Time Temp Pulse Resp B/P Pulse Ox O2 Delivery O2 Flow Rate FiO2 07/16/16 09:58 97.7 07/16/16 07:45 97.7 74 15 94/61 94 Room Air 07/16/16 00:00 97.7 67 20 90/57 95 Room Air 07/15/16 19:19 91 18 Room Air 07/15/16 19:00 97.7 72 20 83/56 92 Room Air 07/15/16 15:48 97.7 92 20 114/56 95 Room Air 07/15/16 11:49 97.7 62 14 100/64 93 Room Air Intake and Output 07/15/16 07/16/16 19:00 07:00 Intake Total 900 ml 240 ml Balance 900 ml 240 ml Intake Oral 900 ml 240 ml # Voids 1 3 Laboratory Tests 07/16/16 05:40: White Blood Count 7.7, Red Blood Count 5.01, Hemoglobin 14.9, Hematocrit 44.1, Mean Corpuscular Volume 88, Mean Corpuscular Hemoglobin 29.6, Mean Corpuscular Hemoglobin Concent 33.6, Red Cell Distribution Width 13.3, Platelet Count 276, Mean Platelet Volume 7.2, Neutrophils (%) (Auto) 48.5, Lymphocytes (%) (Auto) 39.4, Monocytes (%) (Auto) 7.8, Eosinophils (%) (Auto) 3.2H, Basophils (%) (Auto ) 1.1, Sodium Level 140, Potassium Level 4.2, Chloride Level 102, Carbon Dioxide Level 25, Anion Gap 13, Blood Urea Nitrogen 23, Creatinine 0.7, Estimat Glomerular Filtration Rate > 60, Glucose Level 97, Calcium Level 9.4 Height (Feet): 5 Height (Inches): 7.00 Weight (Pounds): 161 General Appearance: alert EENT: normal ENT inspection Neck: supple Cardiovascular: normal rate Respiratory/Chest: lungs clear Abdomen: normal bowel sounds, non tender, soft Extremities: non-tender MARÍA LANDERS Jul 16, 2016 10:29
[2016-07-16 11:57] VITALS: BP 100/66
[2016-07-16] MEDS: Lactulose 10gm/15ml UDC ORAL SCH ×2 (12:25→18:00)
--- NOTE | 2016-07-16 13:51 | Pulmonology Progress Note ---
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 pain management pain specialist follows psych follows on Cymbalta and Risperidone seizure precautions, continue Keppra bowel regimen intensified by GI DVT prophylaxis PT/OT try transfer to [facility] [place] and management case discussed and evaluated by supervising physician: Subjective Allergies: Coded Allergies: No Known Allergies (Unverified , 02/18/16) Subjective afebrile, no leucocytosis patient is non ambulatory since 1999 after coma, but was w/c bound since end of 2015 ( around X mas time) started to have numbness in BLE neuro follows, second opinion neuro seen the patient as well Objective Last 24 Hour Vital Signs Date Time Temp Pulse Resp B/P Pulse Ox O2 Delivery O2 Flow Rate FiO2 07/16/16 12:58 97.7 07/16/16 11:57 97.7 87 16 100/66 96 Room Air 07/16/16 07:45 97.7 74 15 94/61 94 Room Air 07/16/16 00:00 97.7 67 20 90/57 95 Room Air 07/15/16 19:19 91 18 Room Air 07/15/16 19:00 97.7 72 20 83/56 92 Room Air 07/15/16 15:48 97.7 92 20 114/56 95 Room Air Intake and Output 07/15/16 07/16/16 19:00 07:00 Intake Total 900 ml 240 ml Balance 900 ml 240 ml Intake Oral 900 ml 240 ml # Voids 1 3 Objective General Appearance: no acute distress, other - awake, alert, responsive bedridden female HEENT: normocephalic, atraumatic, anicteric, mucous membranes moist Respiratory/Chest: lungs clear, no respiratory distress, no accessory muscle use Cardiovascular: normal rate, regular rhythm, no JVD Abdomen: normal bowel sounds, soft, non tender, non distended Genitourinary: normal external genitalia Skin: other - facial erythema, dryness Neurologic/Psychiatric: alert, responsive Musculoskeletal: atrophy, other - paraparesis BLE Laboratory Tests 07/16/16 05:40: White Blood Count 7.7, Red Blood Count 5.01, Hemoglobin 14.9, Hematocrit 44.1, Mean Corpuscular Volume 88, Mean Corpuscular Hemoglobin 29.6, Mean Corpuscular Hemoglobin Concent 33.6, Red Cell Distribution Width 13.3, Platelet Count 276, Mean Platelet Volume 7.2, Neutrophils (%) (Auto) 48.5, Lymphocytes (%) (Auto) 39.4, Monocytes (%) (Auto) 7.8, Eosinophils (%) (Auto) 3.2H, Basophils (%) (Auto ) 1.1, Sodium Level 140, Potassium Level 4.2, Chloride Level 102, Carbon Dioxide Level 25, Anion Gap 13, Blood Urea Nitrogen 23, Creatinine 0.7, Estimat Glomerular Filtration Rate > 60, Glucose Level 97, Calcium Level 9.4 Current Medications Medications (Trade) Dose Ordered Sig/Bushra Route PRN Reason Start Time Stop Time Status Last Admin Dose Admin Acetaminophen (Tylenol) 650 mg Q4H PRN ORAL T>100.5 07/11/16 08:14 08/04/16 05:29 Acetaminophen/ Hydrocodone Bitart ([place] 10/325) 1 ea Q4H PRN ORAL Moderate Pain (Pain Scale 4-6) 07/11/16 12:30 07/18/16 08:29 Al Hydroxide/Mg Hydroxide (Mylanta II) 30 ml Q6H PRN ORAL dyspepsia 07/05/16 05:30 08/04/16 05:29 Baclofen (Lioresal) 10 mg THREE TIMES A DAY ORAL 07/05/16 18:00 08/04/16 17:59 Dextrose (Dextrose 50%) STAT PRN IV Hypoglycemia 07/05/16 05:30 08/04/16 05:29 Docusate Sodium (Colace) 100 mg THREE TIMES A DAY ORAL 07/14/16 18:00 08/13/16 17:59 Duloxetine HCl (Cymbalta) 60 mg DAILY ORAL 07/07/16 09:00 08/06/16 08:59 07/09/16 09:21 Heparin Sodium (Porcine) (Heparin 5000 units/ml) 5,000 units EVERY 12 HOURS SUBQ 07/05/16 09:00 08/04/16 08:59 07/16/16 09:33 Lactulose (Cephulac) 10 gm THREE TIMES A DAY ORAL 07/16/16 13:00 08/15/16 12:59 Levetiracetam (Keppra) 500 mg Q12HR ORAL 07/05/16 09:00 08/04/16 08:59 07/09/16 09:21 Morphine Sulfate (Morphine Sulfate) 6 mg Q3H PRN IVP Severe Pain (Pain Scale 7-10) 07/14/16 16:30 07/21/16 16:29 07/16/16 12:28 Ondansetron HCl (Zofran) 4 mg Q6H PRN IVP Nausea & Vomiting 07/05/16 05:30 08/04/16 05:29 Polyethylene Glycol (Miralax) 17 gm BEDTIME ORAL 07/14/16 21:00 08/13/16 20:59 Polyethylene Glycol (Miralax) 17 gm HSPRN PRN ORAL Constipation 07/05/16 05:30 08/04/16 05:29 Pregabalin (Lyrica) 100 mg THREE TIMES A DAY ORAL 07/05/16 09:00 08/04/16 08:59 Risperidone (RisperDAL) 1 mg BEDTIME ORAL 07/12/16 21:00 08/11/16 20:59 Zolpidem Tartrate (Ambien) 5 mg BEDTIME PRN ORAL Insomnia 07/05/16 05:30 08/04/16 05:29 07/16/16 01:05 [facility]cent[facility] healthcare systemTheresa Andrea NP Jul 16, 2016 13:51
[2016-07-16] MEDS ORDERED: Norco 10mg/325mg tab ORAL PRN (14:00)
[2016-07-16 15:56] VITALS: BP 109/71
[2016-07-16 20:00] VITALS: BP 119/78
[2016-07-16] MEDS: Miralax 17gm pkt ORAL SCH (21:00)
[2016-07-16] MEDS ORDERED: Morphine Sulfate 10mg/ml Inj IVP ONE (22:15)
[2016-07-17] VITALS: BP 96/66
[2016-07-17] MEDS: Zolpidem 5mg tab ORAL PRN (01:27)
[2016-07-17] MEDS: Morphine Sulfate 10mg/ml Inj IVP PRN ×7 (03:55→23:09)
[2016-07-17 08:15] VITALS: BP 113/57
[2016-07-17] MEDS: Heparin 5000 units/ml inj SUBQ SCH ×2 (08:25→23:11)
[2016-07-17] MEDS: Lactulose 10gm/15ml UDC ORAL SCH ×3 (09:00→18:00)
[2016-07-17] MEDS: Lyrica 50mg cap ORAL SCH ×3 (09:00→18:00)
[2016-07-17] MEDS: Docusate 100mg cap ORAL SCH ×3 (09:00→18:00)
--- NOTE | 2016-07-17 10:51 | General Progress Note ---
Assessment/Plan Assessment/Plan (1) H/O Brain Tumor (2) Thalmic pain syndrome (3) Parkinson Disease (4) Intractable pain The patient will be continued on morphine and [place]. The patient was discussed with Dr. Daniels and Dr. Daniels concurred. Subjective Date patient seen: Jul 17, 2016 Time patient seen: 10:15 - am Allergies: Coded Allergies: No Known Allergies (Unverified , 02/18/16) Subjective REVIEW OF SYSTEMS: Denies rash, fever, chills, sweating, dizziness, drowsiness, blurred vision, sore throat, or change in weight. No shortness of breath or chest pain. No bowel or bladder incontinence. No dysuria. She is complaining of generalized body pain. SUBJECTIVE: Her pain has been unchanged and is tolerated on the morphine. Objective Last 24 Hour Vital Signs Date Time Temp Pulse Resp B/P Pulse Ox O2 Delivery O2 Flow Rate FiO2 07/17/16 08:15 97.6 74 21 113/57 94 Room Air 07/17/16 04:25 98.1 07/17/16 00:00 98.1 70 20 96/66 96 Room Air 07/16/16 22:36 97.3 07/16/16 20:00 96.1 61 20 119/78 97 Room Air 07/16/16 15:56 97.3 79 15 109/71 94 Room Air 07/16/16 11:57 97.7 87 16 100/66 96 Room Air Intake and Output 07/16/16 07/17/16 19:00 07:00 Intake Total 1000 ml 740 ml Balance 1000 ml 740 ml Intake Oral 1000 ml 740 ml # Voids 1 5 Height (Feet): 5 Height (Inches): 7.00 Weight (Pounds): 161 Objective GENERAL: Alert, awake, and oriented. HEENT: PERRLA. NECK: Range of motion is decreased due to the patient's clinical condition with tenderness of the paracervical muscles. No adenopathy. LUNGS: Decreased breath sounds bilaterally. HEART: S1 and S2 regular. ABDOMEN: Benign. BACK: Range of motion is decreased in flexion and extension with tenderness to paraspinal muscles. No tenderness to trapezius or rhomboid muscles. EXTREMITIES: No cyanosis. No clubbing. No edema. NEUROLOGICAL EXAM: No changes. RAGINI TIMMONS P.A. Jul 17, 2016 10:51
[2016-07-17 12:00] VITALS: BP 114/73
--- NOTE | 2016-07-17 14:08 | Pulmonology Progress Note ---
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 pain management pain specialist follows psych follows on Cymbalta and Risperidone seizure precautions, continue Keppra bowel regimen intensified by GI DVT prophylaxis PT/OT try transfer to [facility] - [place] for spine surgery eval and management unable to get so far neuro surgery eval case discussed and evaluated by supervising physician: Subjective Allergies: Coded Allergies: No Known Allergies (Unverified , 02/18/16) Subjective afebrile, no leucocytosis patient is non ambulatory since 1999 after coma, but was w/c bound since end of 2015 ( around X mas time) started to have numbness in BLE neuro follows, second opinion neuro seen the patient as well Objective Last 24 Hour Vital Signs Date Time Temp Pulse Resp B/P Pulse Ox O2 Delivery O2 Flow Rate FiO2 07/17/16 12:00 97.6 72 19 114/73 97 Room Air 07/17/16 08:15 97.6 74 21 113/57 94 Room Air 07/17/16 04:25 98.1 07/17/16 00:00 98.1 70 20 96/66 96 Room Air 07/16/16 22:36 97.3 07/16/16 20:00 96.1 61 20 119/78 97 Room Air 07/16/16 15:56 97.3 79 15 109/71 94 Room Air Intake and Output 07/16/16 07/17/16 19:00 07:00 Intake Total 1000 ml 740 ml Balance 1000 ml 740 ml Intake Oral 1000 ml 740 ml # Voids 1 5 Objective General Appearance: no acute distress, other - awake, alert, responsive bedridden female HEENT: normocephalic, atraumatic, anicteric, mucous membranes moist Respiratory/Chest: lungs clear, no respiratory distress, no accessory muscle use Cardiovascular: normal rate, regular rhythm, no JVD Abdomen: normal bowel sounds, soft, non tender, non distended Genitourinary: normal external genitalia Skin: other - facial erythema, dryness Neurologic/Psychiatric: alert, responsive Musculoskeletal: atrophy, other - paraparesis BLE Current Medications Medications (Trade) Dose Ordered Sig/Bushra Route PRN Reason Start Time Stop Time Status Last Admin Dose Admin Acetaminophen (Tylenol) 650 mg Q4H PRN ORAL T>100.5 07/11/16 08:14 08/04/16 05:29 Acetaminophen/ Hydrocodone Bitart ([place] 10/325) 1 ea Q4H PRN ORAL Moderate Pain (Pain Scale 4-6) 07/16/16 14:00 07/22/16 13:59 Al Hydroxide/Mg Hydroxide (Mylanta II) 30 ml Q6H PRN ORAL dyspepsia 07/05/16 05:30 08/04/16 05:29 Baclofen (Lioresal) 10 mg THREE TIMES A DAY ORAL 07/05/16 18:00 08/04/16 17:59 Dextrose (Dextrose 50%) STAT PRN IV Hypoglycemia 07/05/16 05:30 08/04/16 05:29 Docusate Sodium (Colace) 100 mg THREE TIMES A DAY ORAL 07/14/16 18:00 08/13/16 17:59 Duloxetine HCl (Cymbalta) 60 mg DAILY ORAL 07/07/16 09:00 08/06/16 08:59 07/09/16 09:21 Heparin Sodium (Porcine) (Heparin 5000 units/ml) 5,000 units EVERY 12 HOURS SUBQ 07/05/16 09:00 08/04/16 08:59 07/17/16 08:25 Lactulose (Cephulac) 10 gm THREE TIMES A DAY ORAL 07/16/16 13:00 08/15/16 12:59 Levetiracetam (Keppra) 500 mg Q12HR ORAL 07/05/16 09:00 08/04/16 08:59 07/09/16 09:21 Morphine Sulfate (Morphine Sulfate) 6 mg Q3H PRN IVP Severe Pain (Pain Scale 7-10) 07/14/16 16:30 07/21/16 16:29 07/17/16 11:25 Ondansetron HCl (Zofran) 4 mg Q6H PRN IVP Nausea & Vomiting 07/05/16 05:30 08/04/16 05:29 Polyethylene Glycol (Miralax) 17 gm BEDTIME ORAL 07/14/16 21:00 08/13/16 20:59 Polyethylene Glycol (Miralax) 17 gm HSPRN PRN ORAL Constipation 07/05/16 05:30 08/04/16 05:29 Pregabalin (Lyrica) 100 mg THREE TIMES A DAY ORAL 07/05/16 09:00 08/04/16 08:59 Risperidone (RisperDAL) 1 mg BEDTIME ORAL 07/12/16 21:00 08/11/16 20:59 Zolpidem Tartrate (Ambien) 5 mg BEDTIME PRN ORAL Insomnia 07/05/16 05:30 08/04/16 05:29 07/17/16 01:27 Demetrio ([facility])Theresa NP Jul 17, 2016 14:08
--- NOTE | 2016-07-17 15:49 | General Progress Note ---
Assessment/Plan Problem List: (1) Fecal impaction in rectum ICD Codes: K56.41 - Fecal impaction SNOMED: 23999638 (2) GERD (gastroesophageal reflux disease) ICD Codes: K21.9 - Gastro-esophageal reflux disease without esophagitis SNOMED: 251809154 (3) Rash ICD Codes: R21 - Rash and other nonspecific skin eruption SNOMED: 447454396, 982032818 (4) Constipation ICD Codes: K59.00 - Constipation, unspecified SNOMED: 85569324 (5) Depression ICD Codes: F32.9 - Major depressive disorder, single episode, unspecified SNOMED: 27942748 (6) Psychiatric disorder ICD Codes: F99 - Mental disorder, not otherwise specified SNOMED: 22934879, 648598093 Assessment/Plan colace miralax lactulose she is refusing laxatives pain meds seeking? dc planning per primary team Subjective ROS Limited/Unobtainable: Yes Allergies: Coded Allergies: No Known Allergies (Unverified , 02/18/16) Subjective no abd pain Objective Last 24 Hour Vital Signs Date Time Temp Pulse Resp B/P Pulse Ox O2 Delivery O2 Flow Rate FiO2 07/17/16 12:00 97.6 72 19 114/73 97 Room Air 07/17/16 08:15 97.6 74 21 113/57 94 Room Air 07/17/16 04:25 98.1 07/17/16 00:00 98.1 70 20 96/66 96 Room Air 07/16/16 22:36 97.3 07/16/16 20:00 96.1 61 20 119/78 97 Room Air 07/16/16 15:56 97.3 79 15 109/71 94 Room Air Intake and Output 07/16/16 07/17/16 19:00 07:00 Intake Total 1000 ml 740 ml Balance 1000 ml 740 ml Intake Oral 1000 ml 740 ml # Voids 1 5 Height (Feet): 5 Height (Inches): 7.00 Weight (Pounds): 161 General Appearance: alert EENT: normal ENT inspection Neck: supple Cardiovascular: normal rate Respiratory/Chest: decreased breath sounds Abdomen: normal bowel sounds, non tender, soft Extremities: non-tender MARÍA LANDERS Jul 17, 2016 15:49
[2016-07-17 16:00] VITALS: BP 101/68
[2016-07-17 19:00] VITALS: BP 144/99
[2016-07-17] MEDS: Miralax 17gm pkt ORAL SCH (21:00)
[2016-07-18] VITALS: BP 110/67
[2016-07-18] MEDS: Zolpidem 5mg tab ORAL PRN (01:05)
[2016-07-18 04:00] VITALS: BP 112/62
[2016-07-18] MEDS: Morphine Sulfate 10mg/ml Inj IVP PRN ×7 (04:59→23:31)
[2016-07-18 08:00] VITALS: BP 94/70
[2016-07-18] MEDS: Heparin 5000 units/ml inj SUBQ SCH ×2 (08:12→20:29)
[2016-07-18] MEDS: Lyrica 50mg cap ORAL SCH ×3 (09:00→17:38)
[2016-07-18] MEDS: Docusate 100mg cap ORAL SCH ×3 (09:00→17:38)
[2016-07-18] MEDS: Lactulose 10gm/15ml UDC ORAL SCH ×3 (09:00→17:38)
--- NOTE | 2016-07-18 10:34 | GI Progress Note ---
Assessment/Plan Problems: (1) GERD (gastroesophageal reflux disease) ICD Codes: K21.9 - Gastro-esophageal reflux disease without esophagitis SNOMED: 937270869 (2) Anxiety ICD Codes: F41.9 - Anxiety disorder, unspecified SNOMED: 37069457 (3) Constipation ICD Codes: K59.00 - Constipation, unspecified SNOMED: 99407282 (4) Fecal impaction in rectum ICD Codes: K56.41 - Fecal impaction SNOMED: 95129348 Status: unchanged Status Narrative Discussed with Dr. Choudhury. Assessment/Plan KUB >> mild rectal fecal impaction. Abundant gas in nondilated large and small bowel loops symptomatic treatment regular diet, tolerating bowel regime >> colace + miralax + lactulose >> refused H2 fu labs dc planning per primary team Subjective Subjective generalized body pain weakness "fluid in spine" denies abdominal pain no BM since admission Objective Last 24 Hour Vital Signs Date Time Temp Pulse Resp B/P Pulse Ox O2 Delivery O2 Flow Rate FiO2 07/18/16 08:00 98.2 116 22 94/70 96 Room Air 07/18/16 04:00 96.9 54 17 112/62 95 Room Air 07/18/16 00:00 97.4 59 18 110/67 91 Room Air 07/17/16 20:53 97.3 07/17/16 19:00 97.7 60 20 144/99 98 Room Air 07/17/16 16:00 97.3 62 20 101/68 96 Room Air 07/17/16 12:00 97.6 72 19 114/73 97 Room Air Intake and Output 07/17/16 07/18/16 19:00 07:00 Intake Total 720 ml 240 ml Balance 720 ml 240 ml Intake Oral 720 ml 240 ml # Voids 4 6 Height (Feet): 5 Height (Inches): 7.00 Weight (Pounds): 161 General Appearance: no apparent distress, alert Cardiovascular: normal rate Respiratory/Chest: normal breath sounds, no respiratory distress Abdominal Exam: normal bowel sounds, non tender, soft Objective Procedure: XRAY Abdomen 1v Indication: Abdominal distention Impression: Mild distention of the rectum, slightly increased from prior study of May 2016, may indicate mild rectal fecal impaction Abundant gas in nondilated large and small bowel loops 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 Jul 18, 2016 10:34
[2016-07-18 12:00] VITALS: BP 116/58
--- NOTE | 2016-07-18 16:19 | General Progress Note ---
Assessment/Plan Assessment/Plan (1) H/O Brain Tumor (2) Thalmic pain syndrome (3) Parkinson Disease (4) Intractable pain The patient will be continued on morphine and [place]. The patient was discussed with Dr. Daniels and Dr. Daniels concurred. Subjective Date patient seen: Jul 18, 2016 Time patient seen: 03:00 - pm Allergies: Coded Allergies: No Known Allergies (Unverified , 02/18/16) Subjective REVIEW OF SYSTEMS: Denies rash, fever, chills, sweating, dizziness, drowsiness, blurred vision, sore throat, or change in weight. No shortness of breath or chest pain. No bowel or bladder incontinence. No dysuria. She is complaining of generalized body pain. SUBJECTIVE: Pain is unchanged and continues to use the morphine. Objective Last 24 Hour Vital Signs Date Time Temp Pulse Resp B/P Pulse Ox O2 Delivery O2 Flow Rate FiO2 07/18/16 12:00 97.2 76 18 116/58 97 Room Air 07/18/16 08:00 98.2 116 22 94/70 96 Room Air 07/18/16 04:00 96.9 54 17 112/62 95 Room Air 07/18/16 00:00 97.4 59 18 110/67 91 Room Air 07/17/16 20:53 97.3 07/17/16 19:00 97.7 60 20 144/99 98 Room Air Intake and Output 07/17/16 07/18/16 19:00 07:00 Intake Total 720 ml 240 ml Balance 720 ml 240 ml Intake Oral 720 ml 240 ml # Voids 4 6 Height (Feet): 5 Height (Inches): 7.00 Weight (Pounds): 161 Objective GENERAL: Alert, awake, and oriented. HEENT: PERRLA. NECK: Range of motion is decreased due to the patient's clinical condition with tenderness of the paracervical muscles. No adenopathy. LUNGS: Decreased breath sounds bilaterally. HEART: S1 and S2 regular. ABDOMEN: Benign. BACK: Range of motion is decreased in flexion and extension with tenderness to paraspinal muscles. No tenderness to trapezius or rhomboid muscles. EXTREMITIES: No cyanosis. No clubbing. No edema. NEUROLOGICAL EXAM: No changes. RGAINI TIMMONS Jul 18, 2016 16:19
[2016-07-18 17:47] VITALS: BP 128/89
[2016-07-18 20:00] VITALS: BP 92/68
[2016-07-18] MEDS: Miralax 17gm pkt ORAL SCH (20:31)
--- NOTE | 2016-07-18 23:05 | Pulmonology Progress Note ---
Assessment/Plan Problems: (1) Intractable pain (2) Seizure disorder (3) Parkinson disease (4) Psychiatric disorder (5) Paraplegia (6) Limited mobility (7) Depression Assessment/Plan f/u neuro and pain management recommendation Second opinion neurology pending, D/w dr Waters Subjective Allergies: Coded Allergies: No Known Allergies (Unverified , 02/18/16) Objective Last 24 Hour Vital Signs Date Time Temp Pulse Resp B/P Pulse Ox O2 Delivery O2 Flow Rate FiO2 07/18/16 20:52 97.2 07/18/16 20:00 97.7 63 16 92/68 96 Room Air 07/18/16 17:47 74 20 128/89 92 Room Air 07/18/16 12:00 97.2 76 18 116/58 97 Room Air 07/18/16 08:00 98.2 116 22 94/70 96 Room Air 07/18/16 04:00 96.9 54 17 112/62 95 Room Air 07/18/16 00:00 97.4 59 18 110/67 91 Room Air Intake and Output 07/17/16 07/18/16 19:00 07:00 Intake Total 720 ml 240 ml Balance 720 ml 240 ml Intake Oral 720 ml 240 ml # Voids 4 6 Objective Objective General Appearance: WD/WN, no apparent distress, alert EENT: PERRL/EOMI, normal ENT inspection, TMs normal, hair lose. Neck: non-tender, normal alignment, supple, normal inspection Cardiovascular: normal peripheral pulses, normal rate, regular rhythm, no murmur. Respiratory/Chest: CTA, crackles/rales, rhonchi , no wheezing Abdomen: normal bowel sounds, non tender, soft, no mass Extremities: normal range of motion, non-tender Neurologic: foot tender II-XII grossly normal, Moving all extremities. Skin: normal pigmentation, warm/dry Current Medications Medications (Trade) Dose Ordered Sig/Bushra Route PRN Reason Start Time Stop Time Status Last Admin Dose Admin Acetaminophen (Tylenol) 650 mg Q4H PRN ORAL T>100.5 07/11/16 08:14 08/04/16 05:29 Acetaminophen/ Hydrocodone Bitart ([place] 10/325) 1 ea Q4H PRN ORAL Moderate Pain (Pain Scale 4-6) 07/16/16 14:00 07/22/16 13:59 Al Hydroxide/Mg Hydroxide (Mylanta II) 30 ml Q6H PRN ORAL dyspepsia 07/05/16 05:30 08/04/16 05:29 Baclofen (Lioresal) 10 mg THREE TIMES A DAY ORAL 07/05/16 18:00 08/04/16 17:59 Dextrose (Dextrose 50%) STAT PRN IV Hypoglycemia 07/05/16 05:30 08/04/16 05:29 Docusate Sodium (Colace) 100 mg THREE TIMES A DAY ORAL 07/14/16 18:00 08/13/16 17:59 Duloxetine HCl (Cymbalta) 60 mg DAILY ORAL 07/07/16 09:00 08/06/16 08:59 07/09/16 09:21 Heparin Sodium (Porcine) (Heparin 5000 units/ml) 5,000 units EVERY 12 HOURS SUBQ 07/05/16 09:00 08/04/16 08:59 07/18/16 20:29 Lactulose (Cephulac) 10 gm THREE TIMES A DAY ORAL 07/16/16 13:00 08/15/16 12:59 Levetiracetam (Keppra) 500 mg Q12HR ORAL 07/05/16 09:00 08/04/16 08:59 07/09/16 09:21 Morphine Sulfate (Morphine Sulfate) 6 mg Q3H PRN IVP Severe Pain (Pain Scale 7-10) 07/14/16 16:30 07/21/16 16:29 07/18/16 20:22 Ondansetron HCl (Zofran) 4 mg Q6H PRN IVP Nausea & Vomiting 07/05/16 05:30 08/04/16 05:29 Polyethylene Glycol (Miralax) 17 gm BEDTIME ORAL 07/14/16 21:00 08/13/16 20:59 Polyethylene Glycol (Miralax) 17 gm HSPRN PRN ORAL Constipation 07/05/16 05:30 08/04/16 05:29 Pregabalin (Lyrica) 100 mg THREE TIMES A DAY ORAL 07/05/16 09:00 08/04/16 08:59 Risperidone (RisperDAL) 1 mg BEDTIME ORAL 07/12/16 21:00 08/11/16 20:59 Zolpidem Tartrate (Ambien) 5 mg BEDTIME PRN ORAL Insomnia 07/05/16 05:30 08/04/16 05:29 07/18/16 01:05 JAHAIRA EPRRY Jul 18, 2016 23:04
--- NOTE | 2016-07-18 23:05 | Pulmonology Progress Note ---
Assessment/Plan Problems: (1) Intractable pain (2) Seizure disorder (3) Parkinson disease (4) Psychiatric disorder (5) Paraplegia (6) Limited mobility (7) Depression Assessment/Plan f/u neuro and pain management recommendation all reviewed Subjective ROS Limited/Unobtainable: No Allergies: Coded Allergies: No Known Allergies (Unverified , 02/18/16) Objective Last 24 Hour Vital Signs Date Time Temp Pulse Resp B/P Pulse Ox O2 Delivery O2 Flow Rate FiO2 07/18/16 20:52 97.2 07/18/16 20:00 97.7 63 16 92/68 96 Room Air 07/18/16 17:47 74 20 128/89 92 Room Air 07/18/16 12:00 97.2 76 18 116/58 97 Room Air 07/18/16 08:00 98.2 116 22 94/70 96 Room Air 07/18/16 04:00 96.9 54 17 112/62 95 Room Air 07/18/16 00:00 97.4 59 18 110/67 91 Room Air Intake and Output 07/17/16 07/18/16 19:00 07:00 Intake Total 720 ml 240 ml Balance 720 ml 240 ml Intake Oral 720 ml 240 ml # Voids 4 6 Objective Objective General Appearance: WD/WN, no apparent distress, alert EENT: PERRL/EOMI, normal ENT inspection, TMs normal, hair lose. Neck: non-tender, normal alignment, supple, normal inspection Cardiovascular: normal peripheral pulses, normal rate, regular rhythm, no murmur. 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 Skin: normal pigmentation, warm/dry Current Medications Medications (Trade) Dose Ordered Sig/Bushra Route PRN Reason Start Time Stop Time Status Last Admin Dose Admin Acetaminophen (Tylenol) 650 mg Q4H PRN ORAL T>100.5 07/11/16 08:14 08/04/16 05:29 Acetaminophen/ Hydrocodone Bitart ([place] 10/325) 1 ea Q4H PRN ORAL Moderate Pain (Pain Scale 4-6) 07/16/16 14:00 07/22/16 13:59 Al Hydroxide/Mg Hydroxide (Mylanta II) 30 ml Q6H PRN ORAL dyspepsia 07/05/16 05:30 08/04/16 05:29 Baclofen (Lioresal) 10 mg THREE TIMES A DAY ORAL 07/05/16 18:00 08/04/16 17:59 Dextrose (Dextrose 50%) STAT PRN IV Hypoglycemia 07/05/16 05:30 08/04/16 05:29 Docusate Sodium (Colace) 100 mg THREE TIMES A DAY ORAL 07/14/16 18:00 08/13/16 17:59 Duloxetine HCl (Cymbalta) 60 mg DAILY ORAL 07/07/16 09:00 08/06/16 08:59 07/09/16 09:21 Heparin Sodium (Porcine) (Heparin 5000 units/ml) 5,000 units EVERY 12 HOURS SUBQ 07/05/16 09:00 08/04/16 08:59 07/18/16 20:29 Lactulose (Cephulac) 10 gm THREE TIMES A DAY ORAL 07/16/16 13:00 08/15/16 12:59 Levetiracetam (Keppra) 500 mg Q12HR ORAL 07/05/16 09:00 08/04/16 08:59 07/09/16 09:21 Morphine Sulfate (Morphine Sulfate) 6 mg Q3H PRN IVP Severe Pain (Pain Scale 7-10) 07/14/16 16:30 07/21/16 16:29 07/18/16 20:22 Ondansetron HCl (Zofran) 4 mg Q6H PRN IVP Nausea & Vomiting 07/05/16 05:30 08/04/16 05:29 Polyethylene Glycol (Miralax) 17 gm BEDTIME ORAL 07/14/16 21:00 08/13/16 20:59 Polyethylene Glycol (Miralax) 17 gm HSPRN PRN ORAL Constipation 07/05/16 05:30 08/04/16 05:29 Pregabalin (Lyrica) 100 mg THREE TIMES A DAY ORAL 07/05/16 09:00 08/04/16 08:59 Risperidone (RisperDAL) 1 mg BEDTIME ORAL 07/12/16 21:00 08/11/16 20:59 Zolpidem Tartrate (Ambien) 5 mg BEDTIME PRN ORAL Insomnia 07/05/16 05:30 08/04/16 05:29 07/18/16 01:05 JAHAIRA PERRY Jul 18, 2016 23:05
[2016-07-19] VITALS (7 sets, daily range): BP systolic 92–119; BP diastolic 59–69
[2016-07-19] MEDS: Zolpidem 5mg tab ORAL PRN (01:17)
[2016-07-19] MEDS: Morphine Sulfate 10mg/ml Inj IVP PRN ×7 (03:37→23:23)
--- NOTE | 2016-07-19 08:43 | General Progress Note ---
Assessment/Plan Assessment/Plan (1) H/O Brain Tumor (2) Thalmic pain syndrome (3) Parkinson Disease (4) Intractable pain The patient will be continued on morphine and [place]. The patient was discussed with Dr. Daniels and Dr. Daniels concurred. Subjective Date patient seen: Jul 19, 2016 Time patient seen: 07:00 - am Allergies: Coded Allergies: No Known Allergies (Unverified , 02/18/16) Subjective REVIEW OF SYSTEMS: Denies rash, fever, chills, sweating, dizziness, drowsiness, blurred vision, sore throat, or change in weight. No shortness of breath or chest pain. No bowel or bladder incontinence. No dysuria. She is complaining of generalized body pain. SUBJECTIVE: She continues to c/o body pain which has been tolerated on the morphine having used 7 doses in the last 24hrs. She continues to refuse the other scheduled medication and is waiting to see surgeon. Objective Last 24 Hour Vital Signs Date Time Temp Pulse Resp B/P Pulse Ox O2 Delivery O2 Flow Rate FiO2 07/19/16 08:11 97.3 105 20 100/59 97 Room Air 07/19/16 04:00 97.7 72 17 92/64 94 Room Air 07/19/16 00:00 97.5 65 16 105/62 96 Room Air 07/18/16 20:52 97.2 07/18/16 20:00 97.7 63 16 92/68 96 Room Air 07/18/16 17:47 74 20 128/89 92 Room Air 07/18/16 12:00 97.2 76 18 116/58 97 Room Air Intake and Output 07/18/16 07/19/16 19:00 07:00 Intake Total 200 ml 240 ml Balance 200 ml 240 ml Intake Oral 200 ml 240 ml # Voids 3 Height (Feet): 5 Height (Inches): 7.00 Weight (Pounds): 161 Objective GENERAL: Alert, awake, and oriented. HEENT: PERRLA. NECK: Range of motion is decreased due to the patient's clinical condition with tenderness of the paracervical muscles. No adenopathy. LUNGS: Decreased breath sounds bilaterally. HEART: S1 and S2 regular. ABDOMEN: Benign. BACK: Range of motion is decreased in flexion and extension with tenderness to paraspinal muscles. No tenderness to trapezius or rhomboid muscles. EXTREMITIES: No cyanosis. No clubbing. No edema. NEUROLOGICAL EXAM: No changes. RAGINI TIMMONS Jul 19, 2016 08:43
[2016-07-19] MEDS: Lactulose 10gm/15ml UDC ORAL SCH ×3 (09:00→17:23)
[2016-07-19] MEDS: Lyrica 50mg cap ORAL SCH ×3 (09:00→17:24)
[2016-07-19] MEDS: Docusate 100mg cap ORAL SCH ×3 (09:00→17:23)
[2016-07-19] MEDS: Heparin 5000 units/ml inj SUBQ SCH ×2 (10:00→21:24)
--- NOTE | 2016-07-19 12:35 | GI Progress Note ---
Assessment/Plan Problems: (1) GERD (gastroesophageal reflux disease) ICD Codes: K21.9 - Gastro-esophageal reflux disease without esophagitis SNOMED: 750392304 (2) Anxiety ICD Codes: F41.9 - Anxiety disorder, unspecified SNOMED: 27388494 (3) Constipation ICD Codes: K59.00 - Constipation, unspecified SNOMED: 15107372 (4) Fecal impaction in rectum ICD Codes: K56.41 - Fecal impaction SNOMED: 59909034 Status: unchanged Status Narrative Discussed with Dr. Choudhury. Assessment/Plan KUB >> mild rectal fecal impaction. Abundant gas in nondilated large and small bowel loops refusing all GI care symptomatic treatment regular diet, tolerating bowel regime >> colace + miralax + lactulose >> refused H2 fu labs dc planning per primary team Subjective Subjective generalized body pain weakness "fluid in spine" denies abdominal pain no BM since admission x 2-3 months. refuses any laxatives Objective Last 24 Hour Vital Signs Date Time Temp Pulse Resp B/P Pulse Ox O2 Delivery O2 Flow Rate FiO2 07/19/16 10:28 97.3 07/19/16 08:11 97.3 105 20 100/59 97 Room Air 07/19/16 04:00 97.7 72 17 92/64 94 Room Air 07/19/16 00:00 97.5 65 16 105/62 96 Room Air 07/18/16 20:00 97.7 63 16 92/68 96 Room Air 07/18/16 17:47 74 20 128/89 92 Room Air Intake and Output 07/18/16 07/19/16 19:00 07:00 Intake Total 200 ml 240 ml Balance 200 ml 240 ml Intake Oral 200 ml 240 ml # Voids 3 Height (Feet): 5 Height (Inches): 7.00 Weight (Pounds): 161 General Appearance: no apparent distress, alert Cardiovascular: normal rate Respiratory/Chest: normal breath sounds, no respiratory distress Abdominal Exam: normal bowel sounds, non tender, soft Objective Procedure: XRAY Abdomen 1v Indication: Abdominal distention Impression: Mild distention of the rectum, slightly increased from prior study of May 2016, may indicate mild rectal fecal impaction Abundant gas in nondilated large and small bowel loops 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 Jul 19, 2016 12:35
[2016-07-19] MEDS: Miralax 17gm pkt ORAL SCH (21:00)
--- NOTE | 2016-07-19 22:32 | Pulmonology Progress Note ---
Assessment/Plan Problems: (1) Intractable pain (2) Seizure disorder (3) Parkinson disease (4) Psychiatric disorder (5) Paraplegia (6) Limited mobility (7) Depression Assessment/Plan f/u neuro and pain management recommendation continue current meds Subjective ROS Limited/Unobtainable: No Allergies: Coded Allergies: No Known Allergies (Unverified , 02/18/16) Objective Last 24 Hour Vital Signs Date Time Temp Pulse Resp B/P Pulse Ox O2 Delivery O2 Flow Rate FiO2 07/19/16 19:00 97.7 76 20 105/69 96 Room Air 07/19/16 16:00 97.7 73 20 119/60 95 Room Air 07/19/16 13:42 97.0 07/19/16 12:52 97.0 76 16 111/66 93 Room Air 07/19/16 08:11 97.3 105 20 100/59 97 Room Air 07/19/16 04:00 97.7 72 17 92/64 94 Room Air 07/19/16 00:00 97.5 65 16 105/62 96 Room Air Intake and Output 07/18/16 07/19/16 19:00 07:00 Intake Total 200 ml 240 ml Balance 200 ml 240 ml Intake Oral 200 ml 240 ml # Voids 3 Objective Objective General Appearance: WD/WN, no apparent distress, alert EENT: PERRL/EOMI, normal ENT inspection, TMs normal, hair lose. Neck: non-tender, normal alignment, supple, normal inspection Cardiovascular: normal peripheral pulses, normal rate, regular rhythm, no murmur. 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 Skin: normal pigmentation, warm/dry Current Medications Medications (Trade) Dose Ordered Sig/Bushra Route PRN Reason Start Time Stop Time Status Last Admin Dose Admin Acetaminophen (Tylenol) 650 mg Q4H PRN ORAL T>100.5 07/11/16 08:14 08/04/16 05:29 Acetaminophen/ Hydrocodone Bitart ([place] 10/325) 1 ea Q4H PRN ORAL Moderate Pain (Pain Scale 4-6) 07/16/16 14:00 07/22/16 13:59 Al Hydroxide/Mg Hydroxide (Mylanta II) 30 ml Q6H PRN ORAL dyspepsia 07/05/16 05:30 08/04/16 05:29 Baclofen (Lioresal) 10 mg THREE TIMES A DAY ORAL 07/05/16 18:00 08/04/16 17:59 Dextrose (Dextrose 50%) STAT PRN IV Hypoglycemia 07/05/16 05:30 08/04/16 05:29 Docusate Sodium (Colace) 100 mg THREE TIMES A DAY ORAL 07/14/16 18:00 08/13/16 17:59 Duloxetine HCl (Cymbalta) 60 mg DAILY ORAL 07/07/16 09:00 08/06/16 08:59 07/09/16 09:21 Heparin Sodium (Porcine) (Heparin 5000 units/ml) 5,000 units EVERY 12 HOURS SUBQ 07/05/16 09:00 08/04/16 08:59 07/19/16 21:24 Lactulose (Cephulac) 10 gm THREE TIMES A DAY ORAL 07/16/16 13:00 08/15/16 12:59 Levetiracetam (Keppra) 500 mg Q12HR ORAL 07/05/16 09:00 08/04/16 08:59 07/09/16 09:21 Morphine Sulfate (Morphine Sulfate) 6 mg Q3H PRN IVP Severe Pain (Pain Scale 7-10) 07/14/16 16:30 07/21/16 16:29 07/19/16 19:33 Ondansetron HCl (Zofran) 4 mg Q6H PRN IVP Nausea & Vomiting 07/05/16 05:30 08/04/16 05:29 Polyethylene Glycol (Miralax) 17 gm BEDTIME ORAL 07/14/16 21:00 08/13/16 20:59 Polyethylene Glycol (Miralax) 17 gm HSPRN PRN ORAL Constipation 07/05/16 05:30 08/04/16 05:29 Pregabalin (Lyrica) 100 mg THREE TIMES A DAY ORAL 07/05/16 09:00 08/04/16 08:59 Risperidone (RisperDAL) 1 mg BEDTIME ORAL 07/12/16 21:00 08/11/16 20:59 Zolpidem Tartrate (Ambien) 5 mg BEDTIME PRN ORAL Insomnia 07/05/16 05:30 08/04/16 05:29 07/19/16 01:17 JAHAIRA PERRY Jul 19, 2016 22:32
[2016-07-20] MEDS: Zolpidem 5mg tab ORAL PRN (01:32)
[2016-07-20] MEDS: Morphine Sulfate 10mg/ml Inj IVP PRN ×2 (03:55→07:00)
[2016-07-20 04:00] VITALS: BP 104/68
[2016-07-20] MEDS ORDERED: HYDROmorphone 1mg/ml Carpuject IVP PRN (08:15)
[2016-07-20 08:17] VITALS: BP 115/72
--- NOTE | 2016-07-20 08:18 | General Progress Note ---
Assessment/Plan Assessment/Plan (1) H/O Brain Tumor (2) Thalmic pain syndrome (3) Parkinson Disease (4) Intractable pain The patient will be discontinued off morphine and started on Dilaudid 1mg IV Q3H PRN severe pain [place] will be continued. The patient was discussed with Dr. Daniels and Dr. Daniels concurred. Subjective Date patient seen: Jul 20, 2016 Time patient seen: 07:00 - am Allergies: Coded Allergies: No Known Allergies (Unverified , 02/18/16) Subjective REVIEW OF SYSTEMS: Denies rash, fever, chills, sweating, dizziness, drowsiness, blurred vision, sore throat, or change in weight. No shortness of breath or chest pain. No bowel or bladder incontinence. No dysuria. She is complaining of generalized body pain. SUBJECTIVE: Pt reports that the morphine has not been effective in reducing her pain since yesterday. She continues to c/o burning pain and refuses her other medications waiting to be seen by surgeon. Objective Last 24 Hour Vital Signs Date Time Temp Pulse Resp B/P Pulse Ox O2 Delivery O2 Flow Rate FiO2 07/20/16 04:00 97.3 70 20 104/68 98 Room Air 07/19/16 23:43 96.8 53 20 104/61 97 Room Air 07/19/16 19:00 97.7 76 20 105/69 96 Room Air 07/19/16 16:00 97.7 73 20 119/60 95 Room Air 07/19/16 13:42 97.0 07/19/16 12:52 97.0 76 16 111/66 93 Room Air Intake and Output 07/19/16 07/20/16 19:00 07:00 Intake Total 1000 ml 240 ml Balance 1000 ml 240 ml Intake Oral 1000 ml 240 ml # Voids 2 5 Height (Feet): 5 Height (Inches): 7.00 Weight (Pounds): 161 Objective GENERAL: Alert, awake, and oriented. HEENT: PERRLA. NECK: Range of motion is decreased due to the patient's clinical condition with tenderness of the paracervical muscles. No adenopathy. LUNGS: Decreased breath sounds bilaterally. HEART: S1 and S2 regular. ABDOMEN: Benign. BACK: Range of motion is decreased in flexion and extension with tenderness to paraspinal muscles. No tenderness to trapezius or rhomboid muscles. EXTREMITIES: No cyanosis. No clubbing. No edema. NEUROLOGICAL EXAM: No changes. RAGINI TIMMONS Jul 20, 2016 08:18
[2016-07-20] MEDS: Docusate 100mg cap ORAL SCH ×3 (08:45→17:38)
[2016-07-20] MEDS: Lactulose 10gm/15ml UDC ORAL SCH ×3 (08:45→17:38)
[2016-07-20] MEDS: Lyrica 50mg cap ORAL SCH ×3 (08:46→17:39)
[2016-07-20] MEDS: Heparin 5000 units/ml inj SUBQ SCH ×2 (09:00→20:17)
[2016-07-20] MEDS: Morphine Sulfate 2mg/ml Inj IVP PRN ×5 (09:52→23:14)
[2016-07-20] MEDS ORDERED: Norco 10mg/325mg tab ORAL PRN (10:00)
--- NOTE | 2016-07-20 10:37 | GI Progress Note ---
Assessment/Plan Problems: (1) GERD (gastroesophageal reflux disease) ICD Codes: K21.9 - Gastro-esophageal reflux disease without esophagitis SNOMED: 208012240 (2) Anxiety ICD Codes: F41.9 - Anxiety disorder, unspecified SNOMED: 86999883 (3) Constipation ICD Codes: K59.00 - Constipation, unspecified SNOMED: 38549105 (4) Fecal impaction in rectum ICD Codes: K56.41 - Fecal impaction SNOMED: 32205686 Status: unchanged Status Narrative Discussed with Dr. Choudhury. Assessment/Plan KUB >> mild rectal fecal impaction. Abundant gas in nondilated large and small bowel loops refusing all GI care symptomatic treatment regular diet, tolerating bowel regime >> colace + miralax + lactulose >> refused H2 fu labs dc planning per primary team Subjective Subjective generalized body pain weakness "fluid in spine" denies abdominal pain no BM since admission x 2-3 months. refuses any laxatives Objective Last 24 Hour Vital Signs Date Time Temp Pulse Resp B/P Pulse Ox O2 Delivery O2 Flow Rate FiO2 07/20/16 08:17 97.0 94 20 115/72 95 Room Air 07/20/16 04:00 97.3 70 20 104/68 98 Room Air 07/19/16 23:43 96.8 53 20 104/61 97 Room Air 07/19/16 19:00 97.7 76 20 105/69 96 Room Air 07/19/16 16:00 97.7 73 20 119/60 95 Room Air 07/19/16 13:42 97.0 07/19/16 12:52 97.0 76 16 111/66 93 Room Air Intake and Output 07/19/16 07/20/16 19:00 07:00 Intake Total 1000 ml 240 ml Balance 1000 ml 240 ml Intake Oral 1000 ml 240 ml # Voids 2 5 Height (Feet): 5 Height (Inches): 7.00 Weight (Pounds): 161 General Appearance: no apparent distress, alert Cardiovascular: normal rate Respiratory/Chest: normal breath sounds, no respiratory distress Abdominal Exam: normal bowel sounds, soft, tender Objective Procedure: XRAY Abdomen 1v Indication: Abdominal distention Impression: Mild distention of the rectum, slightly increased from prior study of May 2016, may indicate mild rectal fecal impaction Abundant gas in nondilated large and small bowel loops 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 Jul 20, 2016 10:37
[2016-07-20 11:50] VITALS: BP 99/68
--- NOTE | 2016-07-20 15:14 | Pulmonology Progress Note ---
Assessment/Plan Problems: (1) Intractable pain (2) Seizure disorder (3) Parkinson disease (4) Psychiatric disorder (5) Paraplegia (6) Limited mobility (7) Depression Assessment/Plan f/u neuro and pain management recommendation needs higher level of care. Subjective ROS Limited/Unobtainable: No Interval Events: refusing all meds except for narcotics Allergies: Coded Allergies: No Known Allergies (Unverified , 02/18/16) Objective Last 24 Hour Vital Signs Date Time Temp Pulse Resp B/P Pulse Ox O2 Delivery O2 Flow Rate FiO2 07/20/16 11:50 97.6 84 20 99/68 95 Room Air 07/20/16 08:17 97.0 94 20 115/72 95 Room Air 07/20/16 04:00 97.3 70 20 104/68 98 Room Air 07/19/16 23:43 96.8 53 20 104/61 97 Room Air 07/19/16 19:00 97.7 76 20 105/69 96 Room Air 07/19/16 16:00 97.7 73 20 119/60 95 Room Air Intake and Output 07/19/16 07/20/16 19:00 07:00 Intake Total 1000 ml 240 ml Balance 1000 ml 240 ml Intake Oral 1000 ml 240 ml # Voids 2 5 Objective Objective General Appearance: WD/WN, no apparent distress, alert EENT: PERRL/EOMI, normal ENT inspection, TMs normal, hair lose. Neck: non-tender, normal alignment, supple, normal inspection Cardiovascular: normal peripheral pulses, normal rate, regular rhythm, no murmur. 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 Skin: normal pigmentation, warm/dry Current Medications Medications (Trade) Dose Ordered Sig/Bushra Route PRN Reason Start Time Stop Time Status Last Admin Dose Admin Acetaminophen (Tylenol) 650 mg Q4H PRN ORAL T>100.5 07/11/16 08:14 08/04/16 05:29 Acetaminophen/ Hydrocodone Bitart ([place] 10/325) 1 ea Q4H PRN ORAL Moderate Pain (Pain Scale 4-6) 07/20/16 10:00 07/26/16 09:59 Al Hydroxide/Mg Hydroxide (Mylanta II) 30 ml Q6H PRN ORAL dyspepsia 07/05/16 05:30 08/04/16 05:29 Baclofen (Lioresal) 10 mg THREE TIMES A DAY ORAL 07/05/16 18:00 08/04/16 17:59 Dextrose (Dextrose 50%) STAT PRN IV Hypoglycemia 07/05/16 05:30 08/04/16 05:29 Docusate Sodium (Colace) 100 mg THREE TIMES A DAY ORAL 07/14/16 18:00 08/13/16 17:59 Duloxetine HCl (Cymbalta) 60 mg DAILY ORAL 07/07/16 09:00 08/06/16 08:59 07/09/16 09:21 Heparin Sodium (Porcine) (Heparin 5000 units/ml) 5,000 units EVERY 12 HOURS SUBQ 07/05/16 09:00 08/04/16 08:59 07/20/16 09:00 Lactulose (Cephulac) 10 gm THREE TIMES A DAY ORAL 07/16/16 13:00 08/15/16 12:59 Levetiracetam (Keppra) 500 mg Q12HR ORAL 07/05/16 09:00 08/04/16 08:59 07/09/16 09:21 Morphine Sulfate (Morphine Sulfate) 6 mg Q3H PRN IVP Severe Pain (Pain Scale 7-10) 07/20/16 09:00 07/27/16 08:59 07/20/16 13:03 Ondansetron HCl (Zofran) 4 mg Q6H PRN IVP Nausea & Vomiting 07/05/16 05:30 08/04/16 05:29 Polyethylene Glycol (Miralax) 17 gm BEDTIME ORAL 07/14/16 21:00 08/13/16 20:59 Polyethylene Glycol (Miralax) 17 gm HSPRN PRN ORAL Constipation 07/05/16 05:30 08/04/16 05:29 Pregabalin (Lyrica) 100 mg THREE TIMES A DAY ORAL 07/05/16 09:00 08/04/16 08:59 Risperidone (RisperDAL) 1 mg BEDTIME ORAL 07/12/16 21:00 08/11/16 20:59 Zolpidem Tartrate (Ambien) 5 mg BEDTIME PRN ORAL Insomnia 07/05/16 05:30 08/04/16 05:29 07/20/16 01:32 JAHAIRA PERRY Jul 20, 2016 15:14
[2016-07-20 15:52] VITALS: BP 107/63
[2016-07-20 19:00] VITALS: BP 100/46
[2016-07-20] MEDS: Miralax 17gm pkt ORAL SCH (20:17)
[2016-07-21] VITALS: BP 102/69
[2016-07-21] MEDS: Zolpidem 5mg tab ORAL PRN (00:15)
[2016-07-21] MEDS: Morphine Sulfate 2mg/ml Inj IVP PRN ×7 (03:00→21:36)
[2016-07-21 04:00] VITALS: BP 122/68
[2016-07-21 08:14] VITALS: BP 101/66
[2016-07-21] MEDS: Docusate 100mg cap ORAL SCH ×3 (08:55→17:33)
[2016-07-21] MEDS: Lactulose 10gm/15ml UDC ORAL SCH ×3 (08:55→17:33)
[2016-07-21] MEDS: Lyrica 50mg cap ORAL SCH ×3 (08:57→17:34)
--- NOTE | 2016-07-21 09:11 | General Progress Note ---
Assessment/Plan Assessment/Plan (1) H/O Brain Tumor (2) Thalmic pain syndrome (3) Parkinson Disease (4) Intractable pain The patient will be continued on morphine and [place]. The patient was discussed with Dr. Daniels and Dr. Daniels concurred. Subjective Date patient seen: Jul 21, 2016 Time patient seen: 07:00 - Am Allergies: Coded Allergies: No Known Allergies (Unverified , 02/18/16) Subjective REVIEW OF SYSTEMS: Denies rash, fever, chills, sweating, dizziness, drowsiness, blurred vision, sore throat, or change in weight. No shortness of breath or chest pain. No bowel or bladder incontinence. No dysuria. She is complaining of generalized body pain. SUBJECTIVE: Pt refused the dilaudid and it was changed back to morphine. She still is waiting for surgical consult. Objective Last 24 Hour Vital Signs Date Time Temp Pulse Resp B/P Pulse Ox O2 Delivery O2 Flow Rate FiO2 07/21/16 08:14 97.7 90 20 101/66 95 Room Air 07/21/16 04:00 97.9 95 20 122/68 93 Room Air 07/21/16 00:00 97.7 94 20 102/69 91 Room Air 07/20/16 19:00 97.2 76 20 100/46 95 Room Air 07/20/16 15:52 97.7 69 20 107/63 95 Room Air 07/20/16 11:50 97.6 84 20 99/68 95 Room Air Intake and Output 07/20/16 07/21/16 19:00 07:00 Intake Total 450 ml 600 ml Balance 450 ml 600 ml Intake Oral 450 ml 600 ml # Voids 3 5 Height (Feet): 5 Height (Inches): 7.00 Weight (Pounds): 161 Objective GENERAL: Alert, awake, and oriented. HEENT: PERRLA. NECK: Range of motion is decreased due to the patient's clinical condition with tenderness of the paracervical muscles. No adenopathy. LUNGS: Decreased breath sounds bilaterally. HEART: S1 and S2 regular. ABDOMEN: Benign. BACK: Range of motion is decreased in flexion and extension with tenderness to paraspinal muscles. No tenderness to trapezius or rhomboid muscles. EXTREMITIES: No cyanosis. No clubbing. No edema. NEUROLOGICAL EXAM: No changes. RAGINI TIMMONS Jul 21, 2016 09:11
[2016-07-21] MEDS: Heparin 5000 units/ml inj SUBQ SCH ×2 (09:25→20:35)
--- NOTE | 2016-07-21 10:38 | GI Progress Note ---
Assessment/Plan Problems: (1) GERD (gastroesophageal reflux disease) ICD Codes: K21.9 - Gastro-esophageal reflux disease without esophagitis SNOMED: 580522167 (2) Anxiety ICD Codes: F41.9 - Anxiety disorder, unspecified SNOMED: 07819072 (3) Constipation ICD Codes: K59.00 - Constipation, unspecified SNOMED: 68887297 (4) Fecal impaction in rectum ICD Codes: K56.41 - Fecal impaction SNOMED: 36975519 Status: unchanged Status Narrative Discussed with Dr. Choudhury. Assessment/Plan KUB >> mild rectal fecal impaction. Abundant gas in nondilated large and small bowel loops refusing all GI care symptomatic treatment high fiber diet, tolerating bowel regime >> colace + miralax + lactulose >> refused H2 fu labs dc planning per primary team Subjective Subjective generalized body pain weakness "fluid in spine" denies abdominal pain no BM since admission x 2-3 months. refuses any laxatives Objective Last 24 Hour Vital Signs Date Time Temp Pulse Resp B/P Pulse Ox O2 Delivery O2 Flow Rate FiO2 07/21/16 08:14 97.7 90 20 101/66 95 Room Air 07/21/16 04:00 97.9 95 20 122/68 93 Room Air 07/21/16 00:00 97.7 94 20 102/69 91 Room Air 07/20/16 19:00 97.2 76 20 100/46 95 Room Air 07/20/16 15:52 97.7 69 20 107/63 95 Room Air 07/20/16 11:50 97.6 84 20 99/68 95 Room Air Intake and Output 07/20/16 07/21/16 19:00 07:00 Intake Total 450 ml 600 ml Balance 450 ml 600 ml Intake Oral 450 ml 600 ml # Voids 3 5 Height (Feet): 5 Height (Inches): 7.00 Weight (Pounds): 161 General Appearance: no apparent distress, alert, overweight Cardiovascular: normal rate Respiratory/Chest: normal breath sounds, no respiratory distress Abdominal Exam: normal bowel sounds, non tender, soft Objective Procedure: XRAY Abdomen 1v Indication: Abdominal distention Impression: Mild distention of the rectum, slightly increased from prior study of May 2016, may indicate mild rectal fecal impaction Abundant gas in nondilated large and small bowel loops 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 Jul 21, 2016 10:38
[2016-07-21 12:15] VITALS: BP 120/74
--- NOTE | 2016-07-21 15:42 | Pulmonology Progress Note ---
Assessment/Plan Problems: (1) Intractable pain (2) Seizure disorder (3) Parkinson disease (4) Psychiatric disorder (5) Paraplegia (6) Limited mobility (7) Depression Assessment/Plan f/u neuro and pain management recommendation all reviewed dc planning in progress Subjective ROS Limited/Unobtainable: No Allergies: Coded Allergies: No Known Allergies (Unverified , 02/18/16) Objective Last 24 Hour Vital Signs Date Time Temp Pulse Resp B/P Pulse Ox O2 Delivery O2 Flow Rate FiO2 07/21/16 12:15 98.1 84 19 120/74 99 Room Air 07/21/16 08:14 97.7 90 20 101/66 95 Room Air 07/21/16 04:00 97.9 95 20 122/68 93 Room Air 07/21/16 00:00 97.7 94 20 102/69 91 Room Air 07/20/16 19:00 97.2 76 20 100/46 95 Room Air 07/20/16 15:52 97.7 69 20 107/63 95 Room Air Intake and Output 07/20/16 07/21/16 19:00 07:00 Intake Total 450 ml 600 ml Balance 450 ml 600 ml Intake Oral 450 ml 600 ml # Voids 3 5 Objective Objective General Appearance: WD/WN, no apparent distress, alert EENT: PERRL/EOMI, normal ENT inspection, TMs normal, hair lose. Neck: non-tender, normal alignment, supple, normal inspection Cardiovascular: normal peripheral pulses, normal rate, regular rhythm, no murmur. 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 Skin: normal pigmentation, warm/dry Current Medications Medications (Trade) Dose Ordered Sig/Bushra Route PRN Reason Start Time Stop Time Status Last Admin Dose Admin Acetaminophen (Tylenol) 650 mg Q4H PRN ORAL T>100.5 07/11/16 08:14 08/04/16 05:29 Acetaminophen/ Hydrocodone Bitart ([place] 10/325) 1 ea Q4H PRN ORAL Moderate Pain (Pain Scale 4-6) 07/20/16 10:00 07/26/16 09:59 Al Hydroxide/Mg Hydroxide (Mylanta II) 30 ml Q6H PRN ORAL dyspepsia 07/05/16 05:30 08/04/16 05:29 Baclofen (Lioresal) 10 mg THREE TIMES A DAY ORAL 07/05/16 18:00 08/04/16 17:59 Dextrose (Dextrose 50%) STAT PRN IV Hypoglycemia 07/05/16 05:30 08/04/16 05:29 Docusate Sodium (Colace) 100 mg THREE TIMES A DAY ORAL 07/14/16 18:00 08/13/16 17:59 Duloxetine HCl (Cymbalta) 60 mg DAILY ORAL 07/07/16 09:00 08/06/16 08:59 07/09/16 09:21 Heparin Sodium (Porcine) (Heparin 5000 units/ml) 5,000 units EVERY 12 HOURS SUBQ 07/05/16 09:00 08/04/16 08:59 07/21/16 09:25 Lactulose (Cephulac) 10 gm THREE TIMES A DAY ORAL 07/16/16 13:00 08/15/16 12:59 Levetiracetam (Keppra) 500 mg Q12HR ORAL 07/05/16 09:00 08/04/16 08:59 07/09/16 09:21 Morphine Sulfate (Morphine Sulfate) 6 mg Q3H PRN IVP Severe Pain (Pain Scale 7-10) 07/20/16 09:00 07/27/16 08:59 07/21/16 15:38 Ondansetron HCl (Zofran) 4 mg Q6H PRN IVP Nausea & Vomiting 07/05/16 05:30 08/04/16 05:29 Polyethylene Glycol (Miralax) 17 gm BEDTIME ORAL 07/14/16 21:00 08/13/16 20:59 Polyethylene Glycol (Miralax) 17 gm HSPRN PRN ORAL Constipation 07/05/16 05:30 08/04/16 05:29 Pregabalin (Lyrica) 100 mg THREE TIMES A DAY ORAL 07/05/16 09:00 08/04/16 08:59 Risperidone (RisperDAL) 1 mg BEDTIME ORAL 07/12/16 21:00 08/11/16 20:59 Zolpidem Tartrate (Ambien) 5 mg BEDTIME PRN ORAL Insomnia 2/7/17 05:30 08/04/16 05:29 07/21/16 00:15 JAHAIRA PERRY Jul 21, 2016 15:42
[2016-07-21 16:00] VITALS: BP 97/62
[2016-07-21 19:00] VITALS: BP 103/73
[2016-07-21] MEDS: Miralax 17gm pkt ORAL SCH (20:27)
[2016-07-22] VITALS: BP 119/82
[2016-07-22] MEDS: Zolpidem 5mg tab ORAL PRN (00:22)
[2016-07-22 04:00] VITALS: BP 118/75
[2016-07-22] MEDS: Morphine Sulfate 2mg/ml Inj IVP PRN ×6 (05:23→20:46)
--- NOTE | 2016-07-22 08:03 | General Progress Note ---
Assessment/Plan Assessment/Plan (1) H/O Brain Tumor (2) Thalmic pain syndrome (3) Parkinson Disease (4) Intractable pain The patient will be continued on morphine and [place]. The patient was discussed with Dr. Daniels and Dr. Daniels concurred. Subjective Date patient seen: Jul 22, 2016 Time patient seen: 07:00 - am Allergies: Coded Allergies: No Known Allergies (Unverified , 02/18/16) Subjective REVIEW OF SYSTEMS: Denies rash, fever, chills, sweating, dizziness, drowsiness, blurred vision, sore throat, or change in weight. No shortness of breath or chest pain. No bowel or bladder incontinence. No dysuria. She is complaining of generalized body pain. SUBJECTIVE: Her pain is unchanged and is using medications as needed. Objective Last 24 Hour Vital Signs Date Time Temp Pulse Resp B/P Pulse Ox O2 Delivery O2 Flow Rate FiO2 07/22/16 04:00 97.9 58 20 118/75 95 Room Air 07/22/16 00:00 98.2 75 20 119/82 97 Room Air 07/21/16 19:00 96.4 78 18 103/73 94 Room Air 07/21/16 16:00 97.2 79 18 97/62 95 07/21/16 12:15 98.1 84 19 120/74 99 Room Air 07/21/16 08:14 97.7 90 20 101/66 95 Room Air Intake and Output 07/21/16 07/22/16 19:00 07:00 Intake Total 720 ml 480 ml Balance 720 ml 480 ml Intake Oral 720 ml 480 ml # Voids 4 4 Height (Feet): 5 Height (Inches): 7.00 Weight (Pounds): 161 Objective GENERAL: Alert, awake, and oriented. HEENT: PERRLA. NECK: Range of motion is decreased due to the patient's clinical condition with tenderness of the paracervical muscles. No adenopathy. LUNGS: Decreased breath sounds bilaterally. HEART: S1 and S2 regular. ABDOMEN: Benign. BACK: Range of motion is decreased in flexion and extension with tenderness to paraspinal muscles. No tenderness to trapezius or rhomboid muscles. EXTREMITIES: No cyanosis. No clubbing. No edema. NEUROLOGICAL EXAM: No changes. RAGINI TIMMONS Jul 22, 2016 08:03
[2016-07-22] MEDS: Lactulose 10gm/15ml UDC ORAL SCH ×3 (09:00→17:36)
[2016-07-22] MEDS: Docusate 100mg cap ORAL SCH ×3 (09:00→17:36)
[2016-07-22] MEDS: Heparin 5000 units/ml inj SUBQ SCH ×2 (09:00→21:46)
[2016-07-22] MEDS: Lyrica 50mg cap ORAL SCH ×3 (09:00→17:36)
--- NOTE | 2016-07-22 11:30 | GI Progress Note ---
Assessment/Plan Problems: (1) GERD (gastroesophageal reflux disease) ICD Codes: K21.9 - Gastro-esophageal reflux disease without esophagitis SNOMED: 036807665 (2) Anxiety ICD Codes: F41.9 - Anxiety disorder, unspecified SNOMED: 77330027 (3) Constipation ICD Codes: K59.00 - Constipation, unspecified SNOMED: 54985041 (4) Fecal impaction in rectum ICD Codes: K56.41 - Fecal impaction SNOMED: 46880989 Status: unchanged Status Narrative Discussed with Dr. Choudhury. Assessment/Plan KUB >> mild rectal fecal impaction. Abundant gas in nondilated large and small bowel loops refusing all GI care symptomatic treatment high fiber diet, tolerating bowel regime >> colace + miralax + lactulose >> refused H2 fu labs dc planning per primary team Subjective Subjective generalized body pain weakness "fluid in spine" denies abdominal pain no BM since admission x 2-3 months. refuses any laxatives Objective Last 24 Hour Vital Signs Date Time Temp Pulse Resp B/P Pulse Ox O2 Delivery O2 Flow Rate FiO2 07/22/16 04:00 97.9 58 20 118/75 95 Room Air 07/22/16 00:00 98.2 75 20 119/82 97 Room Air 07/21/16 19:00 96.4 78 18 103/73 94 Room Air 07/21/16 16:00 97.2 79 18 97/62 95 07/21/16 12:15 98.1 84 19 120/74 99 Room Air Intake and Output 07/21/16 07/22/16 19:00 07:00 Intake Total 720 ml 480 ml Balance 720 ml 480 ml Intake Oral 720 ml 480 ml # Voids 4 4 Height (Feet): 5 Height (Inches): 7.00 Weight (Pounds): 161 General Appearance: alert Cardiovascular: normal rate Respiratory/Chest: normal breath sounds, no respiratory distress Abdominal Exam: normal bowel sounds, non tender, soft Objective Procedure: XRAY Abdomen 1v Indication: Abdominal distention Impression: Mild distention of the rectum, slightly increased from prior study of May 2016, may indicate mild rectal fecal impaction Abundant gas in nondilated large and small bowel loops 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
[2016-07-22 11:49] VITALS: BP 100/64
[2016-07-22 15:56] VITALS: BP 102/60
[2016-07-22 19:00] VITALS: BP 117/75
[2016-07-22] MEDS ORDERED: Morphine Sulfate 4mg/ml Inj ONE (20:41)
[2016-07-22] MEDS: Miralax 17gm pkt ORAL SCH (20:56)
--- NOTE | 2016-07-22 22:15 | Pulmonology Progress Note ---
Assessment/Plan Problems: (1) Intractable pain (2) Seizure disorder (3) Parkinson disease (4) Psychiatric disorder (5) Paraplegia (6) Limited mobility (7) Depression Assessment/Plan f/u neuro and pain management recommendation all reviewed dc planning in progress Subjective ROS Limited/Unobtainable: No Interval Events: comfortable Allergies: Coded Allergies: No Known Allergies (Unverified , 02/18/16) Objective Last 24 Hour Vital Signs Date Time Temp Pulse Resp B/P Pulse Ox O2 Delivery O2 Flow Rate FiO2 07/22/16 19:00 97.5 71 20 117/75 93 Room Air 07/22/16 15:56 97.0 78 20 102/60 96 Room Air 07/22/16 11:49 97.9 88 20 100/64 97 Room Air 07/22/16 04:00 97.9 58 20 118/75 95 Room Air 07/22/16 00:00 98.2 75 20 119/82 97 Room Air Intake and Output 07/21/16 07/22/16 19:00 07:00 Intake Total 720 ml 480 ml Balance 720 ml 480 ml Intake Oral 720 ml 480 ml # Voids 4 4 Objective Objective General Appearance: WD/WN, no apparent distress, alert EENT: PERRL/EOMI, normal ENT inspection, TMs normal, hair lose. Neck: non-tender, normal alignment, supple, normal inspection Cardiovascular: normal peripheral pulses, normal rate, regular rhythm, no murmur. 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 Skin: normal pigmentation, warm/dry Current Medications Medications (Trade) Dose Ordered Sig/Bushra Route PRN Reason Start Time Stop Time Status Last Admin Dose Admin Acetaminophen (Tylenol) 650 mg Q4H PRN ORAL T>100.5 07/11/16 08:14 08/04/16 05:29 Acetaminophen/ Hydrocodone Bitart ([place] 10/325) 1 ea Q4H PRN ORAL Moderate Pain (Pain Scale 4-6) 07/20/16 10:00 07/26/16 09:59 Al Hydroxide/Mg Hydroxide (Mylanta II) 30 ml Q6H PRN ORAL dyspepsia 07/05/16 05:30 3/9/17 05:29 Baclofen (Lioresal) 10 mg THREE TIMES A DAY ORAL 07/05/16 18:00 08/04/16 17:59 Dextrose (Dextrose 50%) STAT PRN IV Hypoglycemia 07/05/16 05:30 08/04/16 05:29 Docusate Sodium (Colace) 100 mg THREE TIMES A DAY ORAL 07/14/16 18:00 08/13/16 17:59 Duloxetine HCl (Cymbalta) 60 mg DAILY ORAL 07/07/16 09:00 08/06/16 08:59 07/09/16 09:21 Heparin Sodium (Porcine) (Heparin 5000 units/ml) 5,000 units EVERY 12 HOURS SUBQ 07/05/16 09:00 08/04/16 08:59 07/22/16 21:46 Lactulose (Cephulac) 10 gm THREE TIMES A DAY ORAL 07/16/16 13:00 08/15/16 12:59 Levetiracetam (Keppra) 500 mg Q12HR ORAL 07/05/16 09:00 08/04/16 08:59 07/09/16 09:21 Morphine Sulfate (Morphine Sulfate) 6 mg Q3H PRN IVP Severe Pain (Pain Scale 7-10) 07/22/16 22:00 07/29/16 21:59 Ondansetron HCl (Zofran) 4 mg Q6H PRN IVP Nausea & Vomiting 07/05/16 05:30 08/04/16 05:29 Polyethylene Glycol (Miralax) 17 gm BEDTIME ORAL 07/14/16 21:00 08/13/16 20:59 Polyethylene Glycol (Miralax) 17 gm HSPRN PRN ORAL Constipation 07/05/16 05:30 08/04/16 05:29 Pregabalin (Lyrica) 100 mg THREE TIMES A DAY ORAL 07/05/16 09:00 08/04/16 08:59 Risperidone (RisperDAL) 1 mg BEDTIME ORAL 07/12/16 21:00 08/11/16 20:59 Zolpidem Tartrate (Ambien) 5 mg BEDTIME PRN ORAL Insomnia 07/05/16 05:30 08/04/16 05:29 07/22/16 00:22 JAHAIRA PERRY Jul 22, 2016 22:15
[2016-07-23] MEDS: Morphine Sulfate 10mg/ml Inj IVP PRN ×8 (00:07→23:21)
[2016-07-23] MEDS: Zolpidem 5mg tab ORAL PRN (01:12)
[2016-07-23 07:33] VITALS: BP 114/71
[2016-07-23] MEDS: Lactulose 10gm/15ml UDC ORAL SCH ×3 (07:56→17:53)
[2016-07-23] MEDS: Lyrica 50mg cap ORAL SCH ×3 (07:57→17:53)
[2016-07-23] MEDS: Docusate 100mg cap ORAL SCH ×3 (07:57→17:53)
[2016-07-23] MEDS: Heparin 5000 units/ml inj SUBQ SCH ×2 (08:04→20:17)
--- NOTE | 2016-07-23 12:39 | Pulmonology Progress Note ---
Assessment/Plan Problems: (1) Intractable pain (2) Seizure disorder (3) Parkinson disease (4) Psychiatric disorder (5) Paraplegia (6) Limited mobility (7) Depression Assessment/Plan f/u neuro and pain management recommendation all reviewed dc planning in progress Subjective Interval Events: no new complains Allergies: Coded Allergies: No Known Allergies (Unverified , 02/18/16) Objective Last 24 Hour Vital Signs Date Time Temp Pulse Resp B/P Pulse Ox O2 Delivery O2 Flow Rate FiO2 07/23/16 11:18 97.7 07/23/16 07:33 97.7 70 14 114/71 94 Room Air 07/22/16 19:00 97.5 71 20 117/75 93 Room Air 07/22/16 15:56 97.0 78 20 102/60 96 Room Air Intake and Output 07/22/16 07/23/16 19:00 07:00 Intake Total 720 ml 480 ml Balance 720 ml 480 ml Intake Oral 720 ml 480 ml # Voids 4 2 Objective Objective General Appearance: WD/WN, no apparent distress, alert EENT: PERRL/EOMI, normal ENT inspection, TMs normal, hair lose. Neck: non-tender, normal alignment, supple, normal inspection Cardiovascular: normal peripheral pulses, normal rate, regular rhythm, no murmur. 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 Skin: normal pigmentation, warm/dry Current Medications Medications (Trade) Dose Ordered Sig/Bushra Route PRN Reason Start Time Stop Time Status Last Admin Dose Admin Acetaminophen (Tylenol) 650 mg Q4H PRN ORAL T>100.5 07/11/16 08:14 08/04/16 05:29 Acetaminophen/ Hydrocodone Bitart ([place] 10/325) 1 ea Q4H PRN ORAL Moderate Pain (Pain Scale 4-6) 07/20/16 10:00 07/26/16 09:59 Al Hydroxide/Mg Hydroxide (Mylanta II) 30 ml Q6H PRN ORAL dyspepsia 07/05/16 05:30 08/04/16 05:29 Baclofen (Lioresal) 10 mg THREE TIMES A DAY ORAL 07/05/16 18:00 08/04/16 17:59 Dextrose (Dextrose 50%) STAT PRN IV Hypoglycemia 07/05/16 05:30 08/04/16 05:29 Docusate Sodium (Colace) 100 mg THREE TIMES A DAY ORAL 07/14/16 18:00 08/13/16 17:59 Duloxetine HCl (Cymbalta) 60 mg DAILY ORAL 07/07/16 09:00 08/06/16 08:59 07/09/16 09:21 Heparin Sodium (Porcine) (Heparin 5000 units/ml) 5,000 units EVERY 12 HOURS SUBQ 07/05/16 09:00 08/04/16 08:59 07/23/16 08:04 Lactulose (Cephulac) 10 gm THREE TIMES A DAY ORAL 07/16/16 13:00 08/15/16 12:59 Levetiracetam (Keppra) 500 mg Q12HR ORAL 07/05/16 09:00 08/04/16 08:59 07/09/16 09:21 Morphine Sulfate (Morphine Sulfate) 6 mg Q3H PRN IVP Severe Pain (Pain Scale 7-10) 07/22/16 22:00 07/29/16 21:59 07/23/16 10:48 Ondansetron HCl (Zofran) 4 mg Q6H PRN IVP Nausea & Vomiting 07/05/16 05:30 08/04/16 05:29 Polyethylene Glycol (Miralax) 17 gm BEDTIME ORAL 07/14/16 21:00 08/13/16 20:59 Polyethylene Glycol (Miralax) 17 gm HSPRN PRN ORAL Constipation 07/05/16 05:30 08/04/16 05:29 Pregabalin (Lyrica) 100 mg THREE TIMES A DAY ORAL 07/05/16 09:00 08/04/16 08:59 Risperidone (RisperDAL) 1 mg BEDTIME ORAL 07/12/16 21:00 08/11/16 20:59 Zolpidem Tartrate (Ambien) 5 mg BEDTIME PRN ORAL Insomnia 07/05/16 05:30 08/04/16 05:29 07/23/16 01:12 JAHAIRA PERRY Jul 23, 2016 12:39
[2016-07-23 15:53] VITALS: BP 96/55
[2016-07-23 20:00] VITALS: BP 102/70
[2016-07-23] MEDS: Miralax 17gm pkt ORAL SCH (20:17)
[2016-07-24] VITALS: BP 114/70
[2016-07-24] MEDS: Zolpidem 5mg tab ORAL PRN (01:40)
[2016-07-24 04:00] VITALS: BP 109/72
[2016-07-24] MEDS: Morphine Sulfate 10mg/ml Inj IVP PRN ×6 (04:20→23:34)
[2016-07-24 08:27] VITALS: BP 101/72
[2016-07-24] MEDS: Lyrica 50mg cap ORAL SCH ×3 (09:00→18:00)
[2016-07-24] MEDS: Docusate 100mg cap ORAL SCH ×3 (09:00→18:00)
[2016-07-24] MEDS: Lactulose 10gm/15ml UDC ORAL SCH ×3 (09:00→18:00)
--- NOTE | 2016-07-24 09:23 | General Progress Note ---
Assessment/Plan Assessment/Plan (1) H/O Brain Tumor (2) Thalmic pain syndrome (3) Parkinson Disease (4) Intractable pain The patient will be continued on morphine and [place]. The patient was discussed with Dr. Daniels and Dr. Daniels concurred. Subjective Date patient seen: Jul 24, 2016 Time patient seen: 09:00 - am Allergies: Coded Allergies: No Known Allergies (Unverified , 02/18/16) Subjective REVIEW OF SYSTEMS: Denies rash, fever, chills, sweating, dizziness, drowsiness, blurred vision, sore throat, or change in weight. No shortness of breath or chest pain. No bowel or bladder incontinence. No dysuria. She is complaining of generalized body pain. SUBJECTIVE: She continues to c/o burning pain and uses the morphine. Pt is waiting to see surgeon. Objective Last 24 Hour Vital Signs Date Time Temp Pulse Resp B/P Pulse Ox O2 Delivery O2 Flow Rate FiO2 07/24/16 08:27 97.6 82 19 101/72 95 Room Air 07/24/16 04:00 96.8 74 20 109/72 95 Room Air 07/24/16 00:00 97.9 58 20 114/70 97 Room Air 07/23/16 20:00 98.1 64 16 102/70 95 Room Air 07/23/16 15:53 98.2 67 14 96/55 95 Room Air 07/23/16 14:43 97.7 Intake and Output 07/23/16 07/24/16 19:00 07:00 Intake Total 1650 ml 120 ml Balance 1650 ml 120 ml Intake Oral 1650 ml 120 ml # Voids 3 3 Height (Feet): 5 Height (Inches): 7.00 Weight (Pounds): 161 Objective GENERAL: Alert, awake, and oriented. HEENT: PERRLA. NECK: Range of motion is decreased due to the patient's clinical condition with tenderness of the paracervical muscles. No adenopathy. LUNGS: Decreased breath sounds bilaterally. HEART: S1 and S2 regular. ABDOMEN: Benign. BACK: Range of motion is decreased in flexion and extension with tenderness to paraspinal muscles. No tenderness to trapezius or rhomboid muscles. EXTREMITIES: No cyanosis. No clubbing. No edema. NEUROLOGICAL EXAM: No changes. RAGINI TIMMONS Jul 24, 2016 09:23
[2016-07-24] MEDS: Heparin 5000 units/ml inj SUBQ SCH ×2 (10:43→21:20)
[2016-07-24 11:51] VITALS: BP 107/62
[2016-07-24 16:00] VITALS: BP 109/68
[2016-07-24 20:00] VITALS: BP 114/76
[2016-07-24] MEDS: Miralax 17gm pkt ORAL SCH (21:00)
--- NOTE | 2016-07-24 22:50 | Pulmonology Progress Note ---
Assessment/Plan Problems: (1) Intractable pain (2) Seizure disorder (3) Parkinson disease (4) Psychiatric disorder (5) Paraplegia (6) Limited mobility (7) Depression Assessment/Plan f/u neuro and pain management recommendation all reviewed dc planning in progress Subjective ROS Limited/Unobtainable: No Allergies: Coded Allergies: No Known Allergies (Unverified , 02/18/16) Objective Last 24 Hour Vital Signs Date Time Temp Pulse Resp B/P Pulse Ox O2 Delivery O2 Flow Rate FiO2 07/24/16 20:46 97.3 07/24/16 20:00 97.3 66 18 114/76 100 Room Air 07/24/16 16:00 97.7 72 17 109/68 100 Room Air 07/24/16 11:51 97.8 69 20 107/62 95 Room Air 07/24/16 08:27 97.6 82 19 101/72 95 Room Air 07/24/16 04:00 96.8 74 20 109/72 95 Room Air 07/24/16 00:00 97.9 58 20 114/70 97 Room Air Intake and Output 07/23/16 07/24/16 19:00 07:00 Intake Total 1650 ml 120 ml Balance 1650 ml 120 ml Intake Oral 1650 ml 120 ml # Voids 3 3 Objective Objective General Appearance: WD/WN, no apparent distress, alert EENT: PERRL/EOMI, normal ENT inspection, TMs normal, hair lose. Neck: non-tender, normal alignment, supple, normal inspection Cardiovascular: normal peripheral pulses, normal rate, regular rhythm, no murmur. 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 Skin: normal pigmentation, warm/dry Current Medications Medications (Trade) Dose Ordered Sig/Bushra Route PRN Reason Start Time Stop Time Status Last Admin Dose Admin Acetaminophen (Tylenol) 650 mg Q4H PRN ORAL T>100.5 07/11/16 08:14 08/04/16 05:29 Acetaminophen/ Hydrocodone Bitart ([place] 10/325) 1 ea Q4H PRN ORAL Moderate Pain (Pain Scale 4-6) 07/20/16 10:00 07/26/16 09:59 Al Hydroxide/Mg Hydroxide (Mylanta II) 30 ml Q6H PRN ORAL dyspepsia 07/05/16 05:30 08/04/16 05:29 Baclofen (Lioresal) 10 mg THREE TIMES A DAY ORAL 07/05/16 18:00 08/04/16 17:59 Dextrose (Dextrose 50%) STAT PRN IV Hypoglycemia 07/05/16 05:30 08/04/16 05:29 Docusate Sodium (Colace) 100 mg THREE TIMES A DAY ORAL 07/14/16 18:00 08/13/16 17:59 07/23/16 17:53 Duloxetine HCl (Cymbalta) 60 mg DAILY ORAL 07/07/16 09:00 08/06/16 08:59 07/09/16 09:21 Heparin Sodium (Porcine) (Heparin 5000 units/ml) 5,000 units EVERY 12 HOURS SUBQ 07/05/16 09:00 08/04/16 08:59 07/24/16 21:20 Lactulose (Cephulac) 10 gm THREE TIMES A DAY ORAL 07/16/16 13:00 08/15/16 12:59 07/23/16 17:53 Levetiracetam (Keppra) 500 mg Q12HR ORAL 07/05/16 09:00 08/04/16 08:59 07/09/16 09:21 Morphine Sulfate (Morphine Sulfate) 6 mg Q3H PRN IVP Severe Pain (Pain Scale 7-10) 07/22/16 22:00 07/29/16 21:59 07/24/16 19:44 Ondansetron HCl (Zofran) 4 mg Q6H PRN IVP Nausea & Vomiting 07/05/16 05:30 08/04/16 05:29 Polyethylene Glycol (Miralax) 17 gm BEDTIME ORAL 07/14/16 21:00 08/13/16 20:59 Polyethylene Glycol (Miralax) 17 gm HSPRN PRN ORAL Constipation 07/05/16 05:30 08/04/16 05:29 Pregabalin (Lyrica) 100 mg THREE TIMES A DAY ORAL 07/05/16 09:00 08/04/16 08:59 Risperidone (RisperDAL) 1 mg BEDTIME ORAL 07/12/16 21:00 08/11/16 20:59 Zolpidem Tartrate (Ambien) 5 mg BEDTIME PRN ORAL Insomnia 07/05/16 05:30 08/04/16 05:29 07/24/16 01:40 JAHAIRA PERRY Jul 24, 2016 22:50
[2016-07-25] VITALS: BP 116/73
[2016-07-25] MEDS: Zolpidem 5mg tab ORAL PRN (00:54)
[2016-07-25 04:00] VITALS: BP 119/71
[2016-07-25] MEDS: Morphine Sulfate 10mg/ml Inj IVP PRN ×7 (04:55→23:56)
[2016-07-25 08:25] VITALS: BP 107/74
--- NOTE | 2016-07-25 08:29 | General Progress Note ---
Assessment/Plan Assessment/Plan (1) H/O Brain Tumor (2) Thalmic pain syndrome (3) Parkinson Disease (4) Intractable pain The patient will be continued on morphine and [place]. The patient was discussed with Dr. Daniels and Dr. Daniels concurred. Subjective Date patient seen: Jul 25, 2016 Time patient seen: 07:15 - am Allergies: Coded Allergies: No Known Allergies (Unverified , 02/18/16) Subjective REVIEW OF SYSTEMS: Denies rash, fever, chills, sweating, dizziness, drowsiness, blurred vision, sore throat, or change in weight. No shortness of breath or chest pain. No bowel or bladder incontinence. No dysuria. She is complaining of generalized body pain. SUBJECTIVE: At this time pt is c/o severe pain. I d/w her options for long acting pain medications which she is refusing to take and is adamant about seeing a spine surgeon. Objective Last 24 Hour Vital Signs Date Time Temp Pulse Resp B/P Pulse Ox O2 Delivery O2 Flow Rate FiO2 07/25/16 08:25 98.1 72 20 107/74 96 Room Air 07/25/16 04:00 97.7 67 18 119/71 99 Room Air 07/25/16 00:00 97.0 66 18 116/73 98 Room Air 07/24/16 20:46 97.3 07/24/16 20:00 97.3 66 18 114/76 100 Room Air 07/24/16 16:00 97.7 72 17 109/68 100 Room Air 07/24/16 11:51 97.8 69 20 107/62 95 Room Air Intake and Output 07/24/16 07/25/16 19:00 07:00 Intake Total 450 ml 500 ml Balance 450 ml 500 ml Intake Oral 450 ml 500 ml # Voids 3 5 Height (Feet): 5 Height (Inches): 7.00 Weight (Pounds): 161 Objective GENERAL: Alert, awake, and oriented. HEENT: PERRLA. NECK: Range of motion is decreased due to the patient's clinical condition with tenderness of the paracervical muscles. No adenopathy. LUNGS: Decreased breath sounds bilaterally. HEART: S1 and S2 regular. ABDOMEN: Benign. BACK: Range of motion is decreased in flexion and extension with tenderness to paraspinal muscles. No tenderness to trapezius or rhomboid muscles. EXTREMITIES: No cyanosis. No clubbing. No edema. NEUROLOGICAL EXAM: No changes. RAGINI TIMMONS Jul 25, 2016 08:29
[2016-07-25] MEDS: Lyrica 50mg cap ORAL SCH ×3 (09:00→17:30)
[2016-07-25] MEDS: Heparin 5000 units/ml inj SUBQ SCH ×2 (09:00→20:46)
[2016-07-25] MEDS: Docusate 100mg cap ORAL SCH ×3 (09:00→17:30)
[2016-07-25] MEDS: Lactulose 10gm/15ml UDC ORAL SCH ×3 (09:00→17:30)
[2016-07-25] MEDS ORDERED: Norco 10mg/325mg tab ORAL PRN (10:00)
[2016-07-25 11:21] VITALS: BP 118/79
--- NOTE | 2016-07-25 11:21 | GI Progress Note ---
Assessment/Plan Problems: (1) GERD (gastroesophageal reflux disease) ICD Codes: K21.9 - Gastro-esophageal reflux disease without esophagitis SNOMED: 268212929 (2) Anxiety ICD Codes: F41.9 - Anxiety disorder, unspecified SNOMED: 22487572 (3) Constipation ICD Codes: K59.00 - Constipation, unspecified SNOMED: 53473034 (4) Fecal impaction in rectum ICD Codes: K56.41 - Fecal impaction SNOMED: 70541782 Status: unchanged Status Narrative Discussed with Dr. Choudhury. Assessment/Plan KUB >> mild rectal fecal impaction. Abundant gas in nondilated large and small bowel loops refusing all GI care symptomatic treatment high fiber diet, tolerating bowel regime >> colace + miralax + lactulose >> refused H2 fu labs dc planning per primary team Subjective Subjective generalized body pain weakness "fluid in spine" denies abdominal pain no BM since admission x 2-3 months. refuses any laxatives wants to see spinal doctor Objective Last 24 Hour Vital Signs Date Time Temp Pulse Resp B/P Pulse Ox O2 Delivery O2 Flow Rate FiO2 07/25/16 08:25 98.1 72 20 107/74 96 Room Air 07/25/16 04:00 97.7 67 18 119/71 99 Room Air 07/25/16 00:00 97.0 66 18 116/73 98 Room Air 07/24/16 20:46 97.3 07/24/16 20:00 97.3 66 18 114/76 100 Room Air 07/24/16 16:00 97.7 72 17 109/68 100 Room Air 07/24/16 11:51 97.8 69 20 107/62 95 Room Air Intake and Output 07/24/16 07/25/16 19:00 07:00 Intake Total 450 ml 500 ml Balance 450 ml 500 ml Intake Oral 450 ml 500 ml # Voids 3 5 Height (Feet): 5 Height (Inches): 7.00 Weight (Pounds): 161 General Appearance: no apparent distress, alert, overweight Cardiovascular: normal rate Respiratory/Chest: normal breath sounds, no respiratory distress Abdominal Exam: normal bowel sounds, non tender, soft Objective Procedure: XRAY Abdomen 1v Indication: Abdominal distention Impression: Mild distention of the rectum, slightly increased from prior study of May 2016, may indicate mild rectal fecal impaction Abundant gas in nondilated large and small bowel loops 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 Jul 25, 2016 11:21
--- NOTE | 2016-07-25 15:38 | Pulmonology Progress Note ---
Assessment/Plan Problems: (1) Intractable pain (2) Seizure disorder (3) Parkinson disease (4) Psychiatric disorder (5) Paraplegia (6) Limited mobility (7) Depression Assessment/Plan f/u neuro and pain management recommendation all reviewed dc planning in progress Subjective ROS Limited/Unobtainable: No Allergies: Coded Allergies: No Known Allergies (Unverified , 02/18/16) Objective Last 24 Hour Vital Signs Date Time Temp Pulse Resp B/P Pulse Ox O2 Delivery O2 Flow Rate FiO2 07/25/16 11:21 97.7 84 20 118/79 95 Room Air 07/25/16 08:25 98.1 72 20 107/74 96 Room Air 07/25/16 04:00 97.7 67 18 119/71 99 Room Air 07/25/16 00:00 97.0 66 18 116/73 98 Room Air 07/24/16 20:46 97.3 07/24/16 20:00 97.3 66 18 114/76 100 Room Air 07/24/16 16:00 97.7 72 17 109/68 100 Room Air Intake and Output 07/24/16 07/25/16 19:00 07:00 Intake Total 450 ml 500 ml Balance 450 ml 500 ml Intake Oral 450 ml 500 ml # Voids 3 5 Objective Objective General Appearance: WD/WN, no apparent distress, alert EENT: PERRL/EOMI, normal ENT inspection, TMs normal, hair lose. Neck: non-tender, normal alignment, supple, normal inspection Cardiovascular: normal peripheral pulses, normal rate, regular rhythm, no murmur. 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 Skin: normal pigmentation, warm/dry Current Medications Medications (Trade) Dose Ordered Sig/Bushra Route PRN Reason Start Time Stop Time Status Last Admin Dose Admin Acetaminophen (Tylenol) 650 mg Q4H PRN ORAL T>100.5 07/11/16 08:14 08/04/16 05:29 Acetaminophen/ Hydrocodone Bitart ([place] 10/325) 1 ea Q4H PRN ORAL Moderate Pain (Pain Scale 4-6) 07/25/16 10:00 07/31/16 09:59 Al Hydroxide/Mg Hydroxide (Mylanta II) 30 ml Q6H PRN ORAL dyspepsia 07/05/16 05:30 08/04/16 05:29 Baclofen (Lioresal) 10 mg THREE TIMES A DAY ORAL 07/05/16 18:00 08/04/16 17:59 Dextrose (Dextrose 50%) STAT PRN IV Hypoglycemia 07/05/16 05:30 08/04/16 05:29 Docusate Sodium (Colace) 100 mg THREE TIMES A DAY ORAL 07/14/16 18:00 08/13/16 17:59 07/23/16 17:53 Duloxetine HCl (Cymbalta) 60 mg DAILY ORAL 07/07/16 09:00 08/06/16 08:59 07/09/16 09:21 Heparin Sodium (Porcine) (Heparin 5000 units/ml) 5,000 units EVERY 12 HOURS SUBQ 07/05/16 09:00 08/04/16 08:59 07/24/16 21:20 Lactulose (Cephulac) 10 gm THREE TIMES A DAY ORAL 07/16/16 13:00 08/15/16 12:59 07/23/16 17:53 Levetiracetam (Keppra) 500 mg Q12HR ORAL 07/05/16 09:00 08/04/16 08:59 07/09/16 09:21 Morphine Sulfate (Morphine Sulfate) 6 mg Q3H PRN IVP Severe Pain (Pain Scale 7-10) 07/22/16 22:00 07/29/16 21:59 07/25/16 13:53 Ondansetron HCl (Zofran) 4 mg Q6H PRN IVP Nausea & Vomiting 07/05/16 05:30 08/04/16 05:29 Polyethylene Glycol (Miralax) 17 gm BEDTIME ORAL 07/14/16 21:00 08/13/16 20:59 Polyethylene Glycol (Miralax) 17 gm HSPRN PRN ORAL Constipation 07/05/16 05:30 08/04/16 05:29 Pregabalin (Lyrica) 100 mg THREE TIMES A DAY ORAL 07/05/16 09:00 08/04/16 08:59 Risperidone (RisperDAL) 1 mg BEDTIME ORAL 07/12/16 21:00 08/11/16 20:59 Zolpidem Tartrate (Ambien) 5 mg BEDTIME PRN ORAL Insomnia 07/05/16 05:30 08/04/16 05:29 07/25/16 00:54 JAHAIRA PERRY Jul 25, 2016 15:38
[2016-07-25 16:00] VITALS: BP 139/85
[2016-07-25] MEDS ORDERED: Morphine Sulfate 4mg/ml Inj IVP ONE (16:20)
[2016-07-25 19:00] VITALS: BP 108/64
[2016-07-25] MEDS: Miralax 17gm pkt ORAL SCH (20:24)
[2016-07-26] VITALS: BP 112/76
[2016-07-26] MEDS: Zolpidem 5mg tab ORAL PRN (00:02)
[2016-07-26 04:00] VITALS: BP 102/74
[2016-07-26] MEDS: Morphine Sulfate 10mg/ml Inj IVP PRN ×6 (05:24→20:30)
[2016-07-26 08:15] VITALS: BP 113/78
--- NOTE | 2016-07-26 08:20 | General Progress Note ---
Assessment/Plan Assessment/Plan (1) H/O Brain Tumor (2) Thalmic pain syndrome (3) Parkinson Disease (4) Intractable pain The patient will be continued on morphine and [place]. The patient was discussed with Dr. Daniels and Dr. Daniels concurred. Subjective Date patient seen: Jul 26, 2016 Time patient seen: 07:15 - am Allergies: Coded Allergies: No Known Allergies (Unverified , 02/18/16) Subjective REVIEW OF SYSTEMS: Denies rash, fever, chills, sweating, dizziness, drowsiness, blurred vision, sore throat, or change in weight. No shortness of breath or chest pain. No bowel or bladder incontinence. No dysuria. She is complaining of generalized body pain. SUBJECTIVE: Pain is unchanged and is using the Morphine as needed. Objective Last 24 Hour Vital Signs Date Time Temp Pulse Resp B/P Pulse Ox O2 Delivery O2 Flow Rate FiO2 07/26/16 04:00 97.2 80 18 102/74 93 Room Air 07/26/16 00:00 96.8 74 18 112/76 93 Room Air 07/25/16 19:00 97.7 88 20 108/64 93 Room Air 07/25/16 16:00 97.2 94 20 139/85 94 Room Air 07/25/16 11:21 97.7 84 20 118/79 95 Room Air 07/25/16 08:25 98.1 72 20 107/74 96 Room Air Intake and Output 07/25/16 07/26/16 19:00 07:00 Intake Total 450 ml 480 ml Balance 450 ml 480 ml Intake Oral 450 ml 480 ml # Voids 3 5 Height (Feet): 5 Height (Inches): 7.00 Weight (Pounds): 161 Objective GENERAL: Alert, awake, and oriented. HEENT: PERRLA. NECK: Range of motion is decreased due to the patient's clinical condition with tenderness of the paracervical muscles. No adenopathy. LUNGS: Decreased breath sounds bilaterally. HEART: S1 and S2 regular. ABDOMEN: Benign. BACK: Range of motion is decreased in flexion and extension with tenderness to paraspinal muscles. No tenderness to trapezius or rhomboid muscles. EXTREMITIES: No cyanosis. No clubbing. No edema. NEUROLOGICAL EXAM: No changes. RAGINI TIMMONS Jul 26, 2016 08:19
[2016-07-26] MEDS: Heparin 5000 units/ml inj SUBQ SCH ×2 (08:31→21:00)
[2016-07-26] MEDS: Lyrica 50mg cap ORAL SCH ×3 (09:00→18:00)
[2016-07-26] MEDS: Lactulose 10gm/15ml UDC ORAL SCH ×3 (09:00→18:00)
[2016-07-26] MEDS: Docusate 100mg cap ORAL SCH ×3 (09:00→18:34)
--- NOTE | 2016-07-26 10:27 | GI Progress Note ---
Assessment/Plan Problems: (1) GERD (gastroesophageal reflux disease) ICD Codes: K21.9 - Gastro-esophageal reflux disease without esophagitis SNOMED: 599691386 (2) Anxiety ICD Codes: F41.9 - Anxiety disorder, unspecified SNOMED: 45420748 (3) Constipation ICD Codes: K59.00 - Constipation, unspecified SNOMED: 52258504 (4) Fecal impaction in rectum ICD Codes: K56.41 - Fecal impaction SNOMED: 60942072 Status: unchanged Status Narrative Discussed with Dr. Choudhury. Assessment/Plan KUB >> mild rectal fecal impaction. Abundant gas in nondilated large and small bowel loops refusing all GI care refusing lab draws 07/20/16 - BM x 1 small reported symptomatic treatment high fiber diet + prune juice, tolerating bowel regime >> colace + miralax + lactulose >> refused H2 fu labs dc planning per primary team Subjective Subjective generalized body pain weakness "fluid in spine" denies abdominal pain no BM since admission x 2-3 months. refuses any laxatives wants to see spine doctor Objective Last 24 Hour Vital Signs Date Time Temp Pulse Resp B/P Pulse Ox O2 Delivery O2 Flow Rate FiO2 07/26/16 08:15 97.3 84 21 113/78 95 Room Air 07/26/16 04:00 97.2 80 18 102/74 93 Room Air 07/26/16 00:00 96.8 74 18 112/76 93 Room Air 07/25/16 19:00 97.7 88 20 108/64 93 Room Air 07/25/16 16:00 97.2 94 20 139/85 94 Room Air 07/25/16 11:21 97.7 84 20 118/79 95 Room Air Intake and Output 07/25/16 07/26/16 19:00 07:00 Intake Total 450 ml 480 ml Balance 450 ml 480 ml Intake Oral 450 ml 480 ml # Voids 3 5 Height (Feet): 5 Height (Inches): 7.00 Weight (Pounds): 161 General Appearance: no apparent distress, alert, overweight Cardiovascular: normal rate Respiratory/Chest: normal breath sounds, no respiratory distress Abdominal Exam: normal bowel sounds, non tender, soft, distended Objective Procedure: XRAY Abdomen 1v Indication: Abdominal distention Impression: Mild distention of the rectum, slightly increased from prior study of May 2016, may indicate mild rectal fecal impaction Abundant gas in nondilated large and small bowel loops 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 Jul 26, 2016 10:27
[2016-07-26 11:59] VITALS: BP 114/93
[2016-07-26 16:00] VITALS: BP 108/68
[2016-07-26 20:00] VITALS: BP 113/70
[2016-07-26] MEDS: Miralax 17gm pkt ORAL SCH (21:00)
--- NOTE | 2016-07-26 22:31 | Pulmonology Progress Note ---
Assessment/Plan Problems: (1) Intractable pain (2) Seizure disorder (3) Parkinson disease (4) Psychiatric disorder (5) Paraplegia (6) Limited mobility (7) Depression Assessment/Plan f/u neuro and pain management recommendation all reviewed dc planning in progress Subjective Allergies: Coded Allergies: No Known Allergies (Unverified , 02/18/16) Objective Last 24 Hour Vital Signs Date Time Temp Pulse Resp B/P Pulse Ox O2 Delivery O2 Flow Rate FiO2 07/26/16 20:00 97.7 82 20 113/70 07/26/16 16:00 97.7 89 20 108/68 95 07/26/16 11:59 97.9 102 21 114/93 98 Room Air 07/26/16 08:15 97.3 84 21 113/78 95 Room Air 07/26/16 04:00 97.2 80 18 102/74 93 Room Air 07/26/16 00:00 96.8 74 18 112/76 93 Room Air Intake and Output 07/25/16 07/26/16 19:00 07:00 Intake Total 450 ml 480 ml Balance 450 ml 480 ml Intake Oral 450 ml 480 ml # Voids 3 5 Objective Objective General Appearance: WD/WN, no apparent distress, alert EENT: PERRL/EOMI, normal ENT inspection, TMs normal, hair lose. Neck: non-tender, normal alignment, supple, normal inspection Cardiovascular: normal peripheral pulses, normal rate, regular rhythm, no murmur. 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 Skin: normal pigmentation, warm/dry Current Medications Medications (Trade) Dose Ordered Sig/Bushra Route PRN Reason Start Time Stop Time Status Last Admin Dose Admin Acetaminophen (Tylenol) 650 mg Q4H PRN ORAL T>100.5 07/11/16 08:14 08/04/16 05:29 Acetaminophen/ Hydrocodone Bitart ([place] 10/325) 1 ea Q4H PRN ORAL Moderate Pain (Pain Scale 4-6) 07/25/16 10:00 07/31/16 09:59 Al Hydroxide/Mg Hydroxide (Mylanta II) 30 ml Q6H PRN ORAL dyspepsia 07/05/16 05:30 08/04/16 05:29 Baclofen (Lioresal) 10 mg THREE TIMES A DAY ORAL 07/05/16 18:00 08/04/16 17:59 07/26/16 18:34 Dextrose (Dextrose 50%) STAT PRN IV Hypoglycemia 07/05/16 05:30 08/04/16 05:29 Docusate Sodium (Colace) 100 mg THREE TIMES A DAY ORAL 07/14/16 18:00 08/13/16 17:59 07/26/16 18:34 Duloxetine HCl (Cymbalta) 60 mg DAILY ORAL 07/07/16 09:00 08/06/16 08:59 07/09/16 09:21 Heparin Sodium (Porcine) (Heparin 5000 units/ml) 5,000 units EVERY 12 HOURS SUBQ 07/05/16 09:00 08/04/16 08:59 07/26/16 08:31 Lactulose (Cephulac) 10 gm THREE TIMES A DAY ORAL 07/16/16 13:00 08/15/16 12:59 07/26/16 13:03 Levetiracetam (Keppra) 500 mg Q12HR ORAL 07/05/16 09:00 08/04/16 08:59 07/09/16 09:21 Morphine Sulfate (Morphine Sulfate) 6 mg Q3H PRN IVP Severe Pain (Pain Scale 7-10) 07/22/16 22:00 07/29/16 21:59 07/26/16 20:30 Ondansetron HCl (Zofran) 4 mg Q6H PRN IVP Nausea & Vomiting 07/05/16 05:30 08/04/16 05:29 Polyethylene Glycol (Miralax) 17 gm BEDTIME ORAL 07/14/16 21:00 08/13/16 20:59 Polyethylene Glycol (Miralax) 17 gm HSPRN PRN ORAL Constipation 07/05/16 05:30 08/04/16 05:29 Pregabalin (Lyrica) 100 mg THREE TIMES A DAY ORAL 07/05/16 09:00 08/04/16 08:59 Risperidone (RisperDAL) 1 mg BEDTIME ORAL 07/12/16 21:00 08/11/16 20:59 Zolpidem Tartrate (Ambien) 5 mg BEDTIME PRN ORAL Insomnia 07/05/16 05:30 08/04/16 05:29 07/26/16 00:02 JAHAIRA PERRY Jul 26, 2016 22:31
[2016-07-27] VITALS: BP 100/65
[2016-07-27] MEDS: Morphine Sulfate 10mg/ml Inj IVP PRN ×7 (00:37→23:35)
[2016-07-27] MEDS: Zolpidem 5mg tab ORAL PRN (00:44)
[2016-07-27 04:00] VITALS: BP 116/68
[2016-07-27 08:15] VITALS: BP_SYST 94; BP_SYST 96; BP_DIAS 55; BP_DIAS 94
--- NOTE | 2016-07-27 08:17 | General Progress Note ---
Assessment/Plan Assessment/Plan (1) H/O Brain Tumor (2) Thalmic pain syndrome (3) Parkinson Disease (4) Intractable pain The patient will be continued on morphine and [place]. The patient was discussed with Dr. Daniels and Dr. Daniels concurred. Subjective Date patient seen: Jul 27, 2016 Time patient seen: 07:15 - am Allergies: Coded Allergies: No Known Allergies (Unverified , 02/18/16) Subjective REVIEW OF SYSTEMS: Denies rash, fever, chills, sweating, dizziness, drowsiness, blurred vision, sore throat, or change in weight. No shortness of breath or chest pain. No bowel or bladder incontinence. No dysuria. She is complaining of generalized body pain. SUBJECTIVE: She continues to c/o body pain which has been burning. The morphine is tolerating her pain however she refuses other medications. Objective Last 24 Hour Vital Signs Date Time Temp Pulse Resp B/P Pulse Ox O2 Delivery O2 Flow Rate FiO2 07/27/16 04:00 98.1 96 20 116/68 98 Room Air 07/27/16 00:00 98.4 92 20 100/65 98 Room Air 07/26/16 20:00 97.7 82 20 113/70 07/26/16 16:00 97.7 89 20 108/68 95 07/26/16 11:59 97.9 102 21 114/93 98 Room Air Intake and Output 07/26/16 07/27/16 19:00 07:00 Intake Total 720 ml 550 ml Balance 720 ml 550 ml Intake Oral 720 ml 550 ml # Voids 4 3 # Bowel Movements 1 1 Height (Feet): 5 Height (Inches): 7.00 Weight (Pounds): 161 Objective GENERAL: Alert, awake, and oriented. HEENT: PERRLA. NECK: Range of motion is decreased due to the patient's clinical condition with tenderness of the paracervical muscles. No adenopathy. LUNGS: Decreased breath sounds bilaterally. HEART: S1 and S2 regular. ABDOMEN: Benign. BACK: Range of motion is decreased in flexion and extension with tenderness to paraspinal muscles. No tenderness to trapezius or rhomboid muscles. EXTREMITIES: No cyanosis. No clubbing. No edema. NEUROLOGICAL EXAM: No changes. RAGINI TIMMONS Jul 27, 2016 08:17
[2016-07-27] MEDS: Docusate 100mg cap ORAL SCH ×3 (09:00→18:24)
[2016-07-27] MEDS: Lactulose 10gm/15ml UDC ORAL SCH ×3 (09:00→18:00)
[2016-07-27] MEDS: Lyrica 50mg cap ORAL SCH ×3 (09:00→18:00)
[2016-07-27] MEDS: Heparin 5000 units/ml inj SUBQ SCH ×2 (09:00→21:00)
[2016-07-27 12:35] VITALS: BP 102/65
--- NOTE | 2016-07-27 13:07 | GI Progress Note ---
Assessment/Plan Problems: (1) GERD (gastroesophageal reflux disease) ICD Codes: K21.9 - Gastro-esophageal reflux disease without esophagitis SNOMED: 448017074 (2) Anxiety ICD Codes: F41.9 - Anxiety disorder, unspecified SNOMED: 74131712 (3) Constipation ICD Codes: K59.00 - Constipation, unspecified SNOMED: 49910959 (4) Fecal impaction in rectum ICD Codes: K56.41 - Fecal impaction SNOMED: 24522372 Status: unchanged Status Narrative Discussed with Dr. Choudhury. Assessment/Plan KUB >> mild rectal fecal impaction. Abundant gas in nondilated large and small bowel loops refusing all GI care refusing lab draws 07/20/16 - BM x 1 small reported 07/27/16 - BM x 1 extra large symptomatic treatment high fiber diet + prune juice, tolerating bowel regime >> colace + miralax + lactulose >> refused H2 fu labs dc planning per primary team Subjective Subjective generalized body pain weakness "fluid in spine" denies abdominal pain no BM since admission x 2-3 months. refuses any laxatives wants to see spine doctor Objective Last 24 Hour Vital Signs Date Time Temp Pulse Resp B/P Pulse Ox O2 Delivery O2 Flow Rate FiO2 07/27/16 12:35 97.7 70 20 102/65 95 Room Air 07/27/16 08:15 97.3 86 20 94/55 95 Room Air 07/27/16 04:00 98.1 96 20 116/68 98 Room Air 07/27/16 00:00 98.4 92 20 100/65 98 Room Air 07/26/16 20:00 97.7 82 20 113/70 07/26/16 16:00 97.7 89 20 108/68 95 Intake and Output 07/26/16 07/27/16 19:00 07:00 Intake Total 720 ml 550 ml Balance 720 ml 550 ml Intake Oral 720 ml 550 ml # Voids 4 3 # Bowel Movements 1 1 Height (Feet): 5 Height (Inches): 7.00 Weight (Pounds): 161 General Appearance: no apparent distress, alert, overweight Cardiovascular: normal rate Respiratory/Chest: normal breath sounds, no respiratory distress Abdominal Exam: normal bowel sounds, non tender, soft Objective Procedure: XRAY Abdomen 1v Indication: Abdominal distention Impression: Mild distention of the rectum, slightly increased from prior study of May 2016, may indicate mild rectal fecal impaction Abundant gas in nondilated large and small bowel loops 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 Jul 27, 2016 13:07
--- NOTE | 2016-07-27 15:18 | Pulmonology Progress Note ---
Assessment/Plan Problems: (1) Intractable pain (2) Seizure disorder (3) Parkinson disease (4) Psychiatric disorder (5) Paraplegia (6) Limited mobility (7) Depression Assessment/Plan f/u neuro and pain management recommendation all reviewed dc planning in progress Subjective ROS Limited/Unobtainable: No Allergies: Coded Allergies: No Known Allergies (Unverified , 02/18/16) Objective Last 24 Hour Vital Signs Date Time Temp Pulse Resp B/P Pulse Ox O2 Delivery O2 Flow Rate FiO2 07/27/16 12:35 97.7 70 20 102/65 95 Room Air 07/27/16 08:15 97.3 86 20 94/55 95 Room Air 07/27/16 04:00 98.1 96 20 116/68 98 Room Air 07/27/16 00:00 98.4 92 20 100/65 98 Room Air 07/26/16 20:00 97.7 82 20 113/70 07/26/16 16:00 97.7 89 20 108/68 95 Intake and Output 07/26/16 07/27/16 19:00 07:00 Intake Total 720 ml 550 ml Balance 720 ml 550 ml Intake Oral 720 ml 550 ml # Voids 4 3 # Bowel Movements 1 1 Objective Objective General Appearance: WD/WN, no apparent distress, alert EENT: PERRL/EOMI, normal ENT inspection, TMs normal, hair lose. Neck: non-tender, normal alignment, supple, normal inspection Cardiovascular: normal peripheral pulses, normal rate, regular rhythm, no murmur. 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 Skin: normal pigmentation, warm/dry Current Medications Medications (Trade) Dose Ordered Sig/Bushra Route PRN Reason Start Time Stop Time Status Last Admin Dose Admin Acetaminophen (Tylenol) 650 mg Q4H PRN ORAL T>100.5 07/11/16 08:14 08/04/16 05:29 Acetaminophen/ Hydrocodone Bitart ([place] 10/325) 1 ea Q4H PRN ORAL Moderate Pain (Pain Scale 4-6) 07/25/16 10:00 07/31/16 09:59 Al Hydroxide/Mg Hydroxide (Mylanta II) 30 ml Q6H PRN ORAL dyspepsia 07/05/16 05:30 08/04/16 05:29 Baclofen (Lioresal) 10 mg THREE TIMES A DAY ORAL 07/05/16 18:00 08/04/16 17:59 07/26/16 18:34 Dextrose (Dextrose 50%) STAT PRN IV Hypoglycemia 07/05/16 05:30 08/04/16 05:29 Docusate Sodium (Colace) 100 mg THREE TIMES A DAY ORAL 07/14/16 18:00 08/13/16 17:59 07/26/16 18:34 Duloxetine HCl (Cymbalta) 60 mg DAILY ORAL 07/07/16 09:00 08/06/16 08:59 07/09/16 09:21 Heparin Sodium (Porcine) (Heparin 5000 units/ml) 5,000 units EVERY 12 HOURS SUBQ 07/05/16 09:00 08/04/16 08:59 07/26/16 08:31 Lactulose (Cephulac) 10 gm THREE TIMES A DAY ORAL 07/16/16 13:00 08/15/16 12:59 07/26/16 13:03 Levetiracetam (Keppra) 500 mg Q12HR ORAL 07/05/16 09:00 08/04/16 08:59 07/09/16 09:21 Morphine Sulfate (Morphine Sulfate) 6 mg Q3H PRN IVP Severe Pain (Pain Scale 7-10) 07/27/16 09:00 08/03/16 08:59 07/27/16 13:22 Ondansetron HCl (Zofran) 4 mg Q6H PRN IVP Nausea & Vomiting 07/05/16 05:30 08/04/16 05:29 07/27/16 08:27 Polyethylene Glycol (Miralax) 17 gm BEDTIME ORAL 07/14/16 21:00 08/13/16 20:59 Polyethylene Glycol (Miralax) 17 gm HSPRN PRN ORAL Constipation 07/05/16 05:30 08/04/16 05:29 Pregabalin (Lyrica) 100 mg THREE TIMES A DAY ORAL 07/05/16 09:00 08/04/16 08:59 Risperidone (RisperDAL) 1 mg BEDTIME ORAL 07/12/16 21:00 08/11/16 20:59 Zolpidem Tartrate (Ambien) 5 mg BEDTIME PRN ORAL Insomnia 07/05/16 05:30 08/04/16 05:29 07/27/16 00:44 JAHAIRA PERRY Jul 27, 2016 15:18
[2016-07-27 16:00] VITALS: BP 95/59
[2016-07-27 19:00] VITALS: BP 100/62
[2016-07-27] MEDS: Miralax 17gm pkt ORAL SCH (21:00)
[2016-07-28] VITALS: BP 111/70
[2016-07-28] MEDS: Zolpidem 5mg tab ORAL PRN (00:42)
[2016-07-28] MEDS: Morphine Sulfate 10mg/ml Inj IVP PRN ×3 (05:55→12:33)
--- NOTE | 2016-07-28 08:22 | General Progress Note ---
Assessment/Plan Assessment/Plan (1) H/O Brain Tumor (2) Thalmic pain syndrome (3) Parkinson Disease (4) Intractable pain The patient will be continued on morphine and [place]. The patient was discussed with Dr. Daniels and Dr. Daniels concurred. Subjective Date patient seen: Jul 28, 2016 Time patient seen: 07:00 - am Allergies: Coded Allergies: No Known Allergies (Unverified , 02/18/16) Subjective REVIEW OF SYSTEMS: Denies rash, fever, chills, sweating, dizziness, drowsiness, blurred vision, sore throat, or change in weight. No shortness of breath or chest pain. No bowel or bladder incontinence. No dysuria. She is complaining of generalized body pain. SUBJECTIVE: Pain has been unchanged and tolerated on the morphine. Objective Last 24 Hour Vital Signs Date Time Temp Pulse Resp B/P Pulse Ox O2 Delivery O2 Flow Rate FiO2 07/28/16 00:00 97.9 63 20 111/70 94 Room Air 07/27/16 19:00 97.9 79 18 100/62 94 Room Air 07/27/16 16:00 97.3 63 18 95/59 94 Room Air 07/27/16 12:35 97.7 70 20 102/65 95 Room Air Intake and Output 07/27/16 07/28/16 18:59 06:59 Intake Total 720 ml 540 ml Balance 720 ml 540 ml Intake Oral 720 ml 540 ml # Voids 3 8 # Bowel Movements 1 Height (Feet): 5 Height (Inches): 7.00 Weight (Pounds): 161 Objective GENERAL: Alert, awake, and oriented. HEENT: PERRLA. NECK: Range of motion is decreased due to the patient's clinical condition with tenderness of the paracervical muscles. No adenopathy. LUNGS: Decreased breath sounds bilaterally. HEART: S1 and S2 regular. ABDOMEN: Benign. BACK: Range of motion is decreased in flexion and extension with tenderness to paraspinal muscles. No tenderness to trapezius or rhomboid muscles. EXTREMITIES: No cyanosis. No clubbing. No edema. NEUROLOGICAL EXAM: No changes. RAGINI TIMMONS Jul 28, 2016 08:22
[2016-07-28] MEDS: Heparin 5000 units/ml inj SUBQ SCH (09:00)
[2016-07-28] MEDS: Lactulose 10gm/15ml UDC ORAL SCH ×2 (09:00→12:33)
[2016-07-28] MEDS: Docusate 100mg cap ORAL SCH ×2 (09:00→12:34)
[2016-07-28] MEDS: Lyrica 50mg cap ORAL SCH ×2 (09:00→12:34)
--- NOTE | 2016-07-28 10:18 | GI Progress Note ---
Assessment/Plan Problems: (1) GERD (gastroesophageal reflux disease) ICD Codes: K21.9 - Gastro-esophageal reflux disease without esophagitis SNOMED: 356550069 (2) Anxiety ICD Codes: F41.9 - Anxiety disorder, unspecified SNOMED: 99717845 (3) Constipation ICD Codes: K59.00 - Constipation, unspecified SNOMED: 93032639 (4) Fecal impaction in rectum ICD Codes: K56.41 - Fecal impaction SNOMED: 64182129 Status: unchanged Status Narrative Discussed with Dr. Choudhury. Assessment/Plan KUB >> mild rectal fecal impaction. Abundant gas in nondilated large and small bowel loops refusing all GI care refusing lab draws 07/20/16 - BM x 1 small reported 07/27/16 - BM x 1 extra large symptomatic treatment high fiber diet + prune juice bowel regime >> colace + miralax + lactulose >> refused H2 fu labs dc planning per primary team Subjective Subjective generalized body pain weakness "fluid in spine" denies abdominal pain no BM since admission x 2-3 months. refuses any laxatives wants to see spine doctor Objective Last 24 Hour Vital Signs Date Time Temp Pulse Resp B/P Pulse Ox O2 Delivery O2 Flow Rate FiO2 07/28/16 00:00 97.9 63 20 111/70 94 Room Air 07/27/16 19:00 97.9 79 18 100/62 94 Room Air 07/27/16 16:00 97.3 63 18 95/59 94 Room Air 07/27/16 12:35 97.7 70 20 102/65 95 Room Air Intake and Output 07/27/16 07/28/16 19:00 07:00 Intake Total 720 ml 540 ml Balance 720 ml 540 ml Intake Oral 720 ml 540 ml # Voids 3 8 # Bowel Movements 1 Height (Feet): 5 Height (Inches): 7.00 Weight (Pounds): 161 General Appearance: no apparent distress, alert Cardiovascular: normal rate Respiratory/Chest: normal breath sounds, no respiratory distress Abdominal Exam: normal bowel sounds, non tender, soft Objective Procedure: XRAY Abdomen 1v Indication: Abdominal distention Impression: Mild distention of the rectum, slightly increased from prior study of May 2016, may indicate mild rectal fecal impaction Abundant gas in nondilated large and small bowel loops 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 Jul 28, 2016 10:18
[2016-07-28 11:31] VITALS: BP 100/67
[2016-07-28] MEDS ORDERED: MORPHINE S10 MG/5 ML ORAL (13:23)
[2016-07-28] MEDS ORDERED: METHADONE HCL10 MG PO (13:24)
--- NOTE | 2016-07-29 21:02 | Discharge Summary ---
Discharge Summary Hospital Course Date of Admission Jul 05, 2016 at 00:08 Date of Discharge Jul 28, 2016 at 14:51 Admitting Diagnosis intractable pain HPI Kim Kamara is a 60 year old female who was admitted on Jul 05, 2016 at 00: 08 for Intractable Pain Hospital Course [id number] Discharge Discharge Disposition Patient was discharged to SNF/Subacute Facility(03) Discharge Diagnoses: Regina Solares NP Jul 29, 2016 21:02
--- NOTE | 2016-07-30 04:08 | Discharge Summary 2 SIG ---
DATE OF ADMISSION: 07/05/2016 DATE OF DISCHARGE: 07/28/2016 CONSULTANTS: 1. Abdiaziz Cleaning M.D. 2. Anjum Arechiga M.D. 3. Abdelrahman Chuodhury M.D. BRIEF HOSPITAL COURSE: The patient is a 60-year-old female with history of craniotomy, ventriculoperitoneal shunt, paraplegia, and Parkinson disease, [facility] resident, presented to ED complaining of diffuse body pain and burning sensation. She was given pain management. Dr. Daniels was consulted and the patient was given morphine and [place]. She was seen by neurologist, Dr. Cleaning. 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 Second opinion from Neurology was done. Also recommended neurosurgical evaluation for possible thoracic syringomyelia syringoma decompression Referral for neurosurgery was attempted, however was unsuccessful. She was given pain management. She was followed up by GI. KUB with findings of rectal impaction. She was given bowel regimen consisting of Colace, MiraLAX, and lactulose. She was eventually discharged to SNF. FINAL DIAGNOSES: 1. Intractable pain. 2. Seizure disorder. 3. Parkinson's disease. 4. Paraplegia. 5. Depression. 6. Psychiatric disorder. 7. Fecal impaction. 8. Constipation. 9. Anxiety 10. 10. Gastroesophageal reflux disease. 11. History of brain tumor. 12. Parkinson disease. 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 Acacia Rodriguez M.D. I have been assigned to dictate discharge summary on this account and I was not involved in the patient's management. Regina Solares N.P. DR: PRINCE JOB#: [id number] CC: YAYA
== END 2016-07-28 14:51 | DRG 42 ==
LOC: EDBD 18:55 → EMR 21:58 → EDBEDREQ 23:17 → 4E 23:55 → UNDOADMIN 23:55 → 4E 07-05 00:08 → EDBEDREQ 07-05 00:38 → EMR 07-05 00:52
DX: G95.0 Syringomyelia and syringobulbia (principal); G20 Parkinson's disease; L21.9 Seborrheic dermatitis, unspecified; G89.4 Chronic pain syndrome; G82.20 Paraplegia, unspecified; K59.00 Constipation, unspecified; Z98.2 Presence of cerebrospinal fluid drainage device; E66.9 Obesity, unspecified; Z68.25 Body mass index [BMI] 25.0-25.9, adult; F41.8 Other specified anxiety disorders; G89.0 Central pain syndrome; K21.9 Gastro-esophageal reflux disease without esophagitis
CPT/HCPCS: 36415; 74000; 80048; 80053; 80299; 82248; 82550; 82553; 84443; 84484; 85025; 93005; 94640; 94664; J2405; J7620